=== PATIENT | female | born 1935 | race Caucasian/White ===

== ENCOUNTER → 2017-06-15 | Day surgery (SDC) | payer MEDICARE, BC ==
--- NOTE | 2017-06-11 08:22 | MH ---
cc: XAVI PALAFOX DATE OF ADMISSION: 06/15/2017 ADMISSION DIAGNOSIS Cataract right eye. HISTORY OF PRESENT ILLNESS This 82-year-old white female is coming through [facility] for the purpose of a lens extraction of the right eye with intraocular lens implant under local anesthesia. She has noticed decreasing visual acuity interfering with her daily activities and elected to have the above procedure. Her best corrected visual acuity in room light is 20/40 +2 in the right eye and 20/30 -3 in the left. PAST MEDICAL HISTORY 1. History of osteoarthritis. 2. Bursitis in the left hip. 3. GERD. 4. COPD. 5. Recurrent previous bowel obstructions. 6. Scoliosis of the back. 7. Low hemoglobin. SURGICAL HISTORY 1. Hysterectomy. 2. Back surgery. 3. Left hand repair. 4. D&C. 5. Gallbladder surgery. 6. TIA. 7. Osteomosis. DAILY MEDICATIONS 1. Flovent. 2. Furosemide. 3. Spiriva. 4. Albuterol nebulizer. 5. Tylenol. 6. Lidocaine patch. 7. Prevacid. 8. Cod liver oil. 9. Vitamin E. 10. Calcium. 11. Hormone patch. 12. Benefiber. 13. Regina-Colace p.r.n. 14. Baby aspirin. ALLERGIES CODEINE. PENICILLIN. DEMEROL. ERYTHROMYCIN. DARVON. MORPHINE SULFATE. SOCIAL HISTORY She does not smoke and occasionally drinks wine, a couple glasses per week. FAMILY HISTORY Positive for mother and aunt with cataract and mother with traumatic glaucoma. REVIEW OF SYSTEMS HEAD: Patient has a history of mild to moderate headaches which happen occasionally. The patient denies dizziness or recent head injury. EARS: The patient denies hearing loss, ear pain, discharge or ringing in the ears. NOSE: Patient denies nasal discharge, obstruction or frequent colds. MOUTH AND THROAT: Patient denies soreness of the mouth or tongue, bleeding gums, trouble swallowing, changes in voice or sore throat. NECK: Patient denies neck pain or swelling. She has had some limitation of neck movement from cervical spine problems and had fractures of the neck. CARDIOPULMONARY SYSTEM: From her chronic obstructive pulmonary disease, she has some shortness of breath and sputum production, occasionally some chest pain or wheezing, palpitations and occasionally lightheaded. She denies chronic cough, hemoptysis or light-headedness. GI SYSTEM: She has had multiple surgeries in her abdomen for abdominal discomfort with bowel adhesions. The patient denies poor appetite, nausea, vomiting, abdominal pain, ulcers, hemorrhoids or change in bowel habits. SYSTEM: The patient denies urinary frequency, dysuria, change in urine color. NERVOUS SYSTEM: Patient denies convulsions, vertigo, stroke, numbness or weakness. PHYSICAL EXAMINATION VITAL SIGNS: Blood pressure 100/60, pulse 88, respirations 20. HEAD: Normocephalic, atraumatic. NOSE: Without rhinorrhea. THROAT: Clear. NECK: Supple. CHEST: Clear. HEART: Regular rhythm. ABDOMEN: Without tenderness. EXTREMITIES: With edema in the lower extremities. NEUROLOGIC: Within normal limits. MENTAL STATUS: Within normally within normal limits. EYE EXAMINATION The patient's best corrected visual acuity in room light is 20/40 +2 in the right eye and 20/30 -3 in the left. Visual patricia are full to confrontation testing. Extraocular muscle exam reveals full versions with esophoria at distance and near. Pupils are 2 mm equal, round and reactive to light without afferent defect. Anterior segment examination reveals nuclear sclerotic anterior and posterior cortical and posterior subcapsular cataract changes, greater in the right eye than the left. Intraocular pressures 14 in the right eye and 16 in the left by applanation tonometry. Dilated fundus exam revealed sharp disks with cup-to-disk ratio 0.35 in the right eye and 0.3 in the left. The macula is clear bilaterally. A posterior vitreous detachment is present bilaterally. IMPRESSION 1. Bilateral cataracts right greater than left. 2. Posterior vitreous detachment both eyes. PLAN The plan is for lens extraction of the right eye with intraocular lens implant under local anesthesia through [facility]. The patient has been cleared medically. She has been counseled as to the risks, benefits and alternatives and has elected to proceed. I feel that cataract surgery will improve the quality of life and activities of daily living in this patient. MD ROGELIO Veloz/ZAKI /11:31 AM /8:13 AM
[~2017-06-15] VITALS: Ht 157.5 cm; Wt 38.0 kg
[~2017-06-15] MED LIST: ACETAMINOPHEN 500 MG CPLT ONE; ACETYLCHOLINE CHL OPHT SOLN 1:100 2 ML VIAL ONE; ASPI81TA23 PO; BUTR5DIS T-DERMAL; CHLORHEXIDINE GLUCONATE 2 % 1 PACK (2 CLOTHS) TOPICAL PRN; EPINEPHrine HCL PF/SF (1:1000) 1 MG/ML AMP I-OCULAR ONE; ESTR1DIS2 T-DERMAL; FLUTI110I INH; HYALURONIDASE/LIDOCAINE/BUPIVACAINE 5 ML SYR SCH; IPRASOL INH; LACTATED RINGER'S 1000 ML IV PRN; LEVO50TA4 PO; LIDO1PAD52 TOPICAL; METO10TA PO; METOPROLOL TARTRATE 25 MG TAB PO PRN; PILOCARPINE HCL 2% OPHT SOLN 15 ML BTL ONE; POVIDONE IODINE 5% (ANTISEPSIS KIT) 4 APPLICATIONS EACH NARE PRN; PREV30CA36 PO; PROPARACAINE HCL 0.5% OPHT SOLN 15 ML BTL RIGHT EYE ONE; PROPOFOL 200 MG/20 ML AMP ONE; SODIUM CHLORID 0.9% 500 ML IV PRN; SPIRCAP INH; TETRACAINE 0.5% OPTH SOLN 4 ML BTL ONE; TOBRAMYCIN/DEXAMETHASONE OPTH OINT 3.5 GM TUBE ONE; TYLE325T PO; VISCOAT OPHT IRRIG SOLN 0.75 ML SYRINGE ONE; VITA20003 PO; VITATAB11 PO
[2017-06-15 08:30] VITALS: PULSE 80
[2017-06-15] MEDS: GATIFLOXACIN 0.5% OPHT SOLN 2.5 ML BTL RIGHT EYE SCH ×4 (08:39→08:48)
[2017-06-15] MEDS: DICLOFENAC SOD 0.1% OPHT SOLN 2.5 ML BTL RIGHT EYE SCH ×4 (08:39→08:48)
[2017-06-15] MEDS: PHENYLEPHRINE HCL 2.5% OPTH SOLN 2 ML BTL RIGHT EYE SCH ×4 (08:39→08:48)
[2017-06-15] MEDS: TROPICAMIDE 1% OPHT SOLN 15 ML BTL RIGHT EYE SCH ×4 (08:39→08:48)
[2017-06-15] MEDS: CYCLOPENTOLATE HCL 1% OPHT SOLN 2 ML BTL RIGHT EYE SCH ×4 (08:39→08:48)
[2017-06-15 09:15] VITALS: PULSE 67
[2017-06-15 13:10] VITALS: TEMP 98.2
[2017-06-15 13:45] VITALS: BP 113/66; PULSE 89; RESP 14; O2SAT 96
--- NOTE | 2017-06-15 15:27 | MH ---
cc: XAVI OHARA M.D. DATE OF ADMISSION: 06/15/2017 PREOPERATIVE DIAGNOSIS Cataract, right eye. POSTOPERATIVE DIAGNOSIS Cataract right eye. OPERATION Extracapsular cataract extraction with anterior chamber intraocular lens implant by phacoemulsification with anterior vitrectomy, right eye. SURGEON Xavi Ohaar M.D. ANESTHESIA Local. COMPLICATIONS Posterior capsule rupture. INDICATIONS See history and physical previously dictated. OPERATIVE PROCEDURE The patient had adequate retrobulbar and eyelid blocks administered in the holding area and was brought to the operating room. The right eye was prepped and draped in the usual sterile ophthalmic manner. A lid speculum was inserted in the right eye. A 4-0 silk bridle suture was placed through the conjunctiva near the superior rectus muscle and it was tacked to the drape. A fornix-based conjunctival flap was prepared spanning approximately 5 mm in width. Hemostasis was obtained with wet-field cautery. A 3.5 mm groove was made 1 mm from the limbus and dissected up to the limbus in the form of a scleral pocket incision. A stab incision was then made at the 2 o'clock position. Viscoelastic was injected into the anterior chamber. The anterior chamber was entered with a 2.75 mm keratome through the scleral pocket incision. A 360 degree continuous curvilinear capsulorrhexis was then performed. Hydrodissection was utilized to divide the nucleus into inner and outer components and to separate the cortex from the capsule. Phacoemulsification was then utilized to remove the nucleus. During removal of the nucleus a posterior capsular rupture was noticed. Much of the nucleus was still present. It was elected to perform an anterior vitrectomy at this time. A stab incision was made at the 10:30 o'clock position 3.5 mm from the limbus with a 23-gauge MVR blade for a pars plana approach to the vitrectomy. Then a two-port vitrectomy was performed with the irrigation through the sideport incision and the vitrectomy through the pars plana site. Removal of the rest of the lens material was then attempted of the anterior cataract site but some of the nuclear material found its way through the posterior capsular tear into the vitreous cavity. The rest of the cortex was removed manually. Viscoat was injected and additional vitrectomy was performed. Following this cleanup there did not appear to be enough capsular support for a posterior chamber lens so it was elected to utilize an anterior chamber lens in this case. Miochol E was injected to bring the pupil down in size. An 8-0 Vicryl suture closed the vitrectomy port site. Then a 6 mm keratome blade was used to enlarge the cataract incision from 2.75 to 6 mm. A peripheral iridectomy was performed superiorly. Then the anterior chamber lens was prepared for insertion. The lens utilized was a [employer] model [id number] with a power of +18.5 diopters. The lens was inserted across the anterior chamber and the haptics were placed in the angle. Then the proximal haptics were placed in the angle and the lens was rotated to a horizontal position. Additional Miochol E was instilled to bring the pupil down and the wound was closed with interrupted 10-0 nylon sutures. Some of the knots were buried on the corneal side. Then following checking the wound for leaks, and there were none, the conjunctiva was brought down over the wound and closed with cautery. Pilocarpine 2% eye drops were instilled topically. The lid speculum was removed. TobraDex ophthalmic ointment was applied. The eye was double-patched and shielded. The patient tolerated the procedure well and left the Operating Room in satisfactory condition. MD ROGELIO Veloz/MARILEE /2:41 PM /3:13 PM
== END | disposition home or self-care (01) ==
LOC: PHSDC 07:53
PROVIDERS: ATTEND Ophthalmology
DX: H25.811 Combined forms of age-related cataract, right eye (principal); H59.88 Other intraoperative complications of eye and adnexa, not elsewhere classified; H43.813 Vitreous degeneration, bilateral; J44.9 Chronic obstructive pulmonary disease, unspecified; K21.9 Gastro-esophageal reflux disease without esophagitis; M41.9 Scoliosis, unspecified; D64.9 Anemia, unspecified
CPT/HCPCS: 00142; 66984; 67005; J0171; J7040; V2630

== ENCOUNTER 2017-09-30 15:50 | Inpatient (IN) | payer MEDICARE, BC ==
[2017-09-30] VITALS (7 sets, daily range): BP systolic 110–132; BP diastolic 53–67; PULSE 108–119; RESP 16–20; TEMP 97.5–98.5; O2SAT 97–99
[~2017-09-30] VITALS: Ht 157.5 cm; Wt 42.8 kg
[~2017-09-30 15:50] MED LIST changes: -ACETAMINOPHEN 500 MG CPLT ONE; -ACETYLCHOLINE CHL OPHT SOLN 1:100 2 ML VIAL ONE; -BUTR5DIS T-DERMAL; -CHLORHEXIDINE GLUCONATE 2 % 1 PACK (2 CLOTHS) TOPICAL PRN; -EPINEPHrine HCL PF/SF (1:1000) 1 MG/ML AMP I-OCULAR ONE; -HYALURONIDASE/LIDOCAINE/BUPIVACAINE 5 ML SYR SCH; -LACTATED RINGER'S 1000 ML IV PRN; -METOPROLOL TARTRATE 25 MG TAB PO PRN; -PILOCARPINE HCL 2% OPHT SOLN 15 ML BTL ONE; -POVIDONE IODINE 5% (ANTISEPSIS KIT) 4 APPLICATIONS EACH NARE PRN; -PROPARACAINE HCL 0.5% OPHT SOLN 15 ML BTL RIGHT EYE ONE; -PROPOFOL 200 MG/20 ML AMP ONE; -SODIUM CHLORID 0.9% 500 ML IV PRN; -TETRACAINE 0.5% OPTH SOLN 4 ML BTL ONE; -TOBRAMYCIN/DEXAMETHASONE OPTH OINT 3.5 GM TUBE ONE; -VISCOAT OPHT IRRIG SOLN 0.75 ML SYRINGE ONE
[2017-09-30] MEDS ORDERED: SODIUM CHLORIDE 0.9% FLUSH 10 ML FLUSH IVF PRN (17:45)
[2017-09-30] MEDS ORDERED: methylPREDNISolone SOD SUCC 125 MG/2 ML VIAL IV PUSH ONE (17:45)
[2017-09-30] MEDS: RESP: ALBUTEROL 2.5 MG/IPRATROPIUM 0.5 MG NEB (SCH) INH ×2 (18:06→21:54)
[2017-09-30 18:37] LABS: CHLORIDE 98 MEQ/L (98-107); SODIUM (NA) 131 MEQ/L (136-145)
--- NOTE | 2017-09-30 18:37 | RADRPT ---
EXAM DATE/TIME: 09/30/2017 17:40 [place] COMPARISON: No previous studies available for comparison. INDICATIONS : Shortness of breath MEDICAL HISTORY : Chronic obstructive pulmonary disease. SURGICAL HISTORY : None. ENCOUNTER: Initial ACUITY: 1 month PAIN SCORE: 0/10 LOCATION: Bilateral chest FINDINGS: Prior studies are not available for comparison. Apical pleural calcifications and thickening. Interst itial prominence present lungs, probably mild fibrosis and postinflammatory changes. Heart size upper limits of normal in scoliosis with a left lateral listhesis of T12 on L1. CONCLUSION: 1. No focal infiltrate. Interstitial changes in the lungs that could represent some mild fibrosis or postinflammatory changes. Advanced degenerative change of the thoracolumbar junction with a left late ral listhesis of T12 on L1. Juan Buck MD on September 30, 2017 at 18:32 Board Certified Radiologist. This report was verified electronically.
[2017-09-30 18:40] LABS: CALCIUM 8.1 MG/DL (8.5-10.1)
[2017-09-30 18:41] LABS: BLOOD UREA NITROGEN 18 MG/DL (7-18); GLUCOSE,RANDOM 99 MG/DL (74-106)
[2017-09-30 18:44] LABS: CREATININE 0.51 MG/DL (0.50-1.00); GLOMERULAR FILTRATION RATE 116 ML/MIN (>89)
[2017-09-30 18:48] LABS: TROPONIN I LESS THAN 0.02 NG/ML (0.02-0.05)
--- NOTE | 2017-09-30 19:01 | PD ---
HPI Chief Complaint: Respiratory Distress Time Seen by Provider: 17:29 Travel History International Travel<30 days: No Contact w/Intl Traveler<30days: No Traveled to known affect area: No History of Present Illness HPI Patient's 82 years old and complains of shortness of breath. She has emphysema and reports chronic dyspnea however it has been worse lately. She reports recently finishing a couple courses of antibiotics for pneumonia evidently and despite that has not had significant improvement. She reports today walking about 100 feet or so becoming so dyspneic she had to stop. She's had no chest pain. She reports occasionally nebulizer treatments or helpful at home. She denies fever. PFSH Past Medical History Anemia: Yes Arthritis: Yes Asthma: Yes Autoimmune Disease: No Blood Disorders: Yes (ANEMIA) Anxiety: No Depression: No Heart Rhythm Problems: No Cancer: No Cardiovascular Problems: Yes (SOB;CP;PALPITATIONS (PVC'S)) High Cholesterol: No Chemotherapy: No Chest Pain: No Congestive Heart Failure: No COPD: Yes Cerebrovascular Accident: No Diabetes: No Diminished Hearing: No Diverticulitis: Yes Endocrine: Yes Gastrointestinal Disorders: Yes (SMALL BOWEL OBSTRUCTIONS) GERD: Yes Glaucoma: No Genitourinary: No Headaches: No Hepatitis: No Hiatal Hernia: No Hypertension: No Immune Disorder: No Kidney Stones: No Musculoskeletal: Yes (SCOLIOSIS;OSTEOARTHRITIS;BURSITIS LEFT HIP) Neurologic: Yes (TIA) Psychiatric: No Reproductive: No Respiratory: Yes Immunizations Current: Yes Migraines: No Myocardial Infarction: No Pneumonia: Yes Radiation Therapy: No Renal Failure: No Seizures: No Sickle Cell Disease: No Sleep Apnea: No Thyroid Disease: Yes (HYPO) Ulcer: No PNEUMOCCOCAL Vaccine (Year): 2007 Menopausal: Yes : 2 Para: 2 Past Surgical History Abdominal Surgery: Yes (BOWEL RESECTION, ODILON;CHOLECYSTECTOMY) AICD: No Appendectomy: No Arteriovenous Shunt: No Body Medical Devices: SCREW L INDEX FINGER / PLATE IN CERVICAL SPINE Cardiac Surgery: No Cholecystectomy: Yes Ear Surgery: No Endocrine Surgery: No Eye Surgery: No Genitourinary Surgery: No Gynecologic Surgery: Yes (HYSTERECTOMY;D AND C) Hysterectomy: Yes Insulin Pump: No Joint Replacement: No Oral Surgery: Yes Pacemaker: No Thoracic Surgery: No Tonsillectomy: Yes Other Surgery: Yes (5 SURGERIES) Social History Alcohol Use: Yes (OCC) Tobacco Use: No Substance Use: No Allergies-Medications (Allergen,Severity, Reaction): Coded Allergies: codeine (Unverified Allergy, Severe, NAUSEA,VOMITING, 09/30/17) doxycycline (Unverified Allergy, Severe, RASH, 09/30/17) erythromycin base (Unverified Allergy, Severe, RASH AND NAUSEA, 09/30/17) meperidine (Unverified Allergy, Severe, RASH,HALLUCINATIONS,NAUSEA, VOMITING, 09/30/17) minocycline (Unverified Allergy, Severe, RASH, 09/30/17) morphine (Unverified Allergy, Severe, SEVERE ITCHING, 09/30/17) tigecycline (Unverified Allergy, Severe, RASH, 09/30/17) penicillin G (Unverified Allergy, Mild, RASH, 09/30/17) propoxyphene (Unverified Allergy, Mild, RASH, 09/30/17) Reported Meds & Prescriptions Reported Meds & Active Scripts Active Reported Lasix (Furosemide) 20 Mg Tab 20 Mg PO DAILY Tylenol (Acetaminophen) 325 Mg Tab 325 Mg PO ONCE Vitamin B Complex (B-Complex Vitamins) 1 Tab PO DAILY Vitamin D (Cholecalciferol) 2,000 Unit Tab 1,000 Mg PO DAILY Duoneb (Ipratropium-Albuterol Neb) 0.5-2.5 Mg/3 Ml Neb 1 Nebule INH BID Levothyroxine (Levothyroxine Sodium) 50 Mcg Tab 50 Mcg PO DAILY Lidocaine Patch 12 HR (Lidocaine) 5 % Patch 1 Patch TOPICAL DAILY PRN Remove patch after 12 hours Estradiol Patch 84 HR (Estradiol) 0.1 Mg/24 Hr Patch 1 Patch T-DERMAL 2XWEEK Remove old patch and discard when new patch being placed.Change same days each week. Flovent Hfa 12 GM Inh (Fluticasone Propionate) 110 Mcg/Act Inh 1 Puff INH DAILY Prevacid (Lansoprazole) 30 Mg Capdr 30 Mg PO DAILY Spiriva Handihaler (Tiotropium Inh) 18 Mcg Cap 18 Mcg INH DAILY 1 capsule = 18 mcg Aspirin EC (Aspirin) 81 Mg Tabdr 81 Mg PO DAILY Review of Systems Except as stated in HPI: all other systems reviewed are Neg General / Constitutional: No: Fever Physical Exam Narrative GENERAL: 82-year-old female pleasant well-nourished well-developed Vital Signs Date Time Temp Pulse Resp B/P (MAP) Pulse Ox O2 Delivery O2 Flow Rate FiO2 09/30/17 18:08 98 Nasal Cannula 2.00 09/30/17 17:35 96 Nasal Cannula 2.00 09/30/17 17:35 Nasal Cannula 09/30/17 17:35 95 Nasal Cannula 2.00 09/30/17 16:41 98.5 108 16 112/63 (79) 97 SKIN: Warm and dry. HEAD: Atraumatic. Normocephalic. EYES: Pupils equal and round. No scleral icterus. No injection or drainage. ENT: No nasal bleeding or discharge. Mucous membranes pink and moist. NECK: Trachea midline. No JVD. CARDIOVASCULAR: Tachycardia. Regular rhythm. RESPIRATORY: No accessory muscle use. Clear to auscultation. Breath sounds equal bilaterally. GASTROINTESTINAL: Abdomen soft, non-tender, nondistended. Hepatic and splenic margins not palpable. MUSCULOSKELETAL: Extremities without clubbing, cyanosis, or edema. No obvious deformities. NEUROLOGICAL: Awake and alert. No obvious cranial nerve deficits. Motor grossly within normal limits. Five out of 5 muscle strength in the arms and legs. Normal speech. PSYCHIATRIC: Appropriate mood and affect; insight and judgment normal. Data Data Last Documented VS Vital Signs Date Time Temp Pulse Resp B/P (MAP) Pulse Ox O2 Delivery O2 Flow Rate FiO2 09/30/17 19:00 118 20 122/53 (76) 97 2.00 09/30/17 18:08 Nasal Cannula 09/30/17 16:41 98.5 Orders Orders Complete Blood Count With Diff (09/30/17 17:35) Basic Metabolic Panel (Bmp) (09/30/17 17:35) B-Type Natriuretic Peptide (09/30/17 17:35) D-Dimer (09/30/17 17:35) Act Partial Throm Time (Ptt) (09/30/17 17:35) Prothrombin Time / Inr (Pt) (09/30/17 17:35) Ckmb (Isoenzyme) Profile (09/30/17 17:35) Troponin I (09/30/17 17:35) Urinalysis - C+S If Indicated (09/30/17 17:35) Influenzae A/B Antigen (09/30/17 17:35) Blood Culture (09/30/17 17:35) Iv Access Insert/Monitor (09/30/17 17:35) Electrocardiogram (09/30/17 17:35) Ecg Monitoring (09/30/17 17:35) Oximetry (09/30/17 17:35) Oxygen Administration (09/30/17 17:35) Chest, Single Ap (09/30/17 17:35) Sodium Chloride 0.9% Flush (Ns Flush) (09/30/17 17:45) Methylprednisolone So Succ Inj (Solumedr (09/30/17 17:45) Albuterol-Ipratropium Neb (Duoneb Neb) (09/30/17 17:45) Admit Order (Ed Use Only) (09/30/17 ) Right Of Way Appraiser / Telemetry LIDIA.Q8H (09/30/17 19:32) Activity Oob With Assistance (09/30/17 19:32) Notify Dr: Other (09/30/17 19:32) Ct Pulmonary Angiogram (09/30/17 ) Labs Laboratory Tests Test 09/30/17 18:06 09/30/17 19:10 Prothrombin Time 10.5 SEC Prothromb Time International Ratio 1.0 RATIO Activated Partial Thromboplast Time 26.1 SEC D-Dimer Quantitative (PE/DVT) 0.94 MG/L FEU Blood Urea Nitrogen 18 MG/DL Creatinine 0.51 MG/DL Random Glucose 99 MG/DL Calcium Level 8.1 MG/DL Sodium Level 131 MEQ/L Potassium Level 3.8 MEQ/L Chloride Level 98 MEQ/L Carbon Dioxide Level 24.0 MEQ/L Anion Gap 9 MEQ/L Estimat Glomerular Filtration Rate 116 ML/MIN Total Creatine Kinase 27 U/L Troponin I LESS THAN 0.02 NG/ML B-Type Natriuretic Peptide 105 PG/ML White Blood Count 12.9 TH/MM3 Red Blood Count 3.84 MIL/MM3 Hemoglobin 11.9 GM/DL Hematocrit 36.2 % Mean Corpuscular Volume 94.5 FL Mean Corpuscular Hemoglobin 31.1 PG Mean Corpuscular Hemoglobin Concent 32.9 % Red Cell Distribution Width 13.4 % Platelet Count 346 TH/MM3 Mean Platelet Volume 6.6 FL Neutrophils (%) (Auto) 77.9 % Lymphocytes (%) (Auto) 13.1 % Monocytes (%) (Auto) 8.1 % Eosinophils (%) (Auto) 0.2 % Basophils (%) (Auto) 0.7 % Neutrophils # (Auto) 10.1 TH/MM3 Lymphocytes # (Auto) 1.7 TH/MM3 Monocytes # (Auto) 1.0 TH/MM3 Eosinophils # (Auto) 0.0 TH/MM3 Basophils # (Auto) 0.1 TH/MM3 CBC Comment AUTO DIFF Differential Comment AUTO DIFF CONFIRMED MDM Medical Decision Making Medical Screen Exam Complete: Yes Emergency Medical Condition: Yes Medical Record Reviewed: Yes Differential Diagnosis COPD, pneumonia, bronchitis, anemia, Narrative Course EKG shows a sinus rhythm with a rate of 93 without ischemic injury pattern Vital Signs Date Time Temp Pulse Resp B/P (MAP) Pulse Ox O2 Delivery O2 Flow Rate FiO2 09/30/17 19:00 118 20 122/53 (76) 97 2.00 09/30/17 18:08 98 Nasal Cannula 2.00 09/30/17 17:35 96 Nasal Cannula 2.00 09/30/17 17:35 Nasal Cannula 09/30/17 17:35 95 Nasal Cannula 2.00 09/30/17 16:41 98.5 108 16 112/63 (79) 97 Last Impressions Chest X-Ray 09/30/17 1735 Signed Impressions: Service Date/Time: Saturday, September 30, 2017 17:40 - CONCLUSION: 1. No focal infiltrate. Interstitial changes in the lungs that could represent some mild fibrosis or postinflammatory changes. Advanced degenerative change of the thoracolumbar junction with a left lateral listhesis of T12 on L1. Juan Buck MD CT Angiography 09/30/17 0000 Signed Impressions: Service Date/Time: Saturday, September 30, 2017 21:33 - CONCLUSION: 1. Patchy and nodular airspace consolidation in the lungs with extensive peribronchial thickening, mild cylindrical bronchiectasis and distal airway disease. Differential diagnosis is atypical mycobacterial disease and chronic aspiration. 2. Negative for pulmonary embolus. Juan Buck MD d/w Dr Jordan at 7:00pm to follow up labs and disposition appropriately Arron Galaviz MD Sep 30, 2017 19:00
[2017-09-30 19:05] LABS: D-DIMER 0.94 MG/L FEU (0.00-0.50); PROTHROMBIN TIME - PATIENT 10.5 SEC (9.8-11.6)
--- NOTE | 2017-09-30 19:20 | PD ---
Physical Exam Date Seen by Provider: Sep 30, 2017 Time Seen by Provider: 19:20 Narrative Accepted in transfer of care from Dr. Galaviz Data Data Last Documented VS Vital Signs Date Time Temp Pulse Resp B/P (MAP) Pulse Ox O2 Delivery O2 Flow Rate FiO2 09/30/17 18:08 98 Nasal Cannula 2.00 09/30/17 16:41 98.5 108 16 112/63 (79) Orders Orders Complete Blood Count With Diff (09/30/17 17:35) Basic Metabolic Panel (Bmp) (09/30/17 17:35) B-Type Natriuretic Peptide (09/30/17 17:35) D-Dimer (09/30/17 17:35) Act Partial Throm Time (Ptt) (09/30/17 17:35) Prothrombin Time / Inr (Pt) (09/30/17 17:35) Ckmb (Isoenzyme) Profile (09/30/17 17:35) Troponin I (09/30/17 17:35) Urinalysis - C+S If Indicated (09/30/17 17:35) Influenzae A/B Antigen (09/30/17 17:35) Blood Culture (09/30/17 17:35) Iv Access Insert/Monitor (09/30/17 17:35) Electrocardiogram (09/30/17 17:35) Ecg Monitoring (09/30/17 17:35) Oximetry (09/30/17 17:35) Oxygen Administration (09/30/17 17:35) Chest, Single Ap (09/30/17 17:35) Sodium Chloride 0.9% Flush (Ns Flush) (09/30/17 17:45) Methylprednisolone So Succ Inj (Solumedr (09/30/17 17:45) Albuterol-Ipratropium Neb (Duoneb Neb) (09/30/17 17:45) Admit Order (Ed Use Only) (09/30/17 ) Drop Wire Hanger / Telemetry LIDIA.Q8H (09/30/17 19:32) Activity Oob With Assistance (09/30/17 19:32) Notify Dr: Other (09/30/17 19:32) Ct Pulmonary Angiogram (09/30/17 ) Labs Laboratory Tests Test 09/30/17 18:06 09/30/17 19:10 Prothrombin Time 10.5 SEC Prothromb Time International Ratio 1.0 RATIO Activated Partial Thromboplast Time 26.1 SEC D-Dimer Quantitative (PE/DVT) 0.94 MG/L FEU Blood Urea Nitrogen 18 MG/DL Creatinine 0.51 MG/DL Random Glucose 99 MG/DL Calcium Level 8.1 MG/DL Sodium Level 131 MEQ/L Potassium Level 3.8 MEQ/L Chloride Level 98 MEQ/L Carbon Dioxide Level 24.0 MEQ/L Anion Gap 9 MEQ/L Estimat Glomerular Filtration Rate 116 ML/MIN Total Creatine Kinase 27 U/L Troponin I LESS THAN 0.02 NG/ML B-Type Natriuretic Peptide 105 PG/ML White Blood Count 12.9 TH/MM3 Red Blood Count 3.84 MIL/MM3 Hemoglobin 11.9 GM/DL Hematocrit 36.2 % Mean Corpuscular Volume 94.5 FL Mean Corpuscular Hemoglobin 31.1 PG Mean Corpuscular Hemoglobin Concent 32.9 % Red Cell Distribution Width 13.4 % Platelet Count 346 TH/MM3 Mean Platelet Volume 6.6 FL Neutrophils (%) (Auto) 77.9 % Lymphocytes (%) (Auto) 13.1 % Monocytes (%) (Auto) 8.1 % Eosinophils (%) (Auto) 0.2 % Basophils (%) (Auto) 0.7 % Neutrophils # (Auto) 10.1 TH/MM3 Lymphocytes # (Auto) 1.7 TH/MM3 Monocytes # (Auto) 1.0 TH/MM3 Eosinophils # (Auto) 0.0 TH/MM3 Basophils # (Auto) 0.1 TH/MM3 CBC Comment AUTO DIFF MDM Medical Record Reviewed: Yes Supervised Visit with SANDIP: No Interpretation(s) influenza: (A+) D-dimer: 0.92, elevated Last Impressions Chest X-Ray 09/30/17 7084 Signed Impressions: Service Date/Time: Saturday, September 30, 2017 17:40 - CONCLUSION: 1. No focal infiltrate. Interstitial changes in the lungs that could represent some mild fibrosis or postinflammatory changes. Advanced degenerative change of the thoracolumbar junction with a left lateral listhesis of T12 on L1. Juan Buck MD CBC & BMP Diagram 09/30/17 18:06 Calcium Level 8.1 L 09/30/17 19:10 Vital Signs Date Time Temp Pulse Resp B/P (MAP) Pulse Ox O2 Delivery O2 Flow Rate FiO2 09/30/17 18:08 98 Nasal Cannula 2.00 09/30/17 17:35 96 Nasal Cannula 2.00 09/30/17 17:35 Nasal Cannula 09/30/17 17:35 95 Nasal Cannula 2.00 09/30/17 16:41 98.5 108 16 112/63 (79) 97 ekg: sinus rhythm rate 93 right ventricular conduction delay no ST elevation nonspecific ST depression troponin i: less than 0.02, not elevated Differential Diagnosis Accepted in transfer of care from Dr. Galaviz; please refer to his dictation Narrative Course Accepted in transfer of care from Dr. Galaviz for follow up on labs and disposition Patient identified to have elevated d-dimer of 0.92, will proceed with CT pulmonary angiogram to evaluate for embolism in view of patient's chronic COPD and bronchiectatic changes with worsening dyspnea beyond her baseline. Influenza A positive Dr. Frye is at bedside and will accept patient for admission to his service will place on telemetry is aware that CT pulmonary injury gram has been ordered. Patient with family at bedside aware of admission plan. Physician Communication Physician Communication discussed with Dr Fyre at bedside Diagnosis Primary Impression: Dyspnea Additional Impression: COPD (chronic obstructive pulmonary disease) Admitting Information Admitting Physician Requests: Admit Claudia Jordan MD Sep 30, 2017 19:20
[2017-09-30 19:32] LABS: AUTOMATED NEUTROPHIL # 10.1 TH/MM3 (1.8-7.7); BASOPHIL # 0.1 TH/MM3 (0-0.2); BASOPHIL % 0.7 % (0.0-2.0); EOSINOPHIL % 0.2 % (0.0-4.0); HEMATOCRIT 36.2 % (35.0-46.0); HEMOGLOBIN 11.9 GM/DL (11.6-15.3); LYMPH % 13.1 % (9.0-44.0); LYMPHOCYTE # 1.7 TH/MM3 (1.0-4.8); MEAN CELL VOLUME 94.5 FL (80.0-100.0); MEAN CORPUSCULAR HEMOGLOBIN 31.1 PG (27.0-34.0); MEAN CORPUSCULAR HGB CONC 32.9 % (32.0-36.0); MEAN PLATELET VOLUME 6.6 FL (7.0-11.0); MONO % 8.1 % (0.0-8.0); NEUT % 77.9 % (16.0-70.0); PLATELET COUNT 346 TH/MM3 (150-450); RED BLOOD COUNT 3.84 MIL/MM3 (4.00-5.30); RED CELL DISTRIBUTION WIDTH 13.4 % (11.6-17.2); WHITE BLOOD COUNT 12.9 TH/MM3 (4.0-11.0)
[2017-09-30] MEDS ORDERED: FURO1TAB62 PO (19:35)
[2017-09-30] MEDS ORDERED: RESP: ALBUTEROL 2.5 MG/3 ML NEB (PRN) INH (19:45)
[2017-09-30] MEDS ORDERED: SODIUM CHLORIDE 0.9% FLUSH 10 ML FLUSH IV FLUSH PRN (19:45)
[2017-09-30] MEDS ORDERED: SODIUM CHLOR 0.9% 1000 ML INJ 1,000 ML IV SCH (20:00)
[2017-09-30] MEDS: ENOXAPARIN SODIUM 30 MG/0.3 ML SYRINGE SQ SCH (20:50)
[2017-09-30] MEDS: cefTAZidime 1,000 MG/NS 100 ML MINIBAG IV SCH ×2 (20:51)
[2017-09-30] MEDS: AZITHROMYCIN INJ 500 MG in SODIUM CHLOR 0.9% 250 ML INJ 250 ML IV SCH (20:52)
[2017-09-30] MEDS: SODIUM CHLORIDE 0.9% FLUSH 10 ML FLUSH IV FLUSH SCH (21:00)
[2017-09-30 21:10] LABS: BILIRUBIN, URINE NEG (NEG); BLOOD, URINE TRACE (NEG); GLUCOSE,URINE NEG (NEG); KETONE, URINE TRACE mg/dL (NEG); NITRITE,URINE NEG (NEG); URINE COLOR YELLOW (YELLW/STRAW); URINE LEUKOCYTE ESTERASE TRACE (NEG)
[2017-09-30 21:22] LABS: BACTERIA, URINE FEW /hpf; RBC, URINE 0-3 /hpf (0-3); SQUAMOUS EPITHELIAL CELL URINE > 8 /hpf (0-5); WBC, URINE 0-2 /hpf (0-5)
[2017-09-30] MEDS ORDERED: IOHEXOL 350 MG/ML 10 ML VIAL (for RAD DIAG) IVCONTRAST ONE (21:46)
--- NOTE | 2017-09-30 21:46 | EKG ---
Date Performed: 09/30/2017 Time Performed: 18:14:41 PTAGE: 82 years EKG: Sinus rhythm WITH OCCASIONAL Premature ventricular contractions POSSIBLE LEFT ATRIAL ENLARGEMENT POSSIBLE RIGHT V ENTRICULAR CONDUCTION DELAY ABNORMAL ECG PREVIOUS TRACompared to prior electrocardiogram, Premature v entricular contractions are now present CIN09/08/2013 00.56 DOCTOR: Yaya Juarez Interpretating Date/Time 09/30/2017 21:44:00
--- NOTE | 2017-09-30 22:27 | RADRPT ---
EXAM DATE/TIME: 09/30/2017 21:33 [place] COMPARISON: No previous studies available for comparison. INDICATIONS : Cough, shortness of breath. IV CONTRAST: 65 cc Omnipaque 350 (iohexol) IV RADIATION DOSE: 5.86 CTDIvol (mGy) MEDICAL HISTORY : Chronic obstructive pulmonary disease. Asthma. SURGICAL HISTORY : None. ENCOUNTER: Initial ACUITY: 2 months PAIN SCALE: 0/10 LOCATION: chest TECHNIQUE: Volumetric scanning of the chest was performed using a pulmonary embolism protocol MIP images were re constructed. Using automated exposure control and adjustment of the mA and/or kV according to patien t size, radiation dose was kept as low as reasonably achievable to obtain optimal diagnostic quality images. DICOM format image data is available electronically for review and comparison. Follow-up recommendations for detected pulmonary nodules are based at a minimum on nodule size and pa tient risk factors according to Fleischner Society Guidelines. FINDINGS: No filling defects to suggest pulmonary embolic disease. There is patchy and nodular airspace consolidation in both lungs, worse on the right side associated with peribronchial thickening, cylindrical bronchiectasis and extensive mucoid plugging of the subseg mental airways and distal airways with tree-in-bud pattern and mildly enlarged hilar lymph nodes. Sma ll pericardial effusion. No significant pleural effusion. No acute findings in the upper abdomen. CONCLUSION: 1. Patchy and nodular airspace consolidation in the lungs with extensive peribronchial thickening, mi ld cylindrical bronchiectasis and distal airway disease. Differential diagnosis is atypical mycobacte rial disease and chronic aspiration. 2. Negative for pulmonary embolus. Juan Buck MD on September 30, 2017 at 22:20 Board Certified Radiologist. This report was verified electronically.
[2017-09-30] MEDS: methylPREDNISolone SOD SUCC 125 MG/2 ML VIAL IV PUSH SCH (23:50)
[2017-10-01] VITALS (9 sets, daily range): BP systolic 122–137; BP diastolic 59–65; PULSE 92–116; RESP 20; TEMP 96.3–97.8; O2SAT 94–99
[2017-10-01] MEDS: RESP: ALBUTEROL 2.5 MG/IPRATROPIUM 0.5 MG NEB (SCH) INH ×4 (03:35→20:57)
[2017-10-01] MEDS: LEVOTHYROXINE SODIUM 50 MCG TAB PO SCH (06:07)
[2017-10-01] MEDS: methylPREDNISolone SOD SUCC 125 MG/2 ML VIAL IV PUSH SCH ×4 (06:07→23:14)
--- NOTE | 2017-10-01 09:05 | HHI.PR ---
Subjective Remarks Still complains of shortness of breath. Oxygen in place. Oxygen saturations good with current oxygen settings. Cough has decreased. Patient has been up to bedside commode. Appetite is slightly better this morning. Current Medications Medications (Trade) Dose Ordered Sig/Eboni Route Start Time Stop Time Status Last Admin (NS Flush) 2 ml UNSCH PRN IVF 09/30/17 17:45 09/30/17 18:25 Sodium Chloride 1,000 ml @ 75 mls/hr [id number] IV 09/30/17 20:00 09/30/17 20:00 (NS Flush) 2 ml BID IV FLUSH 09/30/17 21:00 (NS Flush) 2 ml UNSCH PRN IV FLUSH 09/30/17 19:45 (Duoneb Neb) 1 ampule Q6HR NEB INH 09/30/17 22:00 10/01/17 03:35 (Albuterol Neb) 2.5 mg Q2HR NEB PRN INH 09/30/17 19:45 (SoluMEDROL INJ) 60 mg Q6H IV PUSH 10/01/17 00:00 10/01/17 06:07 Azithromycin 500 mg/Sodium Chloride 250 ml @ 250 mls/hr Q24H IV 09/30/17 20:00 09/30/17 20:52 (Lovenox Inj) 30 mg Q24H SQ 09/30/17 20:00 09/30/17 20:50 (Ecotrin Ec) 81 mg DAILY PO 10/01/17 09:00 (Lasix) 20 mg DAILY PO 10/01/17 09:00 (Synthroid) 50 mcg DAILY@0600 PO 10/01/17 06:00 10/01/17 06:07 (Protonix) 40 mg DAILY PO 10/01/17 09:00 (Lidoderm 5% Patch.12 Hr) 1 patch DAILY T-DERMAL 10/01/17 09:00 (Tylenol) 1,000 mg Q6H PRN PO 09/30/17 20:00 Miscellaneous Information 1 HS T-DERMAL 10/01/17 21:00 Ceftazidime 1000 mg/Sodium Chloride 100 ml @ 200 mls/hr Q12H IV 09/30/17 22:00 09/30/17 20:51 Objective Vital Signs Date Time Temp Pulse Resp B/P (MAP) Pulse Ox O2 Delivery O2 Flow Rate FiO2 10/01/17 04:00 96.4 104 20 122/59 (80) 98 10/01/17 00:07 116 09/30/17 23:00 99 Nasal Cannula 2.00 09/30/17 23:00 97.5 119 20 110/58 (75) 99 09/30/17 22:32 97.9 118 18 130/58 (82) 97 Nasal Cannula 2.00 09/30/17 22:32 118 18 130/58 (82) 97 Nasal Cannula 2.00 09/30/17 21:55 98 Nasal Cannula 2.00 09/30/17 21:00 112 20 132/67 (88) 98 09/30/17 20:00 118 20 97 Nasal Cannula 2.00 09/30/17 19:00 118 20 122/53 (76) 97 2.00 09/30/17 18:08 98 Nasal Cannula 2.00 09/30/17 17:35 96 Nasal Cannula 2.00 09/30/17 17:35 Nasal Cannula 09/30/17 17:35 95 Nasal Cannula 2.00 09/30/17 16:41 98.5 108 16 112/63 (79) 97 I/O 09/30/17 09/30/17 09/30/17 10/01/17 10/01/17 10/01/17 07:00 15:00 23:00 07:00 15:00 23:00 Intake Total 350 ml 627 ml Output Total 150 ml Balance 350 ml 477 ml Intake Oral 120 ml IV Total 350 ml 507 ml Output Urine Total 150 ml # Voids 2 # Bowel Movements 0 Cardiovascular: Regular rate and rhythm Lungs: Slightly improved air exchange bilaterally with end expiratory wheezes on left, scattered rhonchi Abdomen: Soft, nontender nondistended Extremities: Trace edema distal lower legs and ankles. Result Diagram: 09/30/17 1910 09/30/17 1806 Imaging Last 48 hours Impressions Chest X-Ray 09/30/17 1735 Signed Impressions: Service Date/Time: Saturday, September 30, 2017 17:40 - CONCLUSION: 1. No focal infiltrate. Interstitial changes in the lungs that could represent some mild fibrosis or postinflammatory changes. Advanced degenerative change of the thoracolumbar junction with a left lateral listhesis of T12 on L1. Juan Buck MD CT Angiography 09/30/17 0000 Signed Impressions: Service Date/Time: Saturday, September 30, 2017 21:33 - CONCLUSION: 1. Patchy and nodular airspace consolidation in the lungs with extensive peribronchial thickening, mild cylindrical bronchiectasis and distal airway disease. Differential diagnosis is atypical mycobacterial disease and chronic aspiration. 2. Negative for pulmonary embolus. Juan Buck MD Assessment and Plan Problem List: (1) Bronchiectasis with acute exacerbation ICD Codes: J47.1 - Bronchiectasis with (acute) exacerbation Status: Acute Plan: Continue with IV antibiotics, IV steroids and nebulizer treatments. Wean oxygen as tolerated. (2) Scoliosis of thoracolumbar spine ICD Codes: M41.9 - Scoliosis, unspecified Plan: Patient will wear back brace when out of bed. She declines any pain medication other than Tylenol. (3) Hypothyroidism ICD Codes: E03.9 - Hypothyroidism, unspecified Status: Chronic Plan: Continue levothyroxine (4) GERD (gastroesophageal reflux disease) ICD Codes: K21.9 - Gastro-esophageal reflux disease without esophagitis Status: Chronic Plan: Continue PPI (5) Weight loss ICD Codes: R63.4 - Abnormal weight loss Status: Chronic Plan: The patient has chronic weight loss but recently with acute illness has lost approximately another 8-10 pounds. We'll add nutritional supplement. Encouraged patient to eat as much as tolerated. Problem Qualifiers (1) Scoliosis of thoracolumbar spine: Qualified Codes: M41.25 - Other idiopathic scoliosis, thoracolumbar region (2) Hypothyroidism: Qualified Codes: E03.9 - Hypothyroidism, unspecified (3) GERD (gastroesophageal reflux disease): Qualified Codes: K21.9 - Gastro-esophageal reflux disease without esophagitis Efrain Frye MD Oct 01, 2017 09:05
--- NOTE | 2017-10-01 09:08 | MH ---
cc: Efrain rFye MD DATE OF ADMISSION: 09/30/2017 ADMITTING DIAGNOSIS: Shortness of breath, exacerbation of bronchiectasis/chronic obstructive pulmonary disease. HISTORY OF PRESENT ILLNESS: This 82-year-old white female well known to the undersigned physician has a long history of COPD and bronchiectasis. She was in her usual state of health until approximately 4 weeks prior to admission, when she developed an upper respiratory infection. At that time, she had a cough, chest congestion and increasing shortness of breath. She was having wheezing, but never had any fevers or chills. She did have some head congestion, nasal congestion and a sore throat. The patient was placed on oral antibiotics, oral steroids and increased nebulizer treatments. She initially seemed to improve, but then she has had a persistent weakness and dyspnea on exertion. She becomes tachypneic with any activity around the house. The patient has not been eating well and her weight is decreasing. She has had a problem with chronic weight loss as a result of her chronic illness and chronic dysphagia. The patient has had a persistent cough, which is producing some sputum at times. She has no orthopnea, PND. She does have lower extremity edema, which is a chronic finding. She has completed 2 courses of steroids, 2 courses of antibiotics and has continued with nebulizer treatments and has failed to have significant improvement. The patient also has become so weak that it is difficult for her to ambulate around her home. On the day of admission, the patient was to be seen in the nursing physician's office, but her daughter called and stated that she was too weak to come to the office, at which point, the patient was instructed to report to this facility for further evaluation and treatment. Her past medical history is significant for COPD, bronchiectasis, generalized osteoarthritis, atherosclerotic heart disease with a 50% LAD, 60% septal mold stamper, 60% ostial first obtuse marginal stenosis by cardiac catheterization in 2006. She has been asymptomatic and has never had any exertional angina. She has a history of shingles in 1996. She has anemia due to iron deficiency and chronic disease. She is currently seeing Hematology, who has given her iron infusions. Her H and H has returned to normal. PAST MEDICAL HISTORY: She has a history of osteoporosis. She has had a history of recurrent small bowel obstructions, but underwent lysis of adhesions several years ago and has had no recurrence since. She has severe thoracic and lumbar scoliosis, which causes persistent daily back pain and limits her activity. She has a history of GERD, hypothyroidism, diverticulosis and history of mycobacterium avium intracellularity diagnosed by her supervisor volunteer services, Dr. Jung Tejeda. She is not being treated with macrolide therapy ongoing due to poor GI tolerance. PAST SURGICAL HISTORY: Includes a left hand surgery in 1994, lumbar laminectomy at L3 in 2000, cervical fusion C3-C6 in 2003, total abdominal hysterectomy with bilateral salpingo-oophorectomy in 2002, small bowel resection due to obstruction with bowel ischemia in 2004, status post cholecystectomy in 1994 and lysis of adhesions surgery 3-4 years ago. CURRENT MEDICATIONS: 1. DuoNebs 1 unit dose 4 times a day as needed. 2. Spiriva 18 mcg 1 inhalation daily. 3. Magnesium oxide 400 mg daily. 4. Furosemide 20 mg daily. 5. Vitamin D 1000 international units daily. 6. B complex 1 tablet daily. 7. Tylenol Arthritis Pain 650 mg 2 tablets twice a day. 8. Lidocaine patch 5%, apply 2 patches to the back for 12 hours each day. 9. Prevacid 30 mg daily. 10. Vivelle-Dot 0.1 mg patch, apply one patch twice a week. 11. Flovent inhaler 110 mcg 1 puff daily. 12. Levothyroxine 50 mcg daily. 13. Prednisone 20 mg daily. 14. Albuterol HFA 2 puffs 4 times a day as needed for shortness of breath or wheezing. FAMILY HISTORY: Noncontributory. SOCIAL HISTORY: She is . She lives with her . She is a retired registered nurse. She does not smoke nor did she ever. She does not consume alcohol. REVIEW OF SYSTEMS: Negative for any recent nausea, vomiting, diarrhea. Her bowels have been moving well. She has had no constipation or abdominal pain. The patient has chronic dysphagia due to hypertrophic bone formation in the cervical spine which causes external compression of the posterior oropharynx. She has had no headaches, visual changes, lateralizing deficits, tremors. She has reported difficulty with ambulation due to generalized weakness. She has chronic back pain and requires use of a walker for ambulation. She has had persistent lower extremity edema, which is a chronic finding, and tenderness in the legs, which also is chronic. She has no claudication. She denies any urinary urgency, frequency, dysuria, hematuria or urinary incontinence. PHYSICAL EXAMINATION: VITAL SIGNS: Upon arrival to the Emergency Department, the blood pressure was 112/63, heart rate 108, respirations 16, temperature 98.5 degrees Fahrenheit, oxygen saturation is 96% on 2 liters per minute per nasal cannula. GENERAL: This is a frail, thin, elderly, white female sitting on the stretcher, currently in no acute distress. HEENT: Pupils are equal, round, reactive to light. Extraocular movements are intact. Sclerae anicteric. Conjunctivae pink. Mouth and throat revealed moist mucous membranes. No erythema or exudates. NECK: Supple, without lymphadenopathy, JVD, bruits or thyromegaly. CARDIOVASCULAR: Regular rate and rhythm with tachycardia, but no murmurs, rubs or gallops. LUNGS: Reveal moderately reduced air exchange bilaterally. There is some opening fibrotic rales bilaterally. End expiratory wheezes noted. No definite rhonchi. There is some retraction of the intercostal muscles with respiration. ABDOMEN: Reveals soft, nontender, nondistended. Bowel sounds present. No masses palpable. AND RECTAL: Were deferred. EXTREMITIES: Reveal 1+ edema of the distal 1/2 of the lower legs, ankles and feet. The legs are cool to the touch, but there is good capillary refill. Pulses intact. No calf tenderness or Homans' sign. SKIN: Warm and dry. NEUROLOGIC: Nonfocal. The patient is A and O x 3. LABORATORY DATA, IMAGING: White blood count 12.9, hemoglobin 11.9, hematocrit 36.2, platelet count was 346,000. White blood count differential showed 77.9 polys, 13.1 lymphocytes, 8.1 monocytes. The basic metabolic profile was significant for a sodium of 131, calcium low at 8.1, but this was not protein corrected. BNP was 105. Troponin was less than 0.02. D-dimer is elevated at 0.94. The INR 1.0. Chest x-ray revealed no focal infiltrate, interstitial change in the lungs that could represent some mild fibrosis or postinflammatory changes. Advanced degenerative change of the thoracolumbar junction with left lateral listhesis of T12 on L1. The patient's nasal aspirate for influenza was positive for influenza A. Blood cultures are pending. IMPRESSION AND PLAN: 1. This 82-year-old white female presents to the Emergency Department with persistent cough and shortness of breath with exertion. She has a known history of chronic obstructive pulmonary disease, bronchiectasis and mycobacterium avium-intracellulare. The patient recently had an upper respiratory infection approximately 3-4 weeks ago and has had persistent respiratory issues since then. She has failed multiple rounds of antibiotics and steroids as an outpatient. The patient has become so weak that she is unable to ambulate around her house. The patient requires inpatient evaluation and treatment. The patient will be admitted to a medical/surgical bed with telemetry. We will begin IV steroids, IV antibiotics. We will cover for Pseudomonas due to the bronchiectasis and for atypical organisms. The patient has this positive influenza A nasal aspirate, so she will be placed on isolation, but she has never had any fever and there has been no acute infection, so I do not believe that she is a candidate for Tamiflu at this point. We will provide supplemental oxygen and wean as tolerated. We will monitor respiratory status closely. 2. History of severe thoracolumbar scoliosis and back pain. The patient has a back brace, which she uses when she is out of bed. We will provide Tylenol for pain. She does not tolerate anything stronger. She does require the lidocaine patches which will be provided. 3. Hypothyroidism. Continue with levothyroxine at the current dosage. 4. Hyponatremia. This is a fairly chronic finding for this patient. We will follow her sodium level. I have provided her with some IV fluids in the form of normal saline, as she appears to be mildly dry at this point. 5. The patient was tachycardic upon admission. D-dimer was elevated. I have discussed with Dr. Jordan and she will be ordering a CTA of the chest to evaluate for possible pulmonary embolism based on results and make further recommendations. I have discussed the patient's condition and plan of care with both her and her daughter who is at the bedside, both expressed understanding and agreement. MD THOR Collins/PATRICIA , 08:10 PM , 09:06 PM
[2017-10-01] MEDS: LIDOCAINE HCL 5% PATCH T-DERMAL SCH (10:45)
[2017-10-01] MEDS: ASPIRIN EC 81 MG TABEC PO SCH (10:46)
[2017-10-01] MEDS: FUROSEMIDE 20 MG TAB PO SCH (10:46)
[2017-10-01] MEDS: PANTOPRAZOLE SOD 40 MG DELAYED RELEASE TAB PO SCH (10:46)
[2017-10-01] MEDS: SODIUM CHLORIDE 0.9% FLUSH 10 ML FLUSH IV FLUSH SCH ×2 (10:47→21:05)
[2017-10-01] MEDS: cefTAZidime 1,000 MG/NS 100 ML MINIBAG IV SCH ×4 (10:47→23:11)
[2017-10-01] MEDS: REMOVE OLD LIDODERM PATCH T-DERMAL SCH (21:00)
[2017-10-01] MEDS: AZITHROMYCIN INJ 500 MG in SODIUM CHLOR 0.9% 250 ML INJ 250 ML IV SCH (21:05)
[2017-10-01] MEDS: ENOXAPARIN SODIUM 30 MG/0.3 ML SYRINGE SQ SCH (21:06)
[2017-10-02] VITALS (8 sets, daily range): BP systolic 119–155; BP diastolic 57–100; PULSE 75–103; RESP 16–20; TEMP 96–97.9; O2SAT 97–100
[2017-10-02] MEDS: RESP: ALBUTEROL 2.5 MG/IPRATROPIUM 0.5 MG NEB (SCH) INH ×4 (03:41→20:59)
[2017-10-02] MEDS: LEVOTHYROXINE SODIUM 50 MCG TAB PO SCH (06:14)
[2017-10-02] MEDS: methylPREDNISolone SOD SUCC 125 MG/2 ML VIAL IV PUSH SCH ×4 (06:14→17:48)
[2017-10-02 07:40] LABS: BICARBONATE 27.6 MEQ/L (21.0-32.0); CALCIUM 7.9 MG/DL (8.5-10.1)
[2017-10-02 07:44] LABS: CREATININE 0.38 MG/DL (0.50-1.00)
[2017-10-02] MEDS: PANTOPRAZOLE SOD 40 MG DELAYED RELEASE TAB PO SCH (10:36)
[2017-10-02] MEDS: ASPIRIN EC 81 MG TABEC PO SCH (10:36)
[2017-10-02] MEDS: FUROSEMIDE 20 MG TAB PO SCH (10:36)
[2017-10-02] MEDS: LIDOCAINE HCL 5% PATCH T-DERMAL SCH (10:37)
[2017-10-02] MEDS: cefTAZidime 1,000 MG/NS 100 ML MINIBAG IV SCH ×4 (10:43→23:13)
[2017-10-02] MEDS: POTASSIUM CHLORIDE 25 MEQ EFFERVESCENT TAB NG SCH ×2 (10:58→11:12)
[2017-10-02] MEDS: SODIUM CHLORIDE 0.9% FLUSH 10 ML FLUSH IV FLUSH SCH ×2 (10:59→23:18)
--- NOTE | 2017-10-02 18:22 | HHI.PR ---
Subjective Remarks Patient doing much better. She is now able to speak without getting short of breath. Minimal cough. Was out of bed in the chair. Heart rate has decreased. Oxygen saturations are improving. Appetite is improving. Current Medications Medications (Trade) Dose Ordered Sig/Eboni Route Start Time Stop Time Status Last Admin (NS Flush) 2 ml BID IV FLUSH 09/30/17 21:00 10/02/17 10:59 (NS Flush) 2 ml UNSCH PRN IV FLUSH 09/30/17 19:45 (Duoneb Neb) 1 ampule Q6HR NEB INH 09/30/17 22:00 10/02/17 15:44 (Albuterol Neb) 2.5 mg Q2HR NEB PRN INH 09/30/17 19:45 (SoluMEDROL INJ) 60 mg Q6H IV PUSH 10/01/17 00:00 10/02/17 17:48 Azithromycin 500 mg/Sodium Chloride 250 ml @ 250 mls/hr Q24H IV 09/30/17 20:00 10/01/17 21:05 (Lovenox Inj) 30 mg Q24H SQ 09/30/17 20:00 10/01/17 21:06 (Ecotrin Ec) 81 mg DAILY PO 10/01/17 09:00 10/02/17 10:36 (Lasix) 20 mg DAILY PO 10/01/17 09:00 10/02/17 10:36 (Synthroid) 50 mcg DAILY@0600 PO 10/01/17 06:00 10/02/17 06:14 (Protonix) 40 mg DAILY PO 10/01/17 09:00 10/02/17 10:36 (Lidoderm 5% Patch.12 Hr) 1 patch DAILY T-DERMAL 10/01/17 09:00 10/02/17 10:37 (Tylenol) 1,000 mg Q6H PRN PO 09/30/17 20:00 Miscellaneous Information 1 HS T-DERMAL 10/01/17 21:00 10/01/17 21:00 Ceftazidime 1000 mg/Sodium Chloride 100 ml @ 200 mls/hr Q12H IV 09/30/17 22:00 10/02/17 10:43 (K-Lyte Cl Eff) 25 meq Q12HR NG 10/02/17 10:00 Objective Vital Signs Date Time Temp Pulse Resp B/P (MAP) Pulse Ox O2 Delivery O2 Flow Rate FiO2 10/02/17 16:00 96.8 84 18 137/92 (107) 97 10/02/17 12:00 97.5 80 18 155/77 (103) 99 10/02/17 09:08 Nasal Cannula 2.00 10/02/17 08:00 Nasal Cannula 2.00 10/02/17 08:00 96.0 88 18 145/65 (91) 99 10/02/17 04:00 97.3 103 20 128/59 (82) 99 10/02/17 00:00 97.9 96 20 119/57 (77) 100 10/01/17 20:58 98 Nasal Cannula 2.00 10/01/17 20:00 97.8 98 20 137/63 (87) 99 10/01/17 20:00 99 Nasal Cannula 2.00 10/01/17 20:00 92 I/O 10/01/17 10/01/17 10/01/17 10/02/17 10/02/17 10/02/17 07:00 15:00 23:00 07:00 15:00 23:00 Intake Total 627 ml 610 ml 340 ml Output Total 150 ml Balance 477 ml 610 ml 340 ml Intake Oral 120 ml 360 ml 240 ml IV Total 507 ml 250 ml 100 ml Output Urine Total 150 ml # Voids 2 3 3 # Bowel Movements 0 0 0 Cardiovascular: Regular rate and rhythm Lungs: Scattered fibrotic rales but improved air exchange without wheezes or rhonchi Abdomen: Soft, nontender and nondistended with bowel sounds present Result Diagram: 09/30/17 1910 10/02/17 0707 Assessment and Plan Problem List: (1) Bronchiectasis with acute exacerbation ICD Codes: J47.1 - Bronchiectasis with (acute) exacerbation Status: Acute Plan: Clinically improving. Will reduce IV steroids. Continue with IV antibiotics and nebulizer treatments. Begin to wean oxygen. Increase activity. (2) Scoliosis of thoracolumbar spine ICD Codes: M41.9 - Scoliosis, unspecified Plan: Patient will wear back brace when out of bed. She declines any pain medication other than Tylenol. (3) Hypothyroidism ICD Codes: E03.9 - Hypothyroidism, unspecified Status: Chronic Plan: Continue levothyroxine (4) GERD (gastroesophageal reflux disease) ICD Codes: K21.9 - Gastro-esophageal reflux disease without esophagitis Status: Chronic Plan: Continue PPI (5) Weight loss ICD Codes: R63.4 - Abnormal weight loss Status: Chronic Plan: The patient has chronic weight loss but recently with acute illness has lost approximately another 8-10 pounds. We'll add nutritional supplement. Encouraged patient to eat as much as tolerated. (6) Hypokalemia ICD Codes: E87.6 - Hypokalemia Status: Acute Plan: Continue with potassium supplement and follow potassium level. Assessment and Plan Patient tested positive for influenza A by nasal wash. The patient has been asymptomatic for any symptoms of influenza including any fever or upper respiratory infection symptoms. Her exacerbation of bronchiectasis has been present for the last 4-5 weeks. Will repeat influenza antigen test to rule out the possibility of a false positive. Problem Qualifiers (1) Scoliosis of thoracolumbar spine: Qualified Codes: M41.25 - Other idiopathic scoliosis, thoracolumbar region (2) Hypothyroidism: Qualified Codes: E03.9 - Hypothyroidism, unspecified (3) GERD (gastroesophageal reflux disease): Qualified Codes: K21.9 - Gastro-esophageal reflux disease without esophagitis Efrain Frye MD Oct 02, 2017 18:22
[2017-10-02] MEDS: REMOVE OLD LIDODERM PATCH T-DERMAL SCH (21:00)
[2017-10-02] MEDS: ENOXAPARIN SODIUM 30 MG/0.3 ML SYRINGE SQ SCH (22:56)
[2017-10-02] MEDS: POTASSIUM CHLORIDE 10 MEQ CONTROLLED RELEASE TAB PO SCH (22:56)
[2017-10-02] MEDS: AZITHROMYCIN INJ 500 MG in SODIUM CHLOR 0.9% 250 ML INJ 250 ML IV SCH (23:09)
[2017-10-02] MEDS: ACETAMINOPHEN 500 MG CPLT PO PRN (23:20)
[2017-10-03] VITALS (8 sets, daily range): BP systolic 137–167; BP diastolic 64–93; PULSE 56–83; RESP 16–18; TEMP 95.9–97.8; O2SAT 91–99
[2017-10-03] MEDS: methylPREDNISolone SOD SUCC 125 MG/2 ML VIAL IV PUSH SCH ×3 (00:41→18:20)
[2017-10-03] MEDS: LEVOTHYROXINE SODIUM 50 MCG TAB PO SCH (06:11)
[2017-10-03 08:53] LABS: CALCIUM 7.9 MG/DL (8.5-10.1)
[2017-10-03 08:54] LABS: BICARBONATE 30.1 MEQ/L (21.0-32.0)
[2017-10-03 08:57] LABS: CREATININE 0.3 MG/DL (0.50-1.00)
[2017-10-03] MEDS: LIDOCAINE HCL 5% PATCH T-DERMAL SCH (09:45)
[2017-10-03] MEDS: FUROSEMIDE 20 MG TAB PO SCH (09:45)
[2017-10-03] MEDS: POTASSIUM CHLORIDE 10 MEQ CONTROLLED RELEASE TAB PO SCH ×2 (09:45→20:11)
[2017-10-03] MEDS: PANTOPRAZOLE SOD 40 MG DELAYED RELEASE TAB PO SCH (09:46)
[2017-10-03] MEDS: ASPIRIN EC 81 MG TABEC PO SCH (09:46)
[2017-10-03] MEDS: MAGNESIUM OXIDE 400 MG TAB PO SCH (09:46)
[2017-10-03] MEDS: SODIUM CHLORIDE 0.9% FLUSH 10 ML FLUSH IV FLUSH SCH ×2 (09:47→20:10)
[2017-10-03] MEDS: cefTAZidime 1,000 MG/NS 100 ML MINIBAG IV SCH ×4 (09:55→21:23)
[2017-10-03] MEDS: ACETAMINOPHEN 500 MG CPLT PO PRN ×2 (09:55→22:12)
--- NOTE | 2017-10-03 10:09 | HHI.PR ---
Subjective Remarks Patient comfortable in bed. OOB in chair and to BSC with assistance. PO intake better. Took O2 off for BF this am. RA O2 sat 96%. No BM but started Mag Oxide this am. Current Medications Medications (Trade) Dose Ordered Sig/Eboni Route Start Time Stop Time Status Last Admin (NS Flush) 2 ml BID IV FLUSH 09/30/17 21:00 10/03/17 09:47 (NS Flush) 2 ml UNSCH PRN IV FLUSH 09/30/17 19:45 (Duoneb Neb) 1 ampule Q6HR NEB INH 09/30/17 22:00 10/02/17 20:59 (Albuterol Neb) 2.5 mg Q2HR NEB PRN INH 09/30/17 19:45 Azithromycin 500 mg/Sodium Chloride 250 ml @ 250 mls/hr Q24H IV 09/30/17 20:00 10/02/17 23:09 (Lovenox Inj) 30 mg Q24H SQ 09/30/17 20:00 10/02/17 22:56 (Ecotrin Ec) 81 mg DAILY PO 10/01/17 09:00 10/03/17 09:46 (Lasix) 20 mg DAILY PO 10/01/17 09:00 10/03/17 09:45 (Synthroid) 50 mcg DAILY@0600 PO 10/01/17 06:00 10/03/17 06:11 (Protonix) 40 mg DAILY PO 10/01/17 09:00 10/03/17 09:46 (Lidoderm 5% Patch.12 Hr) 1 patch DAILY T-DERMAL 10/01/17 09:00 10/03/17 09:45 (Tylenol) 1,000 mg Q6H PRN PO 09/30/17 20:00 10/03/17 09:55 Miscellaneous Information 1 HS T-DERMAL 10/01/17 21:00 10/02/17 21:00 Ceftazidime 1000 mg/Sodium Chloride 100 ml @ 200 mls/hr Q12H IV 09/30/17 22:00 10/03/17 09:55 (SoluMEDROL INJ) 60 mg Q8H IV PUSH 10/03/17 02:00 10/03/17 09:48 (KCl) 10 meq BID PO 10/02/17 21:00 10/03/17 09:45 (Mag-Ox) 400 mg DAILY PO 10/03/17 09:00 10/03/17 09:46 Objective Vital Signs Date Time Temp Pulse Resp B/P (MAP) Pulse Ox O2 Delivery O2 Flow Rate FiO2 10/03/17 08:00 96.9 68 18 166/78 (107) 99 10/03/17 04:23 97.8 76 16 137/89 (105) 97 10/03/17 01:05 97.3 83 18 167/81 (109) 98 10/03/17 00:20 18 10/02/17 22:05 97.9 75 16 135/100 (112) 98 10/02/17 21:02 98 Nasal Cannula 2.00 10/02/17 20:00 98 Nasal Cannula 2.00 10/02/17 20:00 83 10/02/17 16:00 96.8 84 18 137/92 (107) 97 10/02/17 12:00 97.5 80 18 155/77 (103) 99 I/O 10/02/17 10/02/17 10/02/17 10/03/17 10/03/17 10/03/17 07:00 15:00 23:00 07:00 15:00 23:00 Intake Total 340 ml 600 ml Balance 340 ml 600 ml Intake Oral 240 ml 600 ml IV Total 100 ml # Voids 3 5 3 # Bowel Movements 0 0 CV: RRR Lungs: Scattered fibrotic rales, no wheezes or rhonchi, improved but still restricted air exchange Abd: soft, NT, ND, +BS Ext: No edema or calf tenderness Result Diagram: 09/30/17 19110/03/17 0805 Assessment and Plan Problem List: (1) Bronchiectasis with acute exacerbation ICD Codes: J47.1 - Bronchiectasis with (acute) exacerbation Status: Acute Plan: Clinically improving. Will cont current dose IV steroids until tomorrow. If doing well will continue to wean. Cont IV antibiotics and transition to po before discharge. Patient may be on romm air during day but O2 at night. Cont Nebs (2) Scoliosis of thoracolumbar spine ICD Codes: M41.9 - Scoliosis, unspecified Plan: Patient will wear back brace when out of bed. She declines any pain medication other than Tylenol. (3) Hypothyroidism ICD Codes: E03.9 - Hypothyroidism, unspecified Status: Chronic Plan: Continue levothyroxine (4) GERD (gastroesophageal reflux disease) ICD Codes: K21.9 - Gastro-esophageal reflux disease without esophagitis Status: Chronic Plan: Continue PPI (5) Weight loss ICD Codes: R63.4 - Abnormal weight loss Status: Chronic Plan: Patient eating better. She has not yet received Boost as ordered. Have placed the order for the supplement again. (6) Hypokalemia ICD Codes: E87.6 - Hypokalemia Status: Acute Plan: Continue with potassium supplement and follow potassium level. Assessment and Plan Awaiting repeat Influenza test Problem Qualifiers (1) Scoliosis of thoracolumbar spine: Qualified Codes: M41.25 - Other idiopathic scoliosis, thoracolumbar region (2) Hypothyroidism: Qualified Codes: E03.9 - Hypothyroidism, unspecified (3) GERD (gastroesophageal reflux disease): Qualified Codes: K21.9 - Gastro-esophageal reflux disease without esophagitis Efrain Frye MD Oct 03, 2017 10:09
[2017-10-03] MEDS: RESP: ALBUTEROL 2.5 MG/IPRATROPIUM 0.5 MG NEB (SCH) INH ×3 (10:44→21:05)
[2017-10-03] MEDS: ENOXAPARIN SODIUM 30 MG/0.3 ML SYRINGE SQ SCH (20:10)
[2017-10-03] MEDS: AZITHROMYCIN INJ 500 MG in SODIUM CHLOR 0.9% 250 ML INJ 250 ML IV SCH (20:10)
[2017-10-03] MEDS: REMOVE OLD LIDODERM PATCH T-DERMAL SCH (20:11)
[2017-10-04] VITALS (7 sets, daily range): BP systolic 125–158; BP diastolic 64–89; PULSE 69–77; RESP 16–21; TEMP 96.9–97.5; O2SAT 94–97
[2017-10-04] MEDS: methylPREDNISolone SOD SUCC 125 MG/2 ML VIAL IV PUSH SCH (03:10)
[2017-10-04] MEDS: RESP: ALBUTEROL 2.5 MG/IPRATROPIUM 0.5 MG NEB (SCH) INH (04:09)
[2017-10-04] MEDS: LEVOTHYROXINE SODIUM 50 MCG TAB PO SCH (06:00)
[2017-10-04] MEDS: POTASSIUM CHLORIDE 10 MEQ CONTROLLED RELEASE TAB PO SCH ×3 (08:21→22:00)
[2017-10-04] MEDS: LIDOCAINE HCL 5% PATCH T-DERMAL SCH (08:21)
[2017-10-04] MEDS: PANTOPRAZOLE SOD 40 MG DELAYED RELEASE TAB PO SCH (08:21)
[2017-10-04] MEDS: FUROSEMIDE 20 MG TAB PO SCH (08:21)
[2017-10-04] MEDS: MAGNESIUM OXIDE 400 MG TAB PO SCH (08:21)
[2017-10-04] MEDS: ASPIRIN EC 81 MG TABEC PO SCH (08:22)
[2017-10-04] MEDS: ACETAMINOPHEN 500 MG CPLT PO PRN ×2 (08:39→20:50)
--- NOTE | 2017-10-04 08:41 | HHI.PR ---
Subjective Remarks Feeling well. Slept without O2 last night with sat 94%. No cough. OOB in chair yesterday. PO intake good. Bowels have not yet moved but passing flatus. Repeat Influenza screen negative. Isolation discontinued Current Medications Medications (Trade) Dose Ordered Sig/Eboni Route Start Time Stop Time Status Last Admin (NS Flush) 2 ml BID IV FLUSH 09/30/17 21:00 10/03/17 20:10 (NS Flush) 2 ml UNSCH PRN IV FLUSH 09/30/17 19:45 (Duoneb Neb) 1 ampule Q6HR NEB INH 09/30/17 22:00 10/04/17 04:09 (Albuterol Neb) 2.5 mg Q2HR NEB PRN INH 09/30/17 19:45 Azithromycin 500 mg/Sodium Chloride 250 ml @ 250 mls/hr Q24H IV 09/30/17 20:00 10/03/17 20:10 (Lovenox Inj) 30 mg Q24H SQ 09/30/17 20:00 10/03/17 20:10 (Ecotrin Ec) 81 mg DAILY PO 10/01/17 09:00 10/04/17 08:22 (Lasix) 20 mg DAILY PO 10/01/17 09:00 10/04/17 08:21 (Synthroid) 50 mcg DAILY@0600 PO 10/01/17 06:00 10/04/17 06:00 (Protonix) 40 mg DAILY PO 10/01/17 09:00 10/04/17 08:21 (Lidoderm 5% Patch.12 Hr) 1 patch DAILY T-DERMAL 10/01/17 09:00 10/04/17 08:21 (Tylenol) 1,000 mg Q6H PRN PO 09/30/17 20:00 10/03/17 22:12 Miscellaneous Information 1 HS T-DERMAL 10/01/17 21:00 10/03/17 20:11 Ceftazidime 1000 mg/Sodium Chloride 100 ml @ 200 mls/hr Q12H IV 09/30/17 22:00 10/03/17 21:23 (SoluMEDROL INJ) 60 mg Q8H IV PUSH 10/03/17 02:00 10/04/17 03:10 (KCl) 10 meq BID PO 10/02/17 21:00 10/04/17 08:21 (Mag-Ox) 400 mg DAILY PO 10/03/17 09:00 10/04/17 08:21 Objective Vital Signs Date Time Temp Pulse Resp B/P (MAP) Pulse Ox O2 Delivery O2 Flow Rate FiO2 10/04/17 04:23 10/04/17 00:46 97.2 69 16 152/89 (110) 94 10/03/17 22:20 97.7 77 16 139/93 (108) 91 10/03/17 21:05 98 21 10/03/17 19:21 Room Air 10/03/17 16:00 95.9 56 18 148/64 (92) 98 10/03/17 12:00 96.4 73 18 156/70 (98) 95 10/03/17 10:45 97 21 I/O 10/03/17 10/03/17 10/03/17 10/04/17 10/04/17 10/04/17 07:00 15:00 23:00 07:00 15:00 23:00 Intake Total 450 ml Balance 450 ml IV Total 450 ml # Voids 3 1 2 4 # Bowel Movements 0 CV: RRR Lungs: scattered fibrotic rales. good air exchange. No wheezes or rhonchi Ext: No edema Result Diagram: 09/30/17 1910 10/03/17 0805 Assessment and Plan Problem List: (1) Bronchiectasis with acute exacerbation ICD Codes: J47.1 - Bronchiectasis with (acute) exacerbation Status: Acute Plan: Improved. Transition to po meds. Increase activity. Anticipate discharge tomorrow (2) Scoliosis of thoracolumbar spine ICD Codes: M41.9 - Scoliosis, unspecified Plan: Patient will wear back brace when out of bed. She declines any pain medication other than Tylenol. (3) Hypothyroidism ICD Codes: E03.9 - Hypothyroidism, unspecified Status: Chronic Plan: Continue levothyroxine (4) GERD (gastroesophageal reflux disease) ICD Codes: K21.9 - Gastro-esophageal reflux disease without esophagitis Status: Chronic Plan: Continue PPI (5) Weight loss ICD Codes: R63.4 - Abnormal weight loss Status: Chronic Plan: Patient eating better. She has not yet received Boost as ordered. Have placed the order for the supplement again. (6) Hypokalemia ICD Codes: E87.6 - Hypokalemia Status: Acute Plan: Continue with potassium supplement. Repeat K+ level pending Discharge Planning Anticipate home tomorrow Problem Qualifiers (1) Scoliosis of thoracolumbar spine: Qualified Codes: M41.25 - Other idiopathic scoliosis, thoracolumbar region (2) Hypothyroidism: Qualified Codes: E03.9 - Hypothyroidism, unspecified (3) GERD (gastroesophageal reflux disease): Qualified Codes: K21.9 - Gastro-esophageal reflux disease without esophagitis Efrain Frye MD Oct 04, 2017 08:41
[2017-10-04 08:46] LABS: AUTOMATED NEUTROPHIL # 4.6 TH/MM3 (1.8-7.7); HEMATOCRIT 36.9 % (35.0-46.0); HEMOGLOBIN 11.7 GM/DL (11.6-15.3); LYMPH % 7.9 % (9.0-44.0); LYMPHOCYTE # 0.4 TH/MM3 (1.0-4.8); MEAN CELL VOLUME 94.5 FL (80.0-100.0); MEAN CORPUSCULAR HGB CONC 31.7 % (32.0-36.0); MEAN PLATELET VOLUME 6.7 FL (7.0-11.0); MONO % 4.4 % (0.0-8.0); MONOCYTE # 0.2 TH/MM3 (0-0.9); NEUT % 87.7 % (16.0-70.0); PLATELET COUNT 408 TH/MM3 (150-450); RED CELL DISTRIBUTION WIDTH 12.7 % (11.6-17.2); WHITE BLOOD COUNT 5.2 TH/MM3 (4.0-11.0)
[2017-10-04] MEDS: CEFUROXIME AXETIL 250 MG TAB PO SCH ×2 (09:00→20:44)
[2017-10-04 10:02] LABS: BICARBONATE 32.6 MEQ/L (21.0-32.0); CALCIUM 8.2 MG/DL (8.5-10.1); CREATININE 0.26 MG/DL (0.50-1.00)
[2017-10-04] MEDS: AZITHROMYCIN 250 MG TAB PO SCH (10:59)
[2017-10-04] MEDS: predniSONE 20 MG TAB PO SCH ×2 (11:00→20:44)
[2017-10-04] MEDS: SODIUM CHLORIDE 0.9% FLUSH 10 ML FLUSH IV FLUSH SCH ×2 (11:00→20:43)
[2017-10-04] MEDS ORDERED: POTASSIUM CHLOR 20 MEQ PREMIX 100 ML IV ONE ×2 (11:00→21:45)
[2017-10-04] MEDS: RESP: ALBUTEROL 2.5 MG/IPRATROPIUM 0.5 MG NEB (SCH) NEB ×2 (15:04→19:48)
[2017-10-04] MEDS: ENOXAPARIN SODIUM 30 MG/0.3 ML SYRINGE SQ SCH (20:44)
[2017-10-04] MEDS: REMOVE OLD LIDODERM PATCH T-DERMAL SCH (20:45)
--- NOTE | 2017-10-04 21:37 | HHI.FF ---
Face to Face Verification Diagnosis: (1) Bronchiectasis with acute exacerbation (2) Weight loss (3) Hypokalemia (4) Scoliosis of thoracolumbar spine (5) Hypothyroidism Physical Therapy Order: Evaluate and Treat, Improve ambulation, Strength and gait training Occupational Therapy Order: Evaluate and Treat, Improve ADL, Fine motor coordination Home Health Nursing Order: Signs/symptoms of disease process Nursing assessment with vital signs Home Health Aide Order: To Assist In: Bathing and personal care I have seen patient Gracie Jordan on 10/04/17. My clinical findings support the need for the requested home health care services because: Ltd mobility - disease progression Patient has SOB Deconditioned w/ increased weakness I certify that my clinical findings support that this patient is homebound because: Hx COPD- exertion dyspnea/weakness Unsteady gait/balance Unable to use public transportation Efrain Frye MD Oct 04, 2017 21:37
[2017-10-05] VITALS: BP 141/72; PULSE 78; RESP 20; TEMP 97.6; O2SAT 95
[2017-10-05] MEDS: LEVOTHYROXINE SODIUM 50 MCG TAB PO SCH (07:00)
[2017-10-05] MEDS: POTASSIUM CHLORIDE 10 MEQ CONTROLLED RELEASE TAB PO SCH (07:01)
[2017-10-05] MEDS: RESP: ALBUTEROL 2.5 MG/IPRATROPIUM 0.5 MG NEB (SCH) NEB (07:23)
[2017-10-05 07:24] VITALS: O2SAT 95
[2017-10-05 07:50] VITALS: BP 154/94; PULSE 72; RESP 20; TEMP 97.7; O2SAT 95
[2017-10-05 08:08] LABS: BICARBONATE 33.2 MEQ/L (21.0-32.0); CALCIUM 8.2 MG/DL (8.5-10.1); CREATININE 0.36 MG/DL (0.50-1.00)
--- NOTE | 2017-10-05 08:27 | HHI.PR ---
Subjective Remarks Uneventful night. Oxygen saturations are >92% on room air. The patient is ambulating to bathroom. Minimal dyspnea on exertion. No cough or sputum production. Appetite is good. Urine output is good. Current Medications Medications (Trade) Dose Ordered Sig/Eboni Route Start Time Stop Time Status Last Admin (NS Flush) 2 ml BID IV FLUSH 09/30/17 21:00 10/04/17 20:43 (NS Flush) 2 ml UNSCH PRN IV FLUSH 09/30/17 19:45 (Albuterol Neb) 2.5 mg Q2HR NEB PRN INH 09/30/17 19:45 10/04/17 10:15 (Lovenox Inj) 30 mg Q24H SQ 09/30/17 20:00 10/04/17 20:44 (Ecotrin Ec) 81 mg DAILY PO 10/01/17 09:00 10/04/17 08:22 (Lasix) 20 mg DAILY PO 10/01/17 09:00 10/04/17 08:21 (Synthroid) 50 mcg DAILY@0600 PO 10/01/17 06:00 10/05/17 07:00 (Protonix) 40 mg DAILY PO 10/01/17 09:00 10/04/17 08:21 (Lidoderm 5% Patch.12 Hr) 1 patch DAILY T-DERMAL 10/01/17 09:00 10/04/17 08:21 (Tylenol) 1,000 mg Q6H PRN PO 09/30/17 20:00 10/04/17 20:50 Miscellaneous Information 1 HS T-DERMAL 10/01/17 21:00 10/04/17 20:45 (Mag-Ox) 400 mg DAILY PO 10/03/17 09:00 10/04/17 08:21 (Zithromax) 250 mg DAILY PO 10/04/17 09:00 10/04/17 10:59 (Ceftin) 250 mg Q12HR PO 10/04/17 09:00 10/04/17 20:44 (Deltasone) 20 mg BID PO 10/04/17 09:00 10/04/17 20:44 (Duoneb Neb) 1 ampule Q6HR WHILE AWAKE NEB NEB 10/04/17 14:00 10/05/17 07:23 (KCl) 20 meq Q8HR PO 10/04/17 22:00 10/05/17 07:01 Objective Vital Signs Date Time Temp Pulse Resp B/P (MAP) Pulse Ox O2 Delivery O2 Flow Rate FiO2 10/05/17 07:24 95 21 10/05/17 00:00 97.6 78 20 141/72 (95) 95 10/05/17 00:00 97.6 78 20 141/72 (95) 95 10/04/17 21:50 18 10/04/17 20:00 97.4 74 21 150/76 (100) 96 10/04/17 19:48 94 21 10/04/17 15:50 97.5 77 20 158/73 (101) 95 10/04/17 15:04 97 21 10/04/17 10:19 97 I/O 10/04/17 10/04/17 10/04/17 10/05/17 10/05/17 10/05/17 07:00 15:00 23:00 07:00 15:00 23:00 Intake Total 360 ml Balance 360 ml Intake Oral 360 ml # Voids 4 3 2 # Bowel Movements 0 Cardiovascular: Regular rate and rhythm without murmurs Lungs: Scattered fibrotic rales but no wheezes or rhonchi. Good air exchange Abdomen: Soft, nontender and nondistended with bowel sounds present Result Diagram: 10/04/17 0822 10/05/17 0730 Assessment and Plan Problem List: (1) Bronchiectasis with acute exacerbation ICD Codes: J47.1 - Bronchiectasis with (acute) exacerbation Status: Acute Plan: Patient's respiratory status is close to baseline. We'll continue to wean steroids as an outpatient. Continue with nebulizer treatments. Will not need oxygen at home as saturations are good on room air. Complete course of antibiotics as outpatient. (2) Scoliosis of thoracolumbar spine ICD Codes: M41.9 - Scoliosis, unspecified Plan: Back pain is stable with standing and walking. Patient receiving Tylenol as needed. (3) Hypothyroidism ICD Codes: E03.9 - Hypothyroidism, unspecified Status: Chronic Plan: Continue levothyroxine (4) GERD (gastroesophageal reflux disease) ICD Codes: K21.9 - Gastro-esophageal reflux disease without esophagitis Status: Chronic Plan: Continue PPI (5) Weight loss ICD Codes: R63.4 - Abnormal weight loss Status: Chronic Plan: The patient is eating better. She'll continue with nutritional supplements as an outpatient (6) Hypokalemia ICD Codes: E87.6 - Hypokalemia Status: Acute Plan: She received potassium chloride IV yesterday. Potassium level normal this morning. We'll continue with oral potassium supplement and follow-up potassium level as outpatient Discharge Planning Discharge home today Problem Qualifiers (1) Scoliosis of thoracolumbar spine: Qualified Codes: M41.25 - Other idiopathic scoliosis, thoracolumbar region (2) Hypothyroidism: Qualified Codes: E03.9 - Hypothyroidism, unspecified (3) GERD (gastroesophageal reflux disease): Qualified Codes: K21.9 - Gastro-esophageal reflux disease without esophagitis Efrain Frye MD Oct 05, 2017 08:27
[2017-10-05] MEDS ORDERED: IPRASOL INH (08:38)
[2017-10-05] MEDS ORDERED: CEFU1TAB18 PO (08:38)
[2017-10-05] MEDS ORDERED: POTA10TA2 PO (08:38)
[2017-10-05] MEDS ORDERED: MAGN400T2 PO (08:38)
[2017-10-05] MEDS ORDERED: AZIT250T3 PO (08:38)
[2017-10-05] MEDS ORDERED: PRED20 PO (08:38)
--- NOTE | 2017-10-05 08:44 | HHI.DS ---
Discharge Summary Admission Date Sep 30, 2017 at 19:34 Discharge Date: Oct 05, 2017 Admitting Diagnosis Dyspnea h/o copd/bronchiectasis (1) Bronchiectasis with acute exacerbation Diagnosis: Principal ICD Codes: J47.1 - Bronchiectasis with (acute) exacerbation Status: Acute (2) Hypokalemia Diagnosis: Secondary ICD Codes: E87.6 - Hypokalemia Status: Acute (3) Weight loss Diagnosis: Secondary ICD Codes: R63.4 - Abnormal weight loss Status: Chronic (4) Hypothyroidism Diagnosis: Secondary ICD Codes: E03.9 - Hypothyroidism, unspecified Status: Chronic Brief History This 82-year-old white female well-known to [facility] physician has a history of bronchiectasis and OMAR. The patient developed upper respiratory infection proximal 5 weeks prior to admission. She was treated aggressively with outpatient antibiotics, steroids and nebulizer treatments. The patient initially had some improvement but then had persistent generalized weakness, shortness of breath with exertion and diminished appetite. The patient refused hospitalization at that time. She continued to be at home and had no improvement despite 2 previous rounds of antibiotics and 2 rounds of oral steroids. On the day of admission, the patient was to be seen in the [facility] physician's office but she was too weak to leave the house. At that time, she did agree to present to this facility for further evaluation and treatment. In the emergency department patient's chest x-ray revealed interstitial changes which are chronic. She was hypoxemic on room air sutures placed on 2 L/m per nasal cannula. Her influenza A screen was positive although the patient had no symptoms consistent with influenza. Due to the patient's generalized weakness, persistent dyspnea on exertion and failure of outpatient therapy, she was admitted to this facility for more aggressive treatment of an exacerbation of her bronchiectasis. CBC/BMP: 10/04/17 0822 10/05/17 0730 Significant Findings Laboratory Tests Test 10/03/17 08:05 10/04/17 08:22 10/05/17 07:30 Creatinine 0.30 MG/DL (0.50-1.00) 0.26 MG/DL (0.50-1.00) 0.36 MG/DL (0.50-1.00) Random Glucose 108 MG/DL (74-106) 111 MG/DL (74-106) Calcium Level 7.9 MG/DL (8.5-10.1) 8.2 MG/DL (8.5-10.1) 8.2 MG/DL (8.5-10.1) Sodium Level 135 MEQ/L (136-145) 134 MEQ/L (136-145) 132 MEQ/L (136-145) Potassium Level 3.3 MEQ/L (3.5-5.1) 2.9 MEQ/L (3.5-5.1) Red Blood Count 3.90 MIL/MM3 (4.00-5.30) Mean Corpuscular Hemoglobin Concent 31.7 % (32.0-36.0) Mean Platelet Volume 6.7 FL (7.0-11.0) Neutrophils (%) (Auto) 87.7 % (16.0-70.0) Lymphocytes (%) (Auto) 7.9 % (9.0-44.0) Lymphocytes # (Auto) 0.4 TH/MM3 (1.0-4.8) Chloride Level 94 MEQ/L (98-107) 94 MEQ/L (98-107) Carbon Dioxide Level 32.6 MEQ/L (21.0-32.0) 33.2 MEQ/L (21.0-32.0) Hospital Course The patient was admitted to medical surgical bed with telemetry. She was placed in submental oxygen, IV steroids, IV antibiotics and frequent nebulizer treatments. The patient was placed in isolation initially due to the positive influenza A screen. A repeat influenza screen was negative. It was felt the first was a false positive. Isolation was discontinued. The patient's condition steadily improved throughout the hospitalization with decreasing dyspnea, increasing energy and increasing appetite. The patient was weaned off of oxygen. She was ambulating in the room with supervision. She had resolution of her cough. The patient's potassium level was low during the hospitalization she received IV and oral potassium supplements. On the day discharge potassium level was within normal limits. It was felt the patient had obtained maximum benefit from hospitalization and was discharged home in good condition with plans for close outpatient follow-up including home health nursing, physical therapy and occupational therapy. The patient would continue with nebulizer treatments, complete course of oral steroids and oral antibiotics and continue with nutritional supplements in order to gain back the weight that she lost. Her diet would be as tolerated. The patient was instructed to make an appointment for follow-up in the undersigned physician's office 1 week after discharge. Home health would start services on the day after discharge. Pt Condition on Discharge: Good Discharge Disposition: Discharge Home Discharge Instructions DIET: Follow Instructions for: Heart Healthy Diet Additional Diet Instructions: One bottle of Boost twice a day in addition to meals Activities you can perform: Regular-No Restrictions Additional Activity Instructio: Patient ambulate with rolling walker Efrain Frye MD Oct 05, 2017 08:44
[2017-10-05] MEDS: MAGNESIUM OXIDE 400 MG TAB PO SCH (08:53)
[2017-10-05] MEDS: CEFUROXIME AXETIL 250 MG TAB PO SCH (08:53)
[2017-10-05] MEDS: FUROSEMIDE 20 MG TAB PO SCH (08:53)
[2017-10-05] MEDS: PANTOPRAZOLE SOD 40 MG DELAYED RELEASE TAB PO SCH (08:53)
[2017-10-05] MEDS: AZITHROMYCIN 250 MG TAB PO SCH (08:53)
[2017-10-05] MEDS: ASPIRIN EC 81 MG TABEC PO SCH (08:53)
[2017-10-05] MEDS: predniSONE 20 MG TAB PO SCH (08:53)
[2017-10-05] MEDS: SODIUM CHLORIDE 0.9% FLUSH 10 ML FLUSH IV FLUSH SCH (08:54)
[2017-10-05] MEDS: LIDOCAINE HCL 5% PATCH T-DERMAL SCH (08:54)
[2017-10-05 11:00] VITALS: BP 161/86; PULSE 76; RESP 20; TEMP 97; O2SAT 98
--- NOTE | 2017-10-09 16:29 | PQ ---
Physician Query Response Document PATIENT: GIOVANY JAMES : 1935 ADMIT DATE: 09/30/2017 7:34 PM DISCH DATE: 10/05/2017 1:19 PM RESPONDING PROVIDER #: Heriberto QUERY TEXT: CDS Clarification severe protein-calorie malnutrition in this pt with abnormal weight loss, BMI 15.9 and bronchiectasis with acute exacerbation requiring nutritional supplements with each meal. Other explanation of clinical findings. Unable to determine (no explanation for clinical findings). Please clarify and document your clinical opinion in the progress notes and discharge summary includi ng the definitive and/or presumptive diagnosis (suspected or probable), related to the above clinical findings. Please include clinical findings supporting your diagnosis. Thank you, Varsha Jaime CDS: Varsha Jaime Patient Unit: PH Contact Number: CDS/RN Room: 83 The patient's Clinical Indicators include: * Clinical Indicators: Chronic weight loss but with acute illness has lost approximately another 8-10 pounds, BMI: 15.9 kg/m2, pt not eating well, persistent weakness * Risk Factors: chronic illness, exacerbation of bronchiectasis, chronic dysphagia * Treatment: Bottle of boost with each meal Query created by: Varsha Jaime on 10/02/2017 12:00 AM RESPONSE TEXT: This patient has severe protein calorie malnutrition as witnessed by low serum albumin, low BMI and d ocumented weight loss over last 3 months. Electronically signed by: Efrain Frye MD 10/09/2017 4:25 PM
== END 2017-10-05 13:19 | disposition home or self-care (01) | DRG 190 ==
LOC: PHED 15:50 → PHEDA 19:34 → PH3A 22:38
PROVIDERS: ADMIT Family Medicine; ATTEND Family Medicine
DX: J47.1 Bronchiectasis with (acute) exacerbation (principal); E43 Unspecified severe protein-calorie malnutrition; Z68.1 Body mass index [BMI] 19.9 or less, adult; J44.9 Chronic obstructive pulmonary disease, unspecified; M41.85 Other forms of scoliosis, thoracolumbar region; E03.9 Hypothyroidism, unspecified; E87.6 Hypokalemia; K21.9 Gastro-esophageal reflux disease without esophagitis
CPT/HCPCS: 71045; 71275; 80048; 81001; 82550; 83880; 84484; 85025; 85379; 85610; 85730; 87040; 87804; 93005; 94640; 94664; 96374; J0456; J0713; J1650; J2930; J3480; J7030; J7050; J7512; J7613; Q9967

== ENCOUNTER 2018-07-10 03:31 | Inpatient (IN) ==
[2018-07-10] MEDS ORDERED: Sod Chloride 0.9% Inj 1,000 ML IV.SIG ONE (03:34)
[2018-07-10] MEDS ORDERED: HYDROmorphone PF Inj 0.5 MG/0.5 ML Syringe IV.PUSH ONE (03:34)
[2018-07-10 04:03] LABS: Baso # (Auto) 0.1 th/mm3 (0.0-0.2); Baso % (Auto) 0.7 % (0.0-2.0); Eos # (Auto) 0.1 th/mm3 (0.0-0.4); Eos % (Auto) 0.5 % (0.0-4.0); Hematocrit 43.7 % (35.0-46.0); Hemoglobin 14.1 gm/dL (11.6-15.3); Lymph # (Auto) 2.1 th/mm3 (1.0-4.8); Lymph % (Auto) 16.6 % (9.0-44.0); Mean Corpuscular HGB Conc 32.3 % (32.0-36.0); Mean Corpuscular Volume 102.4 fL (80.0-100.0); Mean Platelet Volume 8.3 fL (7.0-11.0); Mono # (Auto) 0.8 th/mm3 (0.0-0.9); Mono % (Auto) 6.2 % (0.0-8.0); Neut # (Auto) 9.8 th/mm3 (1.8-7.7); Platelet Count 299 th/mm3 (150-450); Red Blood Count 4.27 mil/mm3 (4.00-5.30); Red Cell Distribution Width 12.8 % (11.6-17.2); White Blood Count 12.9 th/mm3 (4.0-11.0)
--- NOTE | 2018-07-10 04:08 | ED ---
HPI General Chief Complaint: Abdominal Pain Stated Complaint: EVAC/Abd pain Time Seen by Provider: 07/10/18 03:34 Source: patient Mode of arrival: EMS Limitations: no limitations History of Present Illness HPI narrative: 83-year-old woman with a history of multiple small bowel obstructions in the past presents emerged from complaining of severe abdominal pain, persistent vomiting, onset over the past 24 hours. Patient has a history of COPD and bronchiectasis also and is on home oxygen. Symptoms started about 24 hours or so ago. Initially more pain, now with more persistent vomiting. Pain is more in the left lower abdomen. No radiation. No relief with home medications. Feels similar to previous bowel obstructions. Related Data Home Medications Medication Instructions Recorded Confirmed acetaminophen [Tylenol Arthritis 1,300 mg PO BID PRN 07/10/18 07/10/18 Pain] albuterol sulfate 1 amp INHALATION TID 07/10/18 07/10/18 albuterol sulfate [ProAir HFA] 2 puff INHALATION QID PRN 07/10/18 07/10/18 aspirin 81 mg PO AC LUNCH 07/10/18 07/10/18 cholecalciferol (vitamin D3) 1,000 unit PO DAILY 07/10/18 07/10/18 [Vitamin D3] diclofenac sodium [Voltaren] 2 g TOPICAL TID PRN 07/10/18 07/10/18 estradiol [Vivelle-Dot] 0.1 mg TRANSDERMAL 2XWEEK 07/10/18 07/10/18 fluticasone [Flovent HFA] 1 puff INHALATION DAILY 07/10/18 07/10/18 furosemide 20 mg PO DAILY 07/10/18 07/10/18 lansoprazole [Prevacid] 30 mg PO DAILY 07/10/18 07/10/18 levothyroxine 50 mcg PO DAILY 07/10/18 07/10/18 lidocaine [Lidoderm] 1 patch TOPICAL DAILY 07/10/18 07/10/18 potassium chloride 10 meq PO DAILY 07/10/18 07/10/18 tiotropium bromide [Spiriva with 1 cap INHALATION HS 07/10/18 07/10/18 HandiHaler] vitamin B complex [B Complex 1] 1 tab PO DAILY 07/10/18 07/10/18 Allergies Allergy/AdvReac Type Severity Reaction Status Date / Time doxycycline Allergy Severe RASH Verified 07/10/18 04:26 erythromycin base Allergy Severe RASH AND Verified 07/10/18 04:26 NAUSEA meperidine Allergy Severe RASH,HALLUC Verified 07/10/18 04:26 INATIONS,NA USEA,VOMITI NG minocycline Allergy Severe RASH Verified 07/10/18 04:26 morphine Allergy Severe SEVERE Verified 07/10/18 04:26 ITCHING tigecycline Allergy Severe RASH Verified 07/10/18 04:26 penicillin G Allergy Mild RASH Verified 07/10/18 04:26 propoxyphene Allergy Mild RASH Verified 07/10/18 04:26 codeine AdvReac Severe NAUSEA,VOMI Verified 07/10/18 04:26 TING Review of Systems ROS: all other systems reviewed are negative PMFSH History History Provided By: Medical Record Medical History Medical History Chronic low back pain (Acute) CAD (coronary artery disease) (Acute) COPD exacerbation (Acute) Osteoarthritis (Acute) SBO (small bowel obstruction) (Acute) Scoliosis (Acute) Surgical History Surgical History H/O laminectomy (Acute ~2000) H/O resection of small bowel (Acute ~2003) Hx of fusion of cervical spine (Acute ~2003) S/P VÍCTOR-BSO (Acute ~2002) Social History Social History Substance History: No History of Abuse Second Hand Smoke Exposure: No Smoking Status: Never smoker How Often Do You Have a Drink Containing Alcohol: Monthly or less Recent Out of Country Travel within the Last 8 Weeks: No Exam Narrative Exam Narrative: GENERAL: Elderly 83-year-old woman, actively vomiting bilious emesis. HEAD: Atraumatic. Normocephalic. EYES: Pupils equal and round. No scleral icterus. No injection or drainage. ENT: No nasal bleeding or discharge. Mucous membranes pink and moist. NECK: Trachea midline. No JVD. CARDIOVASCULAR: Regular rate and rhythm. No murmur appreciated. RESPIRATORY: No accessory muscle use. Clear to auscultation. Breath sounds equal bilaterally. GASTROINTESTINAL: Abdomen soft, there may be minimal distention in the no rebound or guarding. MUSCULOSKELETAL: No obvious deformities. No edema. NEUROLOGICAL: Awake and alert. No obvious cranial nerve deficits. Motor grossly within normal limits. Normal speech. Course Reevaluation(s) Reevaluation #1: Patient feeling somewhat improved. CT scan shows small bowel obstruction a very dilated stomach. Recommend NG tube. Patient agreeable. States Ativan helped in the past. Spoke with Dr. Puentes, will admit patient. Spoke with joni Grady with patient seeing a [place]. Initial Documented Vital Signs Temperature 98.0 F 07/10/18 03:31 Pulse Rate 95 H 07/10/18 03:31 Respiratory Rate 28 H 07/10/18 03:31 Blood Pressure 175/80 H 07/10/18 03:31 Pulse Oximetry 96 07/10/18 03:31 Last Documented Vital Signs Temperature 98.0 F 07/10/18 03:31 Pulse Rate 101 H 07/10/18 05:54 Respiratory Rate 18 07/10/18 05:54 Blood Pressure 166/68 H 07/10/18 05:00 Pulse Oximetry 97 07/10/18 05:54 Medical Decision Making MDM Narrative Medical decision making narrative: 83-year-old woman, history of multiple bowel obstructions, lysis of adhesions 2013, presents with abdominal pain and bilious vomiting concerning for recurrent obstruction. Will check labs, CT, antiemetics. Patient declining NG tube at this point. Will await imaging, reassess. Medical Screen Exam Complete: Yes Emergency Medical Condition: Yes Lab Data Result diagrams: 07/10/18 03:50 07/10/18 03:50 Lab Results 07/10/18 07/10/18 07/10/18 Range/Units 03:50 03:50 03:50 CBC w Diff Auto diff final WBC 12.9 H (4.0-11.0) th/mm3 RBC 4.27 (4.00-5.30) mil/mm3 Hgb 14.1 (11.6-15.3) gm/dL Hct 43.7 (35.0-46.0) % MCV 102.4 H (80.0-100.0) fL MCH 33.0 (27.0-34.0) pg MCHC 32.3 (32.0-36.0) % RDW 12.8 (11.6-17.2) % Plt Count 299 (150-450) th/mm3 MPV 8.3 (7.0-11.0) fL Neut % (Auto) 76.0 H (16.0-70.0) % Lymph % (Auto) 16.6 (9.0-44.0) % Brooks % (Auto) 6.2 (0.0-8.0) % Eos % (Auto) 0.5 (0.0-4.0) % Baso % (Auto) 0.7 (0.0-2.0) % Neut # (Auto) 9.8 H (1.8-7.7) th/mm3 Lymph # (Auto) 2.1 (1.0-4.8) th/mm3 Brooks # (Auto) 0.8 (0.0-0.9) th/mm3 Eos # (Auto) 0.1 (0.0-0.4) th/mm3 Baso # (Auto) 0.1 (0.0-0.2) th/mm3 WBC Differential . Differential Comment . PT 10.1 (9.8-11.6) sec INR 1.0 Ratio APTT 28.1 (23.4-31.7) sec Sodium (136-145) meq/L Potassium (3.5-5.1) meq/L Chloride (98-107) meq/L Carbon Dioxide (21.0-32.0) meq/L Anion Gap (5-15) meq/L BUN (7-18) mg/dL Creatinine (0.50-1.00) mg/dL Estimated GFR (>89) mL/min Random Glucose (74-106) mg/dL Lactic Acid 1.5 (0.4-2.0) mmol/L Calcium (8.5-10.1) mg/dL Magnesium (1.5-2.5) mg/dL Total Bilirubin (0.2-1.0) mg/dL AST (15-37) U/L ALT (10-53) U/L Alkaline Phosphatase (45-117) U/L Total Protein (6.4-8.2) g/dL Albumin (3.4-5.0) g/dL Lipase (73-393) U/L Urine Color (Yellw/Straw) Urine Clarity (Clear) Urine pH (5.0-8.5) Ur Specific [place] (1.002-1.035) Urine Protein (Neg-Trace) mg/dL Urine Glucose (UA) (Negative) mg/dL Urine Ketones (Negative) mg/dL Urine Occult Blood (Negative) Urine Nitrate (Negative) Urine Bilirubin (Negative) Urine Urobilinogen (Less than 2) mg/dL Ur Leukocyte Esterase (Negative) Urine WBC (0-5) /hpf Ur Squamous Epith Cells (0-5) /hpf Micro UA Comment Ur Microscopic Review Urine Culture Comments 07/10/18 07/10/18 Range/Units 03:50 05:15 CBC w Diff WBC (4.0-11.0) th/mm3 RBC (4.00-5.30) mil/mm3 Hgb (11.6-15.3) gm/dL Hct (35.0-46.0) % MCV (80.0-100.0) fL MCH (27.0-34.0) pg MCHC (32.0-36.0) % RDW (11.6-17.2) % Plt Count (150-450) th/mm3 MPV (7.0-11.0) fL Neut % (Auto) (16.0-70.0) % Lymph % (Auto) (9.0-44.0) % Brooks % (Auto) (0.0-8.0) % Eos % (Auto) (0.0-4.0) % Baso % (Auto) (0.0-2.0) % Neut # (Auto) (1.8-7.7) th/mm3 Lymph # (Auto) (1.0-4.8) th/mm3 Brooks # (Auto) (0.0-0.9) th/mm3 Eos # (Auto) (0.0-0.4) th/mm3 Baso # (Auto) (0.0-0.2) th/mm3 WBC Differential Differential Comment PT (9.8-11.6) sec INR Ratio APTT (23.4-31.7) sec Sodium 132 L (136-145) meq/L Potassium 4.1 (3.5-5.1) meq/L Chloride 95 L (98-107) meq/L Carbon Dioxide 27.1 (21.0-32.0) meq/L Anion Gap 10 (5-15) meq/L BUN 18 (7-18) mg/dL Creatinine 0.46 L (0.50-1.00) mg/dL Estimated GFR Greater than 89 (>89) mL/min Random Glucose 133 H (74-106) mg/dL Lactic Acid (0.4-2.0) mmol/L Calcium 9.4 (8.5-10.1) mg/dL Magnesium 1.7 (1.5-2.5) mg/dL Total Bilirubin 0.6 (0.2-1.0) mg/dL AST 40 H (15-37) U/L ALT 46 (10-53) U/L Alkaline Phosphatase 135 H (45-117) U/L Total Protein 6.9 (6.4-8.2) g/dL Albumin 3.4 (3.4-5.0) g/dL Lipase 100 (73-393) U/L Urine Color Yellow (Yellw/Straw) Urine Clarity Slightly cloudy (Clear) Urine pH 6.0 (5.0-8.5) Ur Specific [place] 1.020 (1.002-1.035) Urine Protein Negative (Neg-Trace) mg/dL Urine Glucose (UA) Negative (Negative) mg/dL Urine Ketones Trace H (Negative) mg/dL Urine Occult Blood Negative (Negative) Urine Nitrate Negative (Negative) Urine Bilirubin Negative (Negative) Urine Urobilinogen 1.0 (Less than 2) mg/dL Ur Leukocyte Esterase Negative (Negative) Urine WBC 0-5 (0-5) /hpf Ur Squamous Epith Cells 0-5 (0-5) /hpf Micro UA Comment Culture not ind Ur Microscopic Review Microscopic reviewed Urine Culture Comments Culture not ind Imaging Data Radiologist's impression: Abdomen/Pelvis CT 07/10/18 03:34 CONCLUSION: Small bowel obstruction that appears to be occurring at the level of the mid to distal jejunum in the mid abdomen. I believe the obstruction is proximal to the anastomosis. No perceptible mass. The stomach is distended. Discharge Plan Discharge Order Discharge Orders: ED Use Only Admit Order (Routine); Ordered 07/10/18 Ordered By: Kurt Monreal Physicians Team ED Provider: Kurt Monreal Primary Care Provider: UNKNOWN, Rxs /Orders / Referrals /Forms Prescriptions: No Action estradiol [Vivelle-Dot] 0.1 mg/24 hr Patch Semiweekly 0.1 mg Transdermal 2XWEEK RF: 0 acetaminophen [Tylenol Arthritis Pain] 650 mg Tablet Extended Release 1,300 mg PO BID PRN (Reason: Acute Pain) RF: 0 lansoprazole [Prevacid] 30 mg Capsule,Delayed Release(Dr/Ec) 30 mg PO DAILY RF: 0 lidocaine [Lidoderm] 5 % Adhesive Patch,Medicated 1 patch TOPICAL DAILY RF: 0 albuterol sulfate [ProAir HFA] 90 mcg/actuation Hfa Aerosol Inhaler 2 puff INHALATION QID PRN (Reason: Shortness Of Breath Or Wheezing) RF: 0 fluticasone [Flovent HFA] 110 mcg/actuation Hfa Aerosol Inhaler 1 puff INHALATION DAILY RF: 0 tiotropium bromide [Spiriva with HandiHaler] 18 mcg Capsule, W/Inhalation Device 1 cap INHALATION HS RF: 0 levothyroxine 50 mcg Capsule 50 mcg PO DAILY RF: 0 albuterol sulfate 1 amp Inhalation TID RF: 0 potassium chloride 10 mEq Tablet Extended Release 10 meq PO DAILY RF: 0 aspirin 81 mg Tablet,Delayed Release (Dr/Ec) 81 mg PO AC LUNCH RF: 0 vitamin B complex [B Complex 1] Tablet 1 tab PO DAILY RF: 0 furosemide 20 mg Tablet 20 mg PO DAILY RF: 0 cholecalciferol (vitamin D3) [Vitamin D3] 1,000 unit Capsule 1,000 unit PO DAILY RF: 0 diclofenac sodium [Voltaren] 1 % Gel 2 g TOPICAL TID PRN (Reason: Acute Pain) RF: 0 Discharge Interventions Interventions: Vital Signs Last Done: 07/10/18 05:00 Status ED Status: Ready for Discharge
[2018-07-10 04:13] LABS: Chloride 95 meq/L (98-107); Potassium 4.1 meq/L (3.5-5.1); Sodium 132 meq/L (136-145)
[2018-07-10 04:16] LABS: Activated Partial Thrombo Time 28.1 sec (23.4-31.7); Calcium 9.4 mg/dL (8.5-10.1); Prothrombin Time 10.1 sec (9.8-11.6)
[2018-07-10 04:17] LABS: Albumin 3.4 g/dL (3.4-5.0); Anion Gap 10 meq/L (5-15); Blood Urea Nitrogen 18 mg/dL (7-18); Carbon Dioxide 27.1 meq/L (21.0-32.0); Glucose,Random 133 mg/dL (74-106); Lipase 100 U/L (73-393); Magnesium 1.7 mg/dL (1.5-2.5)
[2018-07-10 04:19] LABS: Alanine Aminotransferase 46 U/L (10-53); Aspartate Aminotransferase 40 U/L (15-37)
[2018-07-10 04:20] LABS: Glomerular Filtration Rate Greater Than 89 mL/min (>89)
[2018-07-10 04:21] LABS: Total Protein 6.9 g/dL (6.4-8.2)
[2018-07-10 04:22] LABS: Alkaline Phosphatase 135 U/L (45-117)
--- NOTE | 2018-07-10 05:27 | CT ---
EXAM DATE: 07/10/2018 4:53 AM EST AGE/SEX: 83 years / Female INDICATIONS: Abdominal pain for three days. CLINICAL DATA: This is the patient's initial encounter. Patient reports that signs and symptoms have been present for 1 day and indicates a pain score of 7/10. MEDICAL/SURGICAL HISTORY: Chronic obstructive pulmonary disease. Coronary artery disease. Osteo arthritis. Small bowl obstruction. Scoliosis. . Laminectomy. Resection of small bowel. Fusion of cer vical spine. ORAL CONTRAST: No oral contrast ingested. RADIATION DOSE: 4.58 CTDI (mGy) COMPARISON: [facility], CT ABDOMEN & PELVIS W CONTRAST, 08/16/2015. . TECHNIQUE: Multiple contiguous axial images were obtained through the abdomen and pelvis following b olus infusion of 80 ml Omnipaque 350 (iohexol) nonionic water-soluble contrast as a single exam dos e. No oral contrast ingested. Using automated exposure control and adjustment of the mA and/or kV ac cording to patient size, radiation dose was kept as low as reasonably achievable to obtain optimal di agnostic quality images. DICOM format image data is available electronically for review and comparis on. FINDINGS: Stomach and jejunum are distended. The ileum is decompressed. The transition appears to be in the mid abdomen, proximal to the anastomosis within the pelvic cavity. No perceptible mass. No high-grade fo hamida inflammatory changes are demonstrated. Moderate stool in the colon. There is small free fluid in the pelvic cavity. No acute solid organ abnormality demonstrated. No lymphadenopathy. No acute bony abnormality demonstrated. Severe S shaped thoracolumbar scoliosis again noted. Mild ate lectasis seen of the visualized lung bases. CONCLUSION: Small bowel obstruction that appears to be occurring at the level of the mid to distal je junum in the mid abdomen. I believe the obstruction is proximal to the anastomosis. No perceptible ma ss. The stomach is distended. Electronically signed by: Sarath Bai MD Board Certified Radiologist 07/10/2018 5:26 AM EST
[2018-07-10] MEDS ORDERED: RESP: Lidocaine PF 4% 5 ML Neb NEB ONE (05:38)
[2018-07-10] MEDS ORDERED: LIDOCAINE 2% NEB SCH (06:00)
[2018-07-10 06:03] LABS: Color,Urine Yellow (Yellw/Straw)
[2018-07-10 06:04] LABS: Clarity,Urine Slightly Cloudy (Clear); Glucose,Urine (UA) Negative (Negative)
[2018-07-10 06:06] LABS: Bilirubin,Urine Negative (Negative); Leukocyte Esterase,Urine Negative (Negative); Nitrite,Urine Negative (Negative)
[2018-07-10 06:08] LABS: Squamous Epithelial Cell,Urine 0-5 /hpf (0-5); WBC,Urine 0-5 /hpf (0-5)
[2018-07-10] MEDS ORDERED: Bisacodyl 10 MG Supp RECTAL PRN (06:11)
[2018-07-10] MEDS ORDERED: Acetaminophen 325 MG Tablet PO PRN (06:11)
[2018-07-10] MEDS: Sod Chloride 0.9% Inj 1,000 ML IV.CONT SCH ×2 (07:00→21:09)
[2018-07-10] MEDS ORDERED: Senna/Docusate Sodium 8.6/50 MG Tablet PO SCH (09:00)
[2018-07-10] MEDS: Pantoprazole Inj 40 MG Vial IV.PUSH SCH (12:41)
--- NOTE | 2018-07-10 12:56 | MH ---
cc: Efrain Frye MD DATE OF ADMISSION: 07/10/2018 ADMITTING DIAGNOSIS: Nausea, vomiting, small-bowel obstruction. HISTORY OF PRESENT ILLNESS: This 83-year-old white female well known to the undersigned physician has a history in the past of recurrent small-bowel obstructions, but she underwent lysis of adhesions and resection of a portion of the small bowel in the past, which resulted in resolution of her recurrent small-bowel obstructions. She has been asymptomatic with regard to her bowels until approximately 3 weeks ago when she was having persistent soft, watery stools, but no abdominal pain, nausea, or vomiting. She had no fever or chills. The patient was using Imodium as needed for the loose stools. The patient states on the day prior to admission, she began to have some abdominal discomfort. Throughout the evening, it worsened. In the middle of the night, she had severe abdominal pain, nausea, and vomiting. Her emesis was bilious. She had no fever or chills. She denies any headaches, visual changes, chest pain, palpitations, diaphoresis. Her last bowel movement was on the day prior to admission and was loose. She has had no blood or mucus in her stools. Her urine output has been good. At that time, the patient contacted EMS and was transferred to the facility for further evaluation and treatment. PAST MEDICAL HISTORY: Significant for COPD with bronchiectasis, generalized osteoarthritis, abnormal recurrent abnormal liver function studies, which were mild and workup has been negative. 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 The patient has been asymptomatic. She has a history of shingles in 1996. She has a history of iron deficiency anemia, which was treated with iron infusions performed by hematology. Her anemia has since resolved. She has history of osteoporosis, recurrent small-bowel obstruction, severe thoracic and lumbar scoliosis, resulting in daily severe low back pain and lumbar disk disease. She has GERD, hypothyroidism, diverticulosis. 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 The patient has chronic dysphagia due to hypertrophic bone formation from previous cervical fusion. PAST SURGICAL HISTORY: Status post left hand surgery in 1994, L3 lumbar laminectomy in 2000, cervical fusion C3-C6 in 2003, total abdominal hysterectomy with bilateral salpingo-oophorectomy in 2002. She had a small-bowel resection secondary to obstruction and bowel ischemia in 2004. She had a cholecystectomy in 1994 and she is status post lysis of adhesions to recurrent small-bowel obstructions several years ago. CURRENT MEDICATIONS: 1. Oxycodone 5 mg 1/2 to 1 tablet every 6 hours as needed for pain. 2. Voltaren gel 1% 4 grams to the affected joints 3 times a day. 3. Magnesium oxide 400 mg daily. 4. Benefiber 1 tablespoon in 8 ounces of liquid daily. 5. Aspirin 81 mg daily. 6. Levothyroxine 50 mcg daily. 7. Vitamin D 1000 international units daily. 8. B complex 1 tablet daily. 9. Potassium chloride ER 10 mEq daily. 10. Furosemide 20 mg daily. 11. Ipratropium bromide and albuterol nebulizer solution 1 unit dose 4 times a day as needed. 12. Tylenol Arthritis Pain 650 mg 2 tablets twice daily. 13. Vivelle-Dot 0.1 mg patch, apply 1 patch to skin twice weekly. 14. Lidocaine 5% patch, apply 2 patches to the back for 12 hours each day as needed. 15. Prevacid 30 mg daily. 16. Albuterol HFA inhaler 2 puffs 4 times a day as needed. ALLERGIES: DARVON, DEMEROL, LEVAQUIN, MORPHINE, AND PENICILLIN. FAMILY HISTORY: Positive for mother with arthritis and hypertension. SOCIAL HISTORY: She is a retired registered nurse. She lives with her . She does not smoke nor did she ever. She does not consume alcohol. REVIEW OF SYSTEMS: Negative except as outlined above. IMMUNIZATION HISTORY: She had a pneumococcal vaccination in 06/27/2014. PHYSICAL EXAMINATION: VITAL SIGNS: Upon arrival to the emergency department, the patient's blood pressure was 175/80, heart rate 95, respirations 28, temperature was 98 degrees Fahrenheit. At the current time, blood pressure is 123/62 with a heart rate of 103, respirations 16, oxygen saturation is 93% on 2 liters per minute per nasal cannula. GENERAL: This is a thin, frail, elderly white female lying in bed appearing fatigued, but in no acute distress with an NG tube in place. HEENT: Pupils are equal, round, and reactive to light. Extraocular movements are intact. Sclerae are anicteric. Conjunctivae pink. Nares reveal NG tube in place. Mouth and throat reveal dry mucous membranes. No erythema or exudates. NECK: Supple without lymphadenopathy, JVD, bruits, or thyromegaly. CARDIOVASCULAR: Regular rate and rhythm without murmurs, rubs, or gallops. LUNGS: Clear to auscultation with mildly reduced air exchange. No wheezes, rhonchi, or rales. ABDOMEN: Soft, nontender, nondistended. There are no bowel sounds present. No masses palpable. No hepatosplenomegaly. GENITOURINARY: Deferred. RECTAL: Deferred. LOWER EXTREMITIES: No appreciable edema. No calf tenderness. No Kath sign. SKIN: Warm and dry. NEUROLOGIC: Nonfocal. LABORATORY DATA: The urinalysis revealed a specific gravity of 1.020, pH is 6.0, trace ketones, otherwise all the other indices were within normal limits. White blood cell count 12.9, hemoglobin 14.1, hematocrit 43.7, platelet count was 299,000, MCV elevated at 102.4. White blood count differential revealed 76 polys, 16.6 lymphocytes, 6.2 monocytes. INR was 1.0, APTT 28.1. A comprehensive metabolic profile was significant for sodium 132, chloride 95. AST elevated at 40, but ALT normal at 46, alkaline phosphatase elevated at 135, lipase normal at 100. A CT scan of the abdomen and pelvis with IV contrast only revealed small-bowel obstruction that appears to be occurring at the level of the mid to distal jejunum in the mid abdomen. It is believed that the obstruction is proximal to the previous anastomosis. There is no perceptible mass. The stomach is distended. ASSESSMENT AND PLAN: 1. This 83-year-old white female presents with nausea, vomiting, abdominal pain, and findings consistent with a small-bowel obstruction. The patient will be admitted to a medical/surgical bed. Initially, she refused an NG tube; however, she did subsequently agree and has had 550 mL of bilious material aspirated through the NG tube. We will continue with low intermittent suction and will maintain the patient n.p.o. for now, provide IV fluids, and will repeat abdominal x-ray in the morning. Continue to follow for return of bowel function. If small-bowel obstruction persists, the patient will likely need a general surgery consultation for possible repeat lysis of adhesions. 2. History of chronic obstructive pulmonary disease, bronchiectasis. The patient will be maintained on nebulizer treatments with DuoNebs. We will monitor respiratory status. She is on oxygen at this time. 3. History of hypothyroidism. Levothyroxine is on hold until the patient can take p.o. again. Will follow. 4. History of back pain and generalized osteoarthritis. The patient normally has a prescription for oxycodone to use as needed, but she is not in any pain at this point. She also has Tylenol as needed, which we will hold all the above at this time unless the patient has any significant discomfort, at which point we will need to provide Tylenol by alternative means other than oral. 5. History of gastroesophageal reflux disease. Continue the patient on PPI. We will begin pantoprazole as Prevacid is not on the hospital formulary. 6. Hyponatremia. We will provide the patient with IV fluids and follow sodium level, adjust IV fluids as needed. I have explained the patient's condition and plan of care to her. She expressed understanding and agreement. Efrain Frye MD JRM/ts , 11:45 AM , 12:00 PM
--- NOTE | 2018-07-10 13:17 | MB ---
cc: Norberto Tejeda MD DATE: 07/10/2018 REASON FOR CONSULTATION: Small-bowel obstruction. HISTORY OF PRESENT ILLNESS: Ms. Gracie Jordan is a very pleasant 83-year-old female known to our service from multiple previous small-bowel obstructions. She states that yesterday she began having a crampy type abdominal pain associated with nausea and vomiting. She has had multiple previous bowel obstructions in the past and is very familiar with the symptoms. She came to the emergency department at [place] where she was seen, evaluated, and admitted. CT scan demonstrated a proximal small-bowel obstruction with dilation of the stomach and proximal small bowel. She was admitted to the floor and an NG tube was placed. Apparently NG tube got out about a liter. The patient was seen and evaluated this morning. She states overall she is feeling much better. She is concerned about the possibility of another surgery and states that she would prefer not to have surgery if possible. She reports her last bowel movement was yesterday. She states that the pain is mainly on the left side of her abdomen. She denies any fever or chills. As stated, she feels much better this morning. PAST MEDICAL HISTORY: She is oxygen dependent COPD. She has severe scoliosis. She had a history of reflux, dysphagia. She has osteoarthritis. She has coronary artery disease. PAST SURGICAL HISTORY: She has had multiple bowel obstructions with small-bowel resection. She has had a total abdominal hysterectomy. She has had a cholecystectomy. MEDICATIONS: List is extensive and well documented in the chart. ALLERGIES: HER ALLERGY LIST IS ALSO EXTENSIVE, INCLUDING CODEINE, DARVON, DEMEROL, ERYTHROMYCIN, TETRACYCLINE, MORPHINE, PENICILLIN, AND ERYTHROMYCIN. SOCIAL HISTORY: She lives here locally. She does not smoke or drink. FAMILY HISTORY: Noncontributory to this current event. REVIEW OF SYSTEMS: The patient reports nausea, vomiting, crampy abdominal pain. She denies any fever or chills. She reports bowel activity yesterday. She reports abdominal distention. She denies any dysuria. She has chronic shortness of breath. PHYSICAL EXAMINATION: VITAL SIGNS: Temperature is 98, pulse is 80, blood pressure is 120/60, respiratory rate 20. GENERAL: This is a pleasant, very thin, frail, elderly female sitting in her room watching television and talking on the phone. No apparent distress. HEENT: Sclerae are white. Oropharynx is clear and moist. She has an NG tube in place. This drained out about a liter of dark fluid on the wall. LUNGS: Clear to auscultation bilaterally. HEART: S1, S2. ABDOMEN: Soft, nondistended at this time. She does have a few bowel sounds. She has no significant tenderness. No rebound or guarding. No obvious hernia. EXTREMITIES: Free range of motion x4. NEUROLOGIC: She is awake, alert, and oriented x3. LABORATORY DATA: White blood cell count is 12, hemoglobin 14, platelet count is 299. Electrolytes: Hyponatremia at 132, hypochloremia at 95. All other labs are within normal limits. Her PT is 10 with an INR of 1. Her urinalysis is negative. CT scan of the abdomen and pelvis shows diffuse dilation of the stomach and proximal small bowel with decompression of the distal small bowel. There is air and stool within the colon. Transition point appears to be proximal. IMPRESSION: Recurrent small-bowel obstruction. PLAN: At this point, I had a long discussion with the patient. She has been through this many times. She prefers nonoperative management if possible. She states her last hospitalized bowel obstruction was in 2016. She states she has had intermittent symptoms since then, but has not require a hospital visit. We will attempt to manage her nonoperatively. We will get followup x-rays tomorrow and see how she is doing. If she fails to progress, she will require formal exploratory laparotomy. If this is necessary, she will need to be transferred to [facility] due to her advanced age and the complexity of the surgical procedure. She understands this and is willing to proceed. She is asked if she could stay in [place] for another day or two to see how she does before being moved up to the [facility]. Norberto MD DANY Santos/catrachito , 12:43 PM , 12:53 PM
--- NOTE | 2018-07-11 08:22 | P.PNGS ---
Subjective Patient reports: still having pain, no flatus, no bowel movement Physical Exam Vital signs: Vital Signs 07/10/18 08:36 07/10/18 12:00 07/10/18 16:00 Temperature 97.7 F 97.9 F Pulse Rate 120 H 91 H Respiratory Rate 20 20 Blood Pressure 160/67 H 166/73 H Pulse Oximetry 93 L 160 H 99 07/10/18 18:12 07/10/18 20:00 07/10/18 23:08 Temperature 99.0 F Pulse Rate 93 H 103 H 105 H Respiratory Rate 20 18 16 Blood Pressure 131/72 Pulse Oximetry 95 95 94 L 07/11/18 00:00 07/11/18 08:00 Temperature 99.1 F Pulse Rate 95 H Respiratory Rate 20 Blood Pressure 142/70 H Pulse Oximetry 98 95 Intake & Output 07/10/18 07/11/18 07/11/18 18:59 06:59 18:59 Intake Total 50 / 50 950 / 950 Output Total 150 / 150 500 / 500 Balance -100 / -100 450 / 450 Weight 39.463 kg 42.7 kg Intake: IV 50 / 50 950 / 950 NS Inj 1,000 ML @ 70 mls/hr IV. 50 / 50 950 / 950 CONT .[id number] [facility] Rx#: [id number] Oral 0 / 0 Output: Urine 150 / 150 Gastric Drainage 500 / 500 Left Nare Nasogastric Tube 500 / 500 Other: # Voids 1 # Bowel Movements 0 Weight On Admission 42.5 kg - Constitutional no acute distress - Routine Abdominal Exam Present: soft, tenderness. Absent: normoactive bowel sounds, distended, rebound , guarding Results - Labs 07/10/18 03:50 07/10/18 03:50 - Imaging Imaging: ITS Impressions Abdomen/Pelvis CT 07/10/18 03:34 CONCLUSION: Small bowel obstruction that appears to be occurring at the level of the mid to distal jejunum in the mid abdomen. I believe the obstruction is proximal to the anastomosis. No perceptible mass. The stomach is distended. Assessment and Plan - Assessment (1) Small bowel obstruction due to adhesions Code(s): K56.50 - Intestinal adhesions [bands], unspecified as to partial versus complete obstruction Status: Acute - Plan 83yo female with recurrent SBO - NG tube, IVF - still having pain, no flatus or BM, not resolved - continue to follow - will need surgery this week if non-resolution, d/w patient - add Dilaudid, pt states she can have Dilaudid with no allergy or side effects
[2018-07-11] MEDS: HYDROmorphone PF Inj 0.5 MG/0.5 ML Syringe IV.PUSH PRN ×2 (09:12→22:45)
--- NOTE | 2018-07-11 10:12 | XR ---
EXAM DATE: 07/11/2018 10:09 AM EST AGE/SEX: 83 years / Female INDICATIONS: Obstruction CLINICAL DATA: This is the patient's subsequent encounter. Patient reports that signs and symptoms h ave been present for 3 days and indicates a pain score of 4/10. MEDICAL/SURGICAL HISTORY: . Chronic obstructive pulmonary disease. Coronary artery disease. Ost eoarthritis. Small bowl obstruction. Scoliosis. . None. Laminectomy. Resection of small bowel. Fusi on of cervical spine. COMPARISON: [facility], CT ABDOMEN & PELVIS W CONTRAST, 07/10/2018. . FINDINGS: Nasogastric tube has been inserted and is in good position. Compared to the bed and breakfast cook performed from the recent CT abdomen and pelvis there is decreasing small bowel distention. There is no evidence of mass effect. Severe degenerative deformity of the lumbar spine is again noted. CONCLUSION: Improving small bowel ileus following nasogastric tube placement Electronically signed by: Eyal Kenyon MD Board Certified Radiologist 07/11/2018 10:11 AM EST
[2018-07-11 10:15] LABS: Chloride 100 meq/L (98-107); Potassium 3.6 meq/L (3.5-5.1); Sodium 136 meq/L (136-145)
[2018-07-11 10:22] LABS: Baso % (Auto) 0.3 % (0.0-2.0); Eos % (Auto) 0.2 % (0.0-4.0); Hematocrit 35.6 % (35.0-46.0); Lymph # (Auto) 0.9 th/mm3 (1.0-4.8); Lymph % (Auto) 8.6 % (9.0-44.0); Mean Corpuscular HGB Conc 33.8 % (32.0-36.0); Mean Corpuscular Hemoglobin 34.7 pg (27.0-34.0); Mean Corpuscular Volume 102.7 fL (80.0-100.0); Mean Platelet Volume 8.6 fL (7.0-11.0); Mono # (Auto) 0.7 th/mm3 (0.0-0.9); Mono % (Auto) 6.7 % (0.0-8.0); Neut # (Auto) 8.5 th/mm3 (1.8-7.7); Neut % (Auto) 84.2 % (16.0-70.0); Red Blood Count 3.47 mil/mm3 (4.00-5.30); White Blood Count 10.1 th/mm3 (4.0-11.0)
[2018-07-11 10:30] LABS: Anion Gap 9 meq/L (5-15); Blood Urea Nitrogen 15 mg/dL (7-18); Calcium 8.1 mg/dL (8.5-10.1); Carbon Dioxide 26.8 meq/L (21.0-32.0); Glomerular Filtration Rate Greater Than 89 mL/min (>89); Glucose,Random 82 mg/dL (74-106)
[2018-07-11 10:42] LABS: Platelet Count 201 th/mm3 (150-450)
--- NOTE | 2018-07-11 11:35 | P.CONOB ---
History of Present Illness - Data of Consult Patient: new to practice Consult date: 07/10/18 Requesting Physician: Efrain Frye MD Primary Care Provider: BRETT Farmer - Consult Narrative Reason for consult: other (Partial small bowel obstruction.) Narrative: Gracie Jordan is a 83 year old female, with history of recurrent attacks of small bowel obstruction secondary to adhesions, presented with recurrence of her symptoms. mainly nausea and vomiting and abdominal distension. investigations showed dilated small loops by KUB and leukocytosis. NGT placed and complete bowel rest done with pain control and hydration. PMF - History History Provided By: Patient - Medical History Medical History: Medical History (Last Updated 07/10/18 @ 05:25 by Delaney Escudero RN) Chronic low back pain CAD (coronary artery disease) COPD exacerbation Osteoarthritis SBO (small bowel obstruction) Scoliosis - Surgical History Surgical History: Surgical History (Last Reviewed 07/10/18 @ 04:07 by Dealney Escudero RN) H/O laminectomy Onset Date: ~2000 H/O resection of small bowel Onset Date: ~2003 Hx of fusion of cervical spine Onset Date: ~2003 S/P VÍCTOR-BSO Onset Date: ~2002 - Tobacco History Second Hand Smoke Exposure: No Smoking Status: Never smoker Tobacco Type: Cigarettes - Alcohol History How Often Do You Have a Drink Containing Alcohol: Never - Substance Use History Substance History: No History of Abuse - Travel History Recent Travel Out of the Country Within the Last 8 Weeks: No - Immunization History Tetanus Immunization: >5 Years Hx Influenza Vaccine This Season: Yes Medications and Allergies Active Medications: Active Medications Albuterol (Duoneb Neb (Eboni)) 1 ampul NEB Q8HR NEB EBONI Last Admin: 07/11/18 07:59 Dose: 1 ampul Bisacodyl (Dulcolax Supp) 10 mg RECTAL DAILY PRN PRN Reason: SEVERE CONSITIPATION Hydromorphone HCl (Dilaudid Pf Inj) 0.5 mg IV.PUSH Q4H PRN PRN Reason: ABDOMINAL PAIN Last Admin: 07/11/18 09:12 Dose: 0.5 mg Sodium Chloride (Ns Inj) 1,000 mls @ 70 mls/hr IV.CONT .[id number] EBONI Last Admin: 07/10/18 21:09 Dose: 70 mls/hr Ondansetron HCl (Zofran Inj) 4 mg IV.PUSH Q6H PRN PRN Reason: NAUSEA OR VOMITING Pantoprazole Sodium (Protonix Inj) 40 mg IV.PUSH Q24H [facility] Last Admin: 07/10/18 12:41 Dose: 40 mg Sodium Chloride (Ns Flush) 2 ml IV.FLUSH BID [facility] Last Admin: 07/11/18 08:42 Dose: 2 ml Sodium Chloride (Ns Flush) 2 ml IV.FLUSH PRN PRN PRN Reason: FLUSH AFTER USING IV ACCESS Allergies Allergy/AdvReac Type Severity Reaction Status Date / Time doxycycline Allergy Severe RASH Verified 07/10/18 04:26 erythromycin base Allergy Severe RASH AND Verified 07/10/18 04:26 NAUSEA meperidine Allergy Severe RASH,HALLUC Verified 07/10/18 04:26 INATIONS,NA USEA,VOMITI NG minocycline Allergy Severe RASH Verified 07/10/18 04:26 morphine Allergy Severe SEVERE Verified 07/10/18 04:26 ITCHING tigecycline Allergy Severe RASH Verified 07/10/18 04:26 penicillin G Allergy Mild RASH Verified 07/10/18 04:26 propoxyphene Allergy Mild RASH Verified 07/10/18 04:26 codeine AdvReac Severe NAUSEA,VOMI Verified 07/10/18 04:26 TING Home Medications Medication Instructions Recorded Confirmed Type acetaminophen [Tylenol Arthritis 1,300 mg PO BID PRN 07/10/18 07/10/18 History Pain] albuterol sulfate 1 amp INHALATION TID 07/10/18 07/10/18 History albuterol sulfate [ProAir HFA] 2 puff INHALATION QID PRN 07/10/18 07/10/18 History aspirin 81 mg PO AC LUNCH 07/10/18 07/10/18 History cholecalciferol (vitamin D3) 1,000 unit PO DAILY 07/10/18 07/10/18 History [Vitamin D3] diclofenac sodium [Voltaren] 2 g TOPICAL TID PRN 07/10/18 07/10/18 History estradiol [Vivelle-Dot] 0.1 mg TRANSDERMAL 2XWEEK 07/10/18 07/10/18 History fluticasone [Flovent HFA] 1 puff INHALATION DAILY 07/10/18 07/10/18 History furosemide 20 mg PO DAILY 07/10/18 07/10/18 History lansoprazole [Prevacid] 30 mg PO DAILY 07/10/18 07/10/18 History levothyroxine 50 mcg PO DAILY 07/10/18 07/10/18 History lidocaine [Lidoderm] 1 patch TOPICAL DAILY 07/10/18 07/10/18 History potassium chloride 10 meq PO DAILY 07/10/18 07/10/18 History tiotropium bromide [Spiriva with 1 cap INHALATION HS 07/10/18 07/10/18 History HandiHaler] vitamin B complex [B Complex 1] 1 tab PO DAILY 07/10/18 07/10/18 History Physical Exam Vital signs: Temp Pulse Resp BP Pulse Ox 98.7 F 98 H 20 154/71 H 94 L 07/11/18 08:00 07/11/18 08:00 07/11/18 08:00 07/11/18 08:00 07/11/18 08:00 - Constitutional no acute distress - Routine HEENT Exam Head: Present: normocephalic Eye: Present: EOMI - Routine Respiratory Exam Present: CTA bilaterally - Routine Abdominal Exam Present: soft, normoactive bowel sounds, distended Results - Labs CBC & Chem 7: 07/11/18 09:16 07/11/18 09:16 Labs: Short CBC 07/11/18 Range/Units 09:16 WBC 10.1 (4.0-11.0) th/mm3 Hgb 12.0 D (11.6-15.3) gm/dL Hct 35.6 (35.0-46.0) % Plt Count 201 D (150-450) th/mm3 BMP 07/11/18 09:16 Sodium 136 Potassium 3.6 Chloride 100 Carbon Dioxide 26.8 BUN 15 Creatinine 0.29 L Calcium 8.1 L D - Imaging Impressions Abdomen X-Ray 07/11/18 09:00 CONCLUSION: Improving small bowel ileus following nasogastric tube placement
[2018-07-11] MEDS: Pantoprazole Inj 40 MG Vial IV.PUSH SCH (11:52)
[2018-07-11] MEDS: Sod Chloride 0.9% Inj 1,000 ML IV.CONT SCH (11:53)
--- NOTE | 2018-07-11 12:31 | MB ---
cc: Frandy Keller MD DATE: 07/11/2018 REASON FOR CONSULTATION: Partial small-bowel obstruction. HISTORY OF PRESENT ILLNESS: This is an 83-year-old female patient with history of multiple small-bowel obstructions in the past requiring multiple surgical interventions and resections, who presented with severe abdominal pain, persistent nausea and vomiting that lasted for 1 day. The patient had initial workup that showed a small-bowel obstruction by KUB and had a blood test showing evidence of mild dehydration and increase in leukocyte count. The patient was placed in the hospital for observation with a complete bowel rest with NG tube placement. GI consulted for further assessment and management. At the current time, the patient is feeling slightly better with the NG tube. She mentioned previous attacks similar to this episode. Some of them resolved by itself and some of them requiring surgical intervention. She is on home oxygen supplement for chronic obstructive pulmonary disease. PAST MEDICAL HISTORY: Chronic back pain, coronary artery disease, chronic obstructive pulmonary disease, osteoarthritis, recurrent small-bowel obstruction, scoliosis. PAST SURGICAL HISTORY: Previous laminectomy, resection of a small bowel several times in 2003, fusion of cervical spine, total abdominal hysterectomy with bilateral salpingo-oophorectomy. PSYCHOSOCIAL HISTORY: No history of IV drug abuse. Never smoked in the past, light drinker of alcohol. FAMILY HISTORY: Unremarkable. REVIEW OF SYSTEMS: A 14-point of review of systems is negative other than the history and present illness. PHYSICAL EXAMINATION: GENERAL: The patient appeared to be comfortable, not in distress or in pain. Hemodynamically stable. Well hydrated at the current time. No pallor or jaundice. HEENT: Her pupils were equal and reactive to light bilaterally. NECK: Supple neck. No lymphadenopathy. No thyromegaly. CHEST: Clear to auscultation bilaterally. No crackles or wheezes. CARDIOVASCULAR: Regular rate and rhythm. No murmurs. ABDOMEN: Soft, minimal distention noted, but no rebound tenderness. No hepatosplenomegaly. No palpable masses. EXTREMITIES: Normal pulses. No edema. NEUROLOGIC: Cranial nerves 2-12 grossly intact. SKIN: Intact. No cyanosis or jaundice. ASSESSMENT: An 83-year-old female patient with history of recurrent small-bowel obstruction, who presented with: 1. Nausea, vomiting, abdominal pain with imaging study suggestive of bowel obstruction, likely secondary to adhesions. 2. Previous similar attacks requiring a small-bowel resection. The location and the site of resection is not identified at the current time. 3. Multiple comorbid conditions including oxygen dependent chronic obstructive pulmonary disease. RECOMMENDATIONS: Agree with the current treatment plan. We will complete bowel rest, IV hydration, pain control. Repeat KUB in the morning. Supportive care for the time being. We will follow up with you. Thank you for the consult. MD BRYAN Ortega/catrachito , 11:41 AM , 11:50 AM
--- NOTE | 2018-07-11 16:00 | P.PN ---
Subjective Interval history: Patient denies any pain or nausea. NG tube to low intermittent suction. Active Medications Generic Name Dose Route Start Last Admin Trade Name Freq PRN Reason Stop Dose Admin Albuterol 1 ampul 07/10/18 16:00 07/11/18 07:59 Duoneb Neb (Eboni) NEB 1 ampul Q8HR NEB EBONI Administration Bisacodyl 10 mg 07/10/18 06:11 Dulcolax Supp RECTAL DAILY PRN SEVERE CONSITIPATION Hydromorphone HCl 0.5 mg 07/11/18 08:18 07/11/18 09:12 Dilaudid Pf Inj IV.PUSH 0.5 mg Q4H PRN Administration ABDOMINAL PAIN Sodium Chloride 1,000 mls @ 70 mls/hr 07/10/18 06:15 07/11/18 11:53 Ns Inj IV.CONT 70 mls/hr .[id number] EBONI Administration Ondansetron HCl 4 mg 07/10/18 06:11 Zofran Inj IV.PUSH Q6H PRN NAUSEA OR VOMITING Pantoprazole Sodium 40 mg 07/10/18 12:00 07/11/18 11:52 Protonix Inj IV.PUSH 40 mg Q24H EBONI Administration Sodium Chloride 2 ml 07/10/18 09:00 07/11/18 08:42 Ns Flush IV.FLUSH 2 ml BID EBONI Administration Sodium Chloride 2 ml 07/10/18 06:11 Ns Flush IV.FLUSH PRN PRN FLUSH AFTER USING IV ACCESS Physical Exam Vital signs: Vital Signs 07/10/18 16:00 07/10/18 18:12 07/10/18 20:00 Temperature 97.9 F 99.0 F Pulse Rate 91 H 93 H 103 H Respiratory Rate 20 20 18 Blood Pressure 166/73 H 131/72 Pulse Oximetry 99 95 95 07/10/18 23:08 07/11/18 00:00 07/11/18 08:00 Temperature 99.1 F 98.7 F Pulse Rate 105 H 95 H 98 H Respiratory Rate 16 20 20 Blood Pressure 142/70 H 154/71 H Pulse Oximetry 94 L 98 94 L 07/11/18 12:00 Temperature 98.8 F Pulse Rate 82 Respiratory Rate 20 Blood Pressure 140/65 Pulse Oximetry 98 Intake & Output 12/29/18 12/30/18 12/30/18 18:59 06:59 18:59 Intake Total 50 / 50 950 / 950 1000 / 1000 Output Total 150 / 150 500 / 500 500 / 500 Balance -100 / -100 450 / 450 500 / 500 Weight 87 lb 94 lb 2.198 oz Intake: IV 50 / 50 950 / 950 1000 / 1000 NS Inj 1,000 ML @ 70 mls/hr IV. 50 / 50 950 / 950 1000 / 1000 CONT .[id number] EBONI Rx#: [id number] Oral 0 / 0 Output: Urine 150 / 150 200 / 200 Gastric Drainage 500 / 500 300 / 300 Left Nare Nasogastric Tube 500 / 500 300 / 300 Other: # Voids 1 # Bowel Movements 0 Weight On Admission 93 lb 11.143 oz - Routine Respiratory Exam Present: CTA bilaterally Comments: Mildly reduced air exchange bilaterally - Routine Cardiovascular Exam Present: RRR Comments: Frequent ectopy - Routine Abdominal Exam Comments: Soft, nontender, nondistended with bowel sounds present but hypoactive, no masses Results - Labs CBC & Chem 7: 07/11/18 09:16 07/11/18 09:16 Laboratory Results - last 24 hr 07/11/18 07/11/18 09:16 09:16 CBC w Diff Auto diff final WBC 10.1 RBC 3.47 L Hgb 12.0 D Hct 35.6 MCV 102.7 H MCH 34.7 H MCHC 33.8 RDW 13.0 Plt Count 201 D MPV 8.6 Neut % (Auto) 84.2 H Lymph % (Auto) 8.6 L Kingman % (Auto) 6.7 Eos % (Auto) 0.2 Baso % (Auto) 0.3 Neut # (Auto) 8.5 H Lymph # (Auto) 0.9 L Kingman # (Auto) 0.7 Eos # (Auto) 0.0 Baso # (Auto) 0.0 WBC Differential . Differential Comment . Sodium 136 Potassium 3.6 Chloride 100 Carbon Dioxide 26.8 Anion Gap 9 BUN 15 Creatinine 0.29 L Estimated GFR Greater than 89 Random Glucose 82 Calcium 8.1 L D - Imaging Impressions Abdomen X-Ray 07/11/18 09:00 CONCLUSION: Improving small bowel ileus following nasogastric tube placement Assessment and Plan - Assessment (1) Small bowel obstruction due to adhesions Code(s): K56.50 - Intestinal adhesions [bands], unspecified as to partial versus complete obstruction Status: Acute Plan: Patient now has some bowel sounds. Will clamp NG tube and follow for any recurrent nausea. Repeat x-ray in morning. Patient will be out of bed in chair. (2) Bronchiectasis Code(s): J47.9 - Bronchiectasis, uncomplicated Status: Chronic Plan: Respiratory status is stable. Continue with nebulizer treatments. Patient receiving supplemental oxygen. (3) Hyponatremia Code(s): E87.1 - Hypo-osmolality and hyponatremia Status: Resolved Plan: Sodium level has been corrected with IV fluids. Will follow (4) Hypothyroidism Code(s): E03.9 - Hypothyroidism, unspecified Status: Chronic Plan: Levothyroxine on hold until patient can take medication orally. (2) Bronchiectasis Qualifiers: Bronchiectasis type: uncomplicated Qualified Code(s): J47.9 - Bronchiectasis , uncomplicated (4) Hypothyroidism Qualifiers: Hypothyroidism type: unspecified Qualified Code(s): E03.9 - Hypothyroidism, unspecified
--- NOTE | 2018-07-11 18:05 | XR ---
EXAM DATE: 07/11/2018 5:59 PM EST AGE/SEX: 83 years / Female INDICATIONS: Left sided abdominal pain. CLINICAL DATA: This is the patient's subsequent encounter. Patient reports that signs and symptoms h ave been present for 1 day and indicates a pain score of 6/10. MEDICAL/SURGICAL HISTORY: Chronic obstructive pulmonary disease. Scoliosis. Coronary artery dis ease. . Small bowel resection. COMPARISON: [facility], ABDOMEN SINGLE VIEW, 07/11/2018. . FINDINGS: There is a moderate to severe rotatory dextroscoliosis with advanced degenerative disc disease. NG t ip in the stomach. No obstruction or free air. No acute bony abnormality. CONCLUSION: NG tip in the stomach. Nonspecific bowel gas pattern without obstruction or free air identified. Electronically signed by: Juan Buck MD Board Certified Radiologist 07/11/2018 6:04 PM EST
[2018-07-12] MEDS ORDERED: HYDROmorphone PF Inj 2 MG/ML Vial IV.PUSH SCH (00:10)
[2018-07-12] MEDS: Sod Chloride 0.9% Inj 1,000 ML IV.CONT SCH ×2 (02:15→16:51)
--- NOTE | 2018-07-12 08:16 | P.PNGS ---
Subjective Interval history: Resting in bed Wants to try something besides Dilaudid for pain Passing a small amount of flatus Physical Exam Vital signs: Vital Signs 07/11/18 12:00 07/11/18 16:00 07/11/18 16:37 Temperature 98.8 F 97.9 F Pulse Rate 82 84 86 Respiratory Rate 20 20 16 Blood Pressure 140/65 191/75 H Pulse Oximetry 98 98 07/11/18 19:45 07/11/18 19:52 07/12/18 00:00 Temperature 99.5 F 99.5 F Pulse Rate 86 88 91 H Respiratory Rate 16 16 16 Blood Pressure 167/78 H 135/65 Pulse Oximetry 93 L 98 93 L 07/12/18 07:38 Temperature Pulse Rate 68 Respiratory Rate 20 Blood Pressure Pulse Oximetry 91 L Intake & Output 07/11/18 07/12/18 07/12/18 18:59 06:59 18:59 Intake Total 1000 / 1000 1000 / 1000 Output Total 900 / 900 200 / 200 Balance 100 / 100 800 / 800 Weight 44.2 kg Intake: IV 1000 / 1000 1000 / 1000 NS Inj 1,000 ML @ 70 mls/hr IV. 1000 / 1000 1000 / 1000 CONT .[id number] [facility]AVE[facility] Rx#: [id number] Oral 0 / 0 Output: Urine 600 / 600 Gastric Drainage 300 / 300 200 / 200 Left Nare Nasogastric Tube 300 / 300 200 / 200 Other: # Bowel Movements 0 Narrative: Alert and awake Abd: Flat; soft; minimally tender; NGT to LIWS with dark bilious drainage; hypoactive BS Results - Labs 07/11/18 09:16 07/11/18 09:16 Laboratory Results - last 24 hr 07/11/18 07/11/18 09:16 09:16 CBC w Diff Auto diff final WBC 10.1 RBC 3.47 L Hgb 12.0 D Hct 35.6 MCV 102.7 H MCH 34.7 H MCHC 33.8 RDW 13.0 Plt Count 201 D MPV 8.6 Neut % (Auto) 84.2 H Lymph % (Auto) 8.6 L Mckean % (Auto) 6.7 Eos % (Auto) 0.2 Baso % (Auto) 0.3 Neut # (Auto) 8.5 H Lymph # (Auto) 0.9 L Mckean # (Auto) 0.7 Eos # (Auto) 0.0 Baso # (Auto) 0.0 WBC Differential . Differential Comment . Sodium 136 Potassium 3.6 Chloride 100 Carbon Dioxide 26.8 Anion Gap 9 BUN 15 Creatinine 0.29 L Estimated GFR Greater than 89 Random Glucose 82 Calcium 8.1 L D - Imaging Imaging: ITS Impressions Abdomen/Pelvis CT 07/10/18 03:34 CONCLUSION: Small bowel obstruction that appears to be occurring at the level of the mid to distal jejunum in the mid abdomen. I believe the obstruction is proximal to the anastomosis. No perceptible mass. The stomach is distended. Abdomen X-Ray 07/11/18 09:00 CONCLUSION: Improving small bowel ileus following nasogastric tube placement Assessment and Plan - Assessment (1) Small bowel obstruction due to adhesions Code(s): K56.50 - Intestinal adhesions [bands], unspecified as to partial versus complete obstruction Status: Acute Plan: 83 year old female with SBO -NGT to LIWS -Repeat KUB this morning -Added Ofirmev for pain -OOB and mobilize -Will try a trial of clamping NGT; hook back to LIWS if any nausea/vomiting occur Abdomen soft; became nauseated with clears and had NG placed back to LIWS NG output slightly bloody; will reposition Clamp NG overnight; if fails, may need surgery. She is very much against this. I explained the importance of not leaving too much time between presentation and surgery due to nutritional concerns, jerald. given her very light frame. The exam, history, and the medical decision-making described in the above note were completed with the assistance of the mid-level provider. I reviewed and agree with the findings presented. I attest that I had a [id number] encounter with the patient on the same day, and personally performed and documented my assessment and findings in the medical record.
--- NOTE | 2018-07-12 11:02 | P.PN ---
Subjective Interval history: The patient had nausea and increased abdominal discomfort with clamping the NG tube. NG was placed back to low intermittent suction. No further nausea. Patient was complaining of low back pain. She declined Dilaudid. Was given IV acetaminophen with good results. Pain decreased from a level of 8/10 to a level of 4/10. She is complaining of some chest congestion and coughing. She remains on oxygen at 2 L/min per nasal cannula. Receiving nebulizer treatments. Did pass some flatus yesterday but none today. States that she feels some movement of gas in the abdomen. Active Medications Generic Name Dose Route Start Last Admin Trade Name Freq PRN Reason Stop Dose Admin Albuterol 1 ampul 07/10/18 16:00 07/12/18 07:26 Duoneb Neb (Eboni) NEB 1 ampul Q8HR NEB EBONI Administration Bisacodyl 10 mg 07/10/18 06:11 Dulcolax Supp RECTAL DAILY PRN SEVERE CONSITIPATION Enoxaparin Sodium 30 mg 07/12/18 11:00 Lovenox Inj SQ DAILY EBONI Hydromorphone HCl 0.5 mg 07/11/18 08:18 07/11/18 22:45 Dilaudid Pf Inj IV.PUSH 0.5 mg Q4H PRN Administration ABDOMINAL PAIN Sodium Chloride 1,000 mls @ 70 mls/hr 07/10/18 06:15 07/12/18 02:15 Ns Inj IV.CONT 70 mls/hr .[id number] EBONI Administration Acetaminophen 1,000 mg in 100 mls @ 400 mls/hr 07/12/18 09:00 07/12/18 09:23 Ofirmev Inj IV.SIG 07/13/18 03:14 Infused Q6H EBONI Infusion Methylprednisolone Sodium Succinate 40 mg 07/12/18 14:00 Solumedrol Inj IV.PUSH Q8HR EBONI Ondansetron HCl 4 mg 07/10/18 06:11 07/11/18 22:53 Zofran Inj IV.PUSH 4 mg Q6H PRN Administration NAUSEA OR VOMITING Pantoprazole Sodium 40 mg 07/10/18 12:00 07/11/18 11:52 Protonix Inj IV.PUSH 40 mg Q24H EBONI Administration Sodium Chloride 2 ml 07/10/18 09:00 07/12/18 09:10 Ns Flush IV.FLUSH 2 ml BID EBONI Administration Sodium Chloride 2 ml 07/10/18 06:11 Ns Flush IV.FLUSH PRN PRN FLUSH AFTER USING IV ACCESS Physical Exam Vital signs: Vital Signs 07/11/18 12:00 07/11/18 16:00 07/11/18 16:37 Temperature 98.8 F 97.9 F Pulse Rate 82 84 86 Respiratory Rate 20 20 16 Blood Pressure 140/65 191/75 H Pulse Oximetry 98 98 07/11/18 19:45 07/11/18 19:52 07/12/18 00:00 Temperature 99.5 F 99.5 F Pulse Rate 86 88 91 H Respiratory Rate 16 16 16 Blood Pressure 167/78 H 135/65 Pulse Oximetry 93 L 98 93 L 07/12/18 07:38 07/12/18 08:00 Temperature 97.9 F Pulse Rate 68 83 Respiratory Rate 20 18 Blood Pressure 142/84 H Pulse Oximetry 91 L 95 Intake & Output 07/11/18 07/12/18 07/12/18 18:59 06:59 18:59 Intake Total 1000 / 1000 1000 / 1000 100 / 100 Output Total 900 / 900 200 / 200 Balance 100 / 100 800 / 800 100 / 100 Weight 97 lb 7.109 oz Intake: IV 1000 / 1000 1000 / 1000 100 / 100 NS Inj 1,000 ML @ 70 mls/hr IV. 1000 / 1000 1000 / 1000 CONT .[id number] EBONI Rx#: [id number] Ofirmev Inj 1,000 mg In 100 ml 100 / 100 @ 400 mls/hr IV.SIG Q6H [facility] Rx# :[id number] Oral 0 / 0 Output: Urine 600 / 600 Gastric Drainage 300 / 300 200 / 200 Left Nare Nasogastric Tube 300 / 300 200 / 200 Other: # Bowel Movements 0 - Constitutional Comments: Thin frail elderly white female lying in bed in no acute distress with NG tube in place - Routine Respiratory Exam Comments: Upper airway rhonchi, no rales. No wheezes. Mildly reduced air exchange. - Routine Cardiovascular Exam Comments: Regular rate and rhythm. - Routine Abdominal Exam Comments: Soft, nontender, nondistended with hypoactive bowel sounds. No masses. Results - Labs CBC & Chem 7: 07/11/18 09:16 07/11/18 09:16 - Imaging Impressions Abdomen X-Ray 07/11/18 00:00 CONCLUSION: NG tip in the stomach. Nonspecific bowel gas pattern without obstruction or free air identified. Assessment and Plan - Assessment (1) Small bowel obstruction due to adhesions Code(s): K56.50 - Intestinal adhesions [bands], unspecified as to partial versus complete obstruction Status: Acute Plan: Continue with bowel rest, NG suction and IV fluids. Appreciate general surgery consultation. Patient prefers to continue to try conservative measures, however , she may ultimately need surgical intervention for lysis of adhesions. (2) Bronchiectasis Code(s): J47.9 - Bronchiectasis, uncomplicated Status: Chronic Plan: The patient with increased congestion. Continue with nebulizer treatments. Will add Solu-Medrol. Begin incentive spirometry. (3) Hypothyroidism Code(s): E03.9 - Hypothyroidism, unspecified Status: Chronic Plan: Levothyroxine on hold until patient can take medication orally. (4) Hyponatremia Code(s): E87.1 - Hypo-osmolality and hyponatremia Status: Resolved Plan: Sodium level has been corrected with IV fluids. Will follow (5) Scoliosis Code(s): M41.9 - Scoliosis, unspecified Status: Chronic Plan: The patient has history of chronic pain in the low back. She has had good response with IV acetaminophen. Will follow. She will be out of bed which should help with the back pain. (6) At high risk for deep venous thrombosis Code(s): Z91.89 - Other specified personal risk factors, not elsewhere classified Status: Acute Plan: Begin Lovenox subcutaneously. Patient had small amount of blood in the NG aspirate initially but none in the last 24 hours. If recurs, will need to hold Lovenox. Patient's lower extremities are tender to touch. She would not tolerate sequential compression devices. (2) Bronchiectasis Qualifiers: Bronchiectasis type: uncomplicated Qualified Code(s): J47.9 - Bronchiectasis , uncomplicated (3) Hypothyroidism Qualifiers: Hypothyroidism type: unspecified Qualified Code(s): E03.9 - Hypothyroidism, unspecified (5) Scoliosis Qualifiers: Scoliosis type: unspecified scoliosis Spinal region: thoracolumbar Qualified Code(s): M41.9 - Scoliosis, unspecified
--- NOTE | 2018-07-12 11:49 | XR ---
EXAM DATE: 07/12/2018 11:22 AM EST AGE/SEX: 83 years / Female INDICATIONS: Evaluate for obstruction. Abdominal pain and distention. CLINICAL DATA: This is the patient's subsequent encounter. Patient reports that signs and symptoms h ave been present for 3 days and indicates a pain score of 5/10. MEDICAL/SURGICAL HISTORY: . Chronic obstructive pulmonary disease. Coronary artery disease. Ost eoarthritis. Scoliosis. . . Laminectomy. Resection of small bowel. Fusion of cervical spine. COMPARISON: [facility], ABDOMEN 1V KUB, 07/11/2018. . FINDINGS: There remains evident in both small and large intestinal loops. There is no evidence of pathologic d istention at this time. The dilated small bowel loops identified initially have resolved. Nasogastric tube remains in place. CONCLUSION: Stable gas pattern which remains nonspecific but demonstrates interval resolution of localized small bowel ileus. Electronically signed by: Eyal Kenyon MD Board Certified Radiologist 07/12/2018 11:48 AM EST
[2018-07-12] MEDS: Enoxaparin Inj 30 MG/0.3 ML Syringe SQ SCH (12:00)
[2018-07-12] MEDS: Pantoprazole Inj 40 MG Vial IV.PUSH SCH (12:00)
[2018-07-12] MEDS: MethylPREDNISolone Sod Succinate Inj 40 MG/ML Vial IV.PUSH SCH ×2 (14:58→22:13)
--- NOTE | 2018-07-12 17:10 | P.PNGI ---
Subjective Interval history: Feeling better today, tolerating liquids Physical Exam Vital signs: Vital Signs 07/11/18 19:45 07/11/18 19:52 07/12/18 00:00 Temperature 99.5 F 99.5 F Pulse Rate 86 88 91 H Respiratory Rate 16 16 16 Blood Pressure 167/78 H 135/65 Pulse Oximetry 93 L 98 93 L 07/12/18 07:38 07/12/18 08:00 07/12/18 12:00 Temperature 97.9 F 97.9 F Pulse Rate 68 83 83 Respiratory Rate 20 18 18 Blood Pressure 142/84 H 129/57 L Pulse Oximetry 91 L 95 97 07/12/18 15:06 Temperature Pulse Rate 80 Respiratory Rate 18 Blood Pressure Pulse Oximetry Intake & Output 07/11/18 07/12/18 07/12/18 18:59 06:59 18:59 Intake Total 1000 / 1000 1000 / 1000 1200 / 1200 Output Total 900 / 900 200 / 200 550 / 550 Balance 100 / 100 800 / 800 650 / 650 Weight 44.2 kg Intake: IV 1000 / 1000 1000 / 1000 1200 / 1200 NS Inj 1,000 ML @ 70 mls/hr IV. 1000 / 1000 1000 / 1000 1000 / 1000 CONT .[id number] [facility] Rx#: [id number] Ofirmev Inj 1,000 mg In 100 ml 200 / 200 @ 400 mls/hr IV.SIG Q6H [facility] Rx# :[id number] Oral 0 / 0 Output: Urine 600 / 600 250 / 250 Gastric Drainage 300 / 300 200 / 200 300 / 300 Left Nare Nasogastric Tube 300 / 300 200 / 200 300 / 300 Other: # Bowel Movements 0 - Constitutional no acute distress - Routine HEENT Exam Head: Present: normocephalic - Routine Neck Exam Present: supple - Routine Respiratory Exam Present: CTA bilaterally - Routine Cardiovascular Exam Present: RRR - Routine Abdominal Exam Present: soft, distended Results - Labs CBC & Chem 7: 07/11/18 09:16 07/11/18 09:16 - Imaging Impressions Abdomen X-Ray 07/11/18 00:00 CONCLUSION: NG tip in the stomach. Nonspecific bowel gas pattern without obstruction or free air identified. Abdomen X-Ray 07/12/18 00:00 CONCLUSION: Stable gas pattern which remains nonspecific but demonstrates interval resolution of localized small bowel ileus. Assessment and Plan - Plan Seen and examined, +ve flatus, less pain. NG clamped, tolerating clear liquids. Surgery on case. SBO resolving. GI will sign off, reconsult as needed. thank you
[2018-07-13] MEDS: MethylPREDNISolone Sod Succinate Inj 40 MG/ML Vial IV.PUSH SCH ×3 (05:30→21:32)
--- NOTE | 2018-07-13 06:22 | XR ---
EXAM DATE: 07/13/2018 6:18 AM EST AGE/SEX: 83 years / Female INDICATIONS: Evaluate for obstruction. CLINICAL DATA: This is the patient's subsequent encounter. Patient reports that signs and symptoms h ave been present for 1 day and indicates a pain score of 3/10. MEDICAL/SURGICAL HISTORY: . Chronic obstructive pulmonary disease. Coronary artery disease. Ost eoarthritis. Scoliosis. . Laminectomy. Resection of small bowel. Fusion of cervical spine. COMPARISON: [facility], ABDOMEN 1V KUB, 07/12/2018. [facility], CT ABDOMEN & PELVIS W CONTRAST, 07/10/2018. . FINDINGS: There is an NG tube in place with tip in the body the stomach. There is dilated bowel in the left up per pelvic region with what appears to be a segment of small bowel measuring up to 4 cm. The remainin g aspects the bowel are not dilated. There is a very prominent dextroscoliosis of the thoracolumbar r egion with associated chronic degenerative change. CONCLUSION: Persistent dilatation of small bowel in the left upper pelvic region. Some degree of obstruction in t his region can be considered. Electronically signed by: Sarath Richter MD Board Certified Radiologist 07/13/2018 6:20 AM EST
[2018-07-13 07:35] LABS: Chloride 102 meq/L (98-107); Potassium 3.7 meq/L (3.5-5.1); Sodium 137 meq/L (136-145)
[2018-07-13] MEDS: Sod Chloride 0.9% Inj 1,000 ML IV.CONT SCH ×2 (07:38→20:31)
[2018-07-13 07:40] LABS: Anion Gap 14 meq/L (5-15); Carbon Dioxide 20.7 meq/L (21.0-32.0); Glucose,Random 116 mg/dL (74-106)
[2018-07-13 07:41] LABS: Blood Urea Nitrogen 21 mg/dL (7-18)
[2018-07-13 07:44] LABS: Glomerular Filtration Rate Greater Than 89 mL/min (>89)
[2018-07-13] MEDS: Enoxaparin Inj 30 MG/0.3 ML Syringe SQ SCH (08:51)
[2018-07-13] MEDS: Pantoprazole Inj 40 MG Vial IV.PUSH SCH (11:20)
--- NOTE | 2018-07-13 11:24 | P.PN ---
Subjective Interval history: NG tube has been clamped since yesterday. No nausea or abdominal pain. Tolerating clear liquids. Has been out of bed in the chair and has ambulated a short distance. Ambulation limited by generalized weakness. Patient reports that chest congestion has improved. Performing incentive spirometry. Physical Exam Vital signs: Vital Signs 07/12/18 12:00 07/12/18 15:06 07/12/18 16:00 Temperature 97.9 F 98.1 F Pulse Rate 83 80 78 Respiratory Rate 18 18 18 Blood Pressure 129/57 L 137/62 Pulse Oximetry 97 99 07/12/18 19:57 07/12/18 20:00 07/12/18 23:43 Temperature 97.9 F Pulse Rate 75 82 Respiratory Rate 20 16 Blood Pressure 141/66 H Pulse Oximetry 98 99 98 07/13/18 00:00 07/13/18 08:00 07/13/18 08:46 Temperature 99.7 F H 97.9 F Pulse Rate 80 75 88 Respiratory Rate 16 18 20 Blood Pressure 136/67 155/68 H Pulse Oximetry 94 L 94 L 92 L Intake & Output 07/12/18 07/13/18 07/13/18 18:59 06:59 18:59 Intake Total 1200 / 1200 230 / 230 1000 / 1000 Output Total 570 / 570 600 / 600 Balance 630 / 630 -370 / -370 1000 / 1000 Weight 98 lb 1.691 oz Intake: IV 1200 / 1200 200 / 200 1000 / 1000 NS Inj 1,000 ML @ 70 mls/hr IV. 1000 / 1000 1000 / 1000 CONT .[id number] [facility]AVEEN Rx#: [id number] Ofirmev Inj 1,000 mg In 100 ml 200 / 200 200 / 200 @ 400 mls/hr IV.SIG Q6H [facility] Rx# :[id number] Oral 30 / 30 Output: Urine 250 / 250 400 / 400 Gastric Drainage 320 / 320 200 / 200 Left Nare Nasogastric Tube 320 / 320 200 / 200 - Constitutional no acute distress - Routine Neck Exam Present: supple Comments: No lymphadenopathy, JVD or thyromegaly - Routine Respiratory Exam Comments: Bilateral upper airway rhonchi but less than prior evaluation, no wheezes, no rales, mildly reduced air exchange bilaterally - Routine Cardiovascular Exam Present: RRR - Routine Abdominal Exam Comments: Soft, nontender, nondistended with bowel sounds present Results - Labs CBC & Chem 7: 07/11/18 09:16 07/13/18 06:07 Laboratory Results - last 24 hr 07/13/18 06:07 Sodium 137 Potassium 3.7 Chloride 102 Carbon Dioxide 20.7 L Anion Gap 14 BUN 21 H Creatinine 0.45 L Estimated GFR Greater than 89 Random Glucose 116 H Calcium 8.0 L - Imaging Impressions Abdomen X-Ray 07/12/18 00:00 CONCLUSION: Stable gas pattern which remains nonspecific but demonstrates interval resolution of localized small bowel ileus. Abdomen X-Ray 07/13/18 08:00 CONCLUSION: Persistent dilatation of small bowel in the left upper pelvic region. Some degree of obstruction in this region can be considered. Assessment and Plan - Assessment (1) Small bowel obstruction due to adhesions Code(s): K56.50 - Intestinal adhesions [bands], unspecified as to partial versus complete obstruction Status: Acute Plan: Improved. Patient now with bowel sounds and flatus. Has tolerated clear liquids. Will advance to full liquids as patient needs nutrition due to low body mass. Follow for any recurrent nausea or abdominal pain. (2) Bronchiectasis Code(s): J47.9 - Bronchiectasis, uncomplicated Status: Chronic Plan: Congestion has improved. Continue with steroids, nebulizer treatments and oxygen. (3) Hypothyroidism Code(s): E03.9 - Hypothyroidism, unspecified Status: Chronic Plan: Resume levothyroxine. (4) Hyponatremia Code(s): E87.1 - Hypo-osmolality and hyponatremia Status: Resolved Plan: Sodium level has been corrected with IV fluids. Will follow (5) Scoliosis Code(s): M41.9 - Scoliosis, unspecified Status: Chronic Plan: The patient has history of chronic pain in the low back. Provide oral acetaminophen as needed (6) At high risk for deep venous thrombosis Code(s): Z91.89 - Other specified personal risk factors, not elsewhere classified Status: Acute Plan: Continue Lovenox (2) Bronchiectasis Qualifiers: Bronchiectasis type: uncomplicated Qualified Code(s): J47.9 - Bronchiectasis , uncomplicated (3) Hypothyroidism Qualifiers: Hypothyroidism type: unspecified Qualified Code(s): E03.9 - Hypothyroidism, unspecified (5) Scoliosis Qualifiers: Scoliosis type: unspecified scoliosis Spinal region: thoracolumbar Qualified Code(s): M41.9 - Scoliosis, unspecified
--- NOTE | 2018-07-13 17:07 | P.PNGS ---
Subjective Patient reports: feels better, bowel movement Physical Exam Vital signs: Vital Signs 07/12/18 19:57 07/12/18 20:00 07/12/18 23:43 Temperature 97.9 F Pulse Rate 75 82 Respiratory Rate 20 16 Blood Pressure 141/66 H Pulse Oximetry 98 99 98 07/13/18 00:00 07/13/18 08:00 07/13/18 08:46 Temperature 99.7 F H 97.9 F Pulse Rate 80 75 88 Respiratory Rate 16 18 20 Blood Pressure 136/67 155/68 H Pulse Oximetry 94 L 94 L 92 L 07/13/18 12:00 07/13/18 15:56 Temperature 98.0 F Pulse Rate 73 71 Respiratory Rate 20 22 Blood Pressure 160/67 H Pulse Oximetry 97 Intake & Output 07/12/18 07/13/18 07/13/18 18:59 06:59 18:59 Intake Total 1200 / 1200 230 / 230 1000 / 1000 Output Total 570 / 570 600 / 600 Balance 630 / 630 -370 / -370 1000 / 1000 Weight 44.5 kg Intake: IV 1200 / 1200 200 / 200 1000 / 1000 NS Inj 1,000 ML @ 70 mls/hr IV. 1000 / 1000 1000 / 1000 CONT .[id number] [facility] Rx#: [id number] Ofirmev Inj 1,000 mg In 100 ml 200 / 200 200 / 200 @ 400 mls/hr IV.SIG Q6H [facility] Rx# :[id number] Oral 30 / 30 Output: Urine 250 / 250 400 / 400 Gastric Drainage 320 / 320 200 / 200 Left Nare Nasogastric Tube 320 / 320 200 / 200 - Constitutional no acute distress - Routine Abdominal Exam Present: soft, normoactive bowel sounds. Absent: tenderness, distended, rebound , guarding Results - Labs 07/11/18 09:16 07/13/18 06:07 Laboratory Results - last 24 hr 07/13/18 06:07 Sodium 137 Potassium 3.7 Chloride 102 Carbon Dioxide 20.7 L Anion Gap 14 BUN 21 H Creatinine 0.45 L Estimated GFR Greater than 89 Random Glucose 116 H Calcium 8.0 L - Imaging Imaging: ITS Impressions Abdomen/Pelvis CT 07/10/18 03:34 CONCLUSION: Small bowel obstruction that appears to be occurring at the level of the mid to distal jejunum in the mid abdomen. I believe the obstruction is proximal to the anastomosis. No perceptible mass. The stomach is distended. Abdomen X-Ray 07/13/18 08:00 CONCLUSION: Persistent dilatation of small bowel in the left upper pelvic region. Some degree of obstruction in this region can be considered. Assessment and Plan - Assessment (1) Small bowel obstruction due to adhesions Code(s): K56.50 - Intestinal adhesions [bands], unspecified as to partial versus complete obstruction Status: Acute Plan: 83 year old female with SBO, resolving -had BM, no NV, no pain -NG clamped with no N/V - advance diet and Dc NG - Plan 83yo female with recurrent SBO - NG tube, IVF - still having pain, no flatus or BM, not resolved - continue to follow - will need surgery this week if non-resolution, d/w patient - add Dilaudid, pt states she can have Dilaudid with no allergy or side effects
[2018-07-14] MEDS: HYDROmorphone PF Inj 0.5 MG/0.5 ML Syringe IV.PUSH PRN (02:22)
[2018-07-14] MEDS: MethylPREDNISolone Sod Succinate Inj 40 MG/ML Vial IV.PUSH SCH ×3 (05:48→21:57)
[2018-07-14] MEDS: Levothyroxine 50 MCG Tablet PO SCH (05:48)
--- NOTE | 2018-07-14 08:14 | P.PNGS ---
Subjective Interval history: Feeling better No issues overnight Would like to try soft diet Physical Exam Vital signs: Vital Signs 07/13/18 08:46 07/13/18 12:00 07/13/18 15:56 Temperature 98.0 F Pulse Rate 88 73 71 Respiratory Rate 20 20 22 Blood Pressure 160/67 H Pulse Oximetry 92 L 97 07/13/18 16:00 07/13/18 20:00 07/13/18 23:26 Temperature 98.7 F 97.7 F Pulse Rate 76 70 71 Respiratory Rate 16 18 18 Blood Pressure 170/77 H 151/84 H Pulse Oximetry 98 95 07/13/18 23:27 07/14/18 00:00 07/14/18 07:00 Temperature 97.3 F L Pulse Rate 70 76 Respiratory Rate 18 18 Blood Pressure 167/88 H Pulse Oximetry 98 96 95 Intake & Output 07/13/18 07/14/18 07/14/18 18:59 06:59 18:59 Intake Total 1000 / 1000 1000 / 1000 Balance 1000 / 1000 1000 / 1000 Weight 45 kg Intake: IV 1000 / 1000 1000 / 1000 NS Inj 1,000 ML @ 70 mls/hr IV. 1000 / 1000 1000 / 1000 CONT .[id number] [facility] Rx#: [id number] Other: # Voids 8 Narrative: Alert and awake Abd: soft; non tender non distended Results - Labs 07/11/18 09:16 07/13/18 06:07 - Imaging Imaging: ITS Impressions Abdomen/Pelvis CT 07/10/18 03:34 CONCLUSION: Small bowel obstruction that appears to be occurring at the level of the mid to distal jejunum in the mid abdomen. I believe the obstruction is proximal to the anastomosis. No perceptible mass. The stomach is distended. Abdomen X-Ray 07/13/18 08:00 CONCLUSION: Persistent dilatation of small bowel in the left upper pelvic region. Some degree of obstruction in this region can be considered. Assessment and Plan - Assessment (1) Small bowel obstruction due to adhesions Code(s): K56.50 - Intestinal adhesions [bands], unspecified as to partial versus complete obstruction Status: Acute Plan: 83 year old female with SBO, resolving -NGT out -Tolerated full liquids -Advance to soft diet -MOM -Continue non operative treatment
[2018-07-14] MEDS: Enoxaparin Inj 30 MG/0.3 ML Syringe SQ SCH (09:06)
[2018-07-14] MEDS: Sod Chloride 0.9% Inj 1,000 ML IV.CONT SCH (10:49)
--- NOTE | 2018-07-14 17:59 | P.PN ---
Subjective Interval history: The patient is passing flatus. NG tube is out. Tolerating soft diet. No bowel movement as of yet. Was out of bed in chair and ambulated in room today. She had some thoracic back pain for which she received Dilaudid this afternoon. Pain has resolved. Active Medications Generic Name Dose Route Start Last Admin Trade Name Freq PRN Reason Stop Dose Admin Acetaminophen 650 mg 07/13/18 12:00 Tylenol PO Q4H PRN PAIN SCALE 1 TO 5 Bisacodyl 10 mg 07/10/18 06:11 Dulcolax Supp RECTAL DAILY PRN SEVERE CONSITIPATION Enoxaparin Sodium 30 mg 07/12/18 11:00 07/14/18 09:06 Lovenox Inj SQ 30 mg DAILY NAVEEN Administration Hydromorphone HCl 0.5 mg 07/11/18 08:18 07/14/18 02:22 Dilaudid Pf Inj IV.PUSH 0.5 mg Q4H PRN Administration ABDOMINAL PAIN Sodium Chloride 1,000 mls @ 70 mls/hr 07/10/18 06:15 07/14/18 10:49 Ns Inj IV.CONT 70 mls/hr .[id number] NAVEEN Administration Levothyroxine Sodium 50 mcg 07/14/18 06:00 07/14/18 05:48 Synthroid PO 50 mcg DAILY@0600 NAVEEN Administration Methylprednisolone Sodium Succinate 40 mg 07/12/18 14:00 07/14/18 14:43 Solumedrol Inj IV.PUSH 40 mg Q8HR NAVEEN Administration Ondansetron HCl 4 mg 07/10/18 06:11 07/14/18 02:22 Zofran Inj IV.PUSH 4 mg Q6H PRN Administration NAUSEA OR VOMITING Pantoprazole Sodium 40 mg 07/14/18 09:00 07/14/18 09:06 Protonix PO 40 mg DAILY NAVEEN Administration Sodium Chloride 2 ml 07/10/18 09:00 07/14/18 09:06 Ns Flush IV.FLUSH 2 ml BID NAVEEN Administration Sodium Chloride 2 ml 07/10/18 06:11 Ns Flush IV.FLUSH PRN PRN FLUSH AFTER USING IV ACCESS Physical Exam Vital signs: Vital Signs 07/13/18 20:00 07/13/18 23:26 07/13/18 23:27 Temperature 97.7 F Pulse Rate 70 71 Respiratory Rate 18 18 Blood Pressure 151/84 H Pulse Oximetry 95 98 07/14/18 00:00 07/14/18 07:00 07/14/18 08:00 Temperature 97.3 F L 97.8 F Pulse Rate 70 76 79 Respiratory Rate 18 18 17 Blood Pressure 167/88 H 154/69 H Pulse Oximetry 96 95 97 07/14/18 12:00 07/14/18 15:20 Temperature 97.5 F L Pulse Rate 75 65 Respiratory Rate 20 12 Blood Pressure 155/69 H Pulse Oximetry 98 97 Intake & Output 07/13/18 07/14/18 07/14/18 18:59 06:59 18:59 Intake Total 1000 / 1000 1000 / 1000 1000 / 1000 Balance 1000 / 1000 1000 / 1000 1000 / 1000 Weight 99 lb 3.328 oz Intake: IV 1000 / 1000 1000 / 1000 1000 / 1000 NS Inj 1,000 ML @ 70 mls/hr IV. 1000 / 1000 1000 / 1000 1000 / 1000 CONT .[id number] NAVEEN Rx#: [id number] Other: # Voids 8 - Constitutional no acute distress - Routine Respiratory Exam Comments: Few upper airway rhonchi but no rales or wheezes. Mildly reduced air exchange - Routine Cardiovascular Exam Present: RRR Comments: Soft systolic murmur - Routine Abdominal Exam Comments: Soft, nontender, nondistended with bowel sounds present. Results - Labs CBC & Chem 7: 07/11/18 09:16 07/13/18 06:07 Assessment and Plan - Assessment (1) Small bowel obstruction due to adhesions Code(s): K56.50 - Intestinal adhesions [bands], unspecified as to partial versus complete obstruction Status: Resolved Plan: Improved. Continue with soft diet. If patient tolerates well, can discharge home tomorrow. Patient received milk of magnesia today. Awaiting bowel movement (2) Bronchiectasis Code(s): J47.9 - Bronchiectasis, uncomplicated Status: Chronic Plan: Congestion has improved. Change to oral steroids. Continue with nebulizer treatments and submental oxygen (3) Hypothyroidism Code(s): E03.9 - Hypothyroidism, unspecified Status: Chronic Plan: Resume levothyroxine. (4) Hyponatremia Code(s): E87.1 - Hypo-osmolality and hyponatremia Status: Resolved Plan: Sodium level has been corrected with IV fluids. Will follow (5) Scoliosis Code(s): M41.9 - Scoliosis, unspecified Status: Chronic Plan: The patient has history of chronic pain in the low back. Provide oral acetaminophen as needed (6) At high risk for deep venous thrombosis Code(s): Z91.89 - Other specified personal risk factors, not elsewhere classified Status: Acute Plan: Continue Lovenox (2) Bronchiectasis Qualifiers: Bronchiectasis type: uncomplicated Qualified Code(s): J47.9 - Bronchiectasis , uncomplicated (3) Hypothyroidism Qualifiers: Hypothyroidism type: unspecified Qualified Code(s): E03.9 - Hypothyroidism, unspecified (5) Scoliosis Qualifiers: Scoliosis type: unspecified scoliosis Spinal region: thoracolumbar Qualified Code(s): M41.9 - Scoliosis, unspecified
[2018-07-15] MEDS: MethylPREDNISolone Sod Succinate Inj 40 MG/ML Vial IV.PUSH SCH ×3 (05:52→21:30)
[2018-07-15] MEDS: Levothyroxine 50 MCG Tablet PO SCH (05:52)
[2018-07-15] MEDS: Acetaminophen 325 MG Tablet PO PRN ×2 (10:48→21:31)
--- NOTE | 2018-07-15 12:06 | P.DIET ---
Nutritional Evaluation Type of nutrition evaluation: initial Nutrition consult regarding: Diet Evaluation Nutrition screening: Poor PO Intake, MDC Objective - Diagnosis Small bowel obstruction - Objective Body Mass Index: 18 [place] body weight: 47 kg % IBW: 65 Body Weight Used for Calculations: Actual Energy Needs - Lower Range (kCal/kg): 32 Energy Needs - Upper Range (kCal/kg): 38 Lower Limit kCal/kg (kCals): 1,376 Upper Limit kCal/kg (kCals): 1,634 Lower Limit Protein Factor (Grams per Kg): 1 Upper Limit Protein Factor (Grams per Kg): 1.2 Lower Protein Needs (Protein): 43 Upper Protein Needs (Protein): 52 Dietitian Reviewed in Medical Record: Current diet, Curent medications, Intake & Output, Labs, Medical history Diet Order: Soft Oral Diet Intake Amount: Good 75-90% Objective Comments: PMH; multiple SBO labs; random glucose 116 medications; synthroid Assessment Assessment: [facility] poor PO intake; Pt presented to ED with severe abdominal pain and vomiting x24 hours and found to have recurring SBO. Pt is at nutritional risk related to clinical course, poor PO intake and underweight BMI. NG tube placed (07/10) and d/c'ed (07/13) and pt advanced to regular soft diet. Per documentation pt is tolerating soft diet with PO intake around 75%. At this time will recommend Ensure Enlive TID to support PO intake. Each bottle of Ensure Enlive will provide 350kcal and 20g protein. Will continue to monitor PO intake and supplement acceptance. Recommendations: 1. Ensure Enlive TID 2. Continue to encourage PO intake 3. Monitor supplement acceptance Dietitian to Monitor: Lab values, Supplement acceptance, Diet tolerance, PO Intake
--- NOTE | 2018-07-15 12:38 | P.PN ---
Subjective Interval history: The patient was able to shower this morning. She is taking p.o. well. Passing flatus but no bowel movement as of yet. Has received 2 doses of milk of magnesia. Denies any abdominal pain. Blood pressure is higher today but patient is in pain in her back. She declined Dilaudid but did receive some Tylenol. At home, the patient takes low- dose oxycodone for the pain in her back. She is concerned about taking any narcotic analgesic as it may slow her bowel function. She does not have a history of hypertension in recent years. She does admit that she is anxious about being in the hospital and wants to go home [facility]. Respiratory status has improved. Patient remains on 2 L/min per nasal cannula oxygen. She is receiving nebulizer treatments. Minimal cough. Active Medications Generic Name Dose Route Start Last Admin Trade Name Freq PRN Reason Stop Dose Admin Acetaminophen 650 mg 07/13/18 12:00 07/15/18 10:48 Tylenol PO 650 mg Q4H PRN Administration PAIN SCALE 1 TO 5 Bisacodyl 10 mg 07/10/18 06:11 Dulcolax Supp RECTAL DAILY PRN SEVERE CONSITIPATION Hydromorphone HCl 0.5 mg 07/11/18 08:18 07/14/18 02:22 Dilaudid Pf Inj IV.PUSH 0.5 mg Q4H PRN Administration ABDOMINAL PAIN Levothyroxine Sodium 50 mcg 07/14/18 06:00 07/15/18 05:52 Synthroid PO 50 mcg DAILY@0600 NAVEEN Administration Methylprednisolone Sodium Succinate 40 mg 07/12/18 14:00 07/15/18 05:52 Solumedrol Inj IV.PUSH 40 mg Q8HR NAVEEN Administration Ondansetron HCl 4 mg 07/10/18 06:11 07/14/18 02:22 Zofran Inj IV.PUSH 4 mg Q6H PRN Administration NAUSEA OR VOMITING Pantoprazole Sodium 40 mg 07/14/18 09:00 07/15/18 08:15 Protonix PO 40 mg DAILY NAVEEN Administration Sodium Chloride 2 ml 07/10/18 09:00 07/15/18 08:16 Ns Flush IV.FLUSH 2 ml BID NAVEEN Administration Sodium Chloride 2 ml 07/10/18 06:11 Ns Flush IV.FLUSH PRN PRN FLUSH AFTER USING IV ACCESS Physical Exam Vital signs: Vital Signs 07/14/18 15:20 07/14/18 16:00 07/14/18 20:00 Temperature 97.5 F L 96.2 F L Pulse Rate 65 79 85 Respiratory Rate 12 15 20 Blood Pressure 153/72 H 152/70 H Pulse Oximetry 97 94 L 92 L 07/14/18 20:33 07/15/18 00:00 07/15/18 08:19 Temperature 96.5 F L Pulse Rate 82 Respiratory Rate 20 Blood Pressure 173/70 H Pulse Oximetry 95 92 L 93 L 07/15/18 10:56 Temperature 96.4 F L Pulse Rate 82 Respiratory Rate 18 Blood Pressure 186/82 H Pulse Oximetry 93 L Intake & Output 07/14/18 07/15/18 07/15/18 18:59 06:59 18:59 Intake Total 1760 / 1760 Balance 1760 / 1760 Weight 95 lb 7.362 oz Intake: IV 1560 / 1560 NS Inj 1,000 ML @ 70 mls/hr IV. 1560 / 1560 CONT .[id number] NAVEEN Rx#: [id number] Oral 200 / 200 Other: # Voids 1 5 Date of Last Bowel Movement 07/09/18 - Constitutional Comments: Mildly anxious appearing elderly white female sitting up in bed - Routine Respiratory Exam Comments: Few upper airway rhonchi otherwise clear to auscultation with mildly reduced air exchange. - Routine Cardiovascular Exam Comments: Regular rate and rhythm with soft systolic murmur - Routine Abdominal Exam Comments: Soft, nontender, nondistended with bowel sounds active, no masses - Routine Extremities Exam Comments: No edema. Results - Labs CBC & Chem 7: 07/11/18 09:16 07/13/18 06:07 Assessment and Plan - Assessment (1) Small bowel obstruction due to adhesions Code(s): K56.50 - Intestinal adhesions [bands], unspecified as to partial versus complete obstruction Status: Resolved Plan: Improved. Continue with soft diet. Awaiting bowel movement. Once patient has bowel movement can be discharged home. (2) Bronchiectasis Code(s): J47.9 - Bronchiectasis, uncomplicated Status: Chronic Plan: Congestion has improved. Taper oral steroids as outpatient. Continue with supplemental oxygen and nebulizer treatments (3) Hypothyroidism Code(s): E03.9 - Hypothyroidism, unspecified Status: Chronic Plan: Resume levothyroxine. (4) Hyponatremia Code(s): E87.1 - Hypo-osmolality and hyponatremia Status: Resolved Plan: Sodium level has been corrected with IV fluids. Will follow (5) Scoliosis Code(s): M41.9 - Scoliosis, unspecified Status: Chronic Plan: The patient has history of chronic pain in the low back. Will provide low-dose oxycodone today. (6) At high risk for deep venous thrombosis Code(s): Z91.89 - Other specified personal risk factors, not elsewhere classified Status: Acute Plan: Continue Lovenox (7) Elevated blood pressure reading without diagnosis of hypertension Code(s): R03.0 - Elevated blood-pressure reading, without diagnosis of hypertension Status: Acute Plan: Blood pressure is elevated due to patient's pain and her anxiety about being in the hospital. Will provide oxycodone for pain relief. Will provide PRN antihypertensive therapy. (2) Bronchiectasis Qualifiers: Bronchiectasis type: uncomplicated Qualified Code(s): J47.9 - Bronchiectasis , uncomplicated (3) Hypothyroidism Qualifiers: Hypothyroidism type: unspecified Qualified Code(s): E03.9 - Hypothyroidism, unspecified (5) Scoliosis Qualifiers: Scoliosis type: unspecified scoliosis Spinal region: thoracolumbar Qualified Code(s): M41.9 - Scoliosis, unspecified
[2018-07-15] MEDS ORDERED: amLODIPine 5 MG Tablet PO ONE (13:00)
--- NOTE | 2018-07-15 14:31 | P.PNGS ---
Subjective Interval history: Resting in bed No issues overnight Tolerated soft diet Physical Exam Vital signs: Vital Signs 07/14/18 15:20 07/14/18 16:00 07/14/18 20:00 Temperature 97.5 F L 96.2 F L Pulse Rate 65 79 85 Respiratory Rate 12 15 20 Blood Pressure 153/72 H 152/70 H Pulse Oximetry 97 94 L 92 L 07/14/18 20:33 07/15/18 00:00 07/15/18 08:19 Temperature 96.5 F L Pulse Rate 82 Respiratory Rate 20 Blood Pressure 173/70 H Pulse Oximetry 95 92 L 93 L 07/15/18 10:56 Temperature 96.4 F L Pulse Rate 82 Respiratory Rate 18 Blood Pressure 186/82 H Pulse Oximetry 93 L Intake & Output 07/14/18 07/15/18 07/15/18 18:59 06:59 18:59 Intake Total 1760 / 1760 Output Total 200 / 200 Balance 1760 / 1760 -200 / -200 Weight 43.3 kg Intake: IV 1560 / 1560 NS Inj 1,000 ML @ 70 mls/hr IV. 1560 / 1560 CONT .[id number] [facility] Rx#: [id number] Oral 200 / 200 Output: Urine 200 / 200 Other: # Voids 1 5 Date of Last Bowel Movement 07/09/18 Narrative: Alert and awake Abd: soft; non tender ; flat Results - Labs 07/11/18 09:16 07/13/18 06:07 - Imaging Imaging: ITS Impressions Abdomen/Pelvis CT 07/10/18 03:34 CONCLUSION: Small bowel obstruction that appears to be occurring at the level of the mid to distal jejunum in the mid abdomen. I believe the obstruction is proximal to the anastomosis. No perceptible mass. The stomach is distended. Abdomen X-Ray 07/13/18 08:00 CONCLUSION: Persistent dilatation of small bowel in the left upper pelvic region. Some degree of obstruction in this region can be considered. Assessment and Plan - Assessment (1) Small bowel obstruction due to adhesions Code(s): K56.50 - Intestinal adhesions [bands], unspecified as to partial versus complete obstruction Status: Resolved Plan: 83 year old female with SBO, resolving -Tolerating soft diet -MOM -DC after BM -Continue non operative treatment
[2018-07-15] MEDS ORDERED: Magnesium Citrate Liq 300 ML Bottle PO ONE (15:00)
[2018-07-16] MEDS: MethylPREDNISolone Sod Succinate Inj 40 MG/ML Vial IV.PUSH SCH ×3 (06:17→22:06)
[2018-07-16] MEDS: Levothyroxine 50 MCG Tablet PO SCH (06:17)
--- NOTE | 2018-07-16 07:04 | P.PNGS ---
Subjective Patient reports: no new complaints, feels better, flatus, no bowel movement Physical Exam Vital signs: Vital Signs 07/15/18 08:19 07/15/18 10:56 07/15/18 14:55 Temperature 96.4 F L 96.9 F L Pulse Rate 82 80 Respiratory Rate 18 16 Blood Pressure 186/82 H 170/87 H Pulse Oximetry 93 L 93 L 95 07/15/18 18:35 07/15/18 19:00 07/15/18 20:00 Temperature 96.7 F L 98.1 F Pulse Rate 107 H 84 Respiratory Rate 16 18 Blood Pressure 182/97 H 154/70 H Pulse Oximetry 96 96 94 L 07/16/18 00:00 Temperature 98.3 F Pulse Rate 85 Respiratory Rate 18 Blood Pressure 150/71 H Pulse Oximetry 96 Intake & Output 07/15/18 07/16/18 07/16/18 18:59 06:59 18:59 Output Total 600 / 600 Balance -600 / -600 Weight 42.4 kg Output: Urine 600 / 600 Other: Date of Last Bowel Movement 07/09/18 # Bowel Movements 0 - Routine Abdominal Exam Present: soft (NT/ND) Results - Labs 07/11/18 09:16 07/13/18 06:07 - Imaging Imaging: ITS Impressions Abdomen/Pelvis CT 07/10/18 03:34 CONCLUSION: Small bowel obstruction that appears to be occurring at the level of the mid to distal jejunum in the mid abdomen. I believe the obstruction is proximal to the anastomosis. No perceptible mass. The stomach is distended. Abdomen X-Ray 07/13/18 08:00 CONCLUSION: Persistent dilatation of small bowel in the left upper pelvic region. Some degree of obstruction in this region can be considered. Assessment and Plan - Assessment (1) Small bowel obstruction due to adhesions Code(s): K56.50 - Intestinal adhesions [bands], unspecified as to partial versus complete obstruction Status: Resolved Plan: 83 year old female with SBO, resolving, pt not wanting mg citrate -Tolerating soft diet -MOM -DC after BM -Continue non operative treatment -Anticipate d/c today
[2018-07-16] MEDS: Acetaminophen 325 MG Tablet PO PRN (10:53)
[2018-07-16] MEDS ORDERED: Glycerin Adult 2 GM Supp RECTAL ONE (12:00)
--- NOTE | 2018-07-16 15:24 | P.DCO ---
- Physical Therapy Order: Evaluate and treat - Occupational Therapy Order: Evaluate and treat - Home Health Nursing Order: Signs/symptoms of disease process, Oxygen administration education, Medication education-adverse effect, Nursing assessment with vital signs - Home Health Aide Order: To assist in: Bathing and personal care - Case Management Consult Case Management Consult-Home Health: Yes - Certification I have seen patient Gracie Jordan on 07/16/18. My clinical findings support the need for the requested home health care services because: Dyspnea on exertion even with oxygen. Unsteady gait. Poor posture and balance due to severe scoliosis. Severe back pain with ambulation. Limited mobility due to disease progression, Patient has SOB, Deconditioned with increased weakness, High risk of falls I certify that my clinical findings support that this patient is homebound because: Hx COPD - exertion dyspnea/weakness, Unsteady gait/balance, Unsafe to leave home unassisted, Unable to use public transportation
--- NOTE | 2018-07-16 15:27 | P.PN ---
Subjective Interval history: The patient is taking p.o. well. She is passing gas but no bowel movement as of yet. Blood pressure lower today. Pain is under better control. Ambulating to the bathroom. The patient has refused magnesium citrate and Dulcolax suppository but has taken the milk of magnesia. She will agreed to a glycerin suppository. Respiratory status is stable. Active Medications Generic Name Dose Route Start Last Admin Trade Name Freq PRN Reason Stop Dose Admin Acetaminophen 650 mg 07/13/18 12:00 07/16/18 10:53 Tylenol PO 650 mg Q4H PRN Administration PAIN SCALE 1 TO 5 Bisacodyl 10 mg 07/10/18 06:11 Dulcolax Supp RECTAL DAILY PRN SEVERE CONSITIPATION Clonidine HCl 0.1 mg 07/15/18 12:39 Catapres PO Q8HR PRN Sbp>180, Dbp>100 Hydromorphone HCl 0.5 mg 07/11/18 08:18 07/14/18 02:22 Dilaudid Pf Inj IV.PUSH 0.5 mg Q4H PRN Administration ABDOMINAL PAIN Levothyroxine Sodium 50 mcg 07/14/18 06:00 07/16/18 06:17 Synthroid PO 50 mcg DAILY@0600 NAVEEN Administration Methylprednisolone Sodium Succinate 40 mg 07/12/18 14:00 07/16/18 06:17 Solumedrol Inj IV.PUSH 40 mg Q8HR NAVEEN Administration Ondansetron HCl 4 mg 07/10/18 06:11 07/14/18 02:22 Zofran Inj IV.PUSH 4 mg Q6H PRN Administration NAUSEA OR VOMITING Oxycodone HCl 2.5 mg 07/15/18 12:38 Roxicodone PO Q6H PRN PAIN SCALE 6 TO 10 Pantoprazole Sodium 40 mg 07/14/18 09:00 07/16/18 09:51 Protonix PO Not Given DAILY NAVEEN Sodium Chloride 2 ml 07/10/18 09:00 07/16/18 09:51 Ns Flush IV.FLUSH Not Given BID NAVEEN Sodium Chloride 2 ml 07/10/18 06:11 07/16/18 06:17 Ns Flush IV.FLUSH 2 ml PRN PRN Administration FLUSH AFTER USING IV ACCESS Physical Exam Vital signs: Vital Signs 07/15/18 18:35 07/15/18 19:00 07/15/18 20:00 Temperature 96.7 F L 98.1 F Pulse Rate 107 H 84 Respiratory Rate 16 18 Blood Pressure 182/97 H 154/70 H Pulse Oximetry 96 96 94 L 07/16/18 00:00 07/16/18 08:00 07/16/18 12:00 Temperature 98.3 F 97.5 F L 96.5 F L Pulse Rate 85 86 87 Respiratory Rate 18 16 16 Blood Pressure 150/71 H 144/82 H 126/73 Pulse Oximetry 96 97 96 Intake & Output 07/15/18 07/16/18 07/16/18 18:59 06:59 18:59 Output Total 600 / 600 Balance -600 / -600 Weight 93 lb 7.616 oz Output: Urine 600 / 600 Other: Date of Last Bowel Movement 07/09/18 07/09/18 # Bowel Movements 0 - Constitutional no acute distress - Routine Respiratory Exam Comments: Few opening fibrotic rales, no wheezes or rhonchi. Mildly diminished air exchange. - Routine Cardiovascular Exam Present: RRR Comments: Soft systolic murmur - Routine Abdominal Exam Present: soft Comments: Nontender, nondistended with bowel sounds present Results - Labs CBC & Chem 7: 07/11/18 09:16 07/13/18 06:07 Assessment and Plan - Assessment (1) Small bowel obstruction due to adhesions Code(s): K56.50 - Intestinal adhesions [bands], unspecified as to partial versus complete obstruction Status: Resolved Plan: Improved. Continue with soft diet. Awaiting bowel movement. Once patient has bowel movement can be discharged home. (2) Bronchiectasis Code(s): J47.9 - Bronchiectasis, uncomplicated Status: Chronic Plan: Congestion has improved. Taper oral steroids as outpatient. Continue with supplemental oxygen and nebulizer treatments (3) Hypothyroidism Code(s): E03.9 - Hypothyroidism, unspecified Status: Chronic Plan: Resume levothyroxine. (4) Hyponatremia Code(s): E87.1 - Hypo-osmolality and hyponatremia Status: Resolved Plan: Sodium level has been corrected with IV fluids. Will follow (5) Scoliosis Code(s): M41.9 - Scoliosis, unspecified Status: Chronic Plan: The patient has history of chronic pain in the low back. Will provide low-dose oxycodone today. (6) At high risk for deep venous thrombosis Code(s): Z91.89 - Other specified personal risk factors, not elsewhere classified Status: Acute Plan: Patient has been out of bed frequently. Have discontinued Lovenox (7) Elevated blood pressure reading without diagnosis of hypertension Code(s): R03.0 - Elevated blood-pressure reading, without diagnosis of hypertension Status: Acute Plan: Blood pressure is under better control today. Pain is under better control and patient is less anxious. Will follow as an outpatient. (2) Bronchiectasis Qualifiers: Bronchiectasis type: uncomplicated Qualified Code(s): J47.9 - Bronchiectasis , uncomplicated (3) Hypothyroidism Qualifiers: Hypothyroidism type: unspecified Qualified Code(s): E03.9 - Hypothyroidism, unspecified (5) Scoliosis Qualifiers: Scoliosis type: unspecified scoliosis Spinal region: thoracolumbar Qualified Code(s): M41.9 - Scoliosis, unspecified
[2018-07-17] MEDS: MethylPREDNISolone Sod Succinate Inj 40 MG/ML Vial IV.PUSH SCH ×3 (06:22→23:06)
[2018-07-17] MEDS: Levothyroxine 50 MCG Tablet PO SCH (06:22)
[2018-07-17] MEDS ORDERED: Bisacodyl 10 MG Supp RECTAL ONE (13:42)
--- NOTE | 2018-07-17 13:45 | P.PN ---
Subjective Interval history: Patient has yet to have a bowel movement. She is passing a lot of flatus. Taking p.o. well. Ambulating in room with assistance and her walker. Denies any abdominal pain, nausea, chest pain. Remains on oxygen 2 L/min per nasal cannula. Active Medications Generic Name Dose Route Start Last Admin Trade Name Freq PRN Reason Stop Dose Admin Acetaminophen 650 mg 07/13/18 12:00 07/16/18 10:53 Tylenol PO 650 mg Q4H PRN Administration PAIN SCALE 1 TO 5 Albuterol 1 ampul 07/17/18 13:43 Duoneb Neb (Eboni) NEB Q6HR WHILE AWAKE NEB EBONI Bisacodyl 10 mg 07/10/18 06:11 Dulcolax Supp RECTAL DAILY PRN SEVERE CONSITIPATION Clonidine HCl 0.1 mg 07/15/18 12:39 Catapres PO Q8HR PRN Sbp>180, Dbp>100 Hydromorphone HCl 0.5 mg 07/11/18 08:18 07/14/18 02:22 Dilaudid Pf Inj IV.PUSH 0.5 mg Q4H PRN Administration ABDOMINAL PAIN Levothyroxine Sodium 50 mcg 07/14/18 06:00 07/17/18 06:22 Synthroid PO 50 mcg DAILY@0600 EBONI Administration Methylprednisolone Sodium Succinate 40 mg 07/12/18 14:00 07/17/18 06:22 Solumedrol Inj IV.PUSH 40 mg Q8HR EBONI Administration Ondansetron HCl 4 mg 07/10/18 06:11 07/14/18 02:22 Zofran Inj IV.PUSH 4 mg Q6H PRN Administration NAUSEA OR VOMITING Oxycodone HCl 2.5 mg 07/15/18 12:38 Roxicodone PO Q6H PRN PAIN SCALE 6 TO 10 Pantoprazole Sodium 40 mg 07/14/18 09:00 07/17/18 09:18 Protonix PO 40 mg DAILY EBONI Administration Sodium Chloride 2 ml 07/10/18 09:00 07/17/18 09:17 Ns Flush IV.FLUSH 2 ml BID EBONI Administration Sodium Chloride 2 ml 07/10/18 06:11 07/16/18 06:17 Ns Flush IV.FLUSH 2 ml PRN PRN Administration FLUSH AFTER USING IV ACCESS Physical Exam Vital signs: Vital Signs 07/16/18 16:00 07/16/18 20:00 07/17/18 01:00 Temperature 97.1 F L 97.5 F L 97.1 F L Pulse Rate 82 57 L 79 Respiratory Rate 16 19 20 Blood Pressure 164/79 H 171/82 H 156/79 H Pulse Oximetry 96 93 L 93 L 07/17/18 08:00 07/17/18 12:00 Temperature 96.2 F L 97 F L Pulse Rate 85 81 Respiratory Rate 18 18 Blood Pressure 140/87 135/89 Pulse Oximetry 94 L 95 Intake & Output 07/16/18 07/17/18 07/17/18 18:59 06:59 18:59 Intake Total 1080 / 1080 Output Total 400 / 400 Balance 680 / 680 Intake: Oral 1080 / 1080 Output: Urine 400 / 400 Other: # Voids 3 Date of Last Bowel Movement 07/09/18 07/09/18 # Bowel Movements 0 - Constitutional no acute distress - Routine Respiratory Exam Comments: Upper airway rhonchi, scattered opening fibrotic rales, no wheezes - Routine Cardiovascular Exam Present: RRR Comments: Systolic murmur - Routine Abdominal Exam Comments: Soft, nontender, nondistended with active bowel sounds Results - Labs CBC & Chem 7: 07/11/18 09:16 07/13/18 06:07 Assessment and Plan - Assessment (1) Small bowel obstruction due to adhesions Code(s): K56.50 - Intestinal adhesions [bands], unspecified as to partial versus complete obstruction Status: Resolved Plan: Improved. Continue with soft diet. Awaiting bowel movement. Once patient has bowel movement can be discharged home. (2) Bronchiectasis Code(s): J47.9 - Bronchiectasis, uncomplicated Status: Chronic Plan: Patient did not receive nebulizer treatments this morning as they . Have renewed nebulizer treatments. Overall respiratory status has improved. She will be discharged home with her usual inhalers, nebulizer treatments and will wean prednisone as outpatient. (3) Hypothyroidism Code(s): E03.9 - Hypothyroidism, unspecified Status: Chronic Plan: Resume levothyroxine. (4) Hyponatremia Code(s): E87.1 - Hypo-osmolality and hyponatremia Status: Resolved Plan: Sodium level has been corrected with IV fluids. Will follow (5) Scoliosis Code(s): M41.9 - Scoliosis, unspecified Status: Chronic Plan: The patient has history of chronic pain in the low back. Will provide low-dose oxycodone today. (6) At high risk for deep venous thrombosis Code(s): Z91.89 - Other specified personal risk factors, not elsewhere classified Status: Acute Plan: Patient has been out of bed frequently. Have discontinued Lovenox (7) Elevated blood pressure reading without diagnosis of hypertension Code(s): R03.0 - Elevated blood-pressure reading, without diagnosis of hypertension Status: Acute Plan: Blood pressure is under better control today. Pain is under better control and patient is less anxious. Will follow as an outpatient. (2) Bronchiectasis Qualifiers: Bronchiectasis type: uncomplicated Qualified Code(s): J47.9 - Bronchiectasis , uncomplicated (3) Hypothyroidism Qualifiers: Hypothyroidism type: unspecified Qualified Code(s): E03.9 - Hypothyroidism, unspecified (5) Scoliosis Qualifiers: Scoliosis type: unspecified scoliosis Spinal region: thoracolumbar Qualified Code(s): M41.9 - Scoliosis, unspecified
[2018-07-17] MEDS: Acetaminophen 325 MG Tablet PO PRN (15:47)
[2018-07-18] MEDS: MethylPREDNISolone Sod Succinate Inj 40 MG/ML Vial IV.PUSH SCH ×2 (05:10→14:10)
[2018-07-18] MEDS: Levothyroxine 50 MCG Tablet PO SCH (05:10)
[2018-07-18 10:43] VITALS: RESP 20
--- NOTE | 2018-07-18 14:45 | P.PN ---
Subjective Interval history: Patient had bowel movement late yesterday. Did not feel well enough to go home. She now states that she is too weak to go home. She is unable to arise from bed without assistance. She has significant dyspnea on exertion. Initially she had refused halfway facility placement but now requests placement for rehab. Appetite good. Remains comfortable on oxygen at 2 L/min per nasal cannula. Blood pressure under better control. Urine output is good. Pain under adequate control. Active Medications Generic Name Dose Route Start Last Admin Trade Name Freq PRN Reason Stop Dose Admin Acetaminophen 650 mg 07/13/18 12:00 07/17/18 15:47 Tylenol PO 650 mg Q4H PRN Administration PAIN SCALE 1 TO 5 Albuterol 1 ampul 07/17/18 13:43 07/18/18 13:25 Duoneb Neb (Eboni) NEB 1 ampul Q6HR WHILE AWAKE NEB EBONI Administration Bisacodyl 10 mg 07/10/18 06:11 Dulcolax Supp RECTAL DAILY PRN SEVERE CONSITIPATION Clonidine HCl 0.1 mg 07/15/18 12:39 Catapres PO Q8HR PRN Sbp>180, Dbp>100 Hydromorphone HCl 0.5 mg 07/11/18 08:18 07/14/18 02:22 Dilaudid Pf Inj IV.PUSH 0.5 mg Q4H PRN Administration ABDOMINAL PAIN Levothyroxine Sodium 50 mcg 07/14/18 06:00 07/18/18 05:10 Synthroid PO 50 mcg DAILY@0600 EBONI Administration Methylprednisolone Sodium Succinate 40 mg 07/12/18 14:00 07/18/18 14:10 Solumedrol Inj IV.PUSH 40 mg Q8HR EBONI Administration Ondansetron HCl 4 mg 07/10/18 06:11 07/14/18 02:22 Zofran Inj IV.PUSH 4 mg Q6H PRN Administration NAUSEA OR VOMITING Oxycodone HCl 2.5 mg 07/15/18 12:38 Roxicodone PO Q6H PRN PAIN SCALE 6 TO 10 Pantoprazole Sodium 40 mg 07/14/18 09:00 07/18/18 09:16 Protonix PO 40 mg DAILY EBONI Administration Sodium Chloride 2 ml 07/10/18 09:00 07/18/18 09:16 Ns Flush IV.FLUSH 2 ml BID EBONI Administration Sodium Chloride 2 ml 07/10/18 06:11 07/16/18 06:17 Ns Flush IV.FLUSH 2 ml PRN PRN Administration FLUSH AFTER USING IV ACCESS Physical Exam Vital signs: Vital Signs 07/17/18 16:00 07/17/18 16:17 07/17/18 20:00 Temperature 98.3 F 98.9 F Pulse Rate 95 H 78 Respiratory Rate 21 18 17 Blood Pressure 156/66 H 128/62 Pulse Oximetry 96 92 L 07/17/18 21:04 07/18/18 00:00 07/18/18 07:37 Temperature 96.8 F L Pulse Rate 96 H 91 H 84 Respiratory Rate 18 20 18 Blood Pressure 147/71 H Pulse Oximetry 93 L 95 97 07/18/18 08:00 07/18/18 12:00 07/18/18 13:27 Temperature 97.1 F L 98 F Pulse Rate 87 76 72 Respiratory Rate 20 20 20 Blood Pressure 134/75 133/68 Pulse Oximetry 94 L 95 Intake & Output 07/17/18 07/18/18 07/18/18 18:59 06:59 18:59 Intake Total 250 / 250 120 / 120 Output Total 250 / 250 200 / 200 Balance 0 / 0 120 / 120 -200 / -200 Intake: Oral 250 / 250 120 / 120 Output: Urine 250 / 250 200 / 200 Other: Date of Last Bowel Movement 07/17/18 07/17/18 07/18/18 # Bowel Movements 5 1 - Routine Respiratory Exam Comments: Upper airway rhonchi. Opening fibrotic rales. No wheezes. Mildly reduced air exchange bilaterally - Routine Cardiovascular Exam Present: RRR Comments: Soft systolic murmur - Routine Abdominal Exam Comments: Soft, nontender, nondistended with active bowel sounds - Routine Extremities Exam Comments: No edema. Results - Labs CBC & Chem 7: 07/11/18 09:16 07/13/18 06:07 Assessment and Plan - Assessment (1) Small bowel obstruction due to adhesions Code(s): K56.50 - Intestinal adhesions [bands], unspecified as to partial versus complete obstruction Status: Resolved Plan: Improved. Continue with soft diet. Awaiting bowel movement. Once patient has bowel movement can be discharged home. (2) Bronchiectasis Code(s): J47.9 - Bronchiectasis, uncomplicated Status: Chronic Plan: Patient did not receive nebulizer treatments this morning as they . Have renewed nebulizer treatments. Overall respiratory status has improved. She will be discharged home with her usual inhalers, nebulizer treatments and will wean prednisone as outpatient. (3) Hypothyroidism Code(s): E03.9 - Hypothyroidism, unspecified Status: Chronic Plan: Resume levothyroxine. (4) Hyponatremia Code(s): E87.1 - Hypo-osmolality and hyponatremia Status: Resolved Plan: Sodium level has been corrected with IV fluids. Will follow (5) Scoliosis Code(s): M41.9 - Scoliosis, unspecified Status: Chronic Plan: The patient has history of chronic pain in the low back. Will provide low-dose oxycodone today. (6) At high risk for deep venous thrombosis Code(s): Z91.89 - Other specified personal risk factors, not elsewhere classified Status: Acute Plan: Patient has been out of bed frequently. Have discontinued Lovenox (7) Elevated blood pressure reading without diagnosis of hypertension Code(s): R03.0 - Elevated blood-pressure reading, without diagnosis of hypertension Status: Acute Plan: Blood pressure is under better control today. Pain is under better control and patient is less anxious. Will follow as an outpatient. - Plan Discharge Planning: The patient is now requesting halfway facility placement for progressive rehabilitation as she is unable to care for herself at home. She resides with her who is wheelchair bound. I have spoken with case management and they will make referral to [facility]. (2) Bronchiectasis Qualifiers: Bronchiectasis type: uncomplicated Qualified Code(s): J47.9 - Bronchiectasis , uncomplicated (3) Hypothyroidism Qualifiers: Hypothyroidism type: unspecified Qualified Code(s): E03.9 - Hypothyroidism, unspecified (5) Scoliosis Qualifiers: Scoliosis type: unspecified scoliosis Spinal region: thoracolumbar Qualified Code(s): M41.9 - Scoliosis, unspecified
[2018-07-18 17:34] VITALS: BP 154/72; PULSE 96; TEMP 97.7; O2SAT 96
== END 2018-07-18 17:36 | DRG 389 ==
LOC: PHED 03:31 → PHEDA 06:11 → PH3 07:38
PROVIDERS: ADMIT Family Medicine; ATTEND Family Medicine
CPT/HCPCS: 74000; 74018; 74177; 80048; 80053; 81001; 82948; 82962; 83605; 83690; 83735; 85025; 85610; 85730; 90761; 90774; 90775; 94150; 94640; 94664; 94665; 96361; 96374; 96375; 97162; 99285; C8952; C9113; J0131; J1170; J1650; J2060; J2405; J2920; J7030; Q9967

== ENCOUNTER 2018-07-19 12:55 | Inpatient (IN) ==
[2018-07-19] MEDS ORDERED: MethylPREDNISolone Sod Succinate Inj 40 MG/ML Vial IV.PUSH ONE (13:12)
--- NOTE | 2018-07-19 13:19 | ED ---
HPI General Chief complaint: Respiratory Symptoms Stated complaint: Medical Time Seen by Provider: 07/19/18 12:57 History of Present Illness HPI narrative: The patient was seen and examined in the presence of the nurse. This patient arrives critically ill in respiratory distress. She was discharged from the hospital yesterday and sent to a [facility]. She was here for small bowel obstruction from adhesions. She did not require operative intervention. With conservative management she gradually improved. She has had gradual worsening breathing over the last few days. She says she was not breathing good when she left the hospital. She denies productive cough or fever or chest pain. Paramedics found her quite hypoxic with labored breathing. She was brought in on a nonrebreather still with poor saturations. She was having a lot of PVCs and they started her on lidocaine drip after giving her a bolus. Severity is severe. She is critically ill. Duration 3 days. No alleviating factors. Symptoms exacerbated by her chronic COPD. She is oxygen and nebulizer dependent Related Data Home Medications Medication Instructions Recorded Confirmed acetaminophen [Tylenol Arthritis 1,300 mg PO BID PRN 07/10/18 07/19/18 Pain] aspirin 81 mg PO AC LUNCH 07/10/18 07/19/18 cholecalciferol (vitamin D3) 1,000 unit PO DAILY 07/10/18 07/19/18 [Vitamin D3] estradiol [Vivelle-Dot] 0.1 mg TRANSDERMAL 2XWEEK 07/10/18 07/19/18 fluticasone [Flovent HFA] 1 puff INHALATION DAILY 07/10/18 07/19/18 furosemide 20 mg PO DAILY 07/10/18 07/19/18 lansoprazole [Prevacid] 30 mg PO DAILY 07/10/18 07/19/18 potassium chloride 10 meq PO DAILY 07/10/18 07/19/18 tiotropium bromide [Spiriva with 1 cap INHALATION HS 07/10/18 07/19/18 HandiHaler] vitamin B complex [B Complex 1] 1 tab PO DAILY 07/10/18 07/19/18 cholecalciferol (vitamin D3) 1,000 unit PO DAILY 07/19/18 07/19/18 Previous Rx's Medication Instructions Recorded bisacodyl [Bisac-Evac] 10 mg MN DAILY PRN ea 07/18/18 ipratropium-albuterol 1 amp NEB TID ml 07/18/18 ipratropium-albuterol 3 ml INHALATION Q2HR PRN #150 ml 07/18/18 levothyroxine [Synthroid] 50 mcg PO DAILY@0600 tab 07/18/18 oxycodone 2.5 mg PO Q6H PRN #60 tab 07/18/18 polyethylene glycol 3350 [Miralax] 17 g PO DAILY #30 ea 07/18/18 prednisone 20 mg PO DAILY #60 tab 07/18/18 Allergies Allergy/AdvReac Type Severity Reaction Status Date / Time doxycycline Allergy Severe RASH Verified 07/19/18 13:18 erythromycin base Allergy Severe RASH AND Verified 07/19/18 13:18 NAUSEA meperidine Allergy Severe RASH,HALLUC Verified 07/19/18 13:18 INATIONS,NA USEA,VOMITI NG minocycline Allergy Severe RASH Verified 07/19/18 13:18 morphine Allergy Severe SEVERE Verified 07/19/18 13:18 ITCHING tigecycline Allergy Severe RASH Verified 07/19/18 13:18 penicillin G Allergy Mild RASH Verified 07/19/18 13:18 propoxyphene Allergy Mild RASH Verified 07/19/18 13:18 codeine AdvReac Severe NAUSEA,VOMI Verified 07/19/18 13:18 TING Review of Systems ROS: all other systems reviewed are negative [facility] Medical History Medical History CAD (coronary artery disease) (Acute) COPD exacerbation (Acute) Chronic low back pain (Acute) Osteoarthritis (Acute) SBO (small bowel obstruction) (Acute) Scoliosis (Acute) Surgical History Surgical History H/O laminectomy (Acute ~2000) H/O resection of small bowel (Acute ~2003) Hx of fusion of cervical spine (Acute ~2003) S/P VÍCTOR-BSO (Acute ~2002) Social History Social History Substance History: No History of Abuse Second Hand Smoke Exposure: No Smoking Status: Never smoker Tobacco Type: Cigarettes How Often Do You Have a Drink Containing Alcohol: Never Recent Travel in [place] within the Last 8 Weeks: No Recent Out of Country Travel within the Last 8 Weeks: No Exam Narrative Exam Narrative: GENERAL: Thin elderly frail patient in respiratory distress. SKIN: Focused skin assessment reveals no rash and nodules. Skin is Warm and dry. HEAD: Atraumatic. Normocephalic. EYES: Pupils equal and round. No scleral icterus. No injection or drainage. ENT: No nasal bleeding or discharge. Mucous membranes pink and moist. NECK: Trachea midline. No JVD. CARDIOVASCULAR: Regular rate and rhythm. No murmur appreciated. Patient is in quadrigeminy. Tachycardic in the 120s RESPIRATORY: Positive accessory muscle use. Rhonchi and wheezing with diminished breath sounds throughout . Breath sounds equal bilaterally. GASTROINTESTINAL: Abdomen soft, non-tender, nondistended. Hepatic and splenic margins not palpable. MUSCULOSKELETAL: No obvious deformities. No clubbing. No cyanosis. No edema. NEUROLOGICAL: Awake but drowsy. Impossible to gauge motor strength or sensation given her lack of exam participation. Mumbling speech. PSYCHIATRIC: Appropriate mood and affect; insight and judgment seems reduced . Course Initial Documented Vital Signs Temperature 97.6 F 07/19/18 13:11 Pulse Rate 127 H 07/19/18 13:11 Respiratory Rate 25 H 07/19/18 13:11 Blood Pressure 166/89 H 07/19/18 13:11 Pulse Oximetry 88 L 07/19/18 13:11 Last Documented Vital Signs Temperature 97.6 F 07/19/18 13:11 Pulse Rate 122 H 07/19/18 13:24 Respiratory Rate 25 H 07/19/18 13:24 Blood Pressure 145/74 H 07/19/18 13:20 Pulse Oximetry 91 L 07/19/18 13:15 Critical Care Time Critical Care Time: Yes Total Critical Care Time: 80 Attestation: Aggregate critical care time was 80 minutes. Time to perform other separately billable procedures was not included in the critical care time. My time did not include minutes spent treating any other patients simultaneously or on activities that did not directly contribute to the patient's treatment. The services I provided to this patient were to treat and/or prevent clinically significant deterioration that could result in: Cardiopulmonary arrest, respiratory collapse, loss of airway, aspiration I provided critical care services requiring my management, as noted below: Chart data review, documentation time, medication orders and management, vital sign assessments/reviewing monitor data, ordering and reviewing lab tests, ordering and interpreting/reviewing x-rays and diagnostic studies, care of the patient and discussion of the patient with the admitting physicians. Medical Decision Making MDM Narrative Medical decision making narrative: 83-year-old female presents in profound hypoxic respiratory distress. She is a full code patient. I am going to place her on BiPAP and give her a series of nebulizers and IV steroids and see if we can reduce the work of breathing. Should this fail we will intubate her. On the BiPAP device she is saturating low 90s and seems to be breathing a bit easier. Ordered labs and chest x-ray and EKG. Paramedics have brought her in on a lidocaine drip which I will maintained for the short-term, she is in quadrigeminy. Chest x-ray shows nothing emergent. Stop the lidocaine drip as she was running sinus rhythm with a very rare PVC and she promptly went back in the quadrigeminy. Case is reviewed with Dr. Frye her physician who knows her well. He will admitted to intensive care on the BiPAP. He does not want the lidocaine drip restarted. He says she frequently is in quadrigeminy. I am replacing her potassium. On reassessment the patient clinically looks much better than upon arrival. She is more alert and breathing much easier. Saturations are mid 90s on the BiPAP. I will maintain her on that for the near term and I do not think she needs emergent intubation now. Medical Screen Exam Complete: Yes Emergency Medical Condition: Yes Differential Diagnosis Differential Diagnosis: COPD, pneumonia, pneumothorax Medical Records Medical records reviewed: Yes I reviewed the patient's medical records. Reviewed her recent admission. And her discharge summary from yesterday. Lab Data Lab results reviewed: Yes I reviewed the patient's lab results. Lab results narrative: Prominent leukocytosis and hyponatremia and hypokalemia noted Result diagrams: 07/19/18 13:25 07/19/18 13:25 Lab Results 07/19/18 07/19/18 07/19/18 Range/Units 13:25 13:25 13:25 WBC 22.3 H (4.0-11.0) th/mm3 RBC 4.08 (4.00-5.30) mil/mm3 Hgb 14.1 (11.6-15.3) gm/dL Hct 41.6 (35.0-46.0) % MCV 102.0 H (80.0-100.0) fL MCH 34.6 H (27.0-34.0) pg MCHC 33.9 (32.0-36.0) % RDW 13.1 (11.6-17.2) % Plt Count 201 (150-450) th/mm3 MPV 8.8 (7.0-11.0) fL Neut % (Auto) 94.0 H (16.0-70.0) % Lymph % (Auto) 1.0 L (9.0-44.0) % [place] % (Auto) 4.8 (0.0-8.0) % Eos % (Auto) 0.0 (0.0-4.0) % Baso % (Auto) 0.2 (0.0-2.0) % Neut # (Auto) 21.0 H (1.8-7.7) th/mm3 Lymph # (Auto) 0.2 L (1.0-4.8) th/mm3 [place] # (Auto) 1.1 H (0.0-0.9) th/mm3 Eos # (Auto) 0.0 (0.0-0.4) th/mm3 Baso # (Auto) 0.0 (0.0-0.2) th/mm3 WBC Differential . Differential Comment Auto diff final Puncture Site Patient Temperature O2 Saturation (90-100) % ABG pH (7.380-7.420) ABG pCO2 (38-42) mmHg ABG pO2 (61-120) mmHg ABG HCO3 (22-26) mmol/L ABG O2 Content (12.0-20.0) Vol % ABG Base Excess (-2-2) mmol/L ABG Methemoglobin (0-2) % Shai Test Hemoglobin (12.0-16.0) G/DL Carboxyhemoglobin (0-4) % O2 Delivery Device Vent Setting Inspired O2 % Critical Value Sodium 132 L (136-145) meq/L Potassium 3.0 L (3.5-5.1) meq/L Chloride 90 L (98-107) meq/L Carbon Dioxide 34.9 H (21.0-32.0) meq/L Anion Gap 7 (5-15) meq/L BUN 25 H (7-18) mg/dL Creatinine 0.60 (0.50-1.00) mg/dL Estimated GFR Greater than 89 (>89) mL/min Random Glucose 117 H (74-106) mg/dL Calcium 9.0 (8.5-10.1) mg/dL Total Bilirubin 0.9 (0.2-1.0) mg/dL AST 44 H (15-37) U/L ALT 68 H (10-53) U/L Alkaline Phosphatase 146 H (45-117) U/L Troponin I Less than 0.02 L (0.02-0.05) ng/mL Total Protein 6.0 L (6.4-8.2) g/dL Albumin 2.8 L (3.4-5.0) g/dL 07/19/18 Range/Units 13:32 WBC (4.0-11.0) th/mm3 RBC (4.00-5.30) mil/mm3 Hgb (11.6-15.3) gm/dL Hct (35.0-46.0) % MCV (80.0-100.0) fL MCH (27.0-34.0) pg MCHC (32.0-36.0) % RDW (11.6-17.2) % Plt Count (150-450) th/mm3 MPV (7.0-11.0) fL Neut % (Auto) (16.0-70.0) % Lymph % (Auto) (9.0-44.0) % [place] % (Auto) (0.0-8.0) % Eos % (Auto) (0.0-4.0) % Baso % (Auto) (0.0-2.0) % Neut # (Auto) (1.8-7.7) th/mm3 Lymph # (Auto) (1.0-4.8) th/mm3 [place] # (Auto) (0.0-0.9) th/mm3 Eos # (Auto) (0.0-0.4) th/mm3 Baso # (Auto) (0.0-0.2) th/mm3 WBC Differential Differential Comment Puncture Site Right radial Patient Temperature 98.6 O2 Saturation 95 (90-100) % ABG pH 7.43 H (7.380-7.420) ABG pCO2 58 H* (38-42) mmHg ABG pO2 89 (61-120) mmHg ABG HCO3 38 H (22-26) mmol/L ABG O2 Content 18.9 (12.0-20.0) Vol % ABG Base Excess 13.0 H (-2-2) mmol/L ABG Methemoglobin 1.2 (0-2) % Shai Test Present Hemoglobin 14.2 (12.0-16.0) G/DL Carboxyhemoglobin 1.0 (0-4) % O2 Delivery Device Bipap Vent Setting [id number] Inspired O2 90 % Critical Value Yes Sodium (136-145) meq/L Potassium (3.5-5.1) meq/L Chloride (98-107) meq/L Carbon Dioxide (21.0-32.0) meq/L Anion Gap (5-15) meq/L BUN (7-18) mg/dL Creatinine (0.50-1.00) mg/dL Estimated GFR (>89) mL/min Random Glucose (74-106) mg/dL Calcium (8.5-10.1) mg/dL Total Bilirubin (0.2-1.0) mg/dL AST (15-37) U/L ALT (10-53) U/L Alkaline Phosphatase (45-117) U/L Troponin I (0.02-0.05) ng/mL Total Protein (6.4-8.2) g/dL Albumin (3.4-5.0) g/dL Imaging Data Attestation: I personally reviewed and interpreted this imaging study as follows : My impression: Stable pleural and parenchymal changes on chest x-ray Radiologist's impression: Chest X-Ray 07/19/18 13:12 CONCLUSION: Stable pleural and parenchymal changes as above without overt failure. ECG Data EKG Prior to Arrival: No Attestation: I personally reviewed and interpreted this ECG as follows: Prior ECG tracings: not available for review Interpretation: EKG shows sinus tachycardia at 128 with every fourth beat being a PVC. No acute ST elevation. MN interval normal. [place] normal. Discharge Plan Discharge Disposition Patient Disposition: ED Admit(ED Internal Use Only) Discharge Order Discharge Orders: ED Use Only Admit Order (Routine); Ordered 07/19/18 Ordered By: Nils Okeefe Discharge Details Diagnosis: Acute respiratory failure with hypoxia, Acute hypokalemia, Ventricular quadrigeminy, COPD with acute exacerbation Physicians Team ED Provider: Nils Okeefe Primary Care Provider: Marya Schulte Rxs /Orders / Referrals /Forms Prescriptions: No Action estradiol [Vivelle-Dot] 0.1 mg/24 hr Patch Semiweekly 0.1 mg Transdermal 2XWEEK RF: 0 acetaminophen [Tylenol Arthritis Pain] 650 mg Tablet Extended Release 1,300 mg PO BID PRN (Reason: Acute Pain) RF: 0 lansoprazole [Prevacid] 30 mg Capsule,Delayed Release(Dr/Ec) 30 mg PO DAILY RF: 0 fluticasone [Flovent HFA] 110 mcg/actuation Hfa Aerosol Inhaler 1 puff INHALATION DAILY RF: 0 tiotropium bromide [Spiriva with HandiHaler] 18 mcg Capsule, W/Inhalation Device 1 cap INHALATION HS RF: 0 potassium chloride 10 mEq Tablet Extended Release 10 meq PO DAILY RF: 0 aspirin 81 mg Tablet,Delayed Release (Dr/Ec) 81 mg PO AC LUNCH RF: 0 vitamin B complex [B Complex 1] Tablet 1 tab PO DAILY RF: 0 furosemide 20 mg Tablet 20 mg PO DAILY RF: 0 cholecalciferol (vitamin D3) [Vitamin D3] 1,000 unit Capsule 1,000 unit PO DAILY RF: 0 ipratropium-albuterol 0.5 mg-3 mg(2.5 mg base)/3 mL Solution For Nebulization 1 amp NEB TID RF: 0 levothyroxine [Synthroid] 50 mcg Tablet 50 mcg PO DAILY@0600 RF: 0 bisacodyl [Bisac-Evac] 10 mg Suppository 10 mg MN DAILY PRN (Reason: Severe Consitipation) RF: 0 oxycodone 5 mg Tablet 2.5 mg PO Q6H PRN (Reason: Pain, Severe) Qty: 60 RF: 0 prednisone 20 mg Tablet 20 mg PO DAILY Qty: 60 RF: 2 ipratropium-albuterol 0.5 mg-3 mg(2.5 mg base)/3 mL Solution For Nebulization 3 ml INHALATION Q2HR PRN (Reason: Wheezing) Qty: 150 RF: 2 polyethylene glycol 3350 [Miralax] 17 gram Powder In Packet 17 g PO DAILY Qty: 30 RF: 0 cholecalciferol (vitamin D3) 1,000 unit Tablet 1,000 unit PO DAILY RF: 0 Discharge Interventions Interventions: Vital Signs Last Done: 07/19/18 13:20 Status ED Status: Admitted Patient
--- NOTE | 2018-07-19 13:41 | XR ---
EXAM DATE: 07/19/2018 1:36 PM EST AGE/SEX: 83 years / Female INDICATIONS: Short of breath. CLINICAL DATA: This is the patient's initial encounter. Patient reports that signs and symptoms have been present for 1 day and indicates a pain score of Nonresponsive. MEDICAL/SURGICAL HISTORY: Non-responsive. Non-responsive. COMPARISON: [facility], CHEST SINGLE AP, 09/30/2017. . FINDINGS: Moderate peribronchial thickening is present in both lung bases. Apical pleural calcification is evid ent. The heart and pulmonary vascularity are normal. There is no overt congestive failure. There is no sig nificant alveolar consolidation. CONCLUSION: Stable pleural and parenchymal changes as above without overt failure. Electronically signed by: Jung Carmichael MD Board Certified Radiologist 07/19/2018 1:40 PM EST
[2018-07-19 13:42] LABS: ABG PCO2 58 mmHg (38-42); ABG PO2 89 mmHg (61-120)
[2018-07-19 14:15] LABS: Baso % (Auto) 0.2 % (0.0-2.0); Hematocrit 41.6 % (35.0-46.0); Hemoglobin 14.1 gm/dL (11.6-15.3); Lymph # (Auto) 0.2 th/mm3 (1.0-4.8); Mean Corpuscular HGB Conc 33.9 % (32.0-36.0); Mean Corpuscular Hemoglobin 34.6 pg (27.0-34.0); Mean Platelet Volume 8.8 fL (7.0-11.0); Mono # (Auto) 1.1 th/mm3 (0.0-0.9); Mono % (Auto) 4.8 % (0.0-8.0); Platelet Count 201 th/mm3 (150-450); Red Blood Count 4.08 mil/mm3 (4.00-5.30); Red Cell Distribution Width 13.1 % (11.6-17.2); White Blood Count 22.3 th/mm3 (4.0-11.0)
[2018-07-19 14:36] LABS: Albumin 2.8 g/dL (3.4-5.0); Anion Gap 7 meq/L (5-15); Aspartate Aminotransferase 44 U/L (15-37); Blood Urea Nitrogen 25 mg/dL (7-18); Carbon Dioxide 34.9 meq/L (21.0-32.0); Chloride 90 meq/L (98-107); Glomerular Filtration Rate Greater Than 89 mL/min (>89); Glucose,Random 117 mg/dL (74-106); Sodium 132 meq/L (136-145)
[2018-07-19 14:39] LABS: Alanine Aminotransferase 68 U/L (10-53); Alkaline Phosphatase 146 U/L (45-117)
[2018-07-19] MEDS: Potassium Chlor 20 mEq Premix 20 MEQ/100 ML PIGGYBACK IV.SIG SCH ×2 (15:13→18:01)
[2018-07-19] MEDS: Sodium Chlor 0.9% Inj 500 ML IV.CONT SCH ×2 (15:13→21:45)
[2018-07-19] MEDS ORDERED: MethylPREDNISolone Sod Succinate Inj 40 MG/ML Vial IV.PUSH SCH (16:00)
[2018-07-19] MEDS ORDERED: Magnesium Oxide 400 MG Tablet PO PRN (16:12)
[2018-07-19] MEDS ORDERED: Magnesium Sulfate Inj 4 GM in Sodium Chlor 0.9% Inj 92 ML IV.SIG PRN (16:12)
[2018-07-19] MEDS ORDERED: Potassium Chlor 40 mEq Premix 40 MEQ/100 ML PIGGYBACK IV.SIG PRN ×2 (16:12)
[2018-07-19] MEDS ORDERED: Sodium Phosphate Inj 30 MMOL in Sodium Chlor 0.9% Inj 250 ML IV.SIG PRN (16:12)
[2018-07-19] MEDS ORDERED: Magnesium Sulfate Inj 2 GM in Sodium Chlor 0.9% Inj 96 ML IV.SIG PRN (16:12)
[2018-07-19] MEDS ORDERED: Potassium Chloride 25 MEQ Effervescent Tablet PO PRN (16:12)
[2018-07-19] MEDS ORDERED: Potassium Phosphate 500 MG Soluble Tablet PO PRN ×2 (16:12)
[2018-07-19] MEDS ORDERED: Potassium Chlor 20 mEq Premix 20 MEQ/100 ML PIGGYBACK IV.SIG PRN ×2 (16:12)
[2018-07-19] MEDS ORDERED: Potassium Phosphate Inj 30 MMOL in Sodium Chlor 0.9% Inj 250 ML IV.SIG PRN (16:12)
[2018-07-19] MEDS: Enoxaparin Inj 30 MG/0.3 ML Syringe SQ SCH (16:17)
--- NOTE | 2018-07-19 18:44 | MB ---
cc: Rylie Tejeda MD, Jason R MD DATE: 07/19/2018 HISTORY OF PRESENT ILLNESS: Ms. Jordan is an 83-year-old white female known to me, followed with Dr. Frye, with COPD/asthma, never smoked and a known history of bronchiectasis and a previous documented history of OMAR. She has not been treated for this, is intolerant to multiple antibiotics. She was just discharged from the hospital after several days being monitored for a small-bowel obstruction that did not require surgical intervention. She has had small bowel obstructions in the past and apparently did have a resection at one time, but was stable and discharged yesterday to a nursing facility. However, her breathing got worse gradually over time and today was transferred back to the emergency room where on presentation, she was in significant distress. She was placed on BiPAP immediately and arterial blood gases on 10 of inspiratory support and 5 of expiratory support and inspired oxygen concentration of 90. Her pO2 was 89 with a pH of 7.4 and pCO2 of 58. At the time of this exam, she was back on nasal cannula, though having some difficulty breathing, although O2 saturations were 95%. She states she just got more short of breath in the nursing facility. She has had no chest pain. Has a weak cough, but has not produced any bloody or purulent sputum. Initial temperature here is 98, pulse has been running in the 120-130 range with respirations currently at 24 to 28, blood pressure 140/70. Chest x-ray reveals chronic pleural parenchymal changes consistent with her underlying bronchiectasis including apical pleural calcification, but no change when compared to films as far back as 09/30/2012. LABORATORY DATA: White count is 22,000, hemoglobin is 14, platelets 201,000. Blood gas noted. Sodium 132, potassium 3.0 on presentation, that is being replaced. Liver functions are elevated. Apparently, they have been elevated recently, unclear etiology. Albumin is 2.8. PAST MEDICAL HISTORY: Known history of coronary artery disease, which has been mild, treated medically. Catheterization I believe was back in about 2006. She has also had an iron deficiency anemia recently and a gradual physical decline, generally due to her chronic infectious disease and COPD. She has had previous lumbar laminectomy, cervical fusion, small bowel resection in the past, cholecystectomy. ALLERGIES: Multiple allergies including ERYTHROMYCIN, LEVAQUIN, AND PENICILLIN. Others are listed in the EMR. MEDICATIONS: Reviewed in the EMR. SOCIAL HISTORY: She has been living up to this point with her . Never smoked. Does not drink alcohol. She is a retired nurse. PHYSICAL EXAMINATION: GENERAL: Thin, frail, white female, mild to moderate respiratory distress. Respiratory rate 22-26. VITAL SIGNS: Noted above. NECK: Veins are not distended. Mucous membranes are dry. CHEST: Minimal chest congestion with no wheezing. No audible S3. No harsh murmur. ABDOMEN: Soft, not obviously distended. EXTREMITIES: No peripheral edema or calf tenderness. No cyanosis or clubbing of the nail beds. DISCUSSION: Ms. Jordan presents after a recent small-bowel obstruction, having become more short of breath after being transferred to the nursing facility. Aerosolized bronchodilators have been ordered. She has received corticosteroids and on BiPAP was more comfortable. We will place her back on BiPAP at this point, which will need to be continued. She has been placed on cefepime. We will try to collect a sputum culture, send nasal wash for influenza and urine for pneumococcal and legionella antigens. She does have multiple antibiotic allergies, so we will continue with cefepime pending her response and culture reports. She is quite seriously ill at present. Further diagnostic and/or therapeutic intervention will depend on her response and ongoing clinical course. ADDENDUM: In light of the severity of hypoxemia on presentation and sudden change in her course and recent immobilization with a small-bowel obstruction, we will proceed with a CT angiogram to further evaluate possible pneumonia and/or pulmonary embolism. RMD CHUCKY Rajan/ct , 05:41 PM , 05:51 PM
--- NOTE | 2018-07-19 19:29 | CT ---
EXAM DATE: 07/19/2018 7:20 PM EST AGE/SEX: 83 years / Female INDICATIONS: Low saturation shortness of breath CLINICAL DATA: This is the patient's initial encounter. Patient reports that signs and symptoms have been present for 1 day and indicates a pain score of 0/10. MEDICAL/SURGICAL HISTORY: Cardiovascular disease. Chronic obstructive pulmonary disease. None. RADIATION DOSE: 3.88 CTDI (mGy) COMPARISON: [facility], CT PULMONARY ANGIOGRAM, 09/30/2017. . TECHNIQUE: Volumetric scanning was performed using a multi-row detector CT scanner during bolus infu luz of 47 ml Omnipaque 350 (iohexol) nonionic water-soluble contrast as a single exam dose. The dionte a was post processed with a variety of visualization algorithms including full volume maximum intensi ty projection and sliding thin slab reformation. Using automated exposure control and adjustment of the mA and/or kV according to patient size, radiation dose was kept as low as reasonably achievable t o obtain optimal diagnostic quality images. DICOM format image data is available electronically for review and comparison. FINDINGS: Pulmonary Arteries: No filling defects are seen in the pulmonary arteries out to the subsegmental ve ssels. The left and right pulmonary arteries are normal in diameter. Lung: Biapical probable pleural-parenchymal scarring. Patchy bronchiectasis and patchy areas of nodu lar infiltrate bilaterally, most confluent in the lung bases, similar to prior. Effusion: None. Mediastinum: No evidence of mediastinal or hilar adenopathy. Other: The axilla is unremarkable. CONCLUSION: 1. No evidence of pulmonary embolism 2. Chronic lung disease changes and fairly extensive patchy infiltrate. Electronically signed by: Sarath Hong MD Board Certified Radiologist 07/19/2018 7:27 PM EST
[2018-07-19] MEDS ORDERED: Acetaminophen Inj 650 MG/65 ML VIAL IV.SIG PRN (20:16)
[2018-07-19] MEDS: MethylPREDNISolone Sod Succinate Inj 40 MG/ML Vial IV.PUSH SCH (20:46)
--- NOTE | 2018-07-19 21:27 | MH ---
cc: Efrain Frye MD DATE OF ADMISSION: 07/19/2018 ADMITTING DIAGNOSES: Shortness of breath, hypoxemia, exacerbation of bronchiectasis. HISTORY OF PRESENT ILLNESS: This 83-year-old white female well known to the undersigned physician was discharged yesterday from this facility following a hospitalization for a small-bowel obstruction which was treated conservatively with NG suction and bowel rest. The patient's bowel function returned; however, she was hospitalized an additional 3 days due to lack of having a bowel movement and her reluctance to take laxatives. The patient, however, was discharged yesterday to the [facility] on supplemental oxygen at 2 liters per minute per nasal cannula. The patient has a long history of COPD and bronchiectasis and is followed by Dr. Jung Tejeda from pulmonology. She is dependent on oxygen at home. She has been receiving nebulizer treatments, and she was discharged on prednisone 20 mg daily. The undersigned physician received a call from the [facility] on the morning of admission, reporting that the patient had increased shortness of breath when physical therapy tried to ambulate the patient. Her oxygen saturations dropped into the lower 80s despite 3 liters per minute per nasal cannula. They had difficulty getting the oxygen level back up above 90%. The patient was visibly in respiratory distress. At that time, the patient was transferred back to this facility for further evaluation and treatment. She denies any chest pain. Her heart rate was high, but she denied any palpitations. She has had no fever, chills, night sweats. She denies any nausea or vomiting. Her appetite has been fair to good. She states that her bowels have been moving. Her urine output has been good. PAST MEDICAL HISTORY: Significant for COPD and bronchiectasis. She has generalized osteoarthritis, history of recurrently abnormal liver function studies for which she underwent an evaluation which was normal. She has a history of atherosclerotic heart disease by cardiac catheterization with a 50% LAD, 60% septal scientific programmer and a 60% ostial first obtuse marginal branch vessel stenosis. The cardiac catheterization was performed in 2006. She has a history of shingles in 1996. She has anemia from iron deficiency and chronic disease. She did undergo iron infusions by hematology and her iron deficiency anemia has resolved. She has a history of osteoporosis. She had recurrent small-bowel obstructions in the past, but she underwent lysis of adhesions surgery several years ago and had been asymptomatic until recently when she had her recurrent small-bowel obstruction, which resolved with conservative measures. She has GERD, hypothyroidism, lumbar disk disease and severe thoracolumbar scoliosis causing chronic low back pain. She has diverticulosis. She was diagnosed with Mycobacterium avium-intracellulare by Dr. Jung Tejeda, but she was not felt to be a candidate for antibiotic treatment due to her multiple antibiotic allergies and frail health. 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 PAST SURGICAL HISTORY: She is status post left hand surgery in 1994, status post lumbar laminectomy at L3 in 2000, status post C3 through C6 cervical fusion in 2003. She is status post total abdominal hysterectomy with bilateral salpingo-oophorectomy in 2002. She had a small bowel resection secondary to obstruction with bowel ischemia in 2004. She underwent lysis of adhesions causing recurrent small-bowel obstructions several years ago and she is status post cholecystectomy in 1994. CURRENT MEDICATIONS: 1. Oxycodone 2.5 mg every 6 hours as needed for pain. 2. Magnesium oxide 400 mg daily. 3. Benefiber 1 tablespoon in 8 ounces of liquid daily. 4. Aspirin 81 mg daily. 5. Levothyroxine 50 mcg daily. 6. Vitamin D 1000 international units daily. 7. B complex 1 tablet daily. 8. Potassium chloride ER 10 mEq 1 tablet daily. 9. Furosemide 20 mg daily. 10. DuoNebs 1 unit dose 4 times a day as needed. 11. Tylenol Arthritis Pain 650 mg 2 tablets twice a day. 12. Vivelle-Dot 0.1 mg apply 1 patch to the skin twice weekly. 13. Lidocaine 5% patch apply 2 patches to the affected area for 12 hours each day. 14. Prevacid 30 mg daily. ALLERGIES: SHE HAS ALLERGIES TO DARVON, DEMEROL, LEVAQUIN, MORPHINE SULFATE, PENICILLIN, ERYTHROMYCIN, MINOCYCLINE AND CODEINE. FAMILY HISTORY: Noncontributory. SOCIAL HISTORY: She is a retired registered nurse. She does not smoke, nor did she ever. She does not drink alcohol. She lives with her . They do have part-time caregivers at home. REVIEW OF SYSTEMS: Negative except outlined above. PHYSICAL EXAMINATION: VITAL SIGNS: Upon arrival to the emergency department, the patient's blood pressure was 166/89 with a heart rate of 127, respirations 25, oxygen saturation on 10 liters per minute oxygen mask 88%. At the current time, her heart rate is 109, blood pressure 139/63 with respirations 18 and oxygen saturation 100% on a BiPAP with pressures of 10/5 and 75% oxygen. GENERAL: This is a thin, frail, elderly white female lying in bed with BiPAP in place, in no acute distress. HEENT: The pupils are equal, round and reactive to light. Extraocular movements are intact. Sclerae are anicteric. Conjunctivae pink. Mouth and throat are not evaluated due to the BiPAP in place. NECK: Supple without lymphadenopathy, JVD, bruits or thyromegaly. CARDIOVASCULAR: Regular rate and rhythm with tachycardia, but no murmurs. LUNGS: Clear to auscultation with mild to moderately reduced air exchange, but no wheezes, rhonchi or rales. ABDOMEN: Soft, nontender, nondistended with active bowel sounds. No masses palpable. No hepatosplenomegaly. GENITOURINARY: Deferred. RECTAL: Deferred. LOWER EXTREMITIES: Reveal no appreciable edema. No calf tenderness. No Homans sign. 1+ distal pulses. SKIN: Warm and dry. NEUROLOGIC: The patient has no lateralizing deficits. Mental status is difficult to assess as the patient is unable to provide answers due to the presence of the BiPAP. LABORATORY DATA: White blood cell count 22.3, hemoglobin 14.1, hematocrit 41.6, platelet count 201,000. White blood count differential showed 94 polys, 1 lymphocyte, 4.8 monocytes. The comprehensive metabolic profile was significant for sodium 132, potassium 3.0, chloride 90, carbon dioxide 34.9, BUN 25, creatinine normal at 0.60. The AST and ALT are elevated at 44 and 68 respectively. Total protein and albumin are both low at 6.0 and 2.8 respectively. Troponin was less than 0.01. Blood gas on BiPAP at 90% oxygen revealed a pH of 7.43, pCO2 of 58, pO2 of 89, bicarbonate 38, base excess 13.0, oxygen saturation 95%. Chest x-ray reveals stable pleural and parenchymal changes, but no overt heart failure. The CTA of the chest revealed no evidence of pulmonary embolism, chronic lung disease changes and fairly extensive patchy infiltrate. IMPRESSION AND PLAN: 1. This 83-year-old white female presented with acute respiratory distress with a history of bronchiectasis and chronic obstructive pulmonary disease. She has an exacerbation of her chronic obstructive pulmonary disease/bronchiectasis. No evidence of pulmonary embolism and no evidence of overt heart failure at this time. She was placed on BiPAP with pressures of 10/5 with 75% oxygen. She is comfortable and will remain on this overnight. She was placed on intravenous antibiotics and intravenous steroids. Cefepime was the antibiotic chosen as the patient is able to tolerate cephalosporins, but SHE HAS MULTIPLE ALLERGIES TO OTHER ANTIBIOTICS. We will avoid azithromycin due to her ERYTHROMYCIN ALLERGY. I have consulted Dr. Tejeda for pulmonology. She has seen the patient in consultation and recommends continuing with current treatment regimen and try to wean the patient from BiPAP. We will try to obtain a sputum culture and if obtained, we will use culture results to guide antibiotic treatment. The patient will receive nebulizer treatments every 6 hours. We will hold her usual inhalers. 2. History of recent small-bowel obstruction. The patient has active bowel sounds at this point and we will continue her on a stool softener and monitor for any evidence of constipation. 3. Chronic low back pain due to advanced thoracolumbar scoliosis. The patient has oxycodone available, but she is requesting Tylenol. Since she cannot take oral medications at this time due to the BiPAP, we will provide her with intravenous acetaminophen. 4. History of gastroesophageal reflux disease. The patient will continue with a proton pump inhibitor. 5. Hypothyroidism. We will continue with levothyroxine when the patient is able to take p.o. 6. History of atherosclerotic heart disease, asymptomatic. We will follow. Continue with low-dose aspirin. 7. Abnormal liver function studies. This is a recurrent problem and likely due to some degree of right heart failure from the patient's advanced lung disease. We will follow liver function tests. 8. Hypokalemia. The patient is receiving intravenous potassium supplement and we will repeat potassium level in the morning. Provide additional supplement if needed. 9. Hyponatremia. This is a chronic finding with this patient. We will follow and if necessary, provide additional intravenous fluids for correction of her sodium level. I have explained the plan of care to the patient and her daughter, who is at the bedside. Both expressed understanding and agreement. MD THOR Collins/aidan , 08:15 PM , 08:35 PM
[2018-07-20] MEDS: MethylPREDNISolone Sod Succinate Inj 40 MG/ML Vial IV.PUSH SCH ×4 (01:38→17:59)
[2018-07-20 01:51] LABS: Hematocrit 38.7 % (35.0-46.0); Hemoglobin 13.1 gm/dL (11.6-15.3); Lymph # (Auto) 0.2 th/mm3 (1.0-4.8); Lymph % (Auto) 1.1 % (9.0-44.0); Mean Corpuscular HGB Conc 33.9 % (32.0-36.0); Mean Corpuscular Volume 100.4 fL (80.0-100.0); Mean Platelet Volume 8.3 fL (7.0-11.0); Mono # (Auto) 0.4 th/mm3 (0.0-0.9); Mono % (Auto) 2.7 % (0.0-8.0); Neut # (Auto) 13.9 th/mm3 (1.8-7.7); Neut % (Auto) 96.2 % (16.0-70.0); Platelet Count 152 th/mm3 (150-450); Red Blood Count 3.86 mil/mm3 (4.00-5.30); Red Cell Distribution Width 13.1 % (11.6-17.2); White Blood Count 14.5 th/mm3 (4.0-11.0)
[2018-07-20 02:13] LABS: Alanine Aminotransferase 71 U/L (10-53); Albumin 2.2 g/dL (3.4-5.0); Alkaline Phosphatase 151 U/L (45-117); Anion Gap 3 meq/L (5-15); Aspartate Aminotransferase 40 U/L (15-37); Blood Urea Nitrogen 26 mg/dL (7-18); Calcium 8.1 mg/dL (8.5-10.1); Carbon Dioxide 34.9 meq/L (21.0-32.0); Chloride 95 meq/L (98-107); Glomerular Filtration Rate Greater Than 89 mL/min (>89); Glucose,Random 119 mg/dL (74-106); Sodium 133 meq/L (136-145); Total Protein 5.8 g/dL (6.4-8.2)
[2018-07-20 02:14] LABS: Potassium 4.6 meq/L (3.5-5.1)
[2018-07-20] MEDS ORDERED: Chlorhexidine Gluconate 2% 1 Pack (2 Cloths) TOPICAL PRN (04:00)
[2018-07-20] MEDS: Sodium Chlor 0.9% Inj 500 ML IV.CONT SCH (04:47)
[2018-07-20] MEDS: Chlorhexidine Gluconate 2% 1 Pack (2 Cloths) TOPICAL SCH (04:48)
[2018-07-20] MEDS: Levothyroxine 50 MCG Tablet PO SCH (06:47)
[2018-07-20] MEDS: Furosemide 20 MG Tablet PO SCH (08:08)
[2018-07-20] MEDS: Pantoprazole Inj 40 MG Vial IV.PUSH SCH (08:09)
[2018-07-20] MEDS: Polyethylene Glycol 3350 17 GM Packet PO SCH (08:09)
--- NOTE | 2018-07-20 09:04 | P.PN ---
Subjective Interval history: The patient rested throughout the night on BiPAP. She was taken off of BiPAP 2 hours ago but is having increased respiratory effort. Oxygen saturations are good With O2 at 4 L/min per nasal cannula. She is confused this morning. Denies any significant pain. Active Medications Generic Name Dose Route Start Last Admin Trade Name Freq PRN Reason Stop Dose Admin Albuterol 1 ampul 07/19/18 15:36 Duoneb Neb (Prn) NEB Q4HR NEB PRN SHORTNESS OF BREATH Albuterol 1 ampul 07/19/18 16:00 07/20/18 04:45 Duoneb Neb (Eboni) NEB 1 ampul Q6HR NEB EBONI Administration Aspirin 81 mg 07/20/18 11:00 Ecotrin PO AC LUNCH EBONI Chlorhexidine Gluconate 3 pack 07/20/18 04:00 Chlorhexidine 2% Cloth TOPICAL 07/25/18 03:59 DAILY@0400 PRN Extra cloth needed Chlorhexidine Gluconate 3 pack 07/20/18 04:00 07/20/18 04:48 Chlorhexidine 2% Cloth TOPICAL 07/25/18 03:59 3 pack DAILY@0400 EBONI Administration Enoxaparin Sodium 30 mg 07/19/18 16:00 07/19/18 16:17 Lovenox Inj SQ 30 mg Q24H EBONI Administration Furosemide 20 mg 07/20/18 09:00 07/20/18 08:08 Lasix PO 20 mg DAILY EBONI Administration Sodium Chloride 500 mls @ 80 mls/hr 07/19/18 16:00 07/20/18 04:47 Ns Inj IV.CONT 80 mls/hr .Q6H15M EBONI Administration Cefepime HCl 2,000 mg/ Sodium 100 mls @ 200 mls/hr 07/19/18 16:00 07/20/18 05 :24 Chloride IV.SIG Infused Q12H EBONI Infusion Magnesium Sulfate 4 gm/ Sodium 100 mls @ 50 mls/hr 07/19/18 16:12 Chloride IV.SIG UNSCH PRN For Magnesium 0.9 - 1.1 mg/dL Magnesium Sulfate 2 gm/ Sodium 100 mls @ 50 mls/hr 07/19/18 16:12 Chloride IV.SIG UNSCH PRN For Magnesium 1.2 - 1.6 mg/dL Potassium Chloride 20 meq in 100 mls @ 50 mls/hr 07/19/18 16:12 Kcl 20 Meq Premix Inj IV.SIG Q2H PRN For Potassium 3.3 - 3.5 mEq/L Potassium Chloride 40 meq in 100 mls @ 25 mls/hr 07/19/18 16:12 Kcl 40 Meq Premix Inj IV.SIG UNSCH PRN For Potassium 3.3 - 3.5 mEq/L Potassium Chloride 20 meq in 100 mls @ 50 mls/hr 07/19/18 16:12 Kcl 20 Meq Premix Inj IV.SIG Q2H PRN For Potassium 2.8 - 3.2 mEq/L Potassium Phosphate 30 mmol/ 260 mls @ 42 mls/hr 07/19/18 16:12 Sodium Chloride IV.SIG UNSCH PRN SEE LABEL COMMENTS Sodium Phosphate 30 mmol/ 260 mls @ 42 mls/hr 07/19/18 16:12 Sodium Chloride IV.SIG UNSCH PRN For Phosphorus < 2.5 mg/dL Potassium Chloride 40 meq in 100 mls @ 25 mls/hr 07/19/18 16:12 Kcl 40 Meq Premix Inj IV.SIG Q2H PRN For Potassium 2.8 - 3.2 mEq/L Acetaminophen 650 mg in 65 mls @ 400 mls/hr 07/19/18 20:16 07/19/18 22:01 Ofirmev Inj IV.SIG Infused Q6H PRN Infusion PAIN SCALE 1 TO 10 Potassium Chloride/Dextrose/Sod Cl 1,000 mls @ 84 mls/hr 07/20/18 09:00 D5w/1/2ns + Kcl 20 Meq Inj IV.CONT .[id number] [facility] Levothyroxine Sodium 50 mcg 07/20/18 06:00 07/20/18 06:47 Synthroid PO 50 mcg DAILY@0600 [facility] Administration Magnesium Oxide 800 mg 07/19/18 16:12 Mag-Ox PO UNSCH PRN For Magnesium 1.2 - 1.6 mg/dL Methylprednisolone Sodium Succinate 40 mg 07/19/18 19:00 07/20/18 06:47 Solumedrol Inj IV.PUSH 40 mg Q6H [facility] Administration Miscellaneous 1 each 07/19/18 16:59 Pill Splitter OTHER UNSCH PRN SEE LABEL COMMENTS Nystatin 5 ml 07/20/18 09:00 Mycostatin Liq SWISH-SWAL QID [facility] Oxycodone HCl 2.5 mg 07/19/18 16:58 Roxicodone PO Q6H PRN PAIN SCALE 6 TO 10 Pantoprazole Sodium 40 mg 07/20/18 09:00 07/20/18 08:09 Protonix Inj IV.PUSH 40 mg DAILY EBONI Administration Polyethylene Glycol 17 gm 07/20/18 09:00 07/20/18 08:09 Miralax PO 17 gm DAILY EBONI Administration Potassium Bicarb/Potassium Chloride 50 meq 07/19/18 16:12 K-Lyte Cl Eff PO UNSCH PRN For Potassium 3.3 - 3.5 mEq/L Potassium Phosphate 2,000 mg 07/19/18 16:12 K-Phos Original PO Q4H PRN Phosphorus Less Than 2.5 mg/dL Potassium Phosphate 2,000 mg 07/19/18 16:12 K-Phos Original PO UNSCH PRN SEE LABEL COMMENTS Sodium Chloride 2 ml 07/19/18 21:00 07/20/18 08:09 Ns Flush IV.FLUSH 2 ml BID EBONI Administration Sodium Chloride 2 ml 07/19/18 15:36 Ns Flush IV.FLUSH PRN PRN FLUSH AFTER USING IV ACCESS Physical Exam Vital signs: Vital Signs 07/19/18 13:11 07/19/18 13:15 07/19/18 13:20 Temperature 97.6 F Pulse Rate 127 H 123 H Respiratory Rate 25 H Blood Pressure 166/89 H 145/74 H Pulse Oximetry 88 L 91 L 07/19/18 13:24 07/19/18 15:36 07/19/18 15:57 Temperature Pulse Rate 122 H 117 H Respiratory Rate 25 H Blood Pressure 148/73 H Pulse Oximetry 97 95 07/19/18 16:30 07/19/18 17:00 07/19/18 17:07 Temperature 98.7 F Pulse Rate 112 H 116 H Respiratory Rate 29 H 18 Blood Pressure 138/63 Pulse Oximetry 95 100 07/19/18 18:00 07/19/18 19:00 07/19/18 19:36 Temperature 97.6 F Pulse Rate 109 H 109 H 105 H Respiratory Rate 20 18 21 Blood Pressure 134/64 139/63 Pulse Oximetry 97 97 100 07/19/18 19:40 07/19/18 20:00 07/19/18 20:20 Temperature Pulse Rate 103 H 104 H 100 H Respiratory Rate 32 H 30 H 27 H Blood Pressure 139/63 140/63 139/65 Pulse Oximetry 100 100 99 07/19/18 20:40 07/19/18 21:00 07/19/18 21:20 Temperature Pulse Rate 100 H 103 H 100 H Respiratory Rate 26 H 26 H 33 H Blood Pressure 143/65 H 149/67 H 139/65 Pulse Oximetry 98 100 98 07/19/18 21:40 07/19/18 21:54 07/19/18 21:55 Temperature Pulse Rate 101 H 98 H Respiratory Rate 29 H 17 Blood Pressure 154/73 H Pulse Oximetry 98 96 07/19/18 22:00 07/19/18 22:01 07/19/18 22:20 Temperature Pulse Rate 101 H 99 H Respiratory Rate 39 H 35 H 34 H Blood Pressure 153/73 H 155/73 H Pulse Oximetry 96 96 07/19/18 22:40 07/19/18 23:00 07/19/18 23:20 Temperature Pulse Rate 96 H 91 H 90 Respiratory Rate 16 24 31 H Blood Pressure 139/68 120/56 L 119/57 L Pulse Oximetry 99 99 99 07/19/18 23:40 07/20/18 00:00 07/20/18 00:20 Temperature 97.9 F Pulse Rate 96 H 96 H 91 H Respiratory Rate 33 H 33 H 36 H Blood Pressure 175/81 H 173/81 H 147/70 H Pulse Oximetry 100 100 100 07/20/18 00:40 07/20/18 00:59 07/20/18 01:00 Temperature Pulse Rate 92 H 89 Respiratory Rate 26 H 22 Blood Pressure 154/73 H 160/77 H Pulse Oximetry 100 100 100 07/20/18 01:02 07/20/18 01:20 07/20/18 01:40 Temperature Pulse Rate 88 89 Respiratory Rate 26 H 21 Blood Pressure 159/74 H 163/79 H Pulse Oximetry 100 100 100 07/20/18 02:00 07/20/18 03:00 07/20/18 04:00 Temperature 97.6 F Pulse Rate 85 78 75 Respiratory Rate 19 22 25 H Blood Pressure 135/63 131/64 138/63 Pulse Oximetry 100 100 100 07/20/18 04:46 07/20/18 04:47 07/20/18 05:00 Temperature Pulse Rate 77 84 Respiratory Rate 18 18 Blood Pressure 191/93 H Pulse Oximetry 99 99 07/20/18 05:30 07/20/18 06:00 07/20/18 06:30 Temperature Pulse Rate 82 82 85 Respiratory Rate 24 16 25 H Blood Pressure 161/69 H 142/65 H 152/71 H Pulse Oximetry 100 100 100 Intake & Output 07/19/18 07/20/18 07/20/18 18:59 06:59 18:59 Intake Total 300 / 300 1345 / 1345 Output Total 100 / 100 Balance 200 / 200 1345 / 1345 Weight 88 lb 2.958 oz 97 lb 0.054 oz Intake: IV 200 / 200 1265 / 1265 NS Inj 500 ML @ 80 mls/hr IV. 1000 / 1000 CONT .Q6H15M EBONI Rx#:[id number] Ofirmev Inj 650 mg In 65 ml @ 65 / 65 400 mls/hr IV.SIG Q6H PRN Rx#: [id number] Maxipime Inj 2,000 MG In NS Inj 100 / 100 100 / 100 100 ML @ 200 mls/hr IV.SIG Q12H EBONI Rx#:[id number] KCl 20 mEq Premix Inj 20 meq In 100 / 100 100 / 100 100 ml @ 50 mls/hr IV.SIG Q2H EBONI Rx#:[id number] Oral 100 / 100 80 / 80 Output: Urine 100 / 100 Other: # Voids 3 # Bowel Movements 0 Weight On Admission 88 lb 2.958 oz - Constitutional Comments: Thin frail elderly white female lying in bed in moderate respiratory distress - Routine HEENT Exam Comments: White plaques on tongue and buccal mucosa. Mucous membranes moist - Routine Neck Exam Present: supple Comments: no lymphadenopathy, JVD or thyromegaly - Routine Respiratory Exam Comments: Few fibrotic opening rales. No rhonchi or wheezes. Moderately reduced air exchange - Routine Cardiovascular Exam Present: RRR - Routine Abdominal Exam Present: soft Comments: Nontender, Nondistended, +BS - Routine Extremities Exam Comments: No edema. No calf tenderness Results - Labs CBC & Chem 7: 07/20/18 01:20 07/20/18 01:20 Laboratory Results - last 24 hr 07/19/18 07/19/18 07/19/18 13:25 13:25 13:25 WBC 22.3 H RBC 4.08 Hgb 14.1 Hct 41.6 MCV 102.0 H MCH 34.6 H MCHC 33.9 RDW 13.1 Plt Count 201 MPV 8.8 Neut % (Auto) 94.0 H Lymph % (Auto) 1.0 L [place] % (Auto) 4.8 Eos % (Auto) 0.0 Baso % (Auto) 0.2 Neut # (Auto) 21.0 H Lymph # (Auto) 0.2 L [place] # (Auto) 1.1 H Eos # (Auto) 0.0 Baso # (Auto) 0.0 WBC Differential . Differential Comment Auto diff final Puncture Site Patient Temperature O2 Saturation ABG pH ABG pCO2 ABG pO2 ABG HCO3 ABG O2 Content ABG Base Excess ABG Methemoglobin Shai Test Hemoglobin Carboxyhemoglobin O2 Delivery Device Vent Setting Inspired O2 Critical Value Sodium 132 L Potassium 3.0 L Chloride 90 L Carbon Dioxide 34.9 H Anion Gap 7 BUN 25 H Creatinine 0.60 Estimated GFR Greater than 89 Random Glucose 117 H Calcium 9.0 Total Bilirubin 0.9 AST 44 H ALT 68 H Alkaline Phosphatase 146 H Troponin I Less than 0.02 L B-Natriuretic Peptide Total Protein 6.0 L Albumin 2.8 L Nasal Screen MRSA (PCR) 07/19/18 07/19/18 07/20/18 13:32 18:00 01:20 WBC RBC Hgb Hct MCV MCH MCHC RDW Plt Count MPV Neut % (Auto) Lymph % (Auto) [place] % (Auto) Eos % (Auto) Baso % (Auto) Neut # (Auto) Lymph # (Auto) [place] # (Auto) Eos # (Auto) Baso # (Auto) WBC Differential Differential Comment Puncture Site Right radial Patient Temperature 98.6 O2 Saturation 95 ABG pH 7.43 H ABG pCO2 58 H* ABG pO2 89 ABG HCO3 38 H ABG O2 Content 18.9 ABG Base Excess 13.0 H ABG Methemoglobin 1.2 Shai Test Present Hemoglobin 14.2 Carboxyhemoglobin 1.0 O2 Delivery Device Bipap Vent Setting [id number] Inspired O2 90 Critical Value Yes Sodium 133 L Potassium 4.6 D Chloride 95 L Carbon Dioxide 34.9 H Anion Gap 3 L BUN 26 H Creatinine 0.49 L Estimated GFR Greater than 89 Random Glucose 119 H Calcium 8.1 L D Total Bilirubin 0.7 AST 40 H ALT 71 H Alkaline Phosphatase 151 H Troponin I B-Natriuretic Peptide Total Protein 5.8 L Albumin 2.2 L D Nasal Screen MRSA (PCR) Not detected 07/20/18 07/20/18 01:20 01:20 WBC 14.5 H RBC 3.86 L Hgb 13.1 Hct 38.7 MCV 100.4 H MCH 34.0 MCHC 33.9 RDW 13.1 Plt Count 152 MPV 8.3 Neut % (Auto) 96.2 H Lymph % (Auto) 1.1 L [place] % (Auto) 2.7 Eos % (Auto) 0.0 Baso % (Auto) 0.0 Neut # (Auto) 13.9 H Lymph # (Auto) 0.2 L [place] # (Auto) 0.4 Eos # (Auto) 0.0 Baso # (Auto) 0.0 WBC Differential . Differential Comment Auto diff final Puncture Site Patient Temperature O2 Saturation ABG pH ABG pCO2 ABG pO2 ABG HCO3 ABG O2 Content ABG Base Excess ABG Methemoglobin Shai Test Hemoglobin Carboxyhemoglobin O2 Delivery Device Vent Setting Inspired O2 Critical Value Sodium Potassium Chloride Carbon Dioxide Anion Gap BUN Creatinine Estimated GFR Random Glucose Calcium Total Bilirubin AST ALT Alkaline Phosphatase Troponin I B-Natriuretic Peptide 149 H Total Protein Albumin Nasal Screen MRSA (PCR) - Imaging Impressions Chest CTA 07/19/18 00:00 CONCLUSION: 1. No evidence of pulmonary embolism 2. Chronic lung disease changes and fairly extensive patchy infiltrate. Chest X-Ray 07/19/18 13:12 CONCLUSION: Stable pleural and parenchymal changes as above without overt failure. Assessment and Plan - Assessment (1) COPD with acute exacerbation Code(s): J44.1 - Chronic obstructive pulmonary disease with (acute) exacerbation Status: Acute Plan: Respiratory status has improved but patient is fatigued from being off the BiPAP. Will resume BiPAP. Continue with IV steroids, antibiotics and nebulizer treatments. Will wean BiPAP as tolerated. (2) Hypokalemia Code(s): E87.6 - Hypokalemia Status: Resolved Plan: Corrected. Will follow. (3) Oral candidiasis Code(s): B37.0 - Candidal stomatitis Status: Acute Plan: Begin nystatin solution (4) Abnormal LFTs Code(s): R94.5 - Abnormal results of liver function studies Status: Acute Plan: This is a recurrent problem. Will follow. (5) Hyponatremia Code(s): E87.1 - Hypo-osmolality and hyponatremia Status: Resolved Plan: Mild. Will follow. Patient receiving IV fluids (6) Scoliosis Code(s): M41.9 - Scoliosis, unspecified Status: Chronic Plan: The patient has chronic pain due to severe thoracolumbar scoliosis. She has IV acetaminophen ordered as well as oxycodone. (6) Scoliosis Qualifiers: Scoliosis type: unspecified scoliosis Spinal region: thoracolumbar Qualified Code(s): M41.9 - Scoliosis, unspecified
[2018-07-20] MEDS: Nystatin Liq 500,000 UNIT/5 ML UDC SWISH-SWAL SCH ×4 (12:31→22:50)
[2018-07-20 13:04] LABS: ABG Base Excess 9.9 mmol/L (-2-2); ABG PCO2 43 mmHg (38-42); ABG PO2 84 mmHG (61-120)
[2018-07-20] MEDS: Enoxaparin Inj 30 MG/0.3 ML Syringe SQ SCH (15:28)
[2018-07-20] MEDS: KCL 20 mEq/D5W/NaCl 0.45% Inj 1,000 ML IV.CONT SCH ×2 (22:49→22:50)
--- NOTE | 2018-07-21 00:45 | ECG ---
Date Performed: 07/19/2018 Time Performed: 13:07:35 PTAGE: 83 years EKG: SINUS TACHYCARDIA WITH FREQUENT ECTOPIC PREMATURE COMPLEXES RIGHT ATRIAL ENLARGEMENT LEFT A TRIAL ENLARGEMENT POSSIBLE RIGHT VENTRICULAR CONDUCTION DELAY NONSPECIFIC T-WAVE ABNORMALITY ABNORMAL ECG Compared to PREVIOUS TRACING , rate has increased with criteria for right atrial enlargement DOCTOR: Shawn Galaviz Interpretating Date/Time 07/21/2018 00:43:15
[2018-07-21] MEDS: MethylPREDNISolone Sod Succinate Inj 40 MG/ML Vial IV.PUSH SCH ×4 (01:24→20:12)
[2018-07-21] MEDS: Chlorhexidine Gluconate 2% 1 Pack (2 Cloths) TOPICAL SCH (04:56)
[2018-07-21] MEDS: Levothyroxine 50 MCG Tablet PO SCH (06:02)
[2018-07-21 07:57] LABS: Baso % (Auto) 0.1 % (0.0-2.0); Hematocrit 36.8 % (35.0-46.0); Hemoglobin 12.3 gm/dL (11.6-15.3); Lymph # (Auto) 0.2 th/mm3 (1.0-4.8); Lymph % (Auto) 1.5 % (9.0-44.0); Mean Corpuscular HGB Conc 33.4 % (32.0-36.0); Mean Corpuscular Volume 101.9 fL (80.0-100.0); Mean Platelet Volume 8.3 fL (7.0-11.0); Mono # (Auto) 0.5 th/mm3 (0.0-0.9); Mono % (Auto) 4.9 % (0.0-8.0); Neut % (Auto) 93.5 % (16.0-70.0); Platelet Count 161 th/mm3 (150-450); Red Blood Count 3.61 mil/mm3 (4.00-5.30); Red Cell Distribution Width 12.9 % (11.6-17.2); White Blood Count 10.7 th/mm3 (4.0-11.0)
[2018-07-21 08:26] LABS: Anion Gap 4 meq/L (5-15); Aspartate Aminotransferase 18 U/L (15-37); Blood Urea Nitrogen 16 mg/dL (7-18); Calcium 7.9 mg/dL (8.5-10.1); Carbon Dioxide 33.4 meq/L (21.0-32.0); Chloride 94 meq/L (98-107); Glomerular Filtration Rate Greater Than 89 mL/min (>89); Glucose,Random 188 mg/dL (74-106); Potassium 3.4 meq/L (3.5-5.1); Sodium 131 meq/L (136-145)
[2018-07-21 08:28] LABS: Alanine Aminotransferase 45 U/L (10-53); Alkaline Phosphatase 120 U/L (45-117); Total Protein 5.2 g/dL (6.4-8.2)
[2018-07-21] MEDS: Pantoprazole Inj 40 MG Vial IV.PUSH SCH (08:34)
[2018-07-21] MEDS: Furosemide 20 MG Tablet PO SCH (08:35)
[2018-07-21] MEDS: Polyethylene Glycol 3350 17 GM Packet PO SCH (08:35)
[2018-07-21] MEDS: Nystatin Liq 500,000 UNIT/5 ML UDC SWISH-SWAL SCH ×4 (08:37→20:12)
[2018-07-21] MEDS: KCL 20 mEq/D5W/NaCl 0.45% Inj 1,000 ML IV.CONT SCH ×2 (10:49→23:03)
--- NOTE | 2018-07-21 12:42 | P.PN ---
Subjective Interval history: She was on BiPAP all night. Tolerating nasal cannula this morning. P.o. intake is fair. Blood pressure has been higher. Coughing but not producing any sputum. Denies any chest pain, nausea or vomiting. Has had some confusion but no agitation. Back pain under adequate control. Active Medications Generic Name Dose Route Start Last Admin Trade Name Freq PRN Reason Stop Dose Admin Albuterol 1 ampul 07/19/18 15:36 Duoneb Neb (Prn) NEB Q4HR NEB PRN SHORTNESS OF BREATH Albuterol 1 ampul 07/19/18 16:00 07/21/18 07:59 Duoneb Neb (Eboni) NEB 1 ampul Q6HR NEB EBONI Administration Aspirin 81 mg 07/20/18 11:00 07/21/18 10:58 Ecotrin PO 81 mg AC LUNCH EBONI Administration Chlorhexidine Gluconate 3 pack 07/20/18 04:00 Chlorhexidine 2% Cloth TOPICAL 07/25/18 03:59 DAILY@0400 PRN Extra cloth needed Chlorhexidine Gluconate 3 pack 07/20/18 04:00 07/21/18 04:56 Chlorhexidine 2% Cloth TOPICAL 07/25/18 03:59 3 pack DAILY@0400 EBONI Administration Enalaprilat 1.25 mg 07/21/18 12:32 Vasotec Inj IV.PUSH Q6H PRN SBP>160, DBP>90 Enoxaparin Sodium 30 mg 07/19/18 16:00 07/20/18 15:28 Lovenox Inj SQ 30 mg Q24H EBONI Administration Furosemide 20 mg 07/20/18 09:00 07/21/18 08:35 Lasix PO 20 mg DAILY EBONI Administration Furosemide 20 mg 07/21/18 12:37 Lasix Inj IV.PUSH 07/21/18 12:38 ONCE ONE Cefepime HCl 2,000 mg/ Sodium 100 mls @ 200 mls/hr 07/19/18 16:00 07/21/18 05 :00 Chloride IV.SIG Infused Q12H EBONI Infusion Magnesium Sulfate 4 gm/ Sodium 100 mls @ 50 mls/hr 07/19/18 16:12 Chloride IV.SIG UNSCH PRN For Magnesium 0.9 - 1.1 mg/dL Magnesium Sulfate 2 gm/ Sodium 100 mls @ 50 mls/hr 07/19/18 16:12 Chloride IV.SIG UNSCH PRN For Magnesium 1.2 - 1.6 mg/dL Potassium Chloride 20 meq in 100 mls @ 50 mls/hr 07/19/18 16:12 Kcl 20 Meq Premix Inj IV.SIG Q2H PRN For Potassium 3.3 - 3.5 mEq/L Potassium Chloride 40 meq in 100 mls @ 25 mls/hr 07/19/18 16:12 Kcl 40 Meq Premix Inj IV.SIG UNSCH PRN For Potassium 3.3 - 3.5 mEq/L Potassium Chloride 20 meq in 100 mls @ 50 mls/hr 07/19/18 16:12 Kcl 20 Meq Premix Inj IV.SIG Q2H PRN For Potassium 2.8 - 3.2 mEq/L Potassium Phosphate 30 mmol/ 260 mls @ 42 mls/hr 07/19/18 16:12 Sodium Chloride IV.SIG UNSCH PRN SEE LABEL COMMENTS Sodium Phosphate 30 mmol/ 260 mls @ 42 mls/hr 07/19/18 16:12 Sodium Chloride IV.SIG UNSCH PRN For Phosphorus < 2.5 mg/dL Potassium Chloride 40 meq in 100 mls @ 25 mls/hr 07/19/18 16:12 Kcl 40 Meq Premix Inj IV.SIG Q2H PRN For Potassium 2.8 - 3.2 mEq/L Acetaminophen 650 mg in 65 mls @ 400 mls/hr 07/19/18 20:16 07/19/18 22:01 Ofirmev Inj IV.SIG Infused Q6H PRN Infusion PAIN SCALE 1 TO 10 Potassium Chloride/Dextrose/Sod Cl 1,000 mls @ 84 mls/hr 07/20/18 09:00 07/21 10:49 D5w/1/2ns + Kcl 20 Meq Inj IV.CONT 84 mls/hr .[id number] EBONI Administration Levothyroxine Sodium 50 mcg 07/20/18 06:00 07/21/18 06:02 Synthroid PO 50 mcg DAILY@0600 EBONI Administration Magnesium Oxide 800 mg 07/19/18 16:12 Mag-Ox PO UNSCH PRN For Magnesium 1.2 - 1.6 mg/dL Methylprednisolone Sodium Succinate 40 mg 07/19/18 19:00 07/21/18 12:02 Solumedrol Inj IV.PUSH 40 mg Q6H EBONI Administration Miscellaneous 1 each 07/19/18 16:59 Pill Splitter OTHER UNSCH PRN SEE LABEL COMMENTS Nystatin 5 ml 07/20/18 09:00 07/21/18 12:02 Mycostatin Liq SWISH-SWAL 5 ml QID EBONI Administration Oxycodone HCl 2.5 mg 07/19/18 16:58 Roxicodone PO Q6H PRN PAIN SCALE 6 TO 10 Pantoprazole Sodium 40 mg 07/20/18 09:00 07/21/18 08:34 Protonix Inj IV.PUSH 40 mg DAILY EBONI Administration Polyethylene Glycol 17 gm 07/20/18 09:00 07/21/18 08:35 Miralax PO 17 gm DAILY EBONI Administration Potassium Bicarb/Potassium Chloride 50 meq 07/19/18 16:12 K-Lyte Cl Eff PO UNSCH PRN For Potassium 3.3 - 3.5 mEq/L Potassium Chloride 10 meq 07/21/18 12:45 Klor-Con 10 PO BID EBONI Potassium Phosphate 2,000 mg 07/19/18 16:12 K-Phos Original PO Q4H PRN Phosphorus Less Than 2.5 mg/dL Potassium Phosphate 2,000 mg 07/19/18 16:12 K-Phos Original PO UNSCH PRN SEE LABEL COMMENTS Sodium Chloride 2 ml 07/19/18 21:00 07/21/18 08:35 Ns Flush IV.FLUSH 2 ml BID EBONI Administration Sodium Chloride 2 ml 07/19/18 15:36 Ns Flush IV.FLUSH PRN PRN FLUSH AFTER USING IV ACCESS Physical Exam Vital signs: Vital Signs 07/20/18 13:00 07/20/18 14:00 07/20/18 14:30 Temperature Pulse Rate 91 H 87 85 Respiratory Rate 32 H 38 H 33 H Blood Pressure 172/73 H 158/69 H 149/72 H Pulse Oximetry 100 99 100 07/20/18 15:00 07/20/18 15:31 07/20/18 16:00 Temperature Pulse Rate 86 92 H 96 H Respiratory Rate 30 H 35 H 36 H Blood Pressure 160/74 H 167/117 H Pulse Oximetry 100 98 95 07/20/18 16:01 07/20/18 16:21 07/20/18 17:00 Temperature Pulse Rate 96 H 94 H 105 H Respiratory Rate 37 H 20 22 Blood Pressure 141/77 H 122/73 Pulse Oximetry 95 97 07/20/18 17:30 07/20/18 18:00 07/20/18 18:32 Temperature Pulse Rate 106 H 105 H 109 H Respiratory Rate 24 23 32 H Blood Pressure 143/62 H 133/63 138/80 Pulse Oximetry 98 97 98 07/20/18 19:00 07/20/18 19:30 07/20/18 20:00 Temperature Pulse Rate 110 H 104 H 109 H Respiratory Rate 28 H 24 38 H Blood Pressure 143/65 H 141/76 H 134/71 Pulse Oximetry 92 L 95 95 07/20/18 20:30 07/20/18 20:51 07/20/18 20:57 Temperature Pulse Rate 100 H 100 H Respiratory Rate 23 22 Blood Pressure 138/68 Pulse Oximetry 95 90 L 94 L 07/20/18 21:00 07/20/18 21:30 07/20/18 22:00 Temperature Pulse Rate 92 H 100 H 97 H Respiratory Rate 25 H 24 28 H Blood Pressure 126/74 127/61 128/61 Pulse Oximetry 93 L 92 L 94 L 07/20/18 22:30 07/20/18 23:00 07/20/18 23:30 Temperature Pulse Rate 95 H 90 87 Respiratory Rate 30 H 27 H 33 H Blood Pressure 141/64 H 135/72 140/66 Pulse Oximetry 95 99 99 07/21/18 00:00 07/21/18 00:19 07/21/18 00:30 Temperature Pulse Rate 82 81 Respiratory Rate 35 H 28 H Blood Pressure 153/67 H 142/69 H Pulse Oximetry 100 95 97 07/21/18 01:00 07/21/18 01:30 07/21/18 02:00 Temperature Pulse Rate 88 80 76 Respiratory Rate 22 25 H 21 Blood Pressure 142/68 H 163/74 H 160/74 H Pulse Oximetry 100 100 100 07/21/18 02:30 07/21/18 03:00 07/21/18 03:08 Temperature Pulse Rate 76 77 74 Respiratory Rate 23 23 31 H Blood Pressure 158/73 H 176/77 H 155/68 H Pulse Oximetry 100 100 100 07/21/18 03:30 07/21/18 04:00 07/21/18 04:30 Temperature 97.8 F Pulse Rate 73 70 71 Respiratory Rate 23 26 H 23 Blood Pressure 152/67 H 135/64 159/74 H Pulse Oximetry 100 99 100 07/21/18 04:42 07/21/18 05:00 07/21/18 05:03 Temperature Pulse Rate 76 82 78 Respiratory Rate 15 45 H 36 H Blood Pressure 177/81 H Pulse Oximetry 99 100 100 07/21/18 05:30 07/21/18 05:36 07/21/18 06:00 Temperature Pulse Rate 78 84 Respiratory Rate 28 H 22 Blood Pressure 154/72 H 159/74 H Pulse Oximetry 96 100 96 07/21/18 06:30 07/21/18 06:36 07/21/18 07:00 Temperature Pulse Rate 78 75 74 Respiratory Rate 14 14 17 Blood Pressure 174/74 H 154/65 H 161/74 H Pulse Oximetry 100 99 97 07/21/18 07:59 Temperature Pulse Rate 82 Respiratory Rate 18 Blood Pressure Pulse Oximetry Intake & Output 07/20/18 07/21/18 07/21/18 18:59 06:59 18:59 Intake Total 350 / 350 1140 / 1140 1000 / 1000 Output Total 800 / 800 Balance 350 / 350 340 / 340 1000 / 1000 Weight 105 lb 6.095 oz Intake: IV 100 / 100 1100 / 1100 1000 / 1000 D5W/1/2NS + KCL 20 mEq Inj 1, 1000 / 1000 1000 / 1000 000 ML @ 84 mls/hr IV.CONT . [id number] EBONI Rx#:[id number] Maxipime Inj 2,000 MG In NS Inj 100 / 100 100 / 100 100 ML @ 200 mls/hr IV.SIG Q12H EBONI Rx#:[id number] Oral 250 / 250 40 / 40 Output: Urine Amount (Catheter) 800 / 800 Female External 800 / 800 Other: # Voids 4 # Bowel Movements 0 - Routine HEENT Exam ENT: Present: mucous membranes moist Comments: Few plaques on tongue. No plaques on buccal or gingival mucosa - Routine Neck Exam Present: supple Comments: No lymphadenopathy or JVD. - Routine Respiratory Exam Comments: Moderately reduced air exchange. Few upper airway rhonchi. No rales. No wheezes. - Routine Cardiovascular Exam Comments: Regular rate and rhythm with systolic murmur - Routine Abdominal Exam Present: soft Comments: Nontender, nondistended with bowel sounds - Routine Extremities Exam Comments: No edema. No cyanosis. No calf tenderness - Urinary Catheter Management Female External Cath placed during this visit: no Results - Labs CBC & Chem 7: 07/21/18 07:34 07/21/18 07:34 Laboratory Results - last 24 hr 07/20/18 07/21/18 07/21/18 12:53 07:34 07:34 WBC 10.7 RBC 3.61 L Hgb 12.3 Hct 36.8 MCV 101.9 H MCH 34.0 MCHC 33.4 RDW 12.9 Plt Count 161 MPV 8.3 Neut % (Auto) 93.5 H Lymph % (Auto) 1.5 L [place] % (Auto) 4.9 Eos % (Auto) 0.0 Baso % (Auto) 0.1 Neut # (Auto) 10.0 H Lymph # (Auto) 0.2 L [place] # (Auto) 0.5 Eos # (Auto) 0.0 Baso # (Auto) 0.0 WBC Differential . Differential Comment Auto diff final Puncture Site Right radial Patient Temperature 98.6 O2 Saturation 95 ABG pH 7.50 H ABG pCO2 43 H ABG pO2 84 ABG HCO3 34 H ABG O2 Content 16.5 ABG Base Excess 9.9 H ABG Methemoglobin 1.6 Shai Test Present Hemoglobin 12.3 Carboxyhemoglobin 0.6 O2 Delivery Device Nasal cannula Liter Flow 4.00 Critical Value No Sodium 131 L Potassium 3.4 L D Chloride 94 L Carbon Dioxide 33.4 H Anion Gap 4 L BUN 16 Creatinine 0.32 L Estimated GFR Greater than 89 Random Glucose 188 H Calcium 7.9 L Total Bilirubin 0.5 AST 18 ALT 45 Alkaline Phosphatase 120 H Total Protein 5.2 L D Albumin 2.0 L Assessment and Plan - Assessment (1) COPD with acute exacerbation Code(s): J44.1 - Chronic obstructive pulmonary disease with (acute) exacerbation Status: Acute Plan: Respiratory status has improved. Patient off of BiPAP at now. Will likely need to be on BiPAP intermittently until respiratory status improves further. Continue with IV steroids, IV antibiotics, nebulizer treatments. Wean oxygen as tolerated. (2) Hypokalemia Code(s): E87.6 - Hypokalemia Status: Acute Plan: Will provide IV potassium supplement and begin oral supplement. Follow potassium level (3) Oral candidiasis Code(s): B37.0 - Candidal stomatitis Status: Acute Plan: Improving with nystatin oral suspension (4) Abnormal LFTs Code(s): R94.5 - Abnormal results of liver function studies Status: Acute Plan: This is a recurrent problem. Will follow. (5) Hyponatremia Code(s): E87.1 - Hypo-osmolality and hyponatremia Status: Resolved Plan: Mild. Will follow. Patient receiving IV fluids (6) Scoliosis Code(s): M41.9 - Scoliosis, unspecified Status: Chronic Plan: The patient has chronic pain due to severe thoracolumbar scoliosis. She has IV acetaminophen ordered as well as oxycodone. (6) Scoliosis Qualifiers: Scoliosis type: unspecified scoliosis Spinal region: thoracolumbar Qualified Code(s): M41.9 - Scoliosis, unspecified
[2018-07-21] MEDS: Enoxaparin Inj 30 MG/0.3 ML Syringe SQ SCH (16:04)
--- NOTE | 2018-07-21 20:34 | PQ ---
Physician Query Response Document PATIENT: Gracie Jordan : 1935 ADMIT DATE: 07/19/2018 3:31 PM DISCH DATE: RESPONDING PROVIDER #: JMERCER QUERY TEXT: CDS Clarification Acute and chronic respiratory failure with hypoxia in the setting of acute respiratory distress and E xacerbation of COPD with dependency on home O2 requiring treatment with BiPAP. Other explanation of clinical findings. Unable to determine (no explanation for clinical findings). The patient's Clinical Indicators include: The medical record reflects the following clinical findings, treatment, and risk factors. * Clinical Indicators: Blood gas on BiPAP at 90% oxygen pH of 7.43, pCO2 of 58, pO2 of 89, bicarbonat e 38, base excess 13.0, oxygen saturation 95%; RR 25 O2 sat 88% RA on presentation. * Risk Factors: acute respiratory distress and Exacerbation of COPD with dependency on home O2 @2L. * Treatment: BiPAP Please clarify and document your clinical opinion in the progress notes and discharge summary includi ng the definitive and/or presumptive diagnosis (suspected or probable), related to the above clinical findings. Please include clinical findings supporting your diagnosis. Patient Unit: [facility] Room: 511 Thank you, Sudha Kennedy RN CDIS Contact Number: [phone] Query created by: Sudha Kennedy on 07/20/2018 12:24 PM RESPONSE TEXT: Acute on chronic respiratory failure is due to exacerbation of chronic obstructive pulmonary disease and bronchiectasis. Supporting clinical findings include findings on CT scan of the chest which revea led chronic mucous plugging consistent with bronchiectasis, hypoxemia with hypercapnia and compensato ry metabolic alkalosis. Clinical examination is consistent with COPD and bronchiectasis based on lung examination revealing fibrotic rales, scattered rhonchi, expiratory wheezes and poor air exchange. Electronically signed by: Efrain Frye MD 07/21/2018 8:30 PM
[2018-07-22] MEDS: Chlorhexidine Gluconate 2% 1 Pack (2 Cloths) TOPICAL SCH (04:40)
[2018-07-22] MEDS: Levothyroxine 50 MCG Tablet PO SCH (05:05)
[2018-07-22] MEDS ORDERED: KCL 20 mEq/D5W/NaCl 0.45% Inj 1,000 ML IV.CONT SCH (07:15)
[2018-07-22] MEDS: amLODIPine 5 MG Tablet PO SCH (08:12)
[2018-07-22] MEDS: Polyethylene Glycol 3350 17 GM Packet PO SCH (08:13)
[2018-07-22] MEDS: MethylPREDNISolone Sod Succinate Inj 40 MG/ML Vial IV.PUSH SCH ×3 (08:13→17:27)
[2018-07-22] MEDS: Pantoprazole Inj 40 MG Vial IV.PUSH SCH (08:13)
[2018-07-22 08:40] LABS: Anion Gap 5 meq/L (5-15); Blood Urea Nitrogen 10 mg/dL (7-18); Calcium 7.6 mg/dL (8.5-10.1); Carbon Dioxide 33.6 meq/L (21.0-32.0); Chloride 93 meq/L (98-107); Glomerular Filtration Rate Greater Than 89 mL/min (>89); Glucose,Random 153 mg/dL (74-106); Sodium 132 meq/L (136-145)
[2018-07-22] MEDS: Nystatin Liq 500,000 UNIT/5 ML UDC SWISH-SWAL SCH ×4 (09:02→21:59)
--- NOTE | 2018-07-22 10:05 | P.PNIM ---
Subjective Interval history: Follow-up COPD. She is doing better currently on nasal cannula. Did not use BiPAP last night. Seen with daughter. Discussed with nursing. Awaiting PT to get her out of bed. Also discussed with wound care nurse, no skin breakdown noted Physical Exam Vital signs: Vital Signs 07/21/18 11:00 07/21/18 11:01 07/21/18 11:09 Temperature Pulse Rate 87 86 88 Respiratory Rate 26 H 22 21 Blood Pressure 196/86 H 172/79 H Pulse Oximetry 98 98 98 07/21/18 12:00 07/21/18 13:00 07/21/18 14:00 Temperature 98.6 F Pulse Rate 83 84 82 Respiratory Rate 23 33 H 20 Blood Pressure 166/78 H 152/115 H 166/79 H Pulse Oximetry 98 97 98 07/21/18 14:52 07/21/18 15:00 07/21/18 16:00 Temperature 98.2 F Pulse Rate 95 H 84 93 H Respiratory Rate 20 21 36 H Blood Pressure 166/75 H 179/84 H Pulse Oximetry 98 97 07/21/18 17:00 07/21/18 18:00 07/21/18 19:00 Temperature Pulse Rate 107 H 90 88 Respiratory Rate 43 H 20 24 Blood Pressure 159/112 H 156/70 H 150/70 H Pulse Oximetry 100 99 97 07/21/18 20:00 07/21/18 20:50 07/21/18 21:00 Temperature 98.4 F Pulse Rate 91 H 84 83 Respiratory Rate 23 24 20 Blood Pressure 160/75 H 151/71 H Pulse Oximetry 97 98 99 07/21/18 22:00 07/21/18 23:00 07/21/18 23:12 Temperature Pulse Rate 88 84 81 Respiratory Rate 24 18 24 Blood Pressure 161/76 H 164/82 H 167/67 H Pulse Oximetry 98 99 07/21/18 23:40 07/22/18 00:00 07/22/18 00:20 Temperature Pulse Rate 79 79 92 H Respiratory Rate 16 12 30 H Blood Pressure 168/72 H 162/74 H 181/97 H Pulse Oximetry 100 100 97 07/22/18 00:40 07/22/18 00:56 07/22/18 01:00 Temperature Pulse Rate 86 90 84 Respiratory Rate 21 26 H 27 H Blood Pressure 176/81 H 175/81 H 161/77 H Pulse Oximetry 94 L 94 L 96 07/22/18 02:00 07/22/18 02:21 07/22/18 02:47 Temperature Pulse Rate 93 H 85 89 Respiratory Rate 24 23 31 H Blood Pressure 185/81 H 191/82 H 180/136 H Pulse Oximetry 97 97 07/22/18 03:00 07/22/18 03:09 07/22/18 03:10 Temperature Pulse Rate 89 86 88 Respiratory Rate 21 24 23 Blood Pressure 194/88 H 175/78 H Pulse Oximetry 100 100 07/22/18 03:23 07/22/18 04:00 07/22/18 04:33 Temperature Pulse Rate 93 H 99 H 96 H Respiratory Rate 27 H 27 H 27 H Blood Pressure 171/80 H 190/88 H 196/90 H Pulse Oximetry 99 98 100 07/22/18 05:00 07/22/18 05:01 07/22/18 05:30 Temperature Pulse Rate 102 H 100 H 103 H Respiratory Rate 29 H 23 30 H Blood Pressure 202/95 H 193/93 H 190/94 H Pulse Oximetry 94 L 98 85 L 07/22/18 06:00 07/22/18 06:04 07/22/18 06:30 Temperature Pulse Rate 94 H 101 H 90 Respiratory Rate 16 30 H 16 Blood Pressure 200/94 H 195/91 H 195/88 H Pulse Oximetry 88 L 83 L 86 L 07/22/18 07:00 07/22/18 08:00 07/22/18 08:31 Temperature 98.3 F Pulse Rate 88 91 H 101 H Respiratory Rate 16 18 35 H Blood Pressure 195/87 H 196/93 H 175/100 H Pulse Oximetry 87 L 100 07/22/18 09:00 07/22/18 09:02 Temperature Pulse Rate 107 H 103 H Respiratory Rate 32 H 34 H Blood Pressure 166/99 H Pulse Oximetry Intake & Output 07/21/18 07/22/18 07/22/18 18:59 06:59 18:59 Intake Total 1540 / 1540 1150 / 1150 Output Total 600 / 600 300 / 300 Balance 940 / 940 850 / 850 Weight 45 kg Intake: IV 1100 / 1100 1100 / 1100 D5W/1/2NS + KCL 20 mEq Inj 1, 1000 / 1000 1000 / 1000 000 ML @ 84 mls/hr IV.CONT . [id number] NAVEEN Rx#:[id number] Maxipime Inj 2,000 MG In NS Inj 100 / 100 100 / 100 100 ML @ 200 mls/hr IV.SIG Q12H NAVEEN Rx#:[id number] Oral 440 / 440 50 / 50 Output: Urine 600 / 600 Urine Amount (Catheter) 300 / 300 Female External 300 / 300 Other: # Voids 3 # Incontinent Voids 8 Narrative: GENERAL: Well-developed and well-nourished in no distress SKIN: Warm and dry. CARDIOVASCULAR: Regular rate and rhythm without murmurs, gallops, or rubs. RESPIRATORY: Decreased breath sounds equal bilaterally. No accessory muscle use. GASTROINTESTINAL: Abdomen soft, non-tender, nondistended. MUSCULOSKELETAL: No cyanosis, or edema. BACK: Nontender without obvious deformity. No CVA tenderness. Urinary Catheter Management Female External: Cath placed during this visit: no Results Labs CBC & Chem 7: 07/21/18 07:34 07/22/18 07:36 Imaging Imaging: ITS Impressions Chest CTA 07/19/18 00:00 CONCLUSION: 1. No evidence of pulmonary embolism 2. Chronic lung disease changes and fairly extensive patchy infiltrate. Chest X-Ray 07/19/18 13:12 CONCLUSION: Stable pleural and parenchymal changes as above without overt failure. Assessment and Plan (1) COPD with acute exacerbation: Code(s): J44.1 - Chronic obstructive pulmonary disease with (acute) exacerbation Status: Acute (2) Hypokalemia: Code(s): E87.6 - Hypokalemia Status: Acute (3) Oral candidiasis: Code(s): B37.0 - Candidal stomatitis Status: Acute (4) Abnormal LFTs: Code(s): R94.5 - Abnormal results of liver function studies Status: Acute (5) Hyponatremia: Code(s): E87.1 - Hypo-osmolality and hyponatremia Status: Resolved (6) Scoliosis: Code(s): M41.9 - Scoliosis, unspecified Status: Chronic Plan 1) COPD with acute exacerbation with hypoxia and respiratory failure. Improved continue nebulization, IV steroids, cefepime and wean oxygen to keep saturation at least 92%. Increase activity as tolerated. Physical therapy evaluation. BiPAP as needed. (2) Hypokalemia. Improved status post supplementation (3) Oral candidiasis. Improving with nystatin oral suspension (4) Abnormal LFTs. This is a recurrent problem. Will follow. (5) Hyponatremia. Mild. Will follow. (6) Scoliosis. The patient has chronic pain due to severe thoracolumbar scoliosis. She has oxycodone consult regarding narcotics discontinue IV acetaminophen PT consult recommends rehab. Will inform case management DVT proph with SCD and Lovenox [facility] Progress Note: Quality VTE Deep Vein Thrombosis/Pulmonary Embolism Present on Admission: No _ (1) Scoliosis Qualifiers: Idiopathic scoliosis type: Scoliosis type: unspecified scoliosis Spinal region: thoracolumbar Qualified Code(s): M41.9 - Scoliosis, unspecified
--- NOTE | 2018-07-22 12:45 | P.PNWCN ---
Wound Care Nurse Consult Additional information: Patient not seen by inpatient wound care nurse today for pressure ulcer to coccyx/buttocks. Spoke with RN Neema Childress [facility], per RN patient's skin is intact over buttock/coccyx area. There are no other wounds noted. Wound care inpatient is signing off.Please Reconsult wound care nurse for open wounds over cameron prominences.
[2018-07-22] MEDS: Enoxaparin Inj 30 MG/0.3 ML Syringe SQ SCH (16:07)
[2018-07-22] MEDS: Tiotropium Bromide 18 MCG/ACT Inhaler INH SCH (20:43)
[2018-07-23] MEDS: Chlorhexidine Gluconate 2% 1 Pack (2 Cloths) TOPICAL SCH (03:46)
[2018-07-23] MEDS: Levothyroxine 50 MCG Tablet PO SCH (05:47)
[2018-07-23] MEDS: Polyethylene Glycol 3350 17 GM Packet PO SCH (08:26)
[2018-07-23] MEDS: MethylPREDNISolone Sod Succinate Inj 40 MG/ML Vial IV.PUSH SCH ×3 (08:26→17:04)
[2018-07-23] MEDS: amLODIPine 5 MG Tablet PO SCH (08:26)
[2018-07-23] MEDS: Furosemide 20 MG Tablet PO SCH (08:27)
[2018-07-23] MEDS: Nystatin Liq 500,000 UNIT/5 ML UDC SWISH-SWAL SCH ×3 (08:27→17:05)
--- NOTE | 2018-07-23 15:17 | P.PNIM ---
Subjective Interval history: Follow up COPD. OOB but gets SOB just talking on 3L NC Physical Exam Vital signs: Vital Signs 07/22/18 15:30 07/22/18 16:00 07/22/18 16:01 Temperature Pulse Rate 101 H 108 H 100 H Respiratory Rate 26 H 31 H 22 Blood Pressure 136/69 147/92 H Pulse Oximetry 95 87 L 93 L 07/22/18 17:00 07/22/18 17:30 07/22/18 18:00 Temperature Pulse Rate 116 H 105 H 102 H Respiratory Rate 39 H 35 H 29 H Blood Pressure 147/86 H 145/71 H 153/70 H Pulse Oximetry 91 L 99 07/22/18 19:00 07/22/18 19:30 07/22/18 20:00 Temperature 98.5 F Pulse Rate 96 H 95 H Respiratory Rate 23 23 Blood Pressure 147/70 H 157/72 H Pulse Oximetry 99 83 L 87 L 07/22/18 20:30 07/22/18 20:45 07/22/18 21:00 Temperature Pulse Rate 98 H 98 H 95 H Respiratory Rate 18 24 28 H Blood Pressure 146/70 H 147/79 H Pulse Oximetry 83 L 99 81 L 07/22/18 21:30 07/22/18 22:00 07/22/18 22:30 Temperature Pulse Rate 100 H 97 H 93 H Respiratory Rate 20 17 13 Blood Pressure 139/75 146/70 H 159/70 H Pulse Oximetry 85 L 81 L 82 L 07/22/18 23:00 07/22/18 23:30 07/22/18 23:48 Temperature Pulse Rate 92 H 91 H 90 Respiratory Rate 15 19 25 H Blood Pressure 161/72 H 161/75 H Pulse Oximetry 96 07/23/18 00:00 07/23/18 00:30 07/23/18 01:00 Temperature 97.3 F L Pulse Rate 97 H 97 H 97 H Respiratory Rate 26 H 16 21 Blood Pressure 156/72 H 150/72 H 157/77 H Pulse Oximetry 100 07/23/18 01:30 07/23/18 02:00 07/23/18 02:30 Temperature Pulse Rate 105 H 92 H 89 Respiratory Rate 32 H 20 18 Blood Pressure 161/90 H 173/79 H 170/77 H Pulse Oximetry 07/23/18 03:00 07/23/18 03:30 07/23/18 04:00 Temperature 97.8 F Pulse Rate 97 H 86 90 Respiratory Rate 28 H 16 27 H Blood Pressure 165/90 H 179/81 H 172/82 H Pulse Oximetry 98 07/23/18 04:30 07/23/18 04:34 07/23/18 05:00 Temperature Pulse Rate 86 86 89 Respiratory Rate 17 18 32 H Blood Pressure 180/79 H 175/81 H Pulse Oximetry 07/23/18 05:30 07/23/18 06:00 07/23/18 07:00 Temperature Pulse Rate 87 84 83 Respiratory Rate 18 20 24 Blood Pressure 168/79 H 179/79 H 176/93 H Pulse Oximetry 99 07/23/18 08:00 07/23/18 09:00 07/23/18 10:00 Temperature 97.9 F Pulse Rate 86 112 H 96 H Respiratory Rate 29 H 38 H 33 H Blood Pressure 163/79 H 150/86 H 135/67 Pulse Oximetry 99 93 L 99 07/23/18 11:00 07/23/18 12:00 07/23/18 12:25 Temperature 98.0 F Pulse Rate 95 H 93 H 91 H Respiratory Rate 23 28 H 18 Blood Pressure 119/63 140/65 Pulse Oximetry 96 98 07/23/18 12:26 07/23/18 13:00 07/23/18 14:00 Temperature Pulse Rate 104 H 98 H Respiratory Rate 25 H 25 H Blood Pressure 128/75 127/65 Pulse Oximetry 95 93 L 94 L Intake & Output 07/22/18 07/23/18 07/23/18 18:59 06:59 18:59 Intake Total 678 / 678 350 / 350 Output Total 1000 / 1000 400 / 400 Balance -322 / -322 -50 / -50 Weight 45.3 kg Intake: IV 378 / 378 100 / 100 D5W/1/2NS + KCL 20 mEq Inj 1, 278 / 278 000 ML @ 30 mls/hr IV.CONT . Q24H NAEVEN Rx#:[id number] Maxipime Inj 2,000 MG In NS Inj 100 / 100 100 / 100 100 ML @ 200 mls/hr IV.SIG Q12H NAVEEN Rx#:[id number] Oral 300 / 300 250 / 250 Output: Urine 1000 / 1000 Urine Amount (Catheter) 400 / 400 Female External 400 / 400 Other: # Incontinent Voids 4 # Bowel Movements 0 Narrative: GENERAL: Well-developed and well-nourished in no distress SKIN: Warm and dry. CARDIOVASCULAR: Regular rate and rhythm without murmurs, gallops, or rubs. RESPIRATORY: Decreased breath sounds equal bilaterally. No accessory muscle use. GASTROINTESTINAL: Abdomen soft, non-tender, nondistended. MUSCULOSKELETAL: No cyanosis, or edema. BACK: Nontender without obvious deformity. No CVA tenderness. Urinary Catheter Management Female External: Cath placed during this visit: no Results Labs CBC & Chem 7: 07/21/18 07:34 07/22/18 07:36 Assessment and Plan (1) COPD with acute exacerbation: Code(s): J44.1 - Chronic obstructive pulmonary disease with (acute) exacerbation Status: Acute (2) Hypokalemia: Code(s): E87.6 - Hypokalemia Status: Acute (3) Oral candidiasis: Code(s): B37.0 - Candidal stomatitis Status: Acute (4) Abnormal LFTs: Code(s): R94.5 - Abnormal results of liver function studies Status: Acute (5) Hyponatremia: Code(s): E87.1 - Hypo-osmolality and hyponatremia Status: Resolved (6) Scoliosis: Code(s): M41.9 - Scoliosis, unspecified Status: Chronic . Plan 1) COPD with acute exacerbation with hypoxia and respiratory failure. Still with significant dyspnea continue nebulization, IV steroids, cefepime and wean oxygen to keep saturation at least 92%. Increase activity as tolerated. Physical therapy evaluation. BiPAP as needed. (2) Hypokalemia. Improved status post supplementation (3) Oral candidiasis. Improving with nystatin oral suspension (4) Abnormal LFTs. This is a recurrent problem. Will follow. (5) Hyponatremia. Mild. Will follow. (6) Scoliosis. The patient has chronic pain due to severe thoracolumbar scoliosis. She has oxycodone consult regarding narcotics discontinue IV acetaminophen PT consult recommends rehab. Will inform case management DVT proph with SCD and Lovenox Stable for transfer to [facility] Progress Note: Quality VTE Deep Vein Thrombosis/Pulmonary Embolism Present on Admission: No _ (1) Scoliosis Qualifiers: Idiopathic scoliosis type: Scoliosis type: unspecified scoliosis Spinal region: thoracolumbar Qualified Code(s): M41.9 - Scoliosis, unspecified
[2018-07-23] MEDS: Enoxaparin Inj 30 MG/0.3 ML Syringe SQ SCH (17:04)
[2018-07-23] MEDS: Tiotropium Bromide 18 MCG/ACT Inhaler INH SCH (20:12)
[2018-07-24] MEDS: Nystatin Liq 500,000 UNIT/5 ML UDC SWISH-SWAL SCH ×5 (02:21→21:15)
[2018-07-24] MEDS: Chlorhexidine Gluconate 2% 1 Pack (2 Cloths) TOPICAL SCH (04:33)
[2018-07-24] MEDS: Levothyroxine 50 MCG Tablet PO SCH (06:06)
[2018-07-24] MEDS: amLODIPine 5 MG Tablet PO SCH (08:56)
[2018-07-24] MEDS: Furosemide 20 MG Tablet PO SCH (08:56)
[2018-07-24] MEDS: MethylPREDNISolone Sod Succinate Inj 40 MG/ML Vial IV.PUSH SCH ×2 (08:56→21:15)
[2018-07-24] MEDS: Polyethylene Glycol 3350 17 GM Packet PO SCH ×2 (08:57→15:06)
--- NOTE | 2018-07-24 10:05 | P.PNIM ---
Subjective Interval history: Follow-up COPD. States she is improving currently on 3 L. Still with dyspnea just talking. Complaining of diet meat being grounded. Physical Exam Vital signs: Vital Signs 07/23/18 11:00 07/23/18 12:00 07/23/18 12:25 Temperature 98.0 F Pulse Rate 95 H 93 H 91 H Respiratory Rate 23 28 H 18 Blood Pressure 119/63 140/65 Pulse Oximetry 96 98 07/23/18 12:26 07/23/18 13:00 07/23/18 14:00 Temperature Pulse Rate 104 H 98 H Respiratory Rate 25 H 25 H Blood Pressure 128/75 127/65 Pulse Oximetry 95 93 L 94 L 07/23/18 15:00 07/23/18 16:00 07/23/18 18:00 Temperature 98.1 F Pulse Rate 96 H 96 H 98 H Respiratory Rate 22 24 Blood Pressure 127/63 130/65 Pulse Oximetry 96 07/23/18 20:00 07/23/18 22:00 07/23/18 22:08 Temperature 98.2 F Pulse Rate 100 H 82 86 Respiratory Rate 18 16 Blood Pressure 162/68 H Pulse Oximetry 100 94 L 07/24/18 00:00 07/24/18 01:52 07/24/18 02:00 Temperature 98.8 F Pulse Rate 99 H 91 H 88 Respiratory Rate 24 16 Blood Pressure 154/62 H Pulse Oximetry 99 07/24/18 03:10 07/24/18 03:26 07/24/18 04:00 Temperature 97.5 F L Pulse Rate 88 74 84 Respiratory Rate 20 18 Blood Pressure 158/88 H Pulse Oximetry 94 L 94 L 07/24/18 05:00 07/24/18 06:00 07/24/18 07:00 Temperature Pulse Rate 80 90 85 Respiratory Rate 17 Blood Pressure Pulse Oximetry 99 07/24/18 08:00 07/24/18 09:00 07/24/18 09:51 Temperature 97.6 F Pulse Rate 99 H 89 92 H Respiratory Rate 22 Blood Pressure 124/56 L Pulse Oximetry 96 Intake & Output 07/23/18 07/24/18 07/24/18 18:59 06:59 18:59 Intake Total 580 / 580 340 / 340 Output Total 400 / 400 100 / 100 Balance 180 / 180 240 / 240 Weight 43.5 kg Intake: IV 100 / 100 100 / 100 Maxipime Inj 2,000 MG In NS Inj 100 / 100 100 / 100 100 ML @ 200 mls/hr IV.SIG Q12H NAVEEN Rx#:[id number] Oral 480 / 480 240 / 240 Output: Urine 400 / 400 100 / 100 Other: # Incontinent Voids 1 Date of Last Bowel Movement 07/19/18 # Bowel Movements 0 Narrative: GENERAL: Well-developed and well-nourished in no distress but gets dyspneic just talking SKIN: Warm and dry. CARDIOVASCULAR: Regular rate and rhythm without murmurs, gallops, or rubs. RESPIRATORY: Decreased breath sounds equal bilaterally. No accessory muscle use. GASTROINTESTINAL: Abdomen soft, non-tender, nondistended. MUSCULOSKELETAL: No cyanosis, or edema. BACK: Nontender without obvious deformity. No CVA tenderness. Urinary Catheter Management Female External: Cath placed during this visit: no Results Labs CBC & Chem 7: 07/21/18 07:34 07/22/18 07:36 Assessment and Plan (1) COPD with acute exacerbation: Code(s): J44.1 - Chronic obstructive pulmonary disease with (acute) exacerbation Status: Acute . (2) Hypokalemia: Code(s): E87.6 - Hypokalemia Status: Acute (3) Oral candidiasis: Code(s): B37.0 - Candidal stomatitis Status: Acute (4) Abnormal LFTs: Code(s): R94.5 - Abnormal results of liver function studies Status: Acute (5) Hyponatremia: Code(s): E87.1 - Hypo-osmolality and hyponatremia Status: Resolved (6) Scoliosis: Code(s): M41.9 - Scoliosis, unspecified Status: Chronic . Plan 1) COPD with acute exacerbation with hypoxia and respiratory failure. Improving but still with significant dyspnea continue nebulization, IV steroids (will wean), cefepime switch to p.o. Ceftin and wean oxygen to keep saturation at least 92%. Increase activity as tolerated. Physical therapy evaluation. BiPAP as needed. (2) Hypokalemia. Improved status post supplementation (3) Oral candidiasis. Improving with nystatin oral suspension (4) Abnormal LFTs. This is a recurrent problem. Will follow. (5) Hyponatremia. Mild. Will follow. (6) Scoliosis. The patient has chronic pain due to severe thoracolumbar scoliosis. She has oxycodone counseled regarding narcotics discontinue IV acetaminophen PT consult recommends rehab. Will inform case management DVT proph with SCD and Lovenox Not ready for discharge high likelihood of readmission secondary to respiratory status Progress Note: Quality VTE Deep Vein Thrombosis/Pulmonary Embolism Present on Admission: No _ (1) Scoliosis Qualifiers: Idiopathic scoliosis type: Scoliosis type: unspecified scoliosis Spinal region: thoracolumbar Qualified Code(s): M41.9 - Scoliosis, unspecified
[2018-07-24] MEDS ORDERED: Bisacodyl 10 MG Supp RECTAL PRN (11:14)
[2018-07-24] MEDS: levoFLOXacin 750 MG Tablet PO SCH (11:54)
[2018-07-24] MEDS: Enoxaparin Inj 30 MG/0.3 ML Syringe SQ SCH (15:07)
[2018-07-24] MEDS: Tiotropium Bromide 18 MCG/ACT Inhaler INH SCH (21:16)
[2018-07-24] MEDS: Senna/Docusate Sodium 8.6/50 MG Tablet PO SCH (21:38)
--- NOTE | 2018-07-25 01:28 | P.PN ---
Subjective Interval history: SOB ST REST NOW ON MED FLOOR Physical Exam Vital signs: Vital Signs 07/24/18 01:52 07/24/18 02:00 07/24/18 03:10 Temperature 97.5 F L Pulse Rate 91 H 88 88 Respiratory Rate 16 20 Blood Pressure 158/88 H Pulse Oximetry 94 L 07/24/18 03:26 07/24/18 04:00 07/24/18 05:00 Temperature Pulse Rate 74 84 80 Respiratory Rate 18 Blood Pressure Pulse Oximetry 94 L 07/24/18 06:00 07/24/18 07:00 07/24/18 08:00 Temperature 97.6 F Pulse Rate 90 85 99 H Respiratory Rate 17 22 Blood Pressure 124/56 L Pulse Oximetry 99 96 07/24/18 09:00 07/24/18 09:51 07/24/18 11:00 Temperature Pulse Rate 89 92 H 85 Respiratory Rate 18 Blood Pressure Pulse Oximetry 07/24/18 11:40 07/24/18 12:00 07/24/18 12:45 Temperature 97.9 F Pulse Rate 91 H 88 85 Respiratory Rate 20 Blood Pressure 125/55 L Pulse Oximetry 100 07/24/18 13:11 07/24/18 15:00 07/24/18 15:12 Temperature 98.0 F Pulse Rate 87 92 H 97 H Respiratory Rate 14 20 Blood Pressure 132/59 L Pulse Oximetry 97 07/24/18 16:00 07/24/18 17:00 07/24/18 17:35 Temperature Pulse Rate 91 H 88 95 H Respiratory Rate Blood Pressure Pulse Oximetry 07/24/18 19:55 07/24/18 19:58 07/24/18 23:58 Temperature 97.9 F Pulse Rate 89 90 88 Respiratory Rate 20 16 18 Blood Pressure 126/68 Pulse Oximetry 100 100 07/25/18 00:20 Temperature 98.1 F Pulse Rate 92 H Respiratory Rate 19 Blood Pressure 132/66 Pulse Oximetry 100 Intake & Output 07/24/18 07/24/18 07/25/18 06:59 18:59 06:59 Intake Total 340 / 340 360 / 360 Output Total 100 / 100 500 / 500 Balance 240 / 240 -140 / -140 Weight 43.5 kg Intake: IV 100 / 100 0 / 0 Maxipime Inj 2,000 MG In NS Inj 100 / 100 100 ML @ 200 mls/hr IV.SIG Q12H NAVEEN Rx#:[id number] Oral 240 / 240 360 / 360 Output: Urine 100 / 100 500 / 500 Other: # Incontinent Voids 1 Date of Last Bowel Movement 07/19/18 07/19/18 # Bowel Movements 0 - Constitutional no acute distress - Routine HEENT Exam Head: Present: normocephalic Eye: Present: EOMI ENT: Present: mucous membranes moist - Routine Neck Exam Present: supple - Routine Respiratory Exam Present: CTA bilaterally - Routine Cardiovascular Exam Present: RRR, S1, S2 - Routine Abdominal Exam Present: soft, normoactive bowel sounds - Detailed Neurological Exam: Coma Scale Verbal Response: Oriented - Routine Psychiatric Exam Present: normal affect - Urinary Catheter Management Female External Cath placed during this visit: no Results - Labs CBC & Chem 7: 07/21/18 07:34 07/22/18 07:36 Assessment and Plan - Plan COPD EXACERBATION, IMPROVED RESPIRATORY FAILURE ON O2 THERAPY PLAN O2 NEEDED BRONCHODILATORS INCREASE ACTIVITY
[2018-07-25] MEDS: Levothyroxine 50 MCG Tablet PO SCH (06:42)
[2018-07-25] MEDS: Senna/Docusate Sodium 8.6/50 MG Tablet PO SCH ×2 (08:34→21:28)
[2018-07-25] MEDS: Polyethylene Glycol 3350 17 GM Packet PO SCH (08:34)
[2018-07-25] MEDS: levoFLOXacin 750 MG Tablet PO SCH (08:34)
[2018-07-25] MEDS: Furosemide 20 MG Tablet PO SCH (08:35)
[2018-07-25] MEDS: amLODIPine 5 MG Tablet PO SCH (08:35)
[2018-07-25] MEDS: MethylPREDNISolone Sod Succinate Inj 40 MG/ML Vial IV.PUSH SCH (08:35)
[2018-07-25] MEDS: Nystatin Liq 500,000 UNIT/5 ML UDC SWISH-SWAL SCH ×4 (08:36→21:28)
--- NOTE | 2018-07-25 09:06 | P.PNIM ---
Subjective Interval history: Follow-up COPD. She is feeling better today 98% on 3 L. Physical Exam Vital signs: Vital Signs 07/24/18 09:51 07/24/18 11:00 07/24/18 11:40 Temperature Pulse Rate 92 H 85 91 H Respiratory Rate 18 Blood Pressure Pulse Oximetry 07/24/18 12:00 07/24/18 12:45 07/24/18 13:11 Temperature 97.9 F Pulse Rate 88 85 87 Respiratory Rate 20 Blood Pressure 125/55 L Pulse Oximetry 100 07/24/18 15:00 07/24/18 15:12 07/24/18 16:00 Temperature 98.0 F Pulse Rate 92 H 97 H 91 H Respiratory Rate 14 20 Blood Pressure 132/59 L Pulse Oximetry 97 07/24/18 17:00 07/24/18 17:35 07/24/18 19:00 Temperature Pulse Rate 88 95 H 92 H Respiratory Rate Blood Pressure Pulse Oximetry 07/24/18 19:55 07/24/18 19:58 07/24/18 20:08 Temperature 97.9 F Pulse Rate 89 90 90 Respiratory Rate 20 16 Blood Pressure 126/68 Pulse Oximetry 100 100 07/24/18 21:00 07/24/18 22:00 07/24/18 23:00 Temperature Pulse Rate 94 H 100 H 86 Respiratory Rate Blood Pressure Pulse Oximetry 07/24/18 23:58 07/25/18 00:05 07/25/18 00:20 Temperature 98.1 F Pulse Rate 88 88 92 H Respiratory Rate 18 19 Blood Pressure 132/66 Pulse Oximetry 100 07/25/18 01:00 07/25/18 02:00 07/25/18 03:00 Temperature Pulse Rate 98 H 88 86 Respiratory Rate Blood Pressure Pulse Oximetry 07/25/18 04:03 07/25/18 04:14 07/25/18 04:51 Temperature 98.2 F Pulse Rate 100 H 87 84 Respiratory Rate 21 18 Blood Pressure 143/78 H Pulse Oximetry 98 07/25/18 05:00 07/25/18 06:00 07/25/18 07:00 Temperature Pulse Rate 90 102 H 90 Respiratory Rate Blood Pressure Pulse Oximetry 07/25/18 08:04 07/25/18 08:05 07/25/18 08:26 Temperature 98.3 F Pulse Rate 83 105 H Respiratory Rate 20 Blood Pressure 139/79 Pulse Oximetry 99 97 07/25/18 08:30 Temperature Pulse Rate Respiratory Rate 24 Blood Pressure Pulse Oximetry Intake & Output 07/24/18 07/25/18 07/25/18 18:59 06:59 18:59 Intake Total 360 / 360 Output Total 500 / 500 500 / 500 Balance -140 / -140 -500 / -500 Weight 43 kg Intake: IV 0 / 0 Oral 360 / 360 Output: Urine 500 / 500 500 / 500 Other: # Incontinent Voids 2 Date of Last Bowel Movement 07/19/18 07/19/18 Narrative: GENERAL: Well-developed and well-nourished in no distress SKIN: Warm and dry. CARDIOVASCULAR: Regular rate and rhythm without murmurs, gallops, or rubs. RESPIRATORY: Decreased breath sounds equal bilaterally. No accessory muscle use. GASTROINTESTINAL: Abdomen soft, non-tender, nondistended. MUSCULOSKELETAL: No cyanosis, or edema. BACK: Nontender without obvious deformity. No CVA tenderness. Urinary Catheter Management Female External: Cath placed during this visit: yes Reason for continuing: Not indwelling catheter Insertion date: 07/25/18 Insertion time: 04:45 Results Labs CBC & Chem 7: 07/21/18 07:34 07/22/18 07:36 Imaging Imaging: ITS Impressions Chest CTA 07/19/18 00:00 CONCLUSION: 1. No evidence of pulmonary embolism 2. Chronic lung disease changes and fairly extensive patchy infiltrate. Chest X-Ray 07/19/18 13:12 CONCLUSION: Stable pleural and parenchymal changes as above without overt failure. Procedures Procedures: none Assessment and Plan (1) COPD with acute exacerbation: Code(s): J44.1 - Chronic obstructive pulmonary disease with (acute) exacerbation Status: Acute . (2) Hypokalemia: Code(s): E87.6 - Hypokalemia Status: Acute (3) Oral candidiasis: Code(s): B37.0 - Candidal stomatitis Status: Acute (4) Abnormal LFTs: Code(s): R94.5 - Abnormal results of liver function studies Status: Acute (5) Hyponatremia: Code(s): E87.1 - Hypo-osmolality and hyponatremia Status: Resolved (6) Scoliosis: Code(s): M41.9 - Scoliosis, unspecified Status: Chronic . Plan 1) COPD with acute exacerbation with hypoxia and respiratory failure. Improving able to talk straight sentences continue nebulization Ceftin and wean oxygen to keep saturation at least 92%. Switch to p.o. steroids. Increase activity as tolerated. Physical therapy evaluation. BiPAP as needed. (2) Hypokalemia. Improved status post supplementation (3) Oral candidiasis. Improving with nystatin oral suspension (4) Abnormal LFTs. This is a recurrent problem. Will follow. (5) Hyponatremia. Mild. Will follow. (6) Scoliosis. The patient has chronic pain due to severe thoracolumbar scoliosis. She has oxycodone counseled regarding narcotics discontinue IV acetaminophen PT consult recommends rehab. DVT proph with SCD and Lovenox Ready for discharge Progress Note: Quality VTE Deep Vein Thrombosis/Pulmonary Embolism Present on Admission: No _ (1) Scoliosis Qualifiers: Idiopathic scoliosis type: Scoliosis type: unspecified scoliosis Spinal region: thoracolumbar Qualified Code(s): M41.9 - Scoliosis, unspecified
--- NOTE | 2018-07-25 12:53 | P.DS ---
DS: Providers Date of admission: 07/19/18 15:31 Primary care physician: BRETT Farmer Consults: 07/19/18 15:36 Consult to Pulmonology Routine Consulting Provider: Jung Tejeda Stabber:: Jung Tejeda Patient known to:: Jung Tejeda Reason for Consultation: 83 yo WF with COPD/Bronchiectasis with acute exacerbation. Admitted with worsening hypoxemia. Please assist with evaluation and treatment Notified:: Office Spoke with:: Bernie Date Notified:: 07/19/18 Time Notified:: 15:48 Ordering Provider: TONI 07/21/18 11:04 HUB Only Consult Order Routine Consulting Provider[facility] 07/22/18 05:40 HUB Only Consult Order Routine Consulting Provider: Robel Salmeron 07/22/18 11:11 HUB Only Consult Order Routine Consulting Provider: [employer] DS: Diagnosis Discharge Diagnosis (1) COPD with acute exacerbation: Status: Acute (2) Hypokalemia: Status: Acute (3) Oral candidiasis: Status: Acute (4) Abnormal LFTs: Status: Acute (5) Hyponatremia: Status: Resolved (6) Scoliosis: Status: Chronic DS: Summary 1) COPD with acute exacerbation with hypoxia and respiratory failure. Improving able to talk straight sentences continue nebulization Ceftin and wean oxygen to keep saturation at least 92%. Switch to p.o. steroids. Increase activity as tolerated. Physical therapy evaluation. BiPAP as needed. (2) Hypokalemia. Improved status post supplementation (3) Oral candidiasis. Improving with nystatin oral suspension (4) Abnormal LFTs. This is a recurrent problem. Will follow. (5) Hyponatremia. Mild. Will follow. (6) Scoliosis. The patient has chronic pain due to severe thoracolumbar scoliosis. She has oxycodone counseled regarding narcotics discontinue IV acetaminophen PT consult recommends rehab. DVT proph with SCD and Lovenox Ready for discharge Time Spent with Patient Total time spent providing and/or coordinating discharge services: Greater than 30 minutes Quality: VTE Deep Vein Thrombosis/Pulmonary Embolism Present on Admission: No Exam Narrative Exam Narrative: GENERAL: Well-developed and well-nourished in no distress SKIN: Warm and dry. CARDIOVASCULAR: Regular rate and rhythm without murmurs, gallops, or rubs. RESPIRATORY: Decreased breath sounds equal bilaterally. No accessory muscle use. GASTROINTESTINAL: Abdomen soft, non-tender, nondistended. MUSCULOSKELETAL: No cyanosis, or edema. BACK: Nontender without obvious deformity. No CVA tenderness. Results Procedures completed during hospitalization: none Impressions ITS Impressions Chest CTA 07/19/18 00:00 CONCLUSION: 1. No evidence of pulmonary embolism 2. Chronic lung disease changes and fairly extensive patchy infiltrate. Chest X-Ray 07/19/18 13:12 CONCLUSION: Stable pleural and parenchymal changes as above without overt failure. Discharge Plan Discharge Disposition Patient Disposition: Discharge to SNF Discharge Condition Condition: Stable Physicians Team Primary Care Provider: Marya Schulte Attending Provider: Efrain Frye Other Providers: Jung Tejeda ; [facility] ; Robel Salmeron ; [employer] Rxs /Orders / Referrals /Forms Prescriptions: New oxycodone 5 mg Tablet 2.5 mg PO Q6H PRN (Reason: Pain Scale 6 To 10) Qty: 6 RF: 0 amlodipine [Norvasc] 5 mg Tablet 5 mg PO DAILY Qty: 30 RF: 0 nystatin 100,000 unit/mL Suspension 5 ml SWISH-SWAL QID Qty: 180 RF: 0 Continue estradiol [Vivelle-Dot] 0.1 mg/24 hr Patch Semiweekly 0.1 mg Transdermal 2XWEEK RF: 0 acetaminophen [Tylenol Arthritis Pain] 650 mg Tablet Extended Release 1,300 mg PO BID PRN (Reason: Acute Pain) RF: 0 lansoprazole [Prevacid] 30 mg Capsule,Delayed Release(Dr/Ec) 30 mg PO DAILY RF: 0 fluticasone [Flovent HFA] 110 mcg/actuation Hfa Aerosol Inhaler 1 puff INHALATION DAILY RF: 0 tiotropium bromide [Spiriva with HandiHaler] 18 mcg Capsule, W/Inhalation Device 1 cap INHALATION HS RF: 0 aspirin 81 mg Tablet,Delayed Release (Dr/Ec) 81 mg PO AC LUNCH RF: 0 vitamin B complex [B Complex 1] Tablet 1 tab PO DAILY RF: 0 furosemide 20 mg Tablet 20 mg PO DAILY RF: 0 cholecalciferol (vitamin D3) [Vitamin D3] 1,000 unit Capsule 1,000 unit PO DAILY RF: 0 ipratropium-albuterol 0.5 mg-3 mg(2.5 mg base)/3 mL Solution For Nebulization 1 amp NEB TID RF: 0 levothyroxine [Synthroid] 50 mcg Tablet 50 mcg PO DAILY@0600 RF: 0 bisacodyl [Bisac-Evac] 10 mg Suppository 10 mg AL DAILY PRN (Reason: Severe Consitipation) RF: 0 prednisone 20 mg Tablet 20 mg PO DAILY Qty: 60 RF: 2 ipratropium-albuterol 0.5 mg-3 mg(2.5 mg base)/3 mL Solution For Nebulization 3 ml INHALATION Q2HR PRN (Reason: Wheezing) Qty: 150 RF: 2 polyethylene glycol 3350 [Miralax] 17 gram Powder In Packet 17 g PO DAILY Qty: 30 RF: 0 cholecalciferol (vitamin D3) 1,000 unit Tablet 1,000 unit PO DAILY RF: 0 Discontinued oxycodone 5 mg Tablet 2.5 mg PO Q6H PRN (Reason: Pain, Severe) Qty: 60 RF: 0 Referrals: Marya Schulte ARNP [Primary Care Provider] - See Instructions (Follow-up in 1-2 weeks) Efrain Frye MD [Family Provider] - See Instructions (f/u one week) Jung Tejeda MD [Physician] - See Instructions (Follow-up in 1-2-week) Post Discharge Care Plan Care Plan Goals: Your Health Problems: Goals to Promote Your Health: * To prevent worsening of your condition * To maintain your health at the optimal level Directions to Meet Your Goals: * Take your medications as prescribed * Follow your dietary instruction * Follow activity as directed * Keep your appointments as scheduled * Take your immunizations and boosters as scheduled * If your symptoms worsen call your PCP * If no PCP go to Urgent Care or Emergency Room Smoking is dangerous to your health. Avoid second hand smoke. You may reach the 24-hour crisis hotline for domestic abuse at . Status ED Status: Left Department
--- NOTE | 2018-07-25 14:16 | P.DIET ---
Nutritional Evaluation Type of nutrition evaluation: initial Nutrition consult regarding: Diet Evaluation Nutrition screening: Poor PO Intake Screening comments: 07/25/18 [facility] [place] for malnutrition Objective - Diagnosis acute hypoxic respiratory failure, COPD, hypokalemia - Objective Body Mass Index: 16.3 % IBW: 79 (IBW = 120lb) Body Weight Used for Calculations: Actual (43kg) Energy Needs - Lower Range (kCal/kg): 35 Energy Needs - Upper Range (kCal/kg): 40 Lower Limit kCal/kg (kCals): 1,505 Upper Limit kCal/kg (kCals): 1,720 Lower Limit Protein Factor (Grams per Kg): 1.2 Upper Limit Protein Factor (Grams per Kg): 1.4 Lower Protein Needs (Protein): 52 Upper Protein Needs (Protein): 60 Dietitian Reviewed in Medical Record: Current diet, Curent medications, Intake & Output, Labs, Medical history Diet Order: regular Oral Diet Intake Amount: Fair 50-75% Speech Therapy Recommendations: Yes (regular, thin liquids) Objective Comments: PMH: CAD, COPD, osteoarthritis, SBO, scoliosis Labs: rdandom glucose 119 188 153 Skin: pressure ulcers (R heel, sacrum) Assessment Assessment: Pt currently at nutritional risk r/t reported malnutrition and low BMI (16.3). ST recs reviewed, pt able to tolerate regular foods and thin liquids. Pt has a variable PO intake of 50-100% consumed for most meals. RD to recommend Ensure Enlive TID as PO supplement for additional nutrition. Continue to monitor pts PO and supplement intake. Labs reviewed, dietitian following. Recommendations: 1. RD to recommend Ensure Enlive TID as PO supplement for additional nutrition 2. Continue to monitor pts PO and supplement intake 3. Dietitian following Dietitian to Monitor: Lab values, Glucose level, Supplement acceptance, Intake & Output, Diet tolerance, Weight change, PO Intake, Medical course
[2018-07-25] MEDS: Enoxaparin Inj 30 MG/0.3 ML Syringe SQ SCH (15:03)
[2018-07-25] MEDS ORDERED: Naloxone Inj 0.4 MG/ML Vial IV.PUSH PRN (17:13)
--- NOTE | 2018-07-25 18:25 | P.PN ---
Subjective Interval history: ALERT NAD Physical Exam Vital signs: Vital Signs 07/24/18 19:00 07/24/18 19:55 07/24/18 19:58 Temperature 97.9 F Pulse Rate 92 H 89 90 Respiratory Rate 20 16 Blood Pressure 126/68 Pulse Oximetry 100 100 07/24/18 20:08 07/24/18 21:00 07/24/18 22:00 Temperature Pulse Rate 90 94 H 100 H Respiratory Rate Blood Pressure Pulse Oximetry 07/24/18 23:00 07/24/18 23:58 07/25/18 00:05 Temperature Pulse Rate 86 88 88 Respiratory Rate 18 Blood Pressure Pulse Oximetry 07/25/18 00:20 07/25/18 01:00 07/25/18 02:00 Temperature 98.1 F Pulse Rate 92 H 98 H 88 Respiratory Rate 19 Blood Pressure 132/66 Pulse Oximetry 100 07/25/18 03:00 07/25/18 04:03 07/25/18 04:14 Temperature 98.2 F Pulse Rate 86 100 H 87 Respiratory Rate 21 Blood Pressure 143/78 H Pulse Oximetry 98 07/25/18 04:51 07/25/18 05:00 07/25/18 06:00 Temperature Pulse Rate 84 90 102 H Respiratory Rate 18 Blood Pressure Pulse Oximetry 07/25/18 07:00 07/25/18 08:00 07/25/18 08:04 Temperature Pulse Rate 90 103 H Respiratory Rate Blood Pressure Pulse Oximetry 99 07/25/18 08:05 07/25/18 08:26 07/25/18 08:30 Temperature 98.3 F Pulse Rate 83 105 H Respiratory Rate 20 24 Blood Pressure 139/79 Pulse Oximetry 97 07/25/18 12:00 07/25/18 15:27 07/25/18 16:00 Temperature Pulse Rate 96 H 75 97 H Respiratory Rate 20 18 20 Blood Pressure 138/76 108/56 L Pulse Oximetry 96 97 Intake & Output 07/24/18 07/25/18 07/25/18 18:59 06:59 18:59 Intake Total 360 / 360 Output Total 500 / 500 500 / 500 Balance -140 / -140 -500 / -500 Weight 43 kg Intake: IV 0 / 0 Oral 360 / 360 Output: Urine 500 / 500 500 / 500 Other: # Incontinent Voids 2 Date of Last Bowel Movement 07/19/18 07/19/18 - Constitutional no acute distress - Routine HEENT Exam Head: Present: normocephalic Eye: Present: EOMI ENT: Present: mucous membranes moist - Routine Neck Exam Present: supple, full ROM - Routine Cardiovascular Exam Present: RRR, S1, S2 - Routine Abdominal Exam Present: soft, normoactive bowel sounds - Urinary Catheter Management Female External Cath placed during this visit: yes Reason for continuing: Not indwelling catheter Insertion date: 07/25/18 Insertion time: 04:45 Results - Labs CBC & Chem 7: 07/21/18 07:34 07/22/18 07:36 - Procedures none Assessment and Plan - Plan COPD EXACERBATION, IMPROVED RESPIRATORY FAILURE ON O2 THERAPY PLAN O2 NEEDED BRONCHODILATORS INCREASE ACTIVITY
[2018-07-25] MEDS: Tiotropium Bromide 18 MCG/ACT Inhaler INH SCH (21:30)
[2018-07-26] MEDS: Levothyroxine 50 MCG Tablet PO SCH (05:57)
[2018-07-26] MEDS: Nystatin Liq 500,000 UNIT/5 ML UDC SWISH-SWAL SCH ×2 (08:20→12:20)
[2018-07-26] MEDS: levoFLOXacin 750 MG Tablet PO SCH (08:20)
[2018-07-26] MEDS: amLODIPine 5 MG Tablet PO SCH (08:20)
[2018-07-26] MEDS: Furosemide 20 MG Tablet PO SCH (08:20)
[2018-07-26] MEDS: Senna/Docusate Sodium 8.6/50 MG Tablet PO SCH (08:20)
[2018-07-26] MEDS: Polyethylene Glycol 3350 17 GM Packet PO SCH (08:20)
[2018-07-26] MEDS ORDERED: predniSONE 20 MG Tablet PO SCH (09:00)
[2018-07-26 09:13] LABS: Anion Gap 8 meq/L (5-15); Blood Urea Nitrogen 21 mg/dL (7-18); Calcium 8.8 mg/dL (8.5-10.1); Carbon Dioxide 35.2 meq/L (21.0-32.0); Chloride 88 meq/L (98-107); Glomerular Filtration Rate Greater Than 89 mL/min (>89); Glucose,Random 83 mg/dL (74-106); Magnesium 1.8 mg/dL (1.5-2.5); Potassium 4.1 meq/L (3.5-5.1); Sodium 131 meq/L (136-145)
--- NOTE | 2018-07-26 13:46 | P.PNWCN ---
Wound Care Nurse Consult Additional information: Patient not seen today for possible pressure ulcer consults for wounds on bilateral heels, coccyx, buttocks and sacral area. Spoke with RN Angeles Sierra [facility], per RN patient has erythematous intact skin on sacral area and erythematous intact skin on heels. Patient does not have open wounds. Please continue to apply skin barrier film ( skin prep) to bilateral heels BID and apply heel raiser boots. Please continue to apply adhesive foam in place over sacral area for prevention of pressure injury.Consulting wound care for intact erythematous skin is inappropriate.Please reconsult wound care for open wounds over cameron prominences.
--- NOTE | 2018-07-26 14:55 | P.PNIM ---
Subjective Interval history: Patient reports that her breathing is not back to baseline. Usually does wear oxygen 2 L at home. Trying to get stronger. Physical Exam Vital signs: Vital Signs 07/25/18 15:27 07/25/18 16:00 07/25/18 20:05 Temperature Pulse Rate 75 97 H 92 H Respiratory Rate 18 20 Blood Pressure 108/56 L Pulse Oximetry 97 07/25/18 20:40 07/25/18 20:54 07/25/18 23:54 Temperature 98.1 F Pulse Rate 99 H 88 89 Respiratory Rate 22 20 16 Blood Pressure 141/78 H Pulse Oximetry 96 95 07/25/18 23:55 07/26/18 00:08 07/26/18 03:28 Temperature 97.9 F Pulse Rate 104 H 103 H 105 H Respiratory Rate 20 17 Blood Pressure 138/76 Pulse Oximetry 93 L 07/26/18 04:00 07/26/18 04:22 07/26/18 07:00 Temperature 97.8 F Pulse Rate 104 H 111 H 91 H Respiratory Rate 22 16 Blood Pressure 141/70 H Pulse Oximetry 93 L 97 07/26/18 07:58 07/26/18 11:00 07/26/18 11:40 Temperature 98.6 F 98.7 F Pulse Rate 112 H 110 H 126 H Respiratory Rate 18 14 18 Blood Pressure 138/78 95/69 L Pulse Oximetry 98 91 L Intake & Output 07/25/18 07/26/18 07/26/18 18:59 06:59 18:59 Intake Total 180 / 180 Output Total 600 / 600 500 / 500 Balance -600 / -600 -320 / -320 Weight 43.5 kg Intake: Oral 180 / 180 Output: Urine 600 / 600 500 / 500 Other: # Voids 2 Date of Last Bowel Movement 07/19/18 07/18/18 # Bowel Movements 0 Narrative: GENERAL: Well-developed and well-nourished in no distress sitting up in chair with nasal cannula CARDIOVASCULAR: Regular rate and rhythm without murmurs, gallops, or rubs. RESPIRATORY: Decreased breath sounds equal bilaterally. No accessory muscle use. GASTROINTESTINAL: Abdomen soft, non-tender, nondistended. Normoactive bowel sounds MUSCULOSKELETAL: No cyanosis, or edema. Urinary Catheter Management Female External: Cath placed during this visit: yes Reason for continuing: Not indwelling catheter Insertion date: 07/25/18 Insertion time: 22:00 Results Labs CBC & Chem 7: 07/21/18 07:34 07/26/18 08:00 Procedures Procedures: none Assessment and Plan (1) COPD with acute exacerbation: Code(s): J44.1 - Chronic obstructive pulmonary disease with (acute) exacerbation Status: Acute . (2) Hypokalemia: Code(s): E87.6 - Hypokalemia Status: Resolved (3) Oral candidiasis: Code(s): B37.0 - Candidal stomatitis Status: Acute I (4) Abnormal LFTs: Code(s): R94.5 - Abnormal results of liver function studies Status: Resolved (5) Hyponatremia: Code(s): E87.1 - Hypo-osmolality and hyponatremia Status: Resolved (6) Scoliosis: Code(s): M41.9 - Scoliosis, unspecified Status: Chronic . Plan (1) COPD with acute exacerbation with hypoxia and respiratory failure. Clinically improving, continue to wean O2 as tolerated continue duo nebs, steroids, Ceftin Increase activity as tolerated. Continue physical therapy BiPAP as needed. (2) Hypokalemia. repleted (3) Oral candidiasis. Improving with nystatin oral suspension (4) Abnormal LFTs. This is a recurrent problem. Has trended down to normal levels during the hospitalization. (5) Hyponatremia. Mild. Stable (6) Scoliosis. The patient has chronic pain due to severe thoracolumbar scoliosis. She has oxycodone counseled regarding safe use of narcotics PT consult recommends rehab. DVT proph with SCD and Lovenox. Discussed with daughter We will transition patient to care home facility today. Progress Note: Quality VTE Deep Vein Thrombosis/Pulmonary Embolism Present on Admission: No _ (1) Scoliosis Qualifiers: Scoliosis type: unspecified scoliosis Idiopathic scoliosis type: Spinal region: thoracolumbar Qualified Code(s): M41.9 - Scoliosis, unspecified
== END 2018-07-26 15:51 | DRG 189 ==
LOC: NEPC 12:55 → NEDA 15:31 → HIMC 17:00 → HCIS 07-24 03:05 → HCIN 07-24 14:54
PROVIDERS: ADMIT Family Medicine; ATTEND Family Medicine
DX: Z88.5 Allergy status to narcotic agent; M81.0 Age-related osteoporosis without current pathological fracture; Z88.1 Allergy status to other antibiotic agents; J47.1 Bronchiectasis with (acute) exacerbation; I25.10 Atherosclerotic heart disease of native coronary artery without angina pectoris; E03.9 Hypothyroidism, unspecified; M54.5 Low back pain; I50.810 Right heart failure, unspecified; I49.3 Ventricular premature depolarization; B37.0 Candidal stomatitis; K21.9 Gastro-esophageal reflux disease without esophagitis; Z90.722 Acquired absence of ovaries, bilateral; M19.90 Unspecified osteoarthritis, unspecified site; G89.29 Other chronic pain; E87.1 Hypo-osmolality and hyponatremia; Z90.710 Acquired absence of both cervix and uterus; Z68.1 Body mass index [BMI] 19.9 or less, adult; Z79.890 Hormone replacement therapy; E87.6 Hypokalemia; Z88.8 Allergy status to other drugs, medicaments and biological substances; J96.21 Acute and chronic respiratory failure with hypoxia; Z90.49 Acquired absence of other specified parts of digestive tract; Z98.1 Arthrodesis status; E87.3 Alkalosis; Z79.899 Other long term (current) drug therapy; E46 Unspecified protein-calorie malnutrition; Z86.19 Personal history of other infectious and parasitic diseases; Z99.81 Dependence on supplemental oxygen; Z88.0 Allergy status to penicillin; M41.20 Other idiopathic scoliosis, site unspecified; H35.30 Unspecified macular degeneration; Z79.51 Long term (current) use of inhaled steroids; R94.5 Abnormal results of liver function studies
CPT/HCPCS: 36600; 71010; 71045; 71275; 80048; 80053; 82805; 83520; 83735; 83880; 84484; 85025; 87641; 90774; 90775; 90784; 92526; 92610; 93005; 94002; 94003; 94640; 94656; 94657; 94664; 94665; 96374; 96375; 97163; 97530; 99291; 99292; C8952; C9113; G0195; J0131; J0692; J1650; J1940; J2920; J3480; J7040; J7506; J7512; Q9967

== ENCOUNTER 2018-07-28 01:55 | Inpatient (IN) ==
[2018-07-28] MEDS ORDERED: Succinylcholine Inj 100 MG/5 ML Syringe IV.PUSH ONE (01:58)
[2018-07-28] MEDS ORDERED: Etomidate Inj 20 MG/10 ML Ampul IV.PUSH ONE (01:58)
[2018-07-28] MEDS: Propofol 1000 mg/100 ml Inj 1,000 MG/100 ML BOTTLE IV.CONT PRN ×2 (02:30→20:33)
[2018-07-28] MEDS ORDERED: Succinylcholine Inj 200 MG/10 ML Vial IV.PUSH ONE (02:30)
[2018-07-28 02:33] LABS: Baso # (Auto) 0.9 th/mm3 (0.0-0.2); Baso % (Auto) 2.7 % (0.0-2.0); Hemoglobin 14.9 gm/dL (11.6-15.3); Lymph # (Auto) 0.4 th/mm3 (1.0-4.8); Lymph % (Auto) 1.2 % (9.0-44.0); Mean Corpuscular HGB Conc 33.1 % (32.0-36.0); Mean Corpuscular Hemoglobin 32.8 pg (27.0-34.0); Mean Platelet Volume 7.9 fL (7.0-11.0); Mono # (Auto) 0.2 th/mm3 (0.0-0.9); Mono % (Auto) 0.5 % (0.0-8.0); Neut % (Auto) 95.6 % (16.0-70.0); Platelet Count 176 th/mm3 (150-450); Red Blood Count 4.55 mil/mm3 (4.00-5.30); Red Cell Distribution Width 12.6 % (11.6-17.2); White Blood Count 33.5 th/mm3 (4.0-11.0)
[2018-07-28 02:41] LABS: Chloride 85 meq/L (98-107); Sodium 129 meq/L (136-145)
[2018-07-28 02:45] LABS: Albumin 2.6 g/dL (3.4-5.0); Anion Gap 9 meq/L (5-15); Blood Urea Nitrogen 46 mg/dL (7-18); Calcium 8.8 mg/dL (8.5-10.1); Carbon Dioxide 34.9 meq/L (21.0-32.0); Glucose,Random 139 mg/dL (74-106)
[2018-07-28 02:48] LABS: Alanine Aminotransferase 96 U/L (10-53); Aspartate Aminotransferase 47 U/L (15-37); Glomerular Filtration Rate 39 mL/min (>89)
[2018-07-28 02:50] LABS: Total Protein 6.4 g/dL (6.4-8.2)
[2018-07-28 02:51] LABS: Alkaline Phosphatase 183 U/L (45-117); Potassium 5.6 meq/L (3.5-5.1)
[2018-07-28 02:52] LABS: Lymphocytes 1 % (9-44); Platelet Estimate Normal (Normal); Platelet Morphology Normal (Normal); RBC Morphology Normal (Normal)
[2018-07-28] MEDS ORDERED: Sod Chloride 0.9% Inj 1,000 ML IV.SIG SCH (03:00)
--- NOTE | 2018-07-28 03:01 | XR ---
EXAM DATE: 07/28/2018 2:41 AM EST AGE/SEX: 83 years / Female INDICATIONS: Post ET tube placement. CLINICAL DATA: This is the patient's initial encounter. Patient reports that signs and symptoms have been present for 1 day and indicates a pain score of 0/10. MEDICAL/SURGICAL HISTORY: Non-responsive. Non-responsive. COMPARISON: [facility] – [place], CHEST 1V SINGLE AP, 07/19/2018. . FINDINGS: ETT at the level of the clavicles. NGT in the proximal stomach. Diffuse interstitial prominence with focal airspace consolidation in the left lower lung zone. Persistent apical bilateral pleural calcifi cations. Cardiomediastinal contours are within normal limits. Remainder of the exam is unchanged. CONCLUSION: 1. ETT and NGT in good position. 2. Focal left lower lobe airspace consolidation. Electronically signed by: Christo Headley MD Board Certified Radiologist 07/28/2018 3:00 AM EST
--- NOTE | 2018-07-28 03:03 | ED ---
HPI General Chief Complaint: Respiratory Symptoms Stated Complaint: diff breathing/evac Time Seen by Provider: 07/28/18 01:58 Source: EMS and old records reviewed Mode of arrival: EMS Limitations: other (Respiratory distress) History of Present Illness MD Complaint: Reports shortness of breath Onset (ago): unknown Context: Reports other (This patient was just discharged from the hospital on for hypoxic respiratory failure secondary to COPD) Severity: severe Consistency/Duration: constant Relieving factors: nothing Known history of: Reports COPD Treatment prior to arrival: Reports oxygen and NIPPV Related Data Home oxygen amount: 2 liters Home Medications Medication Instructions Recorded Confirmed acetaminophen [Tylenol Arthritis 1,300 mg PO BID PRN 07/10/18 07/19/18 Pain] aspirin 81 mg PO AC LUNCH 07/10/18 07/19/18 cholecalciferol (vitamin D3) 1,000 unit PO DAILY 07/10/18 07/19/18 [Vitamin D3] estradiol [Vivelle-Dot] 0.1 mg TRANSDERMAL 2XWEEK 07/10/18 07/19/18 fluticasone [Flovent HFA] 1 puff INHALATION DAILY 07/10/18 07/28/18 furosemide 20 mg PO DAILY 07/10/18 07/28/18 lansoprazole [Prevacid] 30 mg PO DAILY 07/10/18 07/28/18 tiotropium bromide [Spiriva with 1 cap INHALATION HS 07/10/18 07/19/18 HandiHaler] vitamin B complex [B Complex 1] 1 tab PO DAILY 07/10/18 07/28/18 cholecalciferol (vitamin D3) 1,000 unit PO DAILY 07/19/18 07/28/18 alprazolam [Xanax] 0.25 mg PO BID 07/28/18 07/28/18 amlodipine 5 mg PO DAILY 07/28/18 07/28/18 estradiol 1 patch TRANSDERMAL QWEEK 07/28/18 07/28/18 fluconazole [Diflucan] 100 mg PO HS 07/28/18 07/28/18 fluticasone [Flovent HFA] 1 puff INHALATION BID 07/28/18 07/28/18 magnesium hydroxide [Milk of 15 ml PO DAILY PRN 07/28/18 07/28/18 Magnesia] prednisone 07/28/18 07/28/18 tiotropium bromide [Spiriva with 07/28/18 HandiHaler] Previous Rx's Medication Instructions Recorded bisacodyl [Bisac-Evac] 10 mg SD DAILY PRN ea 07/18/18 ipratropium-albuterol 1 amp NEB TID ml 07/18/18 ipratropium-albuterol 3 ml INHALATION Q2HR PRN #150 ml 07/18/18 levothyroxine [Synthroid] 50 mcg PO DAILY@0600 tab 07/18/18 polyethylene glycol 3350 [Miralax] 17 g PO DAILY #30 ea 07/18/18 prednisone 20 mg PO DAILY #60 tab 07/18/18 amlodipine [Norvasc] 5 mg PO DAILY #30 tab 07/24/18 nystatin 5 ml SWISH-SWAL QID #180 ml 07/24/18 oxycodone 2.5 mg PO Q6H PRN #6 tab 07/24/18 potassium chloride 10 meq PO BID #0 tab 07/24/18 Allergies Allergy/AdvReac Type Severity Reaction Status Date / Time doxycycline Allergy Severe RASH Verified 07/28/18 02:29 erythromycin base Allergy Severe RASH AND Verified 07/28/18 02:29 NAUSEA meperidine Allergy Severe RASH,HALLUC Verified 07/28/18 02:29 INATIONS,NA USEA,VOMITI NG minocycline Allergy Severe RASH Verified 07/28/18 02:29 morphine Allergy Severe SEVERE Verified 07/28/18 02:29 ITCHING tigecycline Allergy Severe RASH Verified 07/28/18 02:29 penicillin G Allergy Mild RASH Verified 07/28/18 02:29 propoxyphene Allergy Mild RASH Verified 07/28/18 02:29 codeine AdvReac Severe NAUSEA,VOMI Verified 07/28/18 02:29 TING Review of Systems ROS Unobtainable ROS Unobtainable: unobtainable due to endotracheal tube PMFSH Medical History Medical History Anemia (Acute) Diverticulosis (Acute) Macular degeneration (Acute) Oxygen dependent (Acute) Shingles (Acute) CAD (coronary artery disease) (Acute) COPD exacerbation (Acute) Chronic low back pain (Acute) Osteoarthritis (Acute) SBO (small bowel obstruction) (Acute) Scoliosis (Acute) Surgical History Surgical History History of hand surgery (Acute) H/O laminectomy (Acute ~2000) H/O resection of small bowel (Acute ~2003) Hx of fusion of cervical spine (Acute ~2003) S/P VÍCTOR-BSO (Acute ~2002) Social History Social History Substance History: No History of Abuse Second Hand Smoke Exposure: No Smoking Status: Never smoker Tobacco Type: Cigarettes How Often Do You Have a Drink Containing Alcohol: Monthly or less Recent Travel in [facility] within the Last 8 Weeks: No Exam Const Nutritional Appearance: malnourished and thin Orientation: alert and awake HENMT Head: normal to inspection, normocephalic and atraumatic Eyes Alignment and Position: alignment normal Conjunctivae: conjunctivae normal Sclera: sclerae normal EOM: EOM intact bilaterally Neck Neck: normal visual inspection and full ROM Chest Chest: normal inspection of the chest and other (Very thin. You can see all of her bones.) Resp Effort & Inspection: other (She presented to us on BiPAP. Sats were in the 60s despite BiPAP.) Cardio Rate: tachycardic Rhythm: regular rhythm GI Inspection: normal to inspection Palpation: soft Back/Spine/Pelvis Cervical Spine: cervical ROM normal Thoracic/Lumbar Spine: thoraco-lumbar ROM normal Skin General: no rashes or lesions noted and turgor normal Neuro General: alert, awake, oriented x3, moves all extremities and CN's II-XI intact bilaterally Extrem General: normal to inspection and full ROM Psych Appearance: grossly normal Mental Status: mental status grossly normal Procedures Intubation Time Out Performed: Yes Sedative: etomidate Mg Given: 20 Laryngoscope: Brewster ET Tube Size: 7 ET Tube Uncuffed: No Tube Secured Depth (cm): 21 Tube Secured Location: lips Tube Placement Confirmation: visualized tube passing through cords, equal breath sounds bilaterally, no breath sounds over epigastrium and confirmation by capnometry Patient Tolerated Procedure: well Intubation Complications: none Course Initial Documented Vital Signs Pulse Rate 128 H 07/28/18 01:55 Respiratory Rate 40 H 07/28/18 01:55 Blood Pressure 128/84 07/28/18 01:55 Pulse Oximetry 65 L 07/28/18 01:55 Last Documented Vital Signs Temperature 98.2 F 07/28/18 02:30 Pulse Rate 107 H 07/28/18 05:36 Respiratory Rate 16 07/28/18 05:37 Blood Pressure 97/56 L 07/28/18 05:36 Pulse Oximetry 97 07/28/18 05:36 Critical Care Time Critical Care Time: Yes Total Critical Care Time: 75 Attestation: Time to perform other separately billable procedures was not included in the critical care time. My time did not include minutes spent treating any other patients simultaneously or on activities that did not directly contribute to the patient's treatment. The services I provided to this patient were to treat and/or prevent clinically significant deterioration due to respiratory distress, hypoxia I provided critical care services requiring my management, as noted below: Chart data review, documentation time, medication orders and management, vital sign assessments/reviewing monitor data, ordering and reviewing lab tests, ordering and interpreting/reviewing x-rays and diagnostic studies, care of the patient and discussion of the patient with the admitting physicians Medical Decision Making MDM Narrative Medical decision making narrative: This patient presented to us via [facility] in respiratory distress. She was treated by them with BiPAP. Sats on BiPAP with 100% oxygen were in the 60s. On arrival here, the patient is awake and alert and is able to nod her head yes and no. I have explained to her that she needs to be intubated. She nodded her head yes. Family is now here. The patient was [place] [facility] [place]. She was treated with BiPAP and nebulizer therapy she was subsequently discharged to rehab. Her daughter states that she did well in rehab yesterday. However, all day today, she has seemed to have a bit of postnasal drip. They also report that she has been very agitated all day today. She has been treated with several doses of Xanax and Percocet. Shortly prior to presentation, the patient asked 1 of her daughters to ask for a breathing treatment. The daughter did so. Shortly thereafter, the nursing staff was calling [facility] to have the patient brought to us. Did not intubated immediately after arrival. Dyspnea workup was then initiated. She was found to have a left lower lobe infiltrate on her chest x- ray. The patient has been empirically treated with Rocephin and Zithromax for her left lower lobe infiltrate. The case has been discussed with Dr. Bernardo. The patient will be [place] [facility] [place] Medical Screen Exam Complete: Yes Emergency Medical Condition: Yes Differential Diagnosis Differential Diagnosis: Differential diagnosis of dyspnea includes but is not limited to congestive heart failure, pneumonia, wheezing, pneumothorax, pulmonary embolism Medical Records Medical records reviewed: Yes I reviewed the patient's medical records. Lab Data Lab results reviewed: Yes I reviewed the patient's lab results. Result diagrams: 07/28/18 02:15 07/28/18 02:15 Lab Results 07/28/18 07/28/18 07/28/18 Range/Units 02:15 02:15 03:08 CBC w Diff Slide review pending WBC 33.5 H (4.0-11.0) th/mm3 RBC 4.55 (4.00-5.30) mil/mm3 Hgb 14.9 (11.6-15.3) gm/dL Hct 45.0 (35.0-46.0) % MCV 99.0 (80.0-100.0) fL MCH 32.8 (27.0-34.0) pg MCHC 33.1 (32.0-36.0) % RDW 12.6 (11.6-17.2) % Plt Count 176 (150-450) th/mm3 MPV 7.9 (7.0-11.0) fL Neut % (Auto) 95.6 H (16.0-70.0) % Lymph % (Auto) 1.2 L (9.0-44.0) % Summit % (Auto) 0.5 (0.0-8.0) % Eos % (Auto) 0.0 (0.0-4.0) % Baso % (Auto) 2.7 H (0.0-2.0) % Neut # (Auto) 32.0 H (1.8-7.7) th/mm3 Lymph # (Auto) 0.4 L (1.0-4.8) th/mm3 Summit # (Auto) 0.2 (0.0-0.9) th/mm3 Eos # (Auto) 0.0 (0.0-0.4) th/mm3 Baso # (Auto) 0.9 H (0.0-0.2) th/mm3 WBC Differential Manual diff final Seg Neuts % (Manual) 88 H (16-70) % Band Neuts % (Manual) 11 H (0-6) % Lymphocytes % (Manual) 1 L (9-44) % Abs Neuts (Manual) 33.2 H (1.8-7.7) th/mm3 Differential Comment . Platelet Estimate Normal (Normal) Platelet Morphology Normal (Normal) RBC Morphology Normal (Normal) Puncture Site Right brachial Patient Temperature 98.6 O2 Saturation 97 (90-100) % ABG pH 7.37 L (7.380-7.420) ABG pCO2 57 H* (38-42) mmHg ABG pO2 245 H (61-120) mmHg ABG HCO3 32 H (22-26) mmol/L ABG O2 Content 16.8 (12.0-20.0) Vol % ABG Base Excess 6.5 H (-2-2) mmol/L ABG Methemoglobin 1.4 (0-2) % Shai Test Y Hemoglobin 11.8 L (12.0-16.0) G/DL Carboxyhemoglobin 1.0 (0-4) % O2 Delivery Device Ventilator Vent Setting Prvc/ac Inspired O2 100 % Critical Value Yes Sodium 129 L (136-145) meq/L Potassium 5.6 H D (3.5-5.1) meq/L Chloride 85 L (98-107) meq/L Carbon Dioxide 34.9 H (21.0-32.0) meq/L Anion Gap 9 (5-15) meq/L BUN 46 H (7-18) mg/dL Creatinine 1.30 H (0.50-1.00) mg/dL Estimated GFR 39 L (>89) mL/min Random Glucose 139 H (74-106) mg/dL Lactic Acid (0.4-2.0) mmol/L Calcium 8.8 (8.5-10.1) mg/dL Total Bilirubin 1.4 H (0.2-1.0) mg/dL AST 47 H (15-37) U/L ALT 96 H (10-53) U/L Alkaline Phosphatase 183 H (45-117) U/L Troponin I Less than 0.02 L (0.02-0.05) ng/mL Total Protein 6.4 D (6.4-8.2) g/dL Albumin 2.6 L (3.4-5.0) g/dL Urine Color (Yellw/Straw) Urine Clarity (Clear) Urine pH (5.0-8.5) Ur Specific Onset (1.002-1.035) Urine Protein (Neg-Trace) mg/dL Urine Glucose (UA) (Negative) mg/dL Urine Ketones (Negative) mg/dL Urine Occult Blood (Negative) Urine Nitrate (Negative) Urine Bilirubin (Negative) Urine Urobilinogen (Less than 2) mg/dL Ur Leukocyte Esterase (Negative) Urine RBC (0-3) /hpf Urine WBC (0-5) /hpf Ur Squamous Epith Cells (0-5) /hpf Hyaline Casts (0-3) /lpf Micro UA Comment Ur Microscopic Review Urine Culture Comments 07/28/18 07/28/18 Range/Units 03:45 03:58 CBC w Diff WBC (4.0-11.0) th/mm3 RBC (4.00-5.30) mil/mm3 Hgb (11.6-15.3) gm/dL Hct (35.0-46.0) % MCV (80.0-100.0) fL MCH (27.0-34.0) pg MCHC (32.0-36.0) % RDW (11.6-17.2) % Plt Count (150-450) th/mm3 MPV (7.0-11.0) fL Neut % (Auto) (16.0-70.0) % Lymph % (Auto) (9.0-44.0) % Summit % (Auto) (0.0-8.0) % Eos % (Auto) (0.0-4.0) % Baso % (Auto) (0.0-2.0) % Neut # (Auto) (1.8-7.7) th/mm3 Lymph # (Auto) (1.0-4.8) th/mm3 Summit # (Auto) (0.0-0.9) th/mm3 Eos # (Auto) (0.0-0.4) th/mm3 Baso # (Auto) (0.0-0.2) th/mm3 WBC Differential Seg Neuts % (Manual) (16-70) % Band Neuts % (Manual) (0-6) % Lymphocytes % (Manual) (9-44) % Abs Neuts (Manual) (1.8-7.7) th/mm3 Differential Comment Platelet Estimate (Normal) Platelet Morphology (Normal) RBC Morphology (Normal) Puncture Site Patient Temperature O2 Saturation (90-100) % ABG pH (7.380-7.420) ABG pCO2 (38-42) mmHg ABG pO2 (61-120) mmHg ABG HCO3 (22-26) mmol/L ABG O2 Content (12.0-20.0) Vol % ABG Base Excess (-2-2) mmol/L ABG Methemoglobin (0-2) % Shai Test Hemoglobin (12.0-16.0) G/DL Carboxyhemoglobin (0-4) % O2 Delivery Device Vent Setting Inspired O2 % Critical Value Sodium (136-145) meq/L Potassium (3.5-5.1) meq/L Chloride (98-107) meq/L Carbon Dioxide (21.0-32.0) meq/L Anion Gap (5-15) meq/L BUN (7-18) mg/dL Creatinine (0.50-1.00) mg/dL Estimated GFR (>89) mL/min Random Glucose (74-106) mg/dL Lactic Acid 3.6 H (0.4-2.0) mmol/L Calcium (8.5-10.1) mg/dL Total Bilirubin (0.2-1.0) mg/dL AST (15-37) U/L ALT (10-53) U/L Alkaline Phosphatase (45-117) U/L Troponin I (0.02-0.05) ng/mL Total Protein (6.4-8.2) g/dL Albumin (3.4-5.0) g/dL Urine Color Nidhi H (Yellw/Straw) Urine Clarity Clear (Clear) Urine pH 6.0 (5.0-8.5) Ur Specific Onset Greater/equal 1.030 (1.002-1.035) Urine Protein 30 H (Neg-Trace) mg/dL Urine Glucose (UA) Negative (Negative) mg/dL Urine Ketones Negative (Negative) mg/dL Urine Occult Blood Negative (Negative) Urine Nitrate Negative (Negative) Urine Bilirubin Negative (Negative) Urine Urobilinogen 1.0 (Less than 2) mg/dL Ur Leukocyte Esterase Negative (Negative) Urine RBC 0-3 (0-3) /hpf Urine WBC 0-5 (0-5) /hpf Ur Squamous Epith Cells 0-5 (0-5) /hpf Hyaline Casts 0-3 (0-3) /lpf Micro UA Comment Cath-culture not ind Ur Microscopic Review Microscopic reviewed Urine Culture Comments Cath-cult not ind Imaging Data Attestation: I personally reviewed and interpreted this imaging study as follows : Radiologist's impression: Chest X-Ray 07/28/18 02:12 CONCLUSION: 1. ETT and NGT in good position. 2. Focal left lower lobe airspace consolidation. ECG Data EKG Prior to Arrival: No Attestation: I personally reviewed and interpreted this ECG as follows: (EKG shows a sinus rhythm with a rate of 112. No acute STT wave changes.) Discharge Plan Discharge Disposition Patient Disposition: ED Admit(ED Internal Use Only) Discharge Order Discharge Orders: ED Use Only Admit Order (Routine); Ordered 07/28/18 Ordered By: Cathie Beyer Discharge Details Diagnosis: Respiratory failure, Pneumonia Physicians Team ED Provider: Cathie Beyer Primary Care Provider: Efrain Frye Attending Provider: Naif Bernardo Other Providers: Elis Yeager Status ED Status: Admitted Patient
[2018-07-28 03:20] LABS: ABG Base Excess 6.5 mmol/L (-2-2); ABG PCO2 57 mmHg (38-42); ABG PO2 245 mmHg (61-120)
[2018-07-28] MEDS ORDERED: Azithromycin Inj 500 MG in Sodium Chlor 0.9% Inj 250 ML IV.SIG ONE (03:24)
[2018-07-28] MEDS ORDERED: Vancomycin Consult Pharmacy OTHER PRN (03:41)
[2018-07-28] MEDS ORDERED: Potassium Chloride Liq 20 MEQ/15 ML UDC PO PRN ×2 (03:42)
[2018-07-28] MEDS ORDERED: Magnesium Sulfate Inj 2 GM in Sodium Chlor 0.9% Inj 96 ML IV.SIG PRN (03:42)
[2018-07-28] MEDS ORDERED: Potassium Phosphate Inj 30 MMOL in Sodium Chlor 0.9% Inj 250 ML IV.SIG PRN (03:42)
[2018-07-28] MEDS ORDERED: Potassium Phosphate 500 MG Soluble Tablet PO PRN ×2 (03:42)
[2018-07-28] MEDS ORDERED: Potassium Chlor 20 mEq Premix 20 MEQ/100 ML PIGGYBACK IV.SIG PRN ×2 (03:42)
[2018-07-28] MEDS ORDERED: Acetaminophen 325 MG Tablet PO PRN (03:42)
[2018-07-28] MEDS ORDERED: Dextrose 50% in Water 50 ML Vial IV.PUSH PRN (03:42)
[2018-07-28] MEDS ORDERED: Magnesium Oxide 400 MG Tablet PO PRN (03:42)
[2018-07-28] MEDS ORDERED: Sodium Phosphate Inj 30 MMOL in Sodium Chlor 0.9% Inj 250 ML IV.SIG PRN (03:42)
[2018-07-28] MEDS ORDERED: Potassium Chlor 40 mEq Premix 40 MEQ/100 ML PIGGYBACK IV.SIG PRN ×2 (03:42)
[2018-07-28] MEDS ORDERED: Magnesium Sulfate Inj 4 GM in Sodium Chlor 0.9% Inj 92 ML IV.SIG PRN (03:42)
[2018-07-28] MEDS ORDERED: Bisacodyl 10 MG Supp RECTAL PRN (03:42)
[2018-07-28 03:50] LABS: Bilirubin,Urine Negative (Negative); Clarity,Urine Clear (Clear); Glucose,Urine (UA) Negative (Negative); Leukocyte Esterase,Urine Negative (Negative); Nitrite,Urine Negative (Negative); Specific Gravity,Urine Greater/Equal 1.030 (1.002-1.035)
[2018-07-28 03:52] LABS: Color,Urine Amber (Yellw/Straw)
[2018-07-28 03:56] LABS: Hyaline Casts,Urine 0-3 /lpf (0-3); RBC,Urine 0-3 /hpf (0-3); Squamous Epithelial Cell,Urine 0-5 /hpf (0-5); WBC,Urine 0-5 /hpf (0-5)
[2018-07-28] MEDS ORDERED: Enoxaparin Inj 40 MG/0.4 ML Syringe SQ SCH (04:00)
[2018-07-28] MEDS ORDERED: Chlorhexidine Gluconate 2% 1 Pack (2 Cloths) TOPICAL PRN (04:00)
[2018-07-28] MEDS: Sod Chloride 0.9% Inj 1,000 ML IV.CONT SCH ×3 (04:25→17:58)
[2018-07-28] MEDS ORDERED: Vancomycin Inj 1,000 MG in Sodium Chlor 0.9% Inj 250 ML IV.SIG ONE (05:30)
--- NOTE | 2018-07-28 06:39 | ECG ---
Date Performed: 07/28/2018 Time Performed: 03:16:20 PTAGE: 83 years EKG: Baseline artifact present SINUS TACHYCARDIA POSSIBLE RIGHT ATRIAL ENLARGEMENT LEFT ATRIAL E NLARGEMENT POSSIBLE RIGHT VENTRICULAR CONDUCTION DELAY MINIMAL ST DEPRESSION ABNORMAL ECG Compared to prior electrocardiogram, PVCs are no longer seen. PREVIOUS TRACING : 07/19/2018 13.07 DOCTOR: Yaya Juarez Interpretating Date/Time 07/28/2018 06:37:26
[2018-07-28] MEDS: Chlorhexidine Gluconate 2% 1 Pack (2 Cloths) TOPICAL SCH (07:23)
[2018-07-28] MEDS: Oral Hygiene Kit OROPHARYNG SCH ×3 (07:26→17:58)
[2018-07-28] MEDS: Insulin NovoLIN Regular Correctional Sugar Inj SQ SCH ×3 (07:26→17:58)
[2018-07-28] MEDS: Polyethylene Glycol 3350 17 GM Packet PO SCH ×2 (08:57→20:09)
[2018-07-28] MEDS: Chlorhexidine 0.12% Oral Kit 15 ML UDC OROPHARYNG SCH ×2 (08:57→20:07)
[2018-07-28] MEDS: Famotidine PF Inj 20 MG/2 ML Vial IV.PUSH SCH ×2 (08:57→20:08)
[2018-07-28] MEDS: Senna/Docusate Sodium 8.6/50 MG Tablet PO SCH ×2 (08:57→20:08)
--- NOTE | 2018-07-28 09:04 | P.HPCC ---
History of Present Illness Service: Critical care Primary Care Physician: Efrain Frye MD Chief Complaint: Acute respiratory failure, shortness of breath History of Present Illness: Patient is a 83-year-old malnourished female with past medical history significant for anemia, oxygen dependent COPD, coronary artery disease, recurrent small bowel obstruction, scoliosis, osteoarthritis, history of shingles. Patient was admitted from 07/19/2018 to 07/26/2018 to the hospital for acute hypoxemic respiratory failure and COPD exacerbation. She was treated with BiPAP steroids breathing treatments and antibiotics and eventually discharged to [place] [facility] on 07/26/2018. She presented to the [place] emergency department today a.m. with severe shortness of breath and hypoxia. EMS placed the patient on BiPAP. Patient arrived severely hypoxemic on 100% oxygen. Emergently intubated by the ED physician and placed on mechanical ventilation. Received Rocephin and azithromycin. Due to concern for healthcare associated pneumonia was antibiotics were changed to vancomycin and Azactam. Chest x-ray showed left lower lobe infiltrate. Patient transferred to [facility] for further evaluation and treatment, due to severe sepsis septic shock and hypoxemic respiratory failure I evaluated the patient in the ICU. She is currently sedated but moves extremities. Currently FiO2 requirement is 70%. Broad-spectrum antibiotics will be continued usual breathing treatments start IV Solu-Medrol 60 mg every 8 hours. Her white count is 33,000 with a lactic acid of 3.6. Overall prognosis is poor given recurrent hospitalization malnourishment and COPD on home oxygen, now with severe respiratory failure kidney injury and septic shock.. I will consult palliative care to address goals of care as the patient has previously expressed wish not to be on life support - Diagnosis (1) Acute hypoxemic respiratory failure (2) COPD with acute exacerbation (3) Healthcare-associated pneumonia (4) Septic shock (5) Acute kidney injury (6) Lactic acidosis (7) Hyperkalemia (8) Small bowel obstruction due to adhesions (9) Bronchiectasis (10) Hyponatremia (11) Hypothyroidism (12) Scoliosis (13) Malnutrition (14) History of COPD Inpatient Certification: I certify that the inpatient services were ordered in accordance with Medicare regulations governing the order. This includes certification that hospital inpatient services are reasonable and necessary and in the case of services not specified as inpatient-only under 42 CFR 419.22(n), that they are appropriately provided as inpatient services in accordance to with the 2-midnight benchmark under 43 CFR 412.3(e) Estimated Total Length of Stay (Days): 7 Plans for Post Hospital Care: Not yet determined Review of Systems unobtainable due to endotracheal tube PMFSH - History History Provided By: Family Member - Medical History Medical History: Medical History (Last Reviewed 07/28/18 @ 09:29 by Haylee Clemens MD) Anemia Diverticulosis Macular degeneration Oxygen dependent Shingles CAD (coronary artery disease) COPD exacerbation Chronic low back pain Osteoarthritis SBO (small bowel obstruction) Scoliosis - Surgical History Surgical History: Surgical History (Last Reviewed 07/28/18 @ 09:29 by Haylee Clemens MD) History of hand surgery H/O laminectomy Onset Date: ~2000 H/O resection of small bowel Onset Date: ~2003 Hx of fusion of cervical spine Onset Date: ~2003 S/P VÍCTOR-BSO Onset Date: ~2002 - Tobacco History Second Hand Smoke Exposure: No Smoking Status: Never smoker - Alcohol History How Often Do You Have a Drink Containing Alcohol: Monthly or less - Substance Use History Substance History: No History of Abuse - Travel History Recent Travel in the [facility] Within the Last 8 Weeks: No - Immunization History Tetanus Immunization: Unsure Medications and Allergies Active Medications: Active Medications Acetaminophen (Tylenol) 650 mg PO Q6H PRN PRN Reason: TEMPERATURE > 101 F Albuterol (Duoneb Neb (Prn)) 1 ampul NEB Q2HR NEB PRN PRN Reason: SHORTNESS OF BREATH Albuterol (Duoneb Neb (Eboni)) 1 ampul NEB Q4HR NEB EBONI Last Admin: 07/28/18 08:07 Dose: 1 ampul Aspirin (Ecotrin) 81 mg PO AC LUNCH EBONI Bisacodyl (Dulcolax Supp) 10 mg RECTAL DAILY PRN PRN Reason: if no BM in last 24h Chlorhexidine Gluconate (Peridex 0.12% Oral Kit) 15 ml OROPHARYNG BID@0800, 2000 [facility] Chlorhexidine Gluconate (Chlorhexidine 2% Cloth) 3 pack TOPICAL DAILY@0400 EBONI Stop: 08/02/18 03:59 Last Admin: 07/28/18 07:23 Dose: 3 pack Chlorhexidine Gluconate (Chlorhexidine 2% Cloth) 3 pack TOPICAL DAILY@0400 PRN PRN Reason: Extra cloth needed Stop: 08/02/18 03:59 Dextrose (D50w Vial) 50 ml IV.PUSH UNSCH PRN PRN Reason: PER HYPOGLYCEMIA PROTOCOL Enoxaparin Sodium (Lovenox Inj) 40 mg SQ Q24H [facility] Last Admin: 07/28/18 07:23 Dose: 40 mg Famotidine (Pepcid Pf Inj) 20 mg IV.PUSH Q12HR EBONI Fluconazole (Diflucan) 100 mg PO HS EBONI Glucagon (Glucagon Inj) 1 mg OTHER PRN PRN PRN Reason: for Hypoglycemia Protocol Propofol (Diprivan 1000 Mg/100 Ml Inj) 1,000 mg in 100 mls @ 1.284 mls/hr IV.CONT TITRATE PRN; Protocol PRN Reason: Per Protocol Last Titration: 07/28/18 05:47 Dose: 20 mcg/kg/min, 5.14 mls/hr Aztreonam 1,000 mg/ Sodium (Chloride) 100 mls @ 200 mls/hr IV.SIG Q8H [facility] Last Infusion: 07/28/18 05:34 Dose: Infused Magnesium Sulfate 4 gm/ Sodium (Chloride) 100 mls @ 50 mls/hr IV.SIG UNSCH PRN PRN Reason: For Magnesium 0.9 - 1.1 mg/dL Magnesium Sulfate 2 gm/ Sodium (Chloride) 100 mls @ 50 mls/hr IV.SIG UNSCH PRN PRN Reason: For Magnesium 1.2 - 1.6 mg/dL Sodium Chloride (Ns Inj) 1,000 mls @ 84 mls/hr IV.CONT .[id number] [facility] Last Infusion: 07/28/18 05:49 Dose: 84 mls/hr Potassium Chloride (Kcl 20 Meq Premix Inj) 20 meq in 100 mls @ 50 mls/hr IV.SIG Q2H PRN PRN Reason: For Potassium 3.3 - 3.5 mEq/L Potassium Chloride (Kcl 40 Meq Premix Inj) 40 meq in 100 mls @ 25 mls/hr IV.SIG UNSCH PRN PRN Reason: For Potassium 3.3 - 3.5 mEq/L Potassium Chloride (Kcl 20 Meq Premix Inj) 20 meq in 100 mls @ 50 mls/hr IV.SIG Q2H PRN PRN Reason: For Potassium 2.8 - 3.2 mEq/L Potassium Phosphate 30 mmol/ (Sodium Chloride) 260 mls @ 42 mls/hr IV.SIG UNSCH PRN PRN Reason: SEE LABEL COMMENTS Sodium Phosphate 30 mmol/ (Sodium Chloride) 260 mls @ 42 mls/hr IV.SIG UNSCH PRN PRN Reason: For Phosphorus < 2.5 mg/dL Potassium Chloride (Kcl 40 Meq Premix Inj) 40 meq in 100 mls @ 25 mls/hr IV.SIG Q2H PRN PRN Reason: For Potassium 2.8 - 3.2 mEq/L Insulin Human Regular (Novolin R Correctional Sugar Inj) 0 units SQ Q6HR EBONI; Protocol Last Admin: 07/28/18 07:26 Dose: Not Given Lactulose (Lactulose Liq) 30 ml PO BID EBONI Levothyroxine Sodium (Synthroid) 50 mcg PO DAILY@0600 [facility] Magnesium Oxide (Mag-Ox) 800 mg PO UNSCH PRN PRN Reason: For Magnesium 1.2 - 1.6 mg/dL Methylprednisolone Sodium Succinate (Solumedrol Inj) 60 mg IV.PUSH Q8HR [facility] Miscellaneous Medication () 1 each OROPHARYNG 0000,0400,1200,1600 [facility] Last Admin: 07/28/18 07:26 Dose: 1 each Ondansetron HCl (Zofran Inj) 4 mg IV.PUSH Q6H PRN PRN Reason: NAUSEA OR VOMITING Pharmacy Profile Note (Vancomycin Consult Pharmacy) 1 each OTHER UNSCH PRN PRN Reason: Pharmacy to dose Polyethylene Glycol (Miralax) 17 gm PO BID [facility] Potassium Chloride (Kcl Liq) 40 meq PO UNSCH PRN PRN Reason: Potassium level 3.3-3.5 mEq/L Potassium Chloride (Kcl Liq) 40 meq PO UNSCH PRN PRN Reason: Potassium level 3.3-3.5 mEq/L Potassium Phosphate (K-Phos Original) 2,000 mg PO Q4H PRN PRN Reason: Phosphorus Less Than 2.5 mg/dL Potassium Phosphate (K-Phos Original) 2,000 mg PO UNSCH PRN PRN Reason: SEE LABEL COMMENTS Senna/Docusate Sodium (Regina-Colace) 1 tab PO BID [facility] Sodium Chloride (Ns Flush) 2 ml IV.FLUSH PRN PRN PRN Reason: FLUSH AFTER USING IV ACCESS Last Admin: 07/28/18 03:04 Dose: 2 ml Sodium Chloride (Ns Flush) 2 ml IV.FLUSH UNSCH PRN PRN Reason: FLUSH AFTER USING IV ACCESS Allergies Allergy/AdvReac Type Severity Reaction Status Date / Time doxycycline Allergy Severe RASH Verified 07/28/18 07:39 erythromycin base Allergy Severe RASH AND Verified 07/28/18 07:39 NAUSEA meperidine Allergy Severe RASH,HALLUC Verified 07/28/18 07:39 INATIONS,NA USEA,VOMITI NG minocycline Allergy Severe RASH Verified 07/28/18 07:39 morphine Allergy Severe SEVERE Verified 07/28/18 07:39 ITCHING tigecycline Allergy Severe RASH Verified 07/28/18 07:39 penicillin G Allergy Mild RASH Verified 07/28/18 07:39 propoxyphene Allergy Mild RASH Verified 07/28/18 07:39 codeine AdvReac Severe NAUSEA,VOMI Verified 07/28/18 07:39 TING Home Medications Medication Instructions Recorded Confirmed Type acetaminophen [Tylenol Arthritis 1,300 mg PO BID PRN 07/10/18 07/28/18 History Pain] aspirin 81 mg PO AC LUNCH 07/10/18 07/28/18 History cholecalciferol (vitamin D3) 1,000 unit PO DAILY 07/10/18 07/28/18 History [Vitamin D3] estradiol [Vivelle-Dot] 0.1 mg TRANSDERMAL 2XWEEK 07/10/18 07/28/18 History fluticasone [Flovent HFA] 1 puff INHALATION DAILY 07/10/18 07/28/18 History furosemide 20 mg PO DAILY 07/10/18 07/28/18 History lansoprazole [Prevacid] 30 mg PO DAILY 07/10/18 07/28/18 History tiotropium bromide [Spiriva with 1 cap INHALATION HS 07/10/18 07/28/18 History HandiHaler] vitamin B complex [B Complex 1] 1 tab PO DAILY 07/10/18 07/28/18 History cholecalciferol (vitamin D3) 1,000 unit PO DAILY 07/19/18 07/28/18 History alprazolam [Xanax] 0.25 mg PO BID 07/28/18 07/28/18 History amlodipine 5 mg PO DAILY 07/28/18 07/28/18 History estradiol 1 patch TRANSDERMAL QWEEK 07/28/18 07/28/18 History fluconazole [Diflucan] 100 mg PO HS 07/28/18 07/28/18 History fluticasone [Flovent HFA] 1 puff INHALATION BID 07/28/18 07/28/18 History magnesium hydroxide [Milk of 15 ml PO DAILY PRN 07/28/18 07/28/18 History Magnesia] Results - Labs CBC & Chem 7: 07/28/18 02:15 07/28/18 02:15 Labs: Short CBC 07/28/18 Range/Units 02:15 WBC 33.5 H (4.0-11.0) th/mm3 Hgb 14.9 (11.6-15.3) gm/dL Hct 45.0 (35.0-46.0) % Plt Count 176 (150-450) th/mm3 BMP 07/28/18 02:15 Sodium 129 L Potassium 5.6 H D Chloride 85 L Carbon Dioxide 34.9 H BUN 46 H Creatinine 1.30 H Calcium 8.8 Cardiac Enzymes 07/28/18 Range/Units 02:15 Troponin I Less than 0.02 L (0.02-0.05) ng/mL Liver Function 07/28/18 Range/Units 02:15 Total Bilirubin 1.4 H (0.2-1.0) mg/dL AST 47 H (15-37) U/L ALT 96 H (10-53) U/L Alkaline Phosphatase 183 H (45-117) U/L Albumin 2.6 L (3.4-5.0) g/dL Urine 07/28/18 Range/Units 03:45 Urine Color Nidhi H (Yellw/Straw) Urine Clarity Clear (Clear) Urine pH 6.0 (5.0-8.5) Ur Specific [place] Greater/equal 1.030 (1.002-1.035) Urine Protein 30 H (Neg-Trace) mg/dL Urine Glucose (UA) Negative (Negative) mg/dL - Imaging Impressions Chest X-Ray 07/28/18 02:12 CONCLUSION: 1. ETT and NGT in good position. 2. Focal left lower lobe airspace consolidation. Exam Vital signs: Vital Signs 07/28/18 01:55 07/28/18 02:00 07/28/18 02:05 Temperature Pulse Rate 128 H 124 H Respiratory Rate 40 H 14 Blood Pressure 128/84 Pulse Oximetry 75 L 97 07/28/18 02:30 07/28/18 03:15 07/28/18 03:25 Temperature 98.2 F Pulse Rate 116 H 112 H Respiratory Rate 16 16 Blood Pressure 54/46 L 134/54 L Pulse Oximetry 95 97 97 07/28/18 03:30 07/28/18 04:49 07/28/18 05:36 Temperature Pulse Rate 112 H 103 H 107 H Respiratory Rate 16 16 Blood Pressure 87/45 L 97/56 L Pulse Oximetry 97 97 07/28/18 05:37 07/28/18 06:31 07/28/18 06:39 Temperature Pulse Rate 107 H Respiratory Rate 16 16 Blood Pressure Pulse Oximetry 96 07/28/18 06:40 07/28/18 07:00 07/28/18 07:40 Temperature Pulse Rate 108 H 104 H 99 H Respiratory Rate 16 16 16 Blood Pressure 114/58 L 100/58 L Pulse Oximetry 96 95 07/28/18 08:11 Temperature Pulse Rate 97 H Respiratory Rate 16 Blood Pressure Pulse Oximetry 93 L Intake & Output 07/27/18 07/28/18 07/28/18 18:59 06:59 18:59 Intake Total 450 / 450 375 / 375 Output Total 150 / 150 Balance 300 / 300 375 / 375 Weight 42.8 kg Intake: IV 450 / 450 375 / 375 Diprivan 1000 mg/100 ml Inj 1, 25 / 25 000 mg In 100 ml @ 5 MCG/KG/MIN 1.284 mls/hr IV.CONT TITRATE PRN Rx#:[id number] NS Inj 1,000 ML @ 84 mls/hr IV. 100 / 100 CONT .[id number] [facility] Rx#: [id number] Azithromycin Inj 500 MG In NS 125 / 125 125 / 125 Inj 250 ML @ 250 mls/hr IV.SIG ONCE ONE Rx#:[id number] Azactam Inj 1,000 MG In NS Inj 100 / 100 100 ML @ 200 mls/hr IV.SIG Q8H [facility] Rx#:[id number] Vancomycin Inj 1,000 MG In NS 250 / 250 Inj 250 ML @ 250 mls/hr IV.SIG ONCE ONE Rx#:[id number] Rocephin Inj 1,000 MG In NS Inj 100 / 100 100 ML @ 200 mls/hr IV.SIG ONCE ONE Rx#:[id number] Output: Urine Amount (Catheter) 150 / 150 Indwelling Urethral Catheter 150 / 150 Narrative: GEN: Elderly chronically ill malnourished female who is intubated sedated HENMT: normocephalic and atraumatic. Pupils are equal Neck: Supple Chest: Air entry is equal bilaterally with bibasilar crackles no wheezes coarse rhonchi. FiO2 at 70% CVS: Tachycardic S1-S2 normal no murmurs GI: Abdomen mildly distended and tense tender to palpation. No organomegaly Skin: No rashes or lesions noted and turgor normal Neuro: Patient is intubated sedated for ventilator synchrony. Spontaneously moves extremities intermittently. Did not follow commands Septic Shock Reassessment Septic shock perfusion: reassessment completed Caprini VTE Risk Assessment Caprini VTE Risk Assessment: Moderate/High Risk (score >= 2) Caprini Risk Assessment Model: Point Value = 1 Point Value = 2 Point Value = 3 Point Value = 5 Age 41-60 Minor surgery BMI > 25 kg/m2 Swollen legs Varicose veins or History of unexplained or recurrent spontaneous Oral contraceptives or hormone replacement Sepsis (< 1 month) Serious lung disease, including pneumonia (< 1 month) Abnormal pulmonary function Acute myocardial infarction Congestive heart failure (< 1 month) History of inflammatory bowel disease Medical patient at bed rest Age 61-74 Arthroscopic surgery Major open surgery (> 45 min) Laparoscopic surgery (> 45 min) Malignancy Confined to bed (> 72 hours) Immobilizing plaster cast Central venous access Age >= 75 History of VTE Family history of VTE Factor V Leiden Prothrombin [id number] Lupus anticoagulant Anticardiolipin antibodies Elevated serum homocysteine Heparin-induced thrombocytopenia Other congenital or acquired thrombophilia Stroke (< 1 month) Elective arthroplasty Hip, pelvis, or leg fracture Acute spinal cord injury (< 1 month) Prophylaxis Regimen: Total Risk Factor Score Risk Level Prophylaxis Regimen 0-1 Low Early ambulation 2 Moderate Order ONE of the following: *Sequential Compression Device (SCD) *Heparin 5000 units SQ BID 3-4 Higher Order ONE of the following medications: *Heparin 5000 units SQ TID *Enoxaparin/Lovenox 40 mg SQ daily (WT < 150 kg, CrCl > 30 mL/min) *Enoxaparin/Lovenox 30 mg SQ daily (WT < 150 kg, CrCl > 10-29 mL/min) *Enoxaparin/Lovenox 30 mg SQ BID (WT < 150 kg, CrCl > 30 mL/min) AND/OR *Sequential Compression Device (SCD) 5 or more Highest Order ONE of the following medications: *Heparin 5000 units SQ TID (Preferred with Epidurals) *Enoxaparin/Lovenox 40 mg SQ daily (WT < 150 kg, CrCl > 30 mL/min) *Enoxaparin/Lovenox 30 mg SQ daily (WT < 150 kg, CrCl > 10-29 mL/min) *Enoxaparin/Lovenox 30 mg SQ BID (WT < 150 kg, CrCl > 30 mL/min) AND *Sequential Compression Device (SCD) Assessment and Plan - Problem List (1) Acute hypoxemic respiratory failure Code(s): J96.01 - Acute respiratory failure with hypoxia Status: Acute (2) COPD with acute exacerbation Code(s): J44.1 - Chronic obstructive pulmonary disease with (acute) exacerbation Status: Acute (3) Healthcare-associated pneumonia Code(s): J18.9 - Pneumonia, unspecified organism Status: Acute (4) Septic shock Code(s): A41.9 - Sepsis, unspecified organism; R65.21 - Severe sepsis with septic shock Status: Acute (5) Acute kidney injury Code(s): N17.9 - Acute kidney failure, unspecified Status: Acute (6) Lactic acidosis Code(s): E87.2 - Acidosis Status: Acute (7) Hyperkalemia Code(s): E87.5 - Hyperkalemia Status: Acute (8) Small bowel obstruction due to adhesions Code(s): K56.50 - Intestinal adhesions [bands], unspecified as to partial versus complete obstruction Status: Chronic (9) Bronchiectasis Code(s): J47.9 - Bronchiectasis, uncomplicated Status: Chronic (10) Hyponatremia Code(s): E87.1 - Hypo-osmolality and hyponatremia Status: Chronic (11) Hypothyroidism Code(s): E03.9 - Hypothyroidism, unspecified Status: Chronic (12) Scoliosis Code(s): M41.9 - Scoliosis, unspecified Status: Chronic (13) Malnutrition Code(s): E46 - Unspecified protein-calorie malnutrition Status: Chronic (14) History of COPD Code(s): Z87.09 - Personal history of other diseases of the respiratory system Status: Chronic - Assessment and Plan Plan: NEURO: -Propofol and fentanyl for sedation and ventilator synchrony -Need pain control due to scoliosis -No sedation weaning until hypoxia improved RESP: Acute hypoxemic respiratory failure Healthcare associated pneumonia Severe COPD exacerbation -PRVC/AC, PEEP 10 -Ventilator bundle -DuoNeb every 4 hours scheduled and as needed -IV Solu-Medrol 60 mg every 8 hours -Broad-spectrum antibiotics vancomycin and Azactam CV: Lactic acidosis -Normal saline IV fluids 75 ml per hour -2 L normal saline bolus, in addition to 1 L given in the ED -And lactic acid GI: History of recurrent small bowel obstruction -N.p.o., IV famotidine -KUB to evaluate for ileus-shows mild gaseous distention of the small bowel -OG tube to intermittent wall suction : Acute kidney injury -Monitor renal function closely. Johnson catheter. -Fluid resuscitation as above ID: Septic shock Healthcare associated pneumonia -Antibiotics with vancomycin and Azactam -Blood urine and sputum cultures -Check influenza HEME: Chronic anemia -Monitor CBC, coags ENDO: Mild hyperkalemia -Electrolyte replacement per protocol -Sliding scale insulin -Repeat CMP at 2 PM PROPH: -Bilateral lower extremity SCDs. Lovenox/famotidine LINES: -Utilize peripheral IVs, central line if needed CC time 55 min Code Status: Full (9) Bronchiectasis Qualifiers: Bronchiectasis type: uncomplicated Qualified Code(s): J47.9 - Bronchiectasis , uncomplicated (11) Hypothyroidism Qualifiers: Hypothyroidism type: unspecified Qualified Code(s): E03.9 - Hypothyroidism, unspecified (12) Scoliosis Qualifiers: Scoliosis type: unspecified scoliosis Spinal region: thoracolumbar Qualified Code(s): M41.9 - Scoliosis, unspecified
--- NOTE | 2018-07-28 09:35 | XR ---
EXAM DATE: 07/28/2018 9:32 AM EST AGE/SEX: 83 years / Female INDICATIONS: Possible ileus, due to abdominal pain and distention. CLINICAL DATA: This is the patient's subsequent encounter. Patient reports that signs and symptoms h ave been present for 3 days and indicates a pain score of 6/10. MEDICAL/SURGICAL HISTORY: Chronic obstructive pulmonary disease. Coronary artery disease. Scoli osis. . Small bowel resection. COMPARISON: [facility], ABDOMEN 1V KUB, 07/13/2018. . FINDINGS: There is moderate dextroscoliosis of the lumbar spine with a rotatory component and degenerative janie nges. There is gaseous distention of small bowel loops again seen, increased in prominence from the p revious study. NG tube tip overlies expected location of the stomach. CONCLUSION: Mild increase in gaseous distention of small bowel loops. Electronically signed by: Rigoberto Maynard MD Board Certified Radiologist 07/28/2018 9:34 AM EST
[2018-07-28] MEDS: Sod Chloride 0.9% Inj 1,000 ML IV.SIG SCH ×2 (10:12→10:28)
[2018-07-28] MEDS: MethylPREDNISolone Sod Succinate Inj 125 MG/2 ML Vial IV.PUSH SCH ×2 (10:19→17:57)
[2018-07-28] MEDS ORDERED: fentaNYL 10 mcg/mL Premix Drip 2,500 MCG/250 ML BAG IV.SIG PRN (11:34)
--- NOTE | 2018-07-28 12:53 | P.CONPAL ---
Consult Service: Palliative Care Requesting Physician: Naif Bernardo Reason for Consult: a. To assist with evaluation and management of symptoms including: Pain. b. To assist medical decision maker(s) with: better understanding of current medical conditions; weighing benefits/burdens of medical treatment options; making medical treatment decisions. Primary Care Provider: Efrain Frye MD History of Present Illness History of Present Illness: Mrs. Jordan is an 83-year-old female with a medical history significant for oxygen dependent COPD, CAD, osteoarthritis, scoliosis and multiple recent hospitalizations. [facility]/28 for evaluation and management of respiratory distress. Patient presented tachycardic with a heart rate in the 120s, tachypneic with respiratory rate in the 40s and hypoxic with pulse oximeter in the mid 60s. Patient was emergently intubated and placed on mechanical ventilation. Chest x- ray revealing focal left lower lobe airspace consolidation. Laboratory workup revealing leukocytosis of 33.5, acute on chronic kidney failure with BUN/ creatinine 46/1.30. Sodium 129 and potassium 5.6. UA negative. Abdominal x- ray revealing mild increase in gaseous distention of the small bowel loops. Patient was admitted for additional monitoring and management. Palliative care consulted for further clarifications of goals of care in the setting of overall poor prognosis. Patient with multiple recent hospitalizations. Previously 07/19/18 to 07/26/18 secondary to hypoxic respiratory failure in the setting of COPD exacerbation. Patient was discharged to [facility] and rehab of for physical strengthening. Previous hospitalization from 07/10/18 to 07/18/18 secondary to small bowel obstruction. Patient with recurrent small bowel obstructions, she underwent lysis of adhesions and resection of a portion of her small bowel in the past. Patient with significant atherosclerotic heart disease status post cardiac cath in 2006. Patient seen in ICU, remains endotracheally intubated on mechanical ventilation. Briefly opening eyes to verbal stimuli, answering simple questions by nodding 'Yes/no". Endorsing pain, unable to elaborate given endotracheal intubation. Met with patient's and daughter Debbie at bedside. In this first visit, introduced the role of palliative care and advance illness in regards to symptom management as well as support surrounding goals of care. Family receptive to palliative care visit. Obtained patient's past medical history, psychosocial history. Reviewed events leading to this hospitalization, clinical course and current medical management. Family reports that patient has been having progressive decline for the past year, most acutely since June in the setting of small bowel obstruction and multiple hospitalizations. Patient with progressive weight loss, currently 42 kg. Family reports that patient requires assistance with some ADLs, limited ambulation secondary to poor activity tolerance. Patient has been appropriately tearful, verbalized that patient is just too tired. added that patient is aware of her debilitated condition, verbalizing feeling tired and just wishing to "go to sleep to God". reports that patient has verbalized in multiple occasions not ever wanting to live on life support. reports that he has been told previously by multiple providers that if patient requires mechanical ventilation, her prognosis would be extremely poor. Reviewed that patient's prognosis is in fact very poor given multiple acute on chronic comorbidities, recurrent recent hospitalizations, malnutrition, profound physical deconditioning and advanced age. Daughter Jessica reports that additional children are traveling to [place]. Family likely to transition patient to comfort-directed care within the next 24-48 hours. stated " I don't want her to suffer anymore". Spiritual services following. Case discussed with Dr. Clemens and bedside RN. Function/Cognitive Trajectory: Patient residing in private home with . Requiring assistance with bathing and ambulation prior to acute hospitalization in June. Currently requiring assistance with all ADLs. Ambulating with Rollator walker. Very poor activity tolerance. No cognitive deficit reported. Review of Systems unobtainable due to mental condition PMFSH - History History Provided By: Family Member - Medical History Medical History: Medical History (Last Updated 07/28/18 @ 12:20 by Jayshree Rosado APRN) Anemia Diverticulosis FH: total abdominal hysterectomy and bilateral salpingo-oophorectomy Macular degeneration Oxygen dependent Shingles CAD (coronary artery disease) COPD exacerbation Chronic low back pain Osteoarthritis SBO (small bowel obstruction) Scoliosis - Surgical History Surgical History: Surgical History (Last Updated 07/28/18 @ 12:20 by Jayshree Rosado APRN) History of hand surgery Hx of cholecystectomy S/P cervical spinal fusion H/O laminectomy Onset Date: ~2000 H/O resection of small bowel Onset Date: ~2003 Hx of fusion of cervical spine Onset Date: ~2003 S/P VÍCTOR-BSO Onset Date: ~2002 - Family History Family History: Family History (Last Updated 07/28/18 @ 12:20 by Jayshree Rosado APRN) Mother Hypertension Arthritis - Social History I have reviewed the patient's Social History: Yes - Tobacco History Second Hand Smoke Exposure: No Tobacco Use In Past 30 Days: No Smoking Status: Never smoker - Alcohol History How Often Do You Have a Drink Containing Alcohol: Never - Substance Use History Substance History: No History of Abuse - Travel History History of Recent Travel: No Recent Travel in the [place] Within the Last 8 Weeks: No Recent Travel Out of the Country Within the Last 8 Weeks: No - Immunization History Tetanus Immunization: Unsure Hx Influenza Vaccine This Season: No Medications and Allergies Active Medications: Active Medications Acetaminophen (Tylenol) 650 mg PO Q6H PRN PRN Reason: TEMPERATURE > 101 F Albuterol (Duoneb Neb (Prn)) 1 ampul NEB Q2HR NEB PRN PRN Reason: SHORTNESS OF BREATH Albuterol (Duoneb Neb (Eboni)) 1 ampul NEB Q4HR NEB [facility] Last Admin: 07/28/18 08:07 Dose: 1 ampul Aspirin (Ecotrin) 81 mg PO AC LUNCH [facility] Last Admin: 07/28/18 11:46 Dose: 81 mg Bisacodyl (Dulcolax Supp) 10 mg RECTAL DAILY PRN PRN Reason: if no BM in last 24h Chlorhexidine Gluconate (Peridex 0.12% Oral Kit) 15 ml OROPHARYNG BID@0800, 2000 [facility] Last Admin: 07/28/18 08:57 Dose: 15 ml Chlorhexidine Gluconate (Chlorhexidine 2% Cloth) 3 pack TOPICAL DAILY@0400 [facility] Stop: 08/02/18 03:59 Last Admin: 07/28/18 07:23 Dose: 3 pack Chlorhexidine Gluconate (Chlorhexidine 2% Cloth) 3 pack TOPICAL DAILY@0400 PRN PRN Reason: Extra cloth needed Stop: 08/02/18 03:59 Dextrose (D50w Vial) 50 ml IV.PUSH UNSCH PRN PRN Reason: PER HYPOGLYCEMIA PROTOCOL Enoxaparin Sodium (Lovenox Inj) 40 mg SQ Q24H [facility] Last Admin: 07/28/18 07:23 Dose: 40 mg Famotidine (Pepcid Pf Inj) 20 mg IV.PUSH Q12HR [facility] Last Admin: 07/28/18 08:57 Dose: 20 mg Fluconazole (Diflucan) 100 mg PO HS [facility] Glucagon (Glucagon Inj) 1 mg OTHER PRN PRN PRN Reason: for Hypoglycemia Protocol Propofol (Diprivan 1000 Mg/100 Ml Inj) 1,000 mg in 100 mls @ 1.284 mls/hr IV.CONT TITRATE PRN; Protocol PRN Reason: Per Protocol Last Titration: 07/28/18 05:47 Dose: 20 mcg/kg/min, 5.14 mls/hr Aztreonam 1,000 mg/ Sodium (Chloride) 100 mls @ 200 mls/hr IV.SIG Q8H [facility] Last Admin: 07/28/18 11:45 Dose: 200 mls/hr Magnesium Sulfate 4 gm/ Sodium (Chloride) 100 mls @ 50 mls/hr IV.SIG UNSCH PRN PRN Reason: For Magnesium 0.9 - 1.1 mg/dL Magnesium Sulfate 2 gm/ Sodium (Chloride) 100 mls @ 50 mls/hr IV.SIG UNSCH PRN PRN Reason: For Magnesium 1.2 - 1.6 mg/dL Sodium Chloride (Ns Inj) 1,000 mls @ 84 mls/hr IV.CONT .[id number] [facility] Last Admin: 07/28/18 11:46 Dose: 84 mls/hr Potassium Chloride (Kcl 20 Meq Premix Inj) 20 meq in 100 mls @ 50 mls/hr IV.SIG Q2H PRN PRN Reason: For Potassium 3.3 - 3.5 mEq/L Potassium Chloride (Kcl 40 Meq Premix Inj) 40 meq in 100 mls @ 25 mls/hr IV.SIG UNSCH PRN PRN Reason: For Potassium 3.3 - 3.5 mEq/L Potassium Chloride (Kcl 20 Meq Premix Inj) 20 meq in 100 mls @ 50 mls/hr IV.SIG Q2H PRN PRN Reason: For Potassium 2.8 - 3.2 mEq/L Potassium Phosphate 30 mmol/ (Sodium Chloride) 260 mls @ 42 mls/hr IV.SIG UNSCH PRN PRN Reason: SEE LABEL COMMENTS Sodium Phosphate 30 mmol/ (Sodium Chloride) 260 mls @ 42 mls/hr IV.SIG UNSCH PRN PRN Reason: For Phosphorus < 2.5 mg/dL Potassium Chloride (Kcl 40 Meq Premix Inj) 40 meq in 100 mls @ 25 mls/hr IV.SIG Q2H PRN PRN Reason: For Potassium 2.8 - 3.2 mEq/L Fentanyl (Fentanyl 10 Mcg/Ml Premix Drip) 2,500 mcg in 250 mls @ 5 mls/hr IV.SIG TITRATE PRN; Protocol PRN Reason: Per Protocol Last Admin: 07/28/18 11:46 Dose: 50 mcg/hr, 5 mls/hr Insulin Human Regular (Novolin R Correctional Sugar Inj) 0 units SQ Q6HR [facility]; Protocol Last Admin: 07/28/18 11:46 Dose: Not Given Lactulose (Lactulose Liq) 30 ml PO BID [facility] Last Admin: 07/28/18 08:57 Dose: 30 ml Levothyroxine Sodium (Synthroid) 50 mcg PO DAILY@0600 [facility] Magnesium Oxide (Mag-Ox) 800 mg PO UNSCH PRN PRN Reason: For Magnesium 1.2 - 1.6 mg/dL Methylprednisolone Sodium Succinate (Solumedrol Inj) 60 mg IV.PUSH Q8H [facility] Last Admin: 07/28/18 10:19 Dose: 60 mg Miscellaneous Medication () 1 each OROPHARYNG 0000,0400,1200,1600 [facility] Last Admin: 07/28/18 07:26 Dose: 1 each Ondansetron HCl (Zofran Inj) 4 mg IV.PUSH Q6H PRN PRN Reason: NAUSEA OR VOMITING Pharmacy Profile Note (Vancomycin Consult Pharmacy) 1 each OTHER UNSCH PRN PRN Reason: Pharmacy to dose Polyethylene Glycol (Miralax) 17 gm PO BID [facility] Last Admin: 07/28/18 08:57 Dose: 17 gm Potassium Chloride (Kcl Liq) 40 meq PO UNSCH PRN PRN Reason: Potassium level 3.3-3.5 mEq/L Potassium Chloride (Kcl Liq) 40 meq PO UNSCH PRN PRN Reason: Potassium level 3.3-3.5 mEq/L Potassium Phosphate (K-Phos Original) 2,000 mg PO Q4H PRN PRN Reason: Phosphorus Less Than 2.5 mg/dL Potassium Phosphate (K-Phos Original) 2,000 mg PO UNSCH PRN PRN Reason: SEE LABEL COMMENTS Senna/Docusate Sodium (Regina-Colace) 1 tab PO BID [facility] Last Admin: 07/28/18 08:57 Dose: 1 tab Sodium Chloride (Ns Flush) 2 ml IV.FLUSH PRN PRN PRN Reason: FLUSH AFTER USING IV ACCESS Last Admin: 07/28/18 03:04 Dose: 2 ml Sodium Chloride (Ns Flush) 2 ml IV.FLUSH UNSCH PRN PRN Reason: FLUSH AFTER USING IV ACCESS Allergies Allergy/AdvReac Type Severity Reaction Status Date / Time doxycycline Allergy Severe RASH Verified 07/28/18 07:39 erythromycin base Allergy Severe RASH AND Verified 07/28/18 07:39 NAUSEA meperidine Allergy Severe RASH,HALLUC Verified 07/28/18 07:39 INATIONS,NA USEA,VOMITI NG minocycline Allergy Severe RASH Verified 07/28/18 07:39 morphine Allergy Severe SEVERE Verified 07/28/18 07:39 ITCHING tigecycline Allergy Severe RASH Verified 07/28/18 07:39 penicillin G Allergy Mild RASH Verified 07/28/18 07:39 propoxyphene Allergy Mild RASH Verified 07/28/18 07:39 codeine AdvReac Severe NAUSEA,VOMI Verified 07/28/18 07:39 TING Home Medications Medication Instructions Recorded Confirmed Type acetaminophen [Tylenol Arthritis 1,300 mg PO BID PRN 07/10/18 07/28/18 History Pain] aspirin 81 mg PO AC LUNCH 07/10/18 07/28/18 History cholecalciferol (vitamin D3) 1,000 unit PO DAILY 07/10/18 07/28/18 History [Vitamin D3] estradiol [Vivelle-Dot] 0.1 mg TRANSDERMAL 2XWEEK 07/10/18 07/28/18 History fluticasone [Flovent HFA] 1 puff INHALATION DAILY 07/10/18 07/28/18 History furosemide 20 mg PO DAILY 07/10/18 07/28/18 History lansoprazole [Prevacid] 30 mg PO DAILY 07/10/18 07/28/18 History tiotropium bromide [Spiriva with 1 cap INHALATION HS 07/10/18 07/28/18 History HandiHaler] vitamin B complex [B Complex 1] 1 tab PO DAILY 07/10/18 07/28/18 History cholecalciferol (vitamin D3) 1,000 unit PO DAILY 07/19/18 07/28/18 History alprazolam [Xanax] 0.25 mg PO BID 07/28/18 07/28/18 History amlodipine 5 mg PO DAILY 07/28/18 07/28/18 History estradiol 1 patch TRANSDERMAL QWEEK 07/28/18 07/28/18 History fluconazole [Diflucan] 100 mg PO HS 07/28/18 07/28/18 History fluticasone [Flovent HFA] 1 puff INHALATION BID 07/28/18 07/28/18 History magnesium hydroxide [Milk of 15 ml PO DAILY PRN 07/28/18 07/28/18 History Magnesia] Advance Directives Living Will: Yes Healthcare Surrogate: Yes Physical Exam Vital Signs: Vital Signs - 24 hr 07/28/18 01:55 07/28/18 02:00 07/28/18 02:05 Temperature Pulse Rate 128 H 124 H Respiratory Rate 40 H 14 Blood Pressure 128/84 Pulse Oximetry 75 L 97 07/28/18 02:30 07/28/18 03:15 07/28/18 03:25 Temperature 98.2 F Pulse Rate 116 H 112 H Respiratory Rate 16 16 Blood Pressure 54/46 L 134/54 L Pulse Oximetry 95 97 97 07/28/18 03:30 07/28/18 04:49 07/28/18 05:36 Temperature Pulse Rate 112 H 103 H 107 H Respiratory Rate 16 16 Blood Pressure 87/45 L 97/56 L Pulse Oximetry 97 97 07/28/18 05:37 07/28/18 06:31 07/28/18 06:39 Temperature Pulse Rate 107 H Respiratory Rate 16 16 Blood Pressure Pulse Oximetry 96 07/28/18 06:40 07/28/18 07:00 07/28/18 07:40 Temperature Pulse Rate 108 H 104 H 99 H Respiratory Rate 16 16 16 Blood Pressure 114/58 L 100/58 L Pulse Oximetry 96 95 07/28/18 08:00 07/28/18 08:11 07/28/18 08:40 Temperature 97.7 F Pulse Rate 99 H 97 H 98 H Respiratory Rate 16 16 16 Blood Pressure 102/56 L Pulse Oximetry 93 L 93 L 91 L 07/28/18 09:00 07/28/18 09:40 07/28/18 10:00 Temperature Pulse Rate 100 H 102 H 105 H Respiratory Rate 16 16 16 Blood Pressure 118/59 L Pulse Oximetry 92 L 91 L 96 I&O: Intake & Output 07/26/18 07/27/18 07/28/18 07/29/18 06:59 06:59 06:59 06:59 Intake Total 450 / 450 3475 / 3475 Output Total 150 / 150 Balance 300 / 300 3475 / 3475 Weight 42.8 kg 42.8 kg Physical Exam: CONSTITUTIONAL/GENERAL: This is a cachectic, frail looking elderly woman endotracheally intubated on mechanical ventilation. TUBES/LINES/DRAINS: ETT, OG, PIV, Johnson catheter, SCDs, bilateral soft wrist restraints. SKIN: Pale. No jaundice, rashes, or lesions. No wounds seen anteriorly. Skin temperature appropriate. Not diaphoretic. HEAD: Atraumatic. Normocephalic. EYES: Pupils equal and round and reactive. No scleral icterus. No injection or drainage. ENT: Hearing grossly normal. Nose without bleeding or purulent drainage. Moist oral mucosa. NECK: Trachea midline. Supple. CARDIOVASCULAR: Regular rate and rhythm. Peripheral pulses symmetric. RESPIRATORY/CHEST: Symmetric, unlabored respirations. Rhonchi bilaterally. Endotracheally intubated on mechanical ventilation. GASTROINTESTINAL: Abdomen soft, non-tender, nondistended. No guarding. Bowel sounds present. GENITOURINARY: Without palpable bladder distension. Johnson catheter in place. MUSCULOSKELETAL: Extremities without clubbing, cyanosis, or edema. Significant muscle atrophy to all 4 extremities. LYMPHATICS: No palpable cervical or supraclavicular adenopathy. NEUROLOGICAL: Sedated. Briefly opening eyes to verbal stimuli, answering simple questions by nodding head "yes/no". PSYCHIATRIC: Calm. Diagnostic Tests Laboratory: Laboratory Results - last 72 hr 07/28/18 07/28/18 07/28/18 02:15 02:15 03:08 CBC w Diff Slide review pending WBC 33.5 H RBC 4.55 Hgb 14.9 Hct 45.0 MCV 99.0 MCH 32.8 MCHC 33.1 RDW 12.6 Plt Count 176 MPV 7.9 Neut % (Auto) 95.6 H Lymph % (Auto) 1.2 L [place] % (Auto) 0.5 Eos % (Auto) 0.0 Baso % (Auto) 2.7 H Neut # (Auto) 32.0 H Lymph # (Auto) 0.4 L [place] # (Auto) 0.2 Eos # (Auto) 0.0 Baso # (Auto) 0.9 H WBC Differential Manual diff final Seg Neuts % (Manual) 88 H Band Neuts % (Manual) 11 H Lymphocytes % (Manual) 1 L Abs Neuts (Manual) 33.2 H Differential Comment . Platelet Estimate Normal Platelet Morphology Normal RBC Morphology Normal Puncture Site Right brachial Patient Temperature 98.6 O2 Saturation 97 ABG pH 7.37 L ABG pCO2 57 H* ABG pO2 245 H ABG HCO3 32 H ABG O2 Content 16.8 ABG Base Excess 6.5 H ABG Methemoglobin 1.4 Shai Test Y Hemoglobin 11.8 L Carboxyhemoglobin 1.0 O2 Delivery Device Ventilator Vent Setting Prvc/ac Inspired O2 100 Critical Value Yes Sodium 129 L Potassium 5.6 H D Chloride 85 L Carbon Dioxide 34.9 H Anion Gap 9 BUN 46 H Creatinine 1.30 H Estimated GFR 39 L POC Glucose Random Glucose 139 H Lactic Acid Calcium 8.8 Total Bilirubin 1.4 H AST 47 H ALT 96 H Alkaline Phosphatase 183 H Troponin I Less than 0.02 L Total Protein 6.4 D Albumin 2.6 L Prealbumin Urine Color Urine Clarity Urine pH Ur Specific [place] Urine Protein Urine Glucose (UA) Urine Ketones Urine Occult Blood Urine Nitrate Urine Bilirubin Urine Urobilinogen Ur Leukocyte Esterase Urine RBC Urine WBC Ur Squamous Epith Cells Hyaline Casts Micro UA Comment Ur Microscopic Review Urine Culture Comments 07/28/18 07/28/18 07/28/18 03:45 03:58 03:58 CBC w Diff WBC RBC Hgb Hct MCV MCH MCHC RDW Plt Count MPV Neut % (Auto) Lymph % (Auto) [place] % (Auto) Eos % (Auto) Baso % (Auto) Neut # (Auto) Lymph # (Auto) [place] # (Auto) Eos # (Auto) Baso # (Auto) WBC Differential Seg Neuts % (Manual) Band Neuts % (Manual) Lymphocytes % (Manual) Abs Neuts (Manual) Differential Comment Platelet Estimate Platelet Morphology RBC Morphology Puncture Site Patient Temperature O2 Saturation ABG pH ABG pCO2 ABG pO2 ABG HCO3 ABG O2 Content ABG Base Excess ABG Methemoglobin Shai Test Hemoglobin Carboxyhemoglobin O2 Delivery Device Vent Setting Inspired O2 Critical Value Sodium Potassium Chloride Carbon Dioxide Anion Gap BUN Creatinine Estimated GFR POC Glucose Random Glucose Lactic Acid 3.6 H Calcium Total Bilirubin AST ALT Alkaline Phosphatase Troponin I Total Protein Albumin Prealbumin 16 L Urine Color Nidhi H Urine Clarity Clear Urine pH 6.0 Ur Specific [place] Greater/equal 1.030 Urine Protein 30 H Urine Glucose (UA) Negative Urine Ketones Negative Urine Occult Blood Negative Urine Nitrate Negative Urine Bilirubin Negative Urine Urobilinogen 1.0 Ur Leukocyte Esterase Negative Urine RBC 0-3 Urine WBC 0-5 Ur Squamous Epith Cells 0-5 Hyaline Casts 0-3 Micro UA Comment Cath-culture not ind Ur Microscopic Review Microscopic reviewed Urine Culture Comments Cath-cult not ind 07/28/18 07:22 CBC w Diff WBC RBC Hgb Hct MCV MCH MCHC RDW Plt Count MPV Neut % (Auto) Lymph % (Auto) [place] % (Auto) Eos % (Auto) Baso % (Auto) Neut # (Auto) Lymph # (Auto) [place] # (Auto) Eos # (Auto) Baso # (Auto) WBC Differential Seg Neuts % (Manual) Band Neuts % (Manual) Lymphocytes % (Manual) Abs Neuts (Manual) Differential Comment Platelet Estimate Platelet Morphology RBC Morphology Puncture Site Patient Temperature O2 Saturation ABG pH ABG pCO2 ABG pO2 ABG HCO3 ABG O2 Content ABG Base Excess ABG Methemoglobin Shai Test Hemoglobin Carboxyhemoglobin O2 Delivery Device Vent Setting Inspired O2 Critical Value Sodium Potassium Chloride Carbon Dioxide Anion Gap BUN Creatinine Estimated GFR POC Glucose 116 H Random Glucose Lactic Acid Calcium Total Bilirubin AST ALT Alkaline Phosphatase Troponin I Total Protein Albumin Prealbumin Urine Color Urine Clarity Urine pH Ur Specific [place] Urine Protein Urine Glucose (UA) Urine Ketones Urine Occult Blood Urine Nitrate Urine Bilirubin Urine Urobilinogen Ur Leukocyte Esterase Urine RBC Urine WBC Ur Squamous Epith Cells Hyaline Casts Micro UA Comment Ur Microscopic Review Urine Culture Comments Result Diagrams: 07/28/18 02:15 07/28/18 02:15 Imagin07/28/18 chest x-ray: CONCLUSION: 1. ETT and NGT in good position. 2. Focal left lower lobe airspace consolidation. Procedures: 07/28/18 -endotracheal intubation Patient/Family Conference Present at Family Conference: Juanito and daughter Debbie. Family Conference Time: 42 Family Conference Location: Bedside Issues Discussed: * Palliative care role, purpose, approach * Additional medical, psychosocial, and spiritual history * Patients general health, functional status, and cognitive changes in the months leading up to the current hospitalization * Patient/family understanding of the current medical problems * Patient/family understanding of prognosis -poor prognosis * Patients goals of care as best understood from advance directives and/or conversations and/or values * Current medical treatment options and benefits/burdens of those options * Likely scenarios comparing ongoing aggressive care with a transition to comfort measures only * Compassionate withdrawal of life support/anticipatory guidance * Questions answered to the best of my ability * Palliative care contact information provided * Hospice philosophy and benefits * Risks, benefits and limitations of CPR given patient's condition Assessment and Plan - Disease Oriented Problem List (1) Pneumonia (2) Acute hypoxemic respiratory failure (3) Healthcare-associated pneumonia (4) Malnutrition - Symptom Scale (1) Pain 0-10 Scale: Unable to quantify Pertinent Non-Medical Issues: Psychosocial: Patient originally from [place], moved to [place] at the age of 6. for the past 53 years, 6 children. Former registered nurse. Spiritual: Sabianism frank. Legal: Advance directives reported as completed. to bring copy. Ethical issues impacting care: No ethical issues identified. Important Contacts: Sonali , Daughter Debbie Daughter Fabiana Prognosis: Mrs. Jordan is an 83-year-old female with a medical history significant for oxygen dependent COPD, CAD, osteoarthritis, scoliosis and multiple recent hospitalizations. [facility]28 for evaluation and management of respiratory distress. Patient presented tachycardic with a heart rate in the 120s, tachypneic with respiratory rate in the 40s and hypoxic with pulse oximeter in the mid 60s. Patient was emergently intubated and placed on mechanical ventilation. Overall poor prognosis given multiple acute on chronic comorbidities, recurrent recent hospitalizations, malnutrition, profound physical deconditioning and advanced age. Patient at very high risk of additional complications and . Code Status: Alternative Code Plan: * CODE STATUS: No cardiac code. * HEALTHCARE DECISION-MAKING: Patient unable to participating medical decision making secondary to clinical condition, sedated and intubated on mechanical ventilation. Advance directives reported as completed, to bring copy. Juanito Jordan presenting as healthcare surrogate decision-maker. * GOALS OF CARE: As per patient's , goals of treatment at this time is to continue conservative management short of no cardiac resuscitation or invasive procedures/interventions. Family likely to transition patient to comfort-directed care/compassionate withdrawal of life support within the next 24-48 hours once additional family members are present. As per family, this decision has been made given patient's overall poor prognosis for meaningful recovery and her known wishes regarding life support. Hospice philosophy and benefits introduced. * SYMPTOMS: = Pain: Patient with significant chronic pain secondary to severe thoracolumbar scoliosis. Additional source of pain to include endotracheal intubation, multiple lines/interventions, bedrest. Patient currently on fentanyl drip. No additional recommendations at this time. * Case discussed with Dr. Clemens and bedside RN. * Palliative care contact information has been provided to patient's family. * Spiritual services following. * Palliative care will continue to follow-up for further clarifications of goals of care as patient's clinical course continues to evolve. Time Spent Total Floor Time (mins): 65 (Total time to include review of summarization of available medical records to include prior hospitalizations, clinical exam, goals of care conversation with patient's family, case discussion with attending and bedside RN.) >50% Time in Counseling or Coordination of Care: Yes (Total visit time = 65 minutes; > 50% spent counseling/coordinating care) Appreciation Thank you for the opportunity to participate in the care of Gracie Jordan. Attestation Attestation: To help prompt me to consider important information that might be impacting today's encounter and assessment, information from prior notes written by myself or my colleagues may have been "brought forward" into today's note. My signature on this note, however, is an attestation that I personally performed the exam, history, and/or decision-making noted today, and, unless otherwise indicated, the interactions with patient, family, and staff as well as the review of records all occurred today. I also attest that the listed assessment and stated plan reflect my best clinical judgment today based on the combination of historical information, prior notes, and today's exam/ interactions. When time spent is documented, it refers only to time spent today by the signer, or if indicated, combined time spent today by collaborating physician/nurse practitioner.
--- NOTE | 2018-07-28 12:59 | P.DIET ---
Nutritional Evaluation Type of nutrition evaluation: initial Nutrition consult regarding: Tube Feeding Nutrition screening: [facility] Objective - Diagnosis Respiratory Failure, LLL Pneumonia - Objective Body Mass Index: 17(underweight) [place] body weight: 50 kg (110 lbs) % IBW: 86 Body Weight Used for Calculations: Actual (43kg) Energy Needs - Lower Range (kCal/kg): 32 Energy Needs - Upper Range (kCal/kg): 38 Lower Limit kCal/kg (kCals): 1,376 Upper Limit kCal/kg (kCals): 1,634 Lower Limit Protein Factor (Grams per Kg): 1.0 Upper Limit Protein Factor (Grams per Kg): 1.2 Lower Protein Needs (Protein): 43 Upper Protein Needs (Protein): 52 Dietitian Reviewed in Medical Record: Current diet, Curent medications, Labs, Medical history, Tube feeding Diet Order: TF Objective Comments: PMH; anemia, COPD, CAD, recurrent SBO, scoliosis, osteoarthritis, shingles, diverticulosis, macular degeneration Labs; Na 129, K 5.6, BUN 46, Cr 1.3, GFR 39, Random Gluc 139 Medications; synthroid, insulin Assessment Assessment: [facility] TF; Pt presents to ED with SOB and hypoxia and is currently at nutritional risk related need for TF. Upon arrival to ED pt was emergently intubated and sedated with propofol. Current TF order per MD is Jevity 1.5 running at 60ml/ hour to provide 2160kcal, 92g protein and 1094 ml free water. Pt's nutrient needs are as assessed above and at this time with current TF formula and rate she is being overfed. Will recommend to change TF formula to Glucerna 1.5 in the setting of COPD and run at 55ml per hour over a 20 hour period to provide 1650kcal, 90g protein, 835ml free water, plus an additional 35 kcal from propofol. Important to note, pt is taking synthroid which will effect TF administration. TF must be held two hours before and after administration of synthroid. Glucerna is an appropriate formula in the setting of COPD as it is lower in carbohydrate and may help reduce diet induced carbon dioxide production. Labs and medications reviewed. Will continue to monitor tolerance to TF, labs, and clinical course. Recommendations: 1. Recommend Glucerna 1.5 running at 55ml/ hour over a 20 hour period 2. Hold TF 2 hours before and after Synthroid administration 3. Monitor tolerance to TF and clinical course Dietitian to Monitor: Lab values, Intake & Output, Tube feeding tolerance
[2018-07-28 17:32] LABS: Albumin 1.8 g/dL (3.4-5.0); Calcium 7.1 mg/dL (8.5-10.1); Carbon Dioxide 28.6 meq/L (21.0-32.0); Potassium 3.9 meq/L (3.5-5.1); Total Protein 4.4 g/dL (6.4-8.2)
[2018-07-28] MEDS ORDERED: Fluconazole 100 MG Tablet PO SCH (21:00)
[2018-07-29] MEDS: Insulin NovoLIN Regular Correctional Sugar Inj SQ SCH ×3 (02:10→12:06)
[2018-07-29] MEDS: Oral Hygiene Kit OROPHARYNG SCH ×3 (02:11→12:06)
[2018-07-29] MEDS: MethylPREDNISolone Sod Succinate Inj 125 MG/2 ML Vial IV.PUSH SCH ×2 (02:17→09:43)
[2018-07-29] MEDS: Sod Chloride 0.9% Inj 1,000 ML IV.CONT SCH ×3 (02:34→17:16)
[2018-07-29] MEDS ORDERED: Enoxaparin Inj 30 MG/0.3 ML Syringe SQ SCH (04:00)
[2018-07-29] MEDS: Chlorhexidine Gluconate 2% 1 Pack (2 Cloths) TOPICAL SCH (04:05)
[2018-07-29 04:24] VITALS: TEMP 98
[2018-07-29 04:58] LABS: Baso % (Auto) 0.1 % (0.0-2.0); Hematocrit 34.2 % (35.0-46.0); Hemoglobin 11.2 gm/dL (11.6-15.3); Lymph # (Auto) 0.2 th/mm3 (1.0-4.8); Mean Corpuscular HGB Conc 32.7 % (32.0-36.0); Mean Corpuscular Hemoglobin 32.9 pg (27.0-34.0); Mean Corpuscular Volume 100.7 fL (80.0-100.0); Mean Platelet Volume 8.4 fL (7.0-11.0); Mono # (Auto) 0.2 th/mm3 (0.0-0.9); Mono % (Auto) 1.3 % (0.0-8.0); Neut # (Auto) 16.6 th/mm3 (1.8-7.7); Neut % (Auto) 97.6 % (16.0-70.0); Platelet Count 69 th/mm3 (150-450); Red Blood Count 3.39 mil/mm3 (4.00-5.30)
[2018-07-29 05:16] LABS: Alanine Aminotransferase 87 U/L (10-53); Alkaline Phosphatase 144 U/L (45-117); Anion Gap 9 meq/L (5-15); Aspartate Aminotransferase 36 U/L (15-37); Blood Urea Nitrogen 40 mg/dL (7-18); Calcium 7.5 mg/dL (8.5-10.1); Carbon Dioxide 25.6 meq/L (21.0-32.0); Chloride 108 meq/L (98-107); Glomerular Filtration Rate 87 mL/min (>89); Glucose,Random 97 mg/dL (74-106); Magnesium 2.5 mg/dL (1.5-2.5); Phosphorus 3.2 mg/dL (2.5-4.9); Potassium 3.9 meq/L (3.5-5.1); Total Protein 4.8 g/dL (6.4-8.2)
--- NOTE | 2018-07-29 05:16 | XR ---
EXAM DATE: 07/29/2018 4:59 AM EST AGE/SEX: 83 years / Female INDICATIONS: Short of breath. CLINICAL DATA: This is the patient's subsequent encounter. Patient reports that signs and symptoms h ave been present for 2 days and indicates a pain score of 0/10. MEDICAL/SURGICAL HISTORY: Non-responsive. Non-responsive. COMPARISON: [facility], CHEST 1V SINGLE AP, 07/28/2018. . FINDINGS: Stable ETT and NGT. Persistent left lower lobe airspace consolidation. Persistent diffuse interstitia l prominence and lung hyperexpansion. Bilateral apical pleural calcifications. Cardiomediastinal cont ours are stable. Remainder of the exam is unchanged. CONCLUSION: 1. No significant interval change. 2. Stable ETT and NGT. 3. Stable left lower lobe airspace consolidation. Electronically signed by: Christo Headley MD Board Certified Radiologist 07/29/2018 5:15 AM EST
[2018-07-29 05:17] LABS: Sodium 143 meq/L (136-145)
[2018-07-29 05:31] LABS: ABG PCO2 40 mmHg (38-42); ABG PO2 184 mmHg (61-120)
[2018-07-29] MEDS ORDERED: Levothyroxine 50 MCG Tablet PO SCH (06:00)
[2018-07-29 07:41] VITALS: RESP 16
[2018-07-29] MEDS: Senna/Docusate Sodium 8.6/50 MG Tablet PO SCH (09:09)
[2018-07-29] MEDS: Polyethylene Glycol 3350 17 GM Packet PO SCH (09:09)
[2018-07-29] MEDS: Famotidine PF Inj 20 MG/2 ML Vial IV.PUSH SCH (09:42)
[2018-07-29] MEDS: Chlorhexidine 0.12% Oral Kit 15 ML UDC OROPHARYNG SCH (09:43)
--- NOTE | 2018-07-29 09:59 | P.PNCC ---
Subjective Subjective Remarks/Hospital Course: Patient is a 83-year-old malnourished female with past medical history significant for anemia, oxygen dependent COPD, coronary artery disease, recurrent small bowel obstruction, scoliosis, osteoarthritis, history of shingles. Patient was admitted from 07/19/2018 to 07/26/2018 to the hospital for acute hypoxemic respiratory failure and COPD exacerbation. She was treated with BiPAP steroids breathing treatments and antibiotics and eventually discharged to [place] [facility] on 07/26/2018. She presented to the [place] emergency department today a.m. with severe shortness of breath and hypoxia. EMS placed the patient on BiPAP. Patient arrived severely hypoxemic on 100% oxygen. Emergently intubated by the ED physician and placed on mechanical ventilation. Received Rocephin and azithromycin. Due to concern for healthcare associated pneumonia was antibiotics were changed to vancomycin and Azactam. Chest x-ray showed left lower lobe infiltrate. Patient transferred to [facility] for further evaluation and treatment, due to severe sepsis septic shock and hypoxemic respiratory failure I evaluated the patient in the ICU. She is currently sedated but moves extremities. Currently FiO2 requirement is 70%. Broad-spectrum antibiotics will be continued usual breathing treatments start IV Solu-Medrol 60 mg every 8 hours. Her white count is 33,000 with a lactic acid of 3.6. Overall prognosis is poor given recurrent hospitalization malnourishment and COPD on home oxygen, now with severe respiratory failure kidney injury and septic shock.. I will consult palliative care to address goals of care as the patient has previously expressed wish not to be on life support 07/29/18 remains intubated sedated critical WBC count slightly improved to 17, 000. FiO2 requirement has decreased to 40% however PEEP remains at 10. Patient 's overall mentation has improved she wakes up easily follows commands. Daughter is at the bedside. Meeting with palliative care today planning on possible withdrawal however because of the clinical improvement I would recommend wean to extubation and transition to comfort measures if there is further clinical deterioration Objective Vital Signs / I&O: Vital Signs 07/28/18 10:00 07/28/18 10:40 07/28/18 11:00 Temperature Pulse Rate 105 H 95 H 92 H Respiratory Rate 16 16 16 Blood Pressure 129/64 Pulse Oximetry 96 95 96 07/28/18 11:40 07/28/18 12:00 07/28/18 12:23 Temperature Pulse Rate 91 H 93 H 95 H Respiratory Rate 16 16 16 Blood Pressure 138/67 Pulse Oximetry 95 95 93 L 07/28/18 12:40 07/28/18 13:00 07/28/18 13:40 Temperature Pulse Rate 95 H 95 H 92 H Respiratory Rate 16 16 16 Blood Pressure 106/56 L 88/51 L Pulse Oximetry 94 L 96 97 07/28/18 14:00 07/28/18 14:40 07/28/18 15:00 Temperature Pulse Rate 91 H 89 91 H Respiratory Rate 16 16 16 Blood Pressure 113/58 L Pulse Oximetry 97 97 97 07/28/18 15:40 07/28/18 16:00 07/28/18 16:42 Temperature Pulse Rate 88 89 95 H Respiratory Rate 16 16 16 Blood Pressure 86/54 L Pulse Oximetry 96 96 96 07/28/18 16:45 07/28/18 17:00 07/28/18 17:40 Temperature Pulse Rate 94 H 88 Respiratory Rate 16 16 Blood Pressure 121/60 86/50 L Pulse Oximetry 96 96 07/28/18 18:00 07/28/18 18:06 07/28/18 18:40 Temperature Pulse Rate 88 94 H 93 H Respiratory Rate 16 17 16 Blood Pressure 120/61 Pulse Oximetry 96 98 96 07/28/18 19:00 07/28/18 19:40 07/28/18 19:50 Temperature Pulse Rate 96 H 96 H 95 H Respiratory Rate 16 16 16 Blood Pressure 119/63 Pulse Oximetry 96 96 96 07/28/18 20:00 07/28/18 20:40 07/28/18 21:00 Temperature 98.4 F Pulse Rate 94 H 93 H 93 H Respiratory Rate 16 16 16 Blood Pressure 133/63 Pulse Oximetry 95 92 L 91 L 07/28/18 21:40 07/28/18 22:00 07/28/18 22:40 Temperature Pulse Rate 99 H 95 H 92 H Respiratory Rate 26 H 16 16 Blood Pressure 129/68 126/66 Pulse Oximetry 96 96 97 07/28/18 23:00 07/28/18 23:40 07/28/18 23:55 Temperature Pulse Rate 93 H 90 95 H Respiratory Rate 16 16 17 Blood Pressure 121/63 Pulse Oximetry 97 99 97 07/29/18 00:00 07/29/18 00:40 07/29/18 01:00 Temperature 97.6 F Pulse Rate 99 H 92 H 91 H Respiratory Rate 27 H 16 16 Blood Pressure 122/64 Pulse Oximetry 98 97 97 07/29/18 01:40 07/29/18 02:00 07/29/18 02:40 Temperature Pulse Rate 87 84 84 Respiratory Rate 16 16 16 Blood Pressure 102/56 L 142/69 H Pulse Oximetry 96 96 96 07/29/18 03:00 07/29/18 03:40 07/29/18 03:47 Temperature Pulse Rate 85 98 H 100 H Respiratory Rate 16 18 17 Blood Pressure 146/108 H 154/107 H Pulse Oximetry 96 95 07/29/18 03:52 07/29/18 04:00 07/29/18 04:05 Temperature 98.0 F Pulse Rate 96 H 95 H 94 H Respiratory Rate 16 16 16 Blood Pressure 122/59 L Pulse Oximetry 96 96 97 07/29/18 05:00 07/29/18 05:13 07/29/18 06:00 Temperature Pulse Rate 84 86 80 Respiratory Rate 16 17 16 Blood Pressure 135/63 Pulse Oximetry 98 98 98 07/29/18 06:04 07/29/18 06:13 07/29/18 07:35 Temperature Pulse Rate 79 Respiratory Rate 16 16 17 Blood Pressure 104/56 L Pulse Oximetry 97 96 99 07/29/18 07:40 Temperature Pulse Rate 81 Respiratory Rate 16 Blood Pressure Pulse Oximetry Intake & Output 07/28/18 07/29/18 07/29/18 18:59 06:59 18:59 Intake Total 3575 / 3575 1395 / 1395 Output Total 750 / 750 475 / 475 Balance 2825 / 2825 920 / 920 Weight 42.8 kg 48.9 kg Intake: IV 3575 / 3575 1275 / 1275 Diprivan 1000 mg/100 ml Inj 1, 75 / 75 000 mg In 100 ml @ 5 MCG/KG/MIN 1.284 mls/hr IV.CONT TITRATE PRN Rx#:[id number] NS Inj 1,000 ML @ 84 mls/hr IV. 100 / 100 1000 / 1000 CONT .[id number] NAVEEN Rx#: [id number] Azithromycin Inj 500 MG In NS 125 / 125 Inj 250 ML @ 250 mls/hr IV.SIG ONCE ONE Rx#:[id number] Azactam Inj 1,000 MG In NS Inj 100 / 100 200 / 200 100 ML @ 200 mls/hr IV.SIG Q8H NAVEEN Rx#:[id number] NS Inj 1,000 ML @ 2000 mls/hr 3000 / 3000 IV.SIG Q30M [facility] Rx#:[id number] Vancomycin Inj 1,000 MG In NS 250 / 250 Inj 250 ML @ 250 mls/hr IV.SIG ONCE ONE Rx#:[id number] Tube Irrigant 120 / 120 Output: Urine Amount (Catheter) 550 / 550 325 / 325 Indwelling Urethral Catheter 550 / 550 325 / 325 Gastric Drainage 200 / 200 150 / 150 Orogastric Tube 200 / 200 150 / 150 Other: Date of Last Bowel Movement 07/27/18 07/29/18 # Incontinent Bowel Movements 1 Weight On Admission 42.8 kg Result Diagrams: 07/29/18 04:19 07/29/18 04:19 Objective Remarks: GEN: Elderly chronically ill malnourished female who is intubated sedated HENMT: normocephalic and atraumatic. Pupils are equal Neck: Supple Chest: Air entry is equal bilaterally with bibasilar crackles no wheezes coarse rhonchi. FiO2 at 40% PEEP 10 CVS: S1-S2 normal no murmurs GI: Abdomen mildly distended and tense tender to palpation. No organomegaly Skin: No rashes or lesions noted and turgor normal Neuro: Patient is intubated sedated for ventilator synchrony, however wakes up easily follows commands. Spontaneously moves extremities intermittently. Assessment and Plan - Problem List (1) Acute hypoxemic respiratory failure Code(s): J96.01 - Acute respiratory failure with hypoxia Status: Acute (2) COPD with acute exacerbation Code(s): J44.1 - Chronic obstructive pulmonary disease with (acute) exacerbation Status: Acute (3) Healthcare-associated pneumonia Code(s): J18.9 - Pneumonia, unspecified organism Status: Acute (4) Septic shock Code(s): A41.9 - Sepsis, unspecified organism; R65.21 - Severe sepsis with septic shock Status: Acute (5) Acute kidney injury Code(s): N17.9 - Acute kidney failure, unspecified Status: Acute (6) Lactic acidosis Code(s): E87.2 - Acidosis Status: Acute (7) Hyperkalemia Code(s): E87.5 - Hyperkalemia Status: Acute (8) Small bowel obstruction due to adhesions Code(s): K56.50 - Intestinal adhesions [bands], unspecified as to partial versus complete obstruction Status: Resolved (9) Bronchiectasis Code(s): J47.9 - Bronchiectasis, uncomplicated Status: Chronic (10) Hyponatremia Code(s): E87.1 - Hypo-osmolality and hyponatremia Status: Chronic (11) Hypothyroidism Code(s): E03.9 - Hypothyroidism, unspecified Status: Chronic (12) Scoliosis Code(s): M41.9 - Scoliosis, unspecified Status: Chronic (13) Malnutrition Code(s): E46 - Unspecified protein-calorie malnutrition Status: Chronic (14) History of COPD Code(s): Z87.09 - Personal history of other diseases of the respiratory system Status: Chronic - Assessment and Plan Plan: NEURO: -Propofol and fentanyl for sedation and ventilator synchrony -Need pain control due to scoliosis -Daily sedation vacation RESP: Acute hypoxemic respiratory failure Healthcare associated pneumonia Severe COPD exacerbation -PRVC/AC, PEEP 10-wean PEEP to 5 as tolerated -Ventilator bundle -DuoNeb every 4 hours scheduled and as needed -IV Solu-Medrol 60 mg every 8 hours -Broad-spectrum antibiotics vancomycin and Azactam -CPAP trial with possible extubation after family meeting with palliative care CV: Lactic acidosis -Normal saline IV fluids 75 ml per hour -2 L normal saline bolus, in addition to 1 L given in the ED -Lactic acid has improved from 3.6-2.3 GI: History of recurrent small bowel obstruction -N.p.o., IV famotidine -KUB to evaluate for ileus-shows mild gaseous distention of the small bowel -OG tube to intermittent wall suction : Acute kidney injury -Monitor renal function closely. Johnson catheter. -Fluid resuscitation as above -BUN/creatinine improving, urine output is acceptable ID: Septic shock-improving Healthcare associated pneumonia -Antibiotics with vancomycin and Azactam -Blood urine and sputum cultures HEME: Chronic anemia -Monitor CBC, coags ENDO: Mild hyperkalemia-resolved -Electrolyte replacement per protocol -Sliding scale insulin -Repeat CMP at 2 PM PROPH: -Bilateral lower extremity SCDs. Lovenox/famotidine LINES: -Utilize peripheral IVs, central line if needed CC time 35 min (9) Bronchiectasis Qualifiers: Bronchiectasis type: uncomplicated Qualified Code(s): J47.9 - Bronchiectasis , uncomplicated (11) Hypothyroidism Qualifiers: Hypothyroidism type: unspecified Qualified Code(s): E03.9 - Hypothyroidism, unspecified (12) Scoliosis Qualifiers: Scoliosis type: unspecified scoliosis Spinal region: thoracolumbar Qualified Code(s): M41.9 - Scoliosis, unspecified
[2018-07-29] MEDS: Propofol 1000 mg/100 ml Inj 1,000 MG/100 ML BOTTLE IV.CONT PRN (11:50)
[2018-07-29] MEDS ORDERED: Hyoscyamine Inj 0.5 MG/ML Ampul IV.PUSH PRN (14:37)
[2018-07-29] MEDS ORDERED: Hyoscyamine Inj 0.5 MG/ML Ampul IV.PUSH ONE (14:37)
[2018-07-29] MEDS ORDERED: HYDROmorphone PF Inj 1 MG/ML Ampul IV.PUSH PRN ×2 (14:37)
[2018-07-29] MEDS ORDERED: Acetaminophen 650 MG Supp RECTAL PRN (14:37)
[2018-07-29] MEDS ORDERED: HYDROmorphone PF Inj 1 MG/ML Ampul IV.PUSH ONE ×2 (14:37)
--- NOTE | 2018-07-29 15:02 | P.PNPAL ---
Reason for Visit Reason for visit: a. To assist with evaluation and management of symptoms including: Pain, dyspnea. b. To assist medical decision maker(s) with: better understanding of current medical conditions; weighing benefits/burdens of medical treatment options; making medical treatment decisions. Subjective Subjective/Interval History: Patient seen and examined in ICU. Nurse, Jessica and Darek, [employer] student also present. , children and other family members present. Patient has low dose Fentanyl and Propofol going, she awakens briefly, then falls off to sleep. She does not really seem to be tracking. She does not nod yes/no to any questions. Hypotensive, 89/54. WBC decreased to [address] Clemens who agrees transition to comfort with compassionate withdrawal of life support. Exhibits B & C on chart. Family/Friend Interactions: Spoke with family at bedside. Anticipatory guidance provided. Family had requested before our visit that sedation be lessened so they could say their good-byes. They desire she be pre-medicated before withdrawal of life support. Reviewed plan for symptom management. provided information for home, [facility] in [place] (nurse notified). Questions answered to family satisfaction. Offered support. Turf Grower offered, declined as is a reel hooker. Advance Directives Living Will: Completed, but not made available Health Care Surrogate: Completed, but not made available Health Care Surrogate Name and Number: Sonali Hernandes: [phone] Significant change in goals:: NO CODE. Plan for transition to comfort measures with compassionate withdrawal of life support. Objective Vital Signs: Vital Signs 07/28/18 15:00 07/28/18 15:40 07/28/18 16:00 Temperature Pulse Rate 91 H 88 89 Respiratory Rate 16 16 16 Blood Pressure 86/54 L Pulse Oximetry 97 96 96 07/28/18 16:42 07/28/18 16:45 07/28/18 17:00 Temperature Pulse Rate 95 H 94 H Respiratory Rate 16 16 Blood Pressure 121/60 Pulse Oximetry 96 96 07/28/18 17:40 07/28/18 18:00 07/28/18 18:06 Temperature Pulse Rate 88 88 94 H Respiratory Rate 16 16 17 Blood Pressure 86/50 L Pulse Oximetry 96 96 98 07/28/18 18:40 07/28/18 19:00 07/28/18 19:40 Temperature Pulse Rate 93 H 96 H 96 H Respiratory Rate 16 16 16 Blood Pressure 120/61 119/63 Pulse Oximetry 96 96 96 07/28/18 19:50 07/28/18 20:00 07/28/18 20:40 Temperature 98.4 F Pulse Rate 95 H 94 H 93 H Respiratory Rate 16 16 16 Blood Pressure 133/63 Pulse Oximetry 96 95 92 L 07/28/18 21:00 07/28/18 21:40 07/28/18 22:00 Temperature Pulse Rate 93 H 99 H 95 H Respiratory Rate 16 26 H 16 Blood Pressure 129/68 Pulse Oximetry 91 L 96 96 07/28/18 22:40 07/28/18 23:00 07/28/18 23:40 Temperature Pulse Rate 92 H 93 H 90 Respiratory Rate 16 16 16 Blood Pressure 126/66 121/63 Pulse Oximetry 97 97 99 07/28/18 23:55 07/29/18 00:00 07/29/18 00:40 Temperature 97.6 F Pulse Rate 95 H 99 H 92 H Respiratory Rate 17 27 H 16 Blood Pressure 122/64 Pulse Oximetry 97 98 97 07/29/18 01:00 07/29/18 01:40 07/29/18 02:00 Temperature Pulse Rate 91 H 87 84 Respiratory Rate 16 16 16 Blood Pressure 102/56 L Pulse Oximetry 97 96 96 07/29/18 02:40 07/29/18 03:00 07/29/18 03:40 Temperature Pulse Rate 84 85 98 H Respiratory Rate 16 16 18 Blood Pressure 142/69 H 146/108 H Pulse Oximetry 96 96 95 07/29/18 03:47 07/29/18 03:52 07/29/18 04:00 Temperature 98.0 F Pulse Rate 100 H 96 H 95 H Respiratory Rate 17 16 16 Blood Pressure 154/107 H Pulse Oximetry 96 96 07/29/18 04:05 07/29/18 05:00 07/29/18 05:13 Temperature Pulse Rate 94 H 84 86 Respiratory Rate 16 16 17 Blood Pressure 122/59 L 135/63 Pulse Oximetry 97 98 98 07/29/18 06:00 07/29/18 06:04 07/29/18 06:13 Temperature Pulse Rate 80 79 Respiratory Rate 16 16 16 Blood Pressure 104/56 L Pulse Oximetry 98 97 96 07/29/18 07:00 07/29/18 07:13 07/29/18 07:35 Temperature Pulse Rate 75 77 Respiratory Rate 16 16 17 Blood Pressure 147/67 H Pulse Oximetry 97 97 99 07/29/18 07:40 07/29/18 08:00 07/29/18 08:13 Temperature Pulse Rate 81 85 99 H Respiratory Rate 16 16 17 Blood Pressure 145/105 H Pulse Oximetry 96 97 07/29/18 09:00 07/29/18 09:13 07/29/18 10:00 Temperature Pulse Rate 101 H 94 H 128 H Respiratory Rate 18 16 37 H Blood Pressure 152/72 H Pulse Oximetry 99 100 97 07/29/18 10:13 07/29/18 11:00 07/29/18 11:13 Temperature Pulse Rate 110 H 112 H 110 H Respiratory Rate 14 14 14 Blood Pressure 140/70 125/63 Pulse Oximetry 97 94 L 91 L 07/29/18 11:35 07/29/18 11:38 07/29/18 12:00 Temperature Pulse Rate 104 H 92 H Respiratory Rate 16 16 16 Blood Pressure Pulse Oximetry 94 L 95 07/29/18 12:13 07/29/18 13:00 07/29/18 13:13 Temperature Pulse Rate 86 76 75 Respiratory Rate 16 16 16 Blood Pressure 89/50 L 89/54 L Pulse Oximetry 95 97 98 Intake & Output 07/28/18 07/29/18 07/29/18 18:59 06:59 18:59 Intake Total 3575 / 3575 1395 / 1395 1100 / 1100 Output Total 750 / 750 475 / 475 Balance 2825 / 2825 920 / 920 1100 / 1100 Weight 42.8 kg 48.9 kg Intake: IV 3575 / 3575 1275 / 1275 1100 / 1100 Diprivan 1000 mg/100 ml Inj 1, 75 / 75 100 / 100 000 mg In 100 ml @ 5 MCG/KG/MIN 1.284 mls/hr IV.CONT TITRATE PRN Rx#:[id number] NS Inj 1,000 ML @ 84 mls/hr IV. 100 / 100 1000 / 1000 1000 / 1000 CONT .[id number] NAVEEN Rx#: [id number] Azithromycin Inj 500 MG In NS 125 / 125 Inj 250 ML @ 250 mls/hr IV.SIG ONCE ONE Rx#:[id number] Azactam Inj 1,000 MG In NS Inj 100 / 100 200 / 200 100 ML @ 200 mls/hr IV.SIG Q8H [facility] Rx#:[id number] NS Inj 1,000 ML @ 2000 mls/hr 3000 / 3000 IV.SIG Q30M [facility] Rx#:[id number] Vancomycin Inj 1,000 MG In NS 250 / 250 Inj 250 ML @ 250 mls/hr IV.SIG ONCE ONE Rx#:[id number] Tube Irrigant 120 / 120 Output: Urine Amount (Catheter) 550 / 550 325 / 325 Indwelling Urethral Catheter 550 / 550 325 / 325 Gastric Drainage 200 / 200 150 / 150 Orogastric Tube 200 / 200 150 / 150 Other: Date of Last Bowel Movement 07/27/18 07/29/18 # Incontinent Bowel Movements 1 Weight On Admission 42.8 kg Physical Exam: CONSTITUTIONAL/GENERAL: This is a cachectic, frail looking elderly woman endotracheally intubated on mechanical ventilation. TUBES/LINES/DRAINS: ETT, OG, PIV, Johnson catheter, SCDs, bilateral soft wrist restraints. SKIN: Pale. No jaundice, rashes, or lesions. No wounds seen anteriorly. Skin temperature appropriate. Not diaphoretic. EYES: Pupils equal and round. ENT: Hearing grossly normal. Nose without bleeding or purulent drainage. Moist oral mucosa. CARDIOVASCULAR: Regular rate and rhythm. RESPIRATORY/CHEST: Symmetric, unlabored respirations. Rhonchi bilaterally. Endotracheally intubated on mechanical ventilation. GASTROINTESTINAL: Abdomen soft, non-tender, nondistended. No guarding. Bowel sounds present. GENITOURINARY: Without palpable bladder distension. Johnson catheter in place. MUSCULOSKELETAL: Extremities without clubbing, cyanosis, or edema. Significant muscle atrophy to all 4 extremities. NEUROLOGICAL: Briefly opening eyes to verbal stimuli, not answering simple questions by nodding head "yes/no". PSYCHIATRIC: Calm. Diagnostic Tests Laboratory: Laboratory Results - last 72 hr 07/28/18 07/28/18 07/28/18 02:15 02:15 03:08 CBC w Diff Slide review pending WBC 33.5 H RBC 4.55 Hgb 14.9 Hct 45.0 MCV 99.0 MCH 32.8 MCHC 33.1 RDW 12.6 Plt Count 176 MPV 7.9 Prelim Diff (Auto) Neut % (Auto) 95.6 H Lymph % (Auto) 1.2 L Green % (Auto) 0.5 Eos % (Auto) 0.0 Baso % (Auto) 2.7 H Neut # (Auto) 32.0 H Lymph # (Auto) 0.4 L Green # (Auto) 0.2 Eos # (Auto) 0.0 Baso # (Auto) 0.9 H WBC Differential Manual diff final Diff Scan Seg Neuts % (Manual) 88 H Band Neuts % (Manual) 11 H Lymphocytes % (Manual) 1 L Abs Neuts (Manual) 33.2 H Differential Comment . Platelet Estimate Normal Platelet Morphology Normal RBC Morphology Normal Puncture Site Right brachial Patient Temperature 98.6 O2 Saturation 97 ABG pH 7.37 L ABG pCO2 57 H* ABG pO2 245 H ABG HCO3 32 H ABG O2 Content 16.8 ABG Base Excess 6.5 H ABG Methemoglobin 1.4 Shai Test Y Hemoglobin 11.8 L Carboxyhemoglobin 1.0 O2 Delivery Device Ventilator Vent Setting Prvc/ac Inspired O2 100 Critical Value Yes Sodium 129 L Potassium 5.6 H D Chloride 85 L Carbon Dioxide 34.9 H Anion Gap 9 BUN 46 H Creatinine 1.30 H Estimated GFR 39 L POC Glucose Random Glucose 139 H Lactic Acid Calcium 8.8 Calcium Adj for Albumin Phosphorus Magnesium Total Bilirubin 1.4 H AST 47 H ALT 96 H Alkaline Phosphatase 183 H Troponin I Less than 0.02 L Total Protein 6.4 D Albumin 2.6 L Prealbumin Urine Color Urine Clarity Urine pH Ur Specific [place] Urine Protein Urine Glucose (UA) Urine Ketones Urine Occult Blood Urine Nitrate Urine Bilirubin Urine Urobilinogen Ur Leukocyte Esterase Urine RBC Urine WBC Ur Squamous Epith Cells Hyaline Casts Micro UA Comment Ur Microscopic Review Urine Culture Comments Nasal Screen MRSA (PCR) Random Vancomycin 07/28/18 07/28/18 07/28/18 03:45 03:58 03:58 CBC w Diff WBC RBC Hgb Hct MCV MCH MCHC RDW Plt Count MPV Prelim Diff (Auto) Neut % (Auto) Lymph % (Auto) Green % (Auto) Eos % (Auto) Baso % (Auto) Neut # (Auto) Lymph # (Auto) Green # (Auto) Eos # (Auto) Baso # (Auto) WBC Differential Diff Scan Seg Neuts % (Manual) Band Neuts % (Manual) Lymphocytes % (Manual) Abs Neuts (Manual) Differential Comment Platelet Estimate Platelet Morphology RBC Morphology Puncture Site Patient Temperature O2 Saturation ABG pH ABG pCO2 ABG pO2 ABG HCO3 ABG O2 Content ABG Base Excess ABG Methemoglobin Shai Test Hemoglobin Carboxyhemoglobin O2 Delivery Device Vent Setting Inspired O2 Critical Value Sodium Potassium Chloride Carbon Dioxide Anion Gap BUN Creatinine Estimated GFR POC Glucose Random Glucose Lactic Acid 3.6 H Calcium Calcium Adj for Albumin Phosphorus Magnesium Total Bilirubin AST ALT Alkaline Phosphatase Troponin I Total Protein Albumin Prealbumin 16 L Urine Color Nidhi H Urine Clarity Clear Urine pH 6.0 Ur Specific [place] Greater/equal 1.030 Urine Protein 30 H Urine Glucose (UA) Negative Urine Ketones Negative Urine Occult Blood Negative Urine Nitrate Negative Urine Bilirubin Negative Urine Urobilinogen 1.0 Ur Leukocyte Esterase Negative Urine RBC 0-3 Urine WBC 0-5 Ur Squamous Epith Cells 0-5 Hyaline Casts 0-3 Micro UA Comment Cath-culture not ind Ur Microscopic Review Microscopic reviewed Urine Culture Comments Cath-cult not ind Nasal Screen MRSA (PCR) Random Vancomycin 07/28/18 07/28/18 07/28/18 06:40 07:22 12:35 CBC w Diff WBC RBC Hgb Hct MCV MCH MCHC RDW Plt Count MPV Prelim Diff (Auto) Neut % (Auto) Lymph % (Auto) Green % (Auto) Eos % (Auto) Baso % (Auto) Neut # (Auto) Lymph # (Auto) Green # (Auto) Eos # (Auto) Baso # (Auto) WBC Differential Diff Scan Seg Neuts % (Manual) Band Neuts % (Manual) Lymphocytes % (Manual) Abs Neuts (Manual) Differential Comment Platelet Estimate Platelet Morphology RBC Morphology Puncture Site Patient Temperature O2 Saturation ABG pH ABG pCO2 ABG pO2 ABG HCO3 ABG O2 Content ABG Base Excess ABG Methemoglobin Shai Test Hemoglobin Carboxyhemoglobin O2 Delivery Device Vent Setting Inspired O2 Critical Value Sodium Potassium Chloride Carbon Dioxide Anion Gap BUN Creatinine Estimated GFR POC Glucose 116 H Random Glucose Lactic Acid 2.3 H Calcium Calcium Adj for Albumin Phosphorus Magnesium Total Bilirubin AST ALT Alkaline Phosphatase Troponin I Total Protein Albumin Prealbumin Urine Color Urine Clarity Urine pH Ur Specific [place] Urine Protein Urine Glucose (UA) Urine Ketones Urine Occult Blood Urine Nitrate Urine Bilirubin Urine Urobilinogen Ur Leukocyte Esterase Urine RBC Urine WBC Ur Squamous Epith Cells Hyaline Casts Micro UA Comment Ur Microscopic Review Urine Culture Comments Nasal Screen MRSA (PCR) Not detected Random Vancomycin 07/28/18 07/28/18 07/29/18 16:41 23:24 04:19 CBC w Diff WBC 17.0 H RBC 3.39 L Hgb 11.2 L D Hct 34.2 L MCV 100.7 H MCH 32.9 MCHC 32.7 RDW 13.0 Plt Count 69 L D MPV 8.4 Prelim Diff (Auto) Slide review pending Neut % (Auto) 97.6 H Lymph % (Auto) 1.0 L Green % (Auto) 1.3 Eos % (Auto) 0.0 Baso % (Auto) 0.1 Neut # (Auto) 16.6 H Lymph # (Auto) 0.2 L Green # (Auto) 0.2 Eos # (Auto) 0.0 Baso # (Auto) 0.0 WBC Differential . Diff Scan Auto diff confirmed Seg Neuts % (Manual) Band Neuts % (Manual) Lymphocytes % (Manual) Abs Neuts (Manual) Differential Comment . Platelet Estimate Platelet Morphology RBC Morphology Puncture Site Patient Temperature O2 Saturation ABG pH ABG pCO2 ABG pO2 ABG HCO3 ABG O2 Content ABG Base Excess ABG Methemoglobin Shai Test Hemoglobin Carboxyhemoglobin O2 Delivery Device Vent Setting Inspired O2 Critical Value Sodium 142 D Potassium 3.9 D Chloride 105 D Carbon Dioxide 28.6 Anion Gap 8 BUN 39 H Creatinine 0.71 Estimated GFR 79 L POC Glucose 96 Random Glucose 106 Lactic Acid Calcium 7.1 L* D Calcium Adj for Albumin 8.9 Phosphorus Magnesium Total Bilirubin 0.7 AST 58 H ALT 94 H Alkaline Phosphatase 139 H Troponin I Total Protein 4.4 L D Albumin 1.8 L D Prealbumin Urine Color Urine Clarity Urine pH Ur Specific [place] Urine Protein Urine Glucose (UA) Urine Ketones Urine Occult Blood Urine Nitrate Urine Bilirubin Urine Urobilinogen Ur Leukocyte Esterase Urine RBC Urine WBC Ur Squamous Epith Cells Hyaline Casts Micro UA Comment Ur Microscopic Review Urine Culture Comments Nasal Screen MRSA (PCR) Random Vancomycin 07/29/18 07/29/18 07/29/18 04:19 05:16 05:59 CBC w Diff WBC RBC Hgb Hct MCV MCH MCHC RDW Plt Count MPV Prelim Diff (Auto) Neut % (Auto) Lymph % (Auto) Green % (Auto) Eos % (Auto) Baso % (Auto) Neut # (Auto) Lymph # (Auto) Green # (Auto) Eos # (Auto) Baso # (Auto) WBC Differential Diff Scan Seg Neuts % (Manual) Band Neuts % (Manual) Lymphocytes % (Manual) Abs Neuts (Manual) Differential Comment Platelet Estimate Platelet Morphology RBC Morphology Puncture Site Left radial Patient Temperature 98.6 O2 Saturation 97 ABG pH 7.44 H ABG pCO2 40 ABG pO2 184 H ABG HCO3 27 H ABG O2 Content 14.1 ABG Base Excess 3.0 H ABG Methemoglobin 1.3 Shai Test Present Hemoglobin 10.0 L Carboxyhemoglobin 0.6 O2 Delivery Device Ventilator Vent Setting See comment prvc/ac Inspired O2 60 Critical Value No Sodium 143 Potassium 3.9 Chloride 108 H Carbon Dioxide 25.6 Anion Gap 9 BUN 40 H Creatinine 0.65 Estimated GFR 87 L POC Glucose 101 Random Glucose 97 Lactic Acid Calcium 7.5 L Calcium Adj for Albumin Phosphorus 3.2 Magnesium 2.5 Total Bilirubin 0.6 AST 36 ALT 87 H Alkaline Phosphatase 144 H Troponin I Total Protein 4.8 L Albumin 2.0 L Prealbumin Urine Color Urine Clarity Urine pH Ur Specific [place] Urine Protein Urine Glucose (UA) Urine Ketones Urine Occult Blood Urine Nitrate Urine Bilirubin Urine Urobilinogen Ur Leukocyte Esterase Urine RBC Urine WBC Ur Squamous Epith Cells Hyaline Casts Micro UA Comment Ur Microscopic Review Urine Culture Comments Nasal Screen MRSA (PCR) Random Vancomycin Less than 0.8 Result Diagrams: 07/29/18 04:19 07/29/18 04:19 Microbiology: Microbiology 07/28/18 03:30 Aerobic Blood Culture - Preliminary Blood - Peripheral No growth in 1 day Anaerobic Blood Culture - Preliminary No growth in 1 day 07/28/18 03:00 Aerobic Blood Culture - Preliminary Blood - Peripheral No growth in 1 day Anaerobic Blood Culture - Preliminary No growth in 1 day 07/28/18 03:35 Gram Stain - Final Sputum - Endotracheal Imaging: Abdomen X-Ray 07/28/18 09:02 CONCLUSION: Mild increase in gaseous distention of small bowel loops. Chest X-Ray 07/29/18 05:00 CONCLUSION: 1. No significant interval change. 2. Stable ETT and NGT. 3. Stable left lower lobe airspace consolidation. Procedures: 07/28/18 -endotracheal intubation Assessment and Plan - Disease Oriented Problem List (1) Pneumonia (2) Acute hypoxemic respiratory failure (3) Healthcare-associated pneumonia (4) Malnutrition - Symptom Scale (1) Pain 0-10 Scale: Unable to quantify (2) Dyspnea 0-10 Scale: Unable to quantify Pertinent Non-Medical Issues: Psychosocial: Patient originally from [place], moved to [place] at the age of 6. for the past 53 years, 6 children. Former registered nurse. Spiritual: Confucianism frank. Legal: Advance directives reported as completed. to bring copy. Ethical issues impacting care: No ethical issues identified. Important Contacts: Sonali , Daughter Debbie Daughter Fabiana Prognosis: Mrs. Jordan is an 83-year-old female with a medical history significant for oxygen dependent COPD, CAD, osteoarthritis, scoliosis and multiple recent hospitalizations. Patient presented to ED from care home facility via EMS on 07/28 for evaluation and management of respiratory distress. Patient presented tachycardic with a heart rate in the 120s, tachypneic with respiratory rate in the 40s and hypoxic with pulse oximeter in the mid 60s. Patient was emergently intubated and placed on mechanical ventilation. Overall poor prognosis given multiple acute on chronic comorbidities, recurrent recent hospitalizations, malnutrition, profound physical deconditioning and advanced age. Patient at very high risk of additional complications and . Code Status: No Code DNR Plan: * NO CODE * HEALTHCARE DECISION-MAKING: Patient unable to participating medical decision making secondary to clinical condition, sedated and intubated on mechanical ventilation. Advance directives reported as completed, to bring copy. Juanito Jordan presenting as healthcare surrogate decision-maker. * GOALS OF CARE: As per patient's , supported by children and many other family members have decided to transition to comfort-directed care/ compassionate withdrawal of life support today. As per family, this decision has been made given patient's overall poor prognosis for meaningful recovery and her known wishes regarding life support. * Declined pipe testing technician support. * SYMPTOMS: = Pain: Patient with significant chronic pain secondary to severe thoracolumbar scoliosis. Additional source of pain to include endotracheal intubation, multiple lines/interventions, bedrest. DC Fentanyl and Propofol. Dyspnea: due to underlying oxygen dependent COPD, respiratory failure. Orders written for comfort, withdrawal of life support. * Case discussed with Dr. Clemens and bedside RN. * Palliative care contact information has been provided to patient's family. * Palliative care will continue to follow-up for further clarifications of goals of care as patient's clinical course continues to evolve. Attestation Attestation: To help prompt me to consider important information that might be impacting today's encounter and assessment, information from prior notes written by myself or my colleagues may have been "brought forward" into today's note. My signature on this note, however, is an attestation that I personally performed the exam, history, and/or decision-making noted today, and, unless otherwise indicated, the interactions with patient, family, and staff as well as the review of records all occurred today. I also attest that the listed assessment and stated plan reflect my best clinical judgment today based on the combination of historical information, prior notes, and today's exam/ interactions. When time spent is documented, it refers only to time spent today by the signer, or if indicated, combined time spent today by collaborating physician/nurse practitioner.
[2018-07-29 16:25] VITALS: BP 154/70; PULSE 86; O2SAT 63
--- NOTE | 2018-07-30 08:01 | P.DN ---
- Provider Primary care physician: Efrain Frye MD Admitting clinician: Haylee Clemens Attending physician on admission: Haylee Clemens Consults: 07/28/18 03:44 Consult to Palliative Care Routine Consulting Provider: Elis Yeager Reason for Consultation: goals of care Notified:: Service Spoke with:: SHIRLEY Date Notified:: 07/28/18 Time Notified:: 03:53 Ordering Provider: AGREENE - Admitting Diagnosis (1) Acute hypoxemic respiratory failure (2) Acute kidney injury (3) COPD with acute exacerbation (4) Hyperkalemia (5) Lactic acidosis (6) Pneumonia (7) Septic shock (8) History of COPD (9) Hyponatremia (10) Hypothyroidism (11) Malnutrition (12) Scoliosis - Diagnosis at Time of (1) Acute hypoxemic respiratory failure Diagnosis: Principal (2) Acute kidney injury Diagnosis: Principal (3) COPD with acute exacerbation Diagnosis: Principal (4) Hyperkalemia Diagnosis: Principal (5) Lactic acidosis Diagnosis: Principal (6) Pneumonia Diagnosis: Principal (7) Septic shock Diagnosis: Principal (8) History of COPD Diagnosis: Secondary (9) Hyponatremia Diagnosis: Principal (10) Hypothyroidism Diagnosis: Secondary (11) Malnutrition Diagnosis: Principal (12) Scoliosis Diagnosis: Secondary - Date and Time Date of admission: 07/28/18 03:41 Date of : 07/29/18 Time of : 16:54 - Summary Details: See summary below Brief History: Patient is a 83-year-old malnourished female with past medical history significant for anemia, oxygen dependent COPD, coronary artery disease, recurrent small bowel obstruction, scoliosis, osteoarthritis, history of shingles. Patient was admitted from 07/19/2018 to 07/26/2018 to the hospital for acute hypoxemic respiratory failure and COPD exacerbation. She was treated with BiPAP steroids breathing treatments and antibiotics and eventually discharged to [place] [facility] on 07/26/2018. She presented to the [place] emergency department today a.m. with severe shortness of breath and hypoxia. EMS placed the patient on BiPAP. Patient arrived severely hypoxemic on 100% oxygen. Emergently intubated by the ED physician and placed on mechanical ventilation. Received Rocephin and azithromycin. Due to concern for healthcare associated pneumonia was antibiotics were changed to vancomycin and Azactam. Chest x-ray showed left lower lobe infiltrate. Patient transferred to [facility] for further evaluation and treatment, due to severe sepsis septic shock and hypoxemic respiratory failure I evaluated the patient in the ICU. She is currently sedated but moves extremities. Currently FiO2 requirement is 70%. Broad-spectrum antibiotics will be continued usual breathing treatments start IV Solu-Medrol 60 mg every 8 hours. Her white count is 33,000 with a lactic acid of 3.6. Overall prognosis is poor given recurrent hospitalization malnourishment and COPD on home oxygen, now with severe respiratory failure kidney injury and septic shock.. I will consult palliative care to address goals of care as the patient has previously expressed wish not to be on life support Result Diagrams: 07/29/18 04:19 07/29/18 04:19 Imaging: CXR LLL pneumonia Hospital Course: Patient is a 83-year-old malnourished female with past medical history significant for anemia, oxygen dependent COPD, coronary artery disease, recurrent small bowel obstruction, scoliosis, osteoarthritis, history of shingles. Patient was admitted from 07/19/2018 to 07/26/2018 to the hospital for acute hypoxemic respiratory failure and COPD exacerbation. She was treated with BiPAP steroids breathing treatments and antibiotics and eventually discharged to [place] [facility] on 07/26/2018. She presented to the [place] emergency department today a.m. with severe shortness of breath and hypoxia. EMS placed the patient on BiPAP. Patient arrived severely hypoxemic on 100% oxygen. Emergently intubated by the ED physician and placed on mechanical ventilation. Received Rocephin and azithromycin. Due to concern for healthcare associated pneumonia was antibiotics were changed to vancomycin and Azactam. Chest x-ray showed left lower lobe infiltrate. Patient transferred to [facility] for further evaluation and treatment, due to severe sepsis septic shock and hypoxemic respiratory failure. I evaluated the patient in the ICU. She is currently sedated but moves extremities. Currently FiO2 requirement is 70%. Broad-spectrum antibiotics will be continued usual breathing treatments start IV Solu-Medrol 60 mg every 8 hours. Her white count is 33,000 with a lactic acid of 3.6. Overall prognosis is poor given recurrent hospitalization malnourishment and COPD on home oxygen, now with severe respiratory failure kidney injury and septic shock.. I will consult palliative care to address goals of care as the patient has previously expressed wish not to be on life support 07/29/18 remains intubated sedated critical WBC count slightly improved to 17, 000. FiO2 requirement has decreased to 40% however PEEP remains at 10. Patient 's overall mentation has improved she wakes up easily follows commands. Daughter is at the bedside. Meeting with palliative care today planning on possible withdrawal however because of the clinical improvement I would recommend wean to extubation and transition to comfort measures if there is further clinical deterioration I had detailed discussion with extended family, family also met with palliative care. According to patient's previous wishes comfort medications were administered and life support was withdrawn. Patient at 1654 on 2018
== END 2018-07-29 23:47 | disposition expired | DRG 871 ==
LOC: PHED 01:55 → PHEDA 03:41 → N03 05:50
PROVIDERS: ADMIT Internal Medicine Critical Care Medicine; ATTEND Internal Medicine Critical Care Medicine
CPT/HCPCS: 36600; 71010; 71045; 74000; 74018; 80053; 80202; 81001; 82805; 82948; 82962; 83605; 83735; 84100; 84134; 84484; 85025; 87040; 87070; 87205; 87641; 93005; 94002; 94640; 94656; 94665; 97161; J0456; J0696; J1170; J1650; J1980; J2060; J2704; J2930; J3010; J3370; J7030; J7050